=== PATIENT | male | born 1930 | race Caucasian/White ===

== ENCOUNTER 2016-07-27 12:48 | Inpatient (IN) | payer OTHER ==
[2016-07-27] VITALS (7 sets, daily range): BP systolic 140–176; BP diastolic 82–93; PULSE 68–94; TEMP 36.7–36.9; O2SAT 94–96; Ht 177.8 cm; Wt 111.2 kg
[~2016-07-27] VITALS: Ht 177.8 cm; Wt 111.2 kg
[~2016-07-27 12:48] MED LIST: ALBINS INH; ALBU1AER9 INH; ALL100 PO; ASPEC81 PO; CLX20 PO; CMD/25 PO; CYAN100T PO; DLCSR120 PO; FRS/40 PO; LEVO75TA PO; PRAM0.129 PO; PRED10TA PO; TIOTCAP INH; TRIA3AER NAE
[2016-07-27] MEDS ORDERED: ALBUTEROL 0.083% NEBU SOLN 3 ML VIAL INH STA (13:31)
[2016-07-27] MEDS ORDERED: METHYLPREDNISOLONE 125 MG VIAL IV STA (13:31)
[2016-07-27] MEDS ORDERED: MONT1TAB3 PO (13:32)
[2016-07-27] MEDS ORDERED: LEVAQUIN 750MG / 150ML D5W IV ONE (13:45)
[2016-07-27 13:58] LABS: BASO % 0.1 %; BASO ABS # 0.01 K/uL (0-0.2); COMPLETE YES; HEMATOCRIT 38.2 % (42-52); IG% 0.1 %; LYMPH % 10.1 %; LYMPH ABS # 0.82 K/uL (1.2-3.4); MEAN CELL VOLUME 93.6 fL (80-100); MEAN CORPUSCULAR HEMOGLOBIN 30.6 pg (25-34); MEAN CORPUSCULAR HGB CONC 32.7 g/dl (32-36); MEAN PLATELET VOLUME 9.9 fL (7.4-10.4); MONO % 15.7 %; PLATELET COUNT 168 K/uL (130-400); RED BLOOD COUNT 4.08 M/uL (4.7-6.1)
[2016-07-27 14:06] LABS: INR 1.9 (0.9-1.1); PARTIAL THROMBOPLASTIN RATIO 1.3; PROTHROMBIN TIME (PATIENT) 20.9 SECONDS (9.0-12.0)
[2016-07-27 14:14] LABS: BUN/CREATININE RATIO 16.1 (10-20); CALCIUM 8.8 mg/dl (8.5-10.1); POTASSIUM 3.9 mmol/L (3.5-5.1)
--- NOTE | 2016-07-27 14:26 | DIAGNOSTIC IMAGING REPORT ---
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 There is no focal pulmonary consolidation. Slightly prominent interstitial markings, likely reflects the AP technique and suboptimal inspiration. The heart is borderline enlarged. There is no overt failure.[ IMPRESSION: 1. 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 Suboptimal inspiration 3. No evidence of focal pulmonary consolidation Electronically signed by: Alfie Crabtree M.D. 07/27/2016 2:24 PM
[2016-07-27] MEDS ORDERED: ALLO100T PO (15:20)
[2016-07-27] MEDS ORDERED: [UNRECOGNIZED DRUG - CODE] NAE (15:20)
[2016-07-27] MEDS ORDERED: CITA40TA12 PO (15:20)
[2016-07-27] MEDS ORDERED: DILT120C67 PO (15:20)
[2016-07-27] MEDS ORDERED: CMD/25 PO (15:20)
[2016-07-27] MEDS ORDERED: PRED-301 PO (15:20)
[2016-07-27] MEDS ORDERED: SPIR25TA PO (15:20)
[2016-07-27] MEDS ORDERED: CYAN500T13 PO (15:33)
[2016-07-27] MEDS ORDERED: LATA0.009 OPB (15:38)
[2016-07-27] MEDS ORDERED: ONDANSETRON INJ 2 MG/ML 2 ML VIAL IV PRN (15:45)
[2016-07-27] MEDS ORDERED: NITROGLYCERIN 0.4 MG SL PER TAB CHARGE SL PRN (15:45)
[2016-07-27] MEDS ORDERED: ASPEC81 PO (16:04)
--- NOTE | 2016-07-27 18:19 | EMERGENCY ROOM VISIT NOTE ---
History Report prepared by Nery: Chanda Julian Under the Supervision of: Dr. Pedro Abbott D.O. First contact with patient: 13:15 Chief Complaint: REFERRED BY DOCTOR Stated Complaint: SENT BY LIZBET SMITH, COPD, HARD TIME BREATHING History of Present Illness The patient is an 86 year old male who presents to the Emergency Room with complaints of worsening shortness of breath for the past 3 days. He has a history of COPD, CHF and asthma. He reports his symptoms started with rhinorrhea , a productive cough and shortness of breath. He uses Symbicort, Spiriva and Albuterol, but states they only provide temporary relief for the shortness of breath. He experienced hemoptysis 3 days ago, but states it has resolved. He saw his primary care provider, Armando Smith PA-C, this morning and was referred here to the ED for evaluation. The patient denies any new swelling in his legs or any recent antibiotic use. He is on daily Warfarin but cannot remember what his last INR was. The patient also denies any headache, change in vision, fevers, nausea, vomiting, diarrhea, pain with urination, and melena. 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 A total of 10 systems reviewed and were otherwise negative. Past Medical & Surgical Medical Problems: (1) Anxiety (2) CKD (chronic kidney disease) stage 3, GFR 30-59 ml/min (3) Colon cancer (4) COPD (chronic obstructive pulmonary disease) (5) Depression (6) Diastolic congestive heart failure (7) Glaucoma (8) Gout (9) Hypothyroidism (10) YOCASTA (obstructive sleep apnea) (11) Paroxysmal atrial fibrillation (12) Restless leg syndrome Surgical Problems: (1) H/O hernia repair (2) History of cardiac cath (3) History of colon resection (4) S/P TKR (total knee replacement) Social History Smoking Status: Never Smoker Alcohol Use: none Drug Use: none Marital Status: Housing Status: lives with family Occupation Status: retired Current/Historical Medications Scheduled Allopurinol (Zyloprim), 100 MG PO DAILY Aspirin (Aspirin EC Low Dose), 81 MG PO DAILY Budesonide/Formoterol Fumarate (Symbicort 160/4.5 Inhaler ), 2 PUFFS INH BID Ciclesonide (Nasal) (Omnaris), 1 SPRAY SHAYAN DAILY Citalopram Hydrobromide (Celexa), 40 MG PO HS Cyanocobalamin (Vitamin B12 500MCG), 500 MCG PO DAILY Diltiazem Hcl Extended Release (Diltiazem Hcl Er), 120 MG PO DAILY Furosemide (Lasix), 40 MG PO DAILY Latanoprost 0.005% Oph (Xalatan 0.005% Oph), 1 DROP OPB HS Levothyroxine Sodium (Synthroid), 75 MCG PO DAILY Montelukast Sodium (Singulair), 10 MG PO DAILY Pramipexole (Mirapex), 0.25 MG PO HS Prednisone (Prednisone), 5 MG PO DAILY Spironolactone (Aldactone), 25 MG PO DAILY Tiotropium [place] (Spiriva Handihaler), 1 CAP INH DAILY Warfarin Sod (Coumadin), 2.5 MG PO DAILY Scheduled PRN Albuterol (Proair Hfa), 2 PUFFS INH QID PRN for SOB/WHEEZING Albuterol 0.083% Soln (Ventolin 0.083% Soln *), 1 AMP INH QID PRN for Shortness of Breath Allergies Coded Allergies: Erythromycin (Verified Allergy, Mild, RASH-Azithromycin & Biaxin OK, ) tolerates azithromycin and clarithromycin as outpatient Lisinopril (Verified Allergy, Mild, itching, 12/03/10) Physical Exam Vital Signs Date Time Temp Pulse Resp B/P Pulse Ox O2 Delivery O2 Flow Rate FiO2 07/27/16 18:12 78 18 146/84 95 07/27/16 17:27 81 07/27/16 16:56 83 18 151/86 95 Room Air 07/27/16 15:25 94 26 161/82 94 Nasal Cannula 3.0 07/27/16 15:20 93 28 161/82 95 3.0 07/27/16 14:15 80 151/81 100 Nebulizer 07/27/16 14:05 99 07/27/16 13:53 78 20 96 Nasal Cannula 2.0 07/27/16 13:20 81 07/27/16 13:05 38.6 80 20 138/83 94 Room Air Physical Exam GENERAL: Patient is alert, sitting up in bed, ill-appearing, well nourished, in mild distress, on nasal canula, dyspneic with conversation, non-toxic EYE EXAM: normal conjunctiva OROPHARYNX: no exudate, no erythema, lips, buccal mucosa, and tongue normal and mucous membranes are moist NECK: supple, no nuchal rigidity, no adenopathy, non-tender, no JVD LUNGS: Poor air movement bilaterally. Normal chest wall mechanics HEART: Tachycardic heart rate, no murmurs, S1 normal and S2 normal ABDOMEN: abdomen soft, non-tender, normo-active bowel sounds, no masses, no rebound or guarding. BACK: Back is symmetrical on inspection and there is no deformity, no midline tenderness, no CVA tenderness. SKIN: no rashes and no bruising UPPER EXTREMITIES: upper extremities are grossly normal. 4 stitches located in right shoulder. LOWER EXTREMITIES: No pitting edema bilaterally. NEURO EXAM: Normal sensorium, cranial nerves II-XII grossly intact, normal speech, no gross weakness of arms, no gross weakness of legs. Gross sensation intact. Medical Decision & Procedures ER Provider Diagnostic Interpretation: This X-Ray was reviewed and interpreted by myself and the radiologist. CHEST ONE VIEW PORTABLE IMPRESSION: 1. 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 Suboptimal inspiration 3. No evidence of focal pulmonary consolidation Electronically signed by: Alfie Crabtree M.D. 07/27/2016 2:24 PM Laboratory Results 07/27/16 13:44 Red Blood Count 4.08, Mean Corpuscular Volume 93.6, Mean Corpuscular Hemoglobin 30.6, Mean Corpuscular Hemoglobin Concent 32.7, Mean Platelet Volume 9.9, Neutrophils (%) (Auto) 74.0, Lymphocytes (%) (Auto) 10.1, Monocytes (%) (Auto) 15.7, Eosinophils (%) (Auto) 0.0, Basophils (%) (Auto) 0.1, Neutrophils # (Auto ) 5.99, Lymphocytes # (Auto) 0.82, Monocytes # (Auto) 1.27, Eosinophils # (Auto ) 0.00, Basophils # (Auto) 0.01 07/27/16 13:44 Test 07/27/16 13:44 White Blood Count 8.10 K/uL (4.8-10.8) Red Blood Count 4.08 M/uL (4.7-6.1) Hemoglobin 12.5 g/dL (14.0-18.0) Hematocrit 38.2 % (42-52) Mean Corpuscular Volume 93.6 fL (80-100) Mean Corpuscular Hemoglobin 30.6 pg (25-34) Mean Corpuscular Hemoglobin Concent 32.7 g/dl (32-36) Platelet Count 168 K/uL (130-400) Mean Platelet Volume 9.9 fL (7.4-10.4) Neutrophils (%) (Auto) 74.0 % Lymphocytes (%) (Auto) 10.1 % Monocytes (%) (Auto) 15.7 % Eosinophils (%) (Auto) 0.0 % Basophils (%) (Auto) 0.1 % Neutrophils # (Auto) 5.99 K/uL (1.4-6.5) Lymphocytes # (Auto) 0.82 K/uL (1.2-3.4) Monocytes # (Auto) 1.27 K/uL (0.11-0.59) Eosinophils # (Auto) 0.00 K/uL (0-0.5) Basophils # (Auto) 0.01 K/uL (0-0.2) RDW Standard Deviation 54.3 fL (36.4-46.3) RDW Coefficient of Variation 15.8 % (11.5-14.5) Immature Granulocyte % (Auto) 0.1 % Immature Granulocyte # (Auto) 0.01 K/uL (0.00-0.02) Prothrombin Time 20.9 SECONDS (9.0-12.0) Prothromb Time International Ratio 1.9 (0.9-1.1) Activated Partial Thromboplast Time 34.4 SECONDS (21.0-31.0) Partial Thromboplastin Ratio 1.3 Anion Gap 10.0 mmol/L (3-11) Est Creatinine Clear Calc Drug Dose 32.0 ml/min Estimated GFR () 33.5 Estimated GFR (Non- 28.9 BUN/Creatinine Ratio 16.1 (10-20) Calcium Level 8.8 mg/dl (8.5-10.1) Total Bilirubin 0.5 mg/dl (0.2-1) Aspartate Amino Transf (AST/SGOT) 28 U/L (15-37) Alanine Aminotransferase (ALT/SGPT) 21 U/L (12-78) Alkaline Phosphatase 63 U/L (45-117) Troponin I 0.108 ng/ml (0-0.045) Pro-B-Type Natriuretic Peptide 4094 pg/ml (0-1800) Total Protein 6.4 gm/dl (6.4-8.2) Albumin 3.2 gm/dl (3.4-5.0) Globulin 3.2 gm/dl (2.5-4.0) Albumin/Globulin Ratio 1.0 (0.9-2) Laboratory results per my review. Medications Administered Medications (Trade) Dose Ordered Sig/Gilma Route Start Time Stop Time Status Last Admin Dose Admin Albuterol Sulfate (Ventolin 0.083% 2.5MG/3ML Neb) 10 mg NOW STAT INH 07/27/16 13:31 07/27/16 13:34 DC 07/27/16 13:53 10 MG Methylprednisolone Sodium Succinate (Solu-Medrol IV) 125 mg NOW STAT IV 07/27/16 13:31 07/27/16 13:34 DC 07/27/16 13:45 125 MG Levofloxacin (Levaquin / D5w) 750 mg NOW ONCE IV 07/27/16 13:45 07/27/16 13:46 DC 07/27/16 13:45 750 MG ECG Indication: SOB/dyspnea Rate (beats per minute): 83 Rhythm: sinus rhythm Findings: nonspecific-ST abn (Lateral), other (normal axis) ED Course ED COURSE: Vital signs were reviewed and showed normal vital signs. The patients medical record was reviewed The above diagnostic studies were performed and reviewed. ED treatments and interventions as stated above. 1317: The patient was evaluated in room B5. A complete history and physical examination was performed. 1331: Solu-Medrol 125 mg IV, Albuterol Sulfate 10 mg INH. 1345: Levaquin 750 mg IV. 1457: I discussed the patient's case with Susanna Fernandes PA-C, [facility] Hospitalist. The patient will be further evaluated. 1500: Upon reevaluation, the patient is resting comfortably. I discussed my findings with the patient and he understands and agrees with the treatment plan. Based on the patients age, coexisting illnesses, exam and lab findings the decision to treat as an inpatient was made. The patient remained stable while under my care. The patient will be evaluated for further management. Medical Decision Differential diagnoses includes but is not limited to pneumonia, bronchitis, COPD/Asthma exacerbation, pneumothorax, pulmonary embolism, congestive heart failure, acute coronary syndrome. Patient is an 86-year-old male who presents the ER for shortness of breath referred in by pulmonology. Upon presentation he is slightly dyspneic with conversation. He denies any chest pain. Labs show no significant leukocytosis but a chronic elevation in his creatinine at 2. Troponin was elevated at 0.1. Patient had no chest pain and favor this is likely secondary to his creatinine and stress COPD exacerbation. Chest x-ray shows no focal infiltrate. Patient was given neb treatments along with steroids and antibiotics. He did have some improvement of symptoms. EKG was nondiagnostic. INR was therapeutic at 2. Patient family were updated at bedside and is admitted to internal medicine for COPD exacerbation. Consults Time Called: [phone] Consulting Physician: Susanna Fernandes PA-C, [facility] Returned Call: [phone] I discussed the patient's case with Susanna Fernandes PA-C, [facility] Hospitalist. The patient will be further evaluated. Impression Primary Impression: COPD exacerbation Additional Impressions: Elevated troponin, SOB (shortness of breath), Anemia Scribe Attestation The scribe's documentation has been prepared under my direction and personally reviewed by me in its entirety. I confirm that the note above accurately reflects all work, treatment, procedures, and medical decision making performed by me. Departure Information Dispostion Being Evaluated By Hospitalist Referrals Kuldeep Terrazas M.D. (PCP) Patient Instructions A Signature Page, My [facility]
[2016-07-27] MEDS ORDERED: SYMIN160 INH (18:34)
--- NOTE | 2016-07-27 18:40 | History and Physical ---
History & Physical Date & Time of Service: Jul 27, 2016 at 16:11 Chief Complaint: Sent By Edi Smith, Copd, Hard Time Breathing Primary Care Physician: Kuldeep Terrazas M.D. History of Present Illness Source: patient This is an 86 y/o male with PMHx of COPD on chronic Prednisone, CKD stage 3, PAF on Coumadin, Diastolic CHF on Lasix, Hypothyroidism and other problems as outlined below who presents to the ED c/o worsening SOB x 3 days. Pt reports that 3 days ago he developed worsening SOB that is aggravated with exertion. Sxs are assoc with subj fevers, congestion, sinus pressure, occasional productive cough, wheezing and slightly worsened lower extremity edema. He has been using his inhalers and nebulizer at home with only temporary relief. He was seen by pulmonary, Edi Smith PA-C, this morning who recommended he go to the ED for further evaluation. Pt currently lives at home with his . He uses a walker to assist with ambulation. Pt denies chest pain, palpitations, abd pain, N/V, bowel or bladder issues, calf pain, lightheadedness/dizziness. In the ED, pt is febrile on arrival. He has no leukocytosis. Creat 2.0. Trop 0.108. BNP>4k. INR 1.9. EKG NSR with no significant changes when compared to EKG from 05/06/16. CXR no consolidation. Pt is stable and will be admitted for further evaluation and treatment. Past Medical/Surgical History Medical Problems: (1) Anxiety Status: Chronic (2) CKD (chronic kidney disease) stage 3, GFR 30-59 ml/min Status: Chronic (3) Colon cancer Status: Resolved (4) COPD (chronic obstructive pulmonary disease) Status: Chronic (5) Depression Status: Chronic (6) Diastolic congestive heart failure Status: Chronic (7) Glaucoma Status: Chronic (8) Gout Status: Chronic (9) Hypothyroidism Status: Chronic (10) YOCASTA (obstructive sleep apnea) Status: Chronic (11) Paroxysmal atrial fibrillation Status: Chronic (12) Restless leg syndrome Status: Chronic Surgical Problems: (1) H/O hernia repair Status: Chronic (2) History of cardiac cath Status: Chronic (3) History of colon resection Status: Chronic (4) S/P TKR (total knee replacement) Status: Chronic Family History Father CAD Brother CAD Social History Smoking Status: Never Smoker Alcohol Use: none Drug Use: none Marital Status: Housing status: lives with significant other Occupational Status: retired Immunizations History of Influenza Vaccine: Yes Influenza Vaccine Date: Apr 04, 2013 History of Tetanus Vaccine?: utd History of Pneumococcal: Yes Pneumococcal Date: December 01, 2008 History of Hepatitis B Vaccine: No Multi-Drug Resistant Organisms History of MDRO: No Allergies Coded Allergies: Erythromycin (Verified Allergy, Mild, RASH-Azithromycin & Biaxin OK, ) tolerates azithromycin and clarithromycin as outpatient Lisinopril (Verified Allergy, Mild, itching, 12/03/10) Home Medications Scheduled Allopurinol (Zyloprim), 100 MG PO DAILY Aspirin (Aspirin EC Low Dose), 81 MG PO DAILY Budesonide/Formoterol Fumarate (Symbicort 160/4.5 Inhaler ), 2 PUFFS INH BID Ciclesonide (Nasal) (Omnaris), 1 SPRAY SHAYAN DAILY Citalopram Hydrobromide (Celexa), 40 MG PO HS Cyanocobalamin (Vitamin B12 500MCG), 500 MCG PO DAILY Diltiazem Hcl Extended Release (Diltiazem Hcl Er), 120 MG PO DAILY Furosemide (Lasix), 40 MG PO DAILY Latanoprost 0.005% Oph (Xalatan 0.005% Oph), 1 DROP OPB HS Levothyroxine Sodium (Synthroid), 75 MCG PO DAILY Montelukast Sodium (Singulair), 10 MG PO DAILY Pramipexole (Mirapex), 0.25 MG PO HS Prednisone (Prednisone), 5 MG PO DAILY Spironolactone (Aldactone), 25 MG PO DAILY Tiotropium [place] (Spiriva Handihaler), 1 CAP INH DAILY Warfarin Sod (Coumadin), 2.5 MG PO DAILY Scheduled PRN Albuterol (Proair Hfa), 2 PUFFS INH QID PRN for SOB/WHEEZING Albuterol 0.083% Soln (Ventolin 0.083% Soln *), 1 AMP INH QID PRN for Shortness of Breath Review of Systems Constitutional: + fatigue, + fever (subj), No chills, No sweats, No weakness Eyes: No worsening of vision ENT: + nasal symptoms Respiratory: + cough, + dyspnea on exertion, + hemoptysis (streaks: resolved), + problem reported (sinus pressure), + shortness of breath, + sputum, + wheezing Cardiovascular: + edema (chronic), No chest pain, No claudication, No palpitations Abdomen: No constipation, No diarrhea, No nausea, No pain, No vomiting Musculoskeletal: No calf pain Genitourinary - Male: No dysuria Neurologic: No weakness Psychiatric: No depression symptoms Endocrine: + fatigue Hematologic / Lymphatic: No abnormal bleeding/bruising Integumentary: No new/changing skin lesions Physical Exam Vital Signs Date Time Temp Pulse Resp B/P Pulse Ox O2 Delivery O2 Flow Rate FiO2 07/27/16 15:25 94 26 161/82 94 Nasal Cannula 3.0 07/27/16 15:20 93 28 161/82 95 3.0 07/27/16 14:15 80 151/81 100 Nebulizer 07/27/16 14:05 99 07/27/16 13:53 78 20 96 Nasal Cannula 2.0 07/27/16 13:20 81 07/27/16 13:05 38.6 80 20 138/83 94 Room Air General Appearance: WD/WN, no apparent distress, + obese, + pertinent finding ( Pt is laying in bed with at bedside ) Head: normocephalic, atraumatic Eyes: normal inspection ENT: hearing grossly normal, pharynx normal, + nasal drainage, + pertinent finding (R TM pearly fox; unable to visualize L TM; no tenderness to manipulation of pinna bilat ) Neck: supple Respiratory/Chest: chest non-tender, no accessory muscle use, + wheezing, + pertinent finding (no crackles noted ) Cardiovascular: regular rate, rhythm, no murmur Abdomen/GI: normal bowel sounds, non tender, soft Back: normal inspection Extremities/Musculoskelatal: normal inspection, no calf tenderness, + swelling (3+ pitting edema to bilat LE) Neurologic/Psych: alert, normal mood/affect, oriented x 3 Skin: normal color, warm/dry Diagnostics Laboratory Results Results Past 24 Hours Test 07/27/16 13:44 Range/Units White Blood Count 8.10 4.8-10.8 K/uL Red Blood Count 4.08 4.7-6.1 M/uL Hemoglobin 12.5 14.0-18.0 g/dL Hematocrit 38.2 42-52 % Mean Corpuscular Volume 93.6 80-100 fL Mean Corpuscular Hemoglobin 30.6 25-34 pg Mean Corpuscular Hemoglobin Concent 32.7 32-36 g/dl Platelet Count 168 130-400 K/uL Mean Platelet Volume 9.9 7.4-10.4 fL Neutrophils (%) (Auto) 74.0 % Lymphocytes (%) (Auto) 10.1 % Monocytes (%) (Auto) 15.7 % Eosinophils (%) (Auto) 0.0 % Basophils (%) (Auto) 0.1 % Neutrophils # (Auto) 5.99 1.4-6.5 K/uL Lymphocytes # (Auto) 0.82 1.2-3.4 K/uL Monocytes # (Auto) 1.27 0.11-0.59 K/uL Eosinophils # (Auto) 0.00 0-0.5 K/uL Basophils # (Auto) 0.01 0-0.2 K/uL RDW Standard Deviation 54.3 36.4-46.3 fL RDW Coefficient of Variation 15.8 11.5-14.5 % Immature Granulocyte % (Auto) 0.1 % Immature Granulocyte # (Auto) 0.01 0.00-0.02 K/uL Prothrombin Time 20.9 9.0-12.0 SECONDS Prothromb Time International Ratio 1.9 0.9-1.1 Activated Partial Thromboplast Time 34.4 21.0-31.0 SECONDS Partial Thromboplastin Ratio 1.3 Sodium Level 144 136-145 mmol/L Potassium Level 3.9 3.5-5.1 mmol/L Chloride Level 108 98-107 mmol/L Carbon Dioxide Level 26 21-32 mmol/L Anion Gap 10.0 3-11 mmol/L Blood Urea Nitrogen 32 7-18 mg/dl Creatinine 2.00 0.60-1.40 mg/dl Est Creatinine Clear Calc Drug Dose 32.0 ml/min Estimated GFR () 33.5 Estimated GFR (Non- 28.9 BUN/Creatinine Ratio 16.1 10-20 Random Glucose 115 70-99 mg/dl Calcium Level 8.8 8.5-10.1 mg/dl Total Bilirubin 0.5 0.2-1 mg/dl Aspartate Amino Transf (AST/SGOT) 28 15-37 U/L Alanine Aminotransferase (ALT/SGPT) 21 12-78 U/L Alkaline Phosphatase 63 45-117 U/L Troponin I 0.108 0-0.045 ng/ml Pro-B-Type Natriuretic Peptide 4094 0-1800 pg/ml Total Protein 6.4 6.4-8.2 gm/dl Albumin 3.2 3.4-5.0 gm/dl Globulin 3.2 2.5-4.0 gm/dl Albumin/Globulin Ratio 1.0 0.9-2 Diagnostic Radiology CXR IMPRESSION: 1. 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 Suboptimal inspiration 3. No evidence of focal pulmonary consolidation EKG EKG: NSR at 83 bpm with T wave depression in lateral leads; when compared to EKG from 05/06/15 NSR has replaced Afib Impression Assessment and Plan COPD EXACERBATION pt presents with worsening SOB assoc with subj fevers, congestion, sinus pressure and wheezing; h/o COPD on chronic prednisone -admit to telemetry -exacerbation triggered by possible viral infection vs. bronchitis -febrile on arrival with no leukocytosis -CXR no consolidation -check influenza PCR -hold PO steroids and start Solu-Medrol and duonebs -if flu is negative consider continuing abx -consult pulmonary, Edi Smith PA-C-pending input -monitor ELEVATED TROPONIN -low suspicion for cardiac etiology -troponin 0.108; continue to monitor with Vale q 6 hrs -EKG: NSR at [address] depression in lateral leads which was present on previous EKG; no evidence of acute ischemia; repeat in AM -pt currently denies acute cardiac sxs -monitor on telemetry DIASTOLIC CHF -bilat LE edema; BNP>4k; pt did not take Lasix this morning -echo 05/06/15: EF 55-60%; normal study -cont Lasix -monitor I&Os CKD STAGE 3 -creatinine is at baseline around 2 -cont to monitor with daily prp and avoid nephrotoxic agents when able PAROXYSMAL AFIB -EKG: NSR -cont Coumadin and Diltiazem -INR 2.2; cont to monitor daily -pt denies palpitations HYPOTHYROIDISM -cont levothyroxine GOUT -cont allopurinol ANXIETY/DEPRESSION -stable -cont Celexa DVT PROPHYLAXIS -cont Coumadin CODE STATUS -DNR per discussion with patient upon admission DISPO -Pt seen in collaboration with Dr. Sheriff. Please see his addendum for further details. Thanks! Advanced Directives Existing Advance Directive: No Existing Living Will: No Existing Power of Loader Technician: Yes VTE Prophylaxis VTE Risk Assessment Done? Y/N: Yes Risk Level: High Note ATTENDING ADDENDUM Record reviewed. Patient interviewed and examined. Care coordinated with Susanna Davies PA-C. Please refer to her documentation for patient's history. Briefly, 86 YO male with steroid-dependent COPD with cough, wheezing, increased dyspnea. EXAM: General- no acute distress VS- as noted Neck- + JVD Lungs- scattered rhonchi, diffuse wheezing Heart- distant heart sounds, RRR, no gallop appreciated Abdomen- obese, soft, nontender Extremities- 3+ pretibial edema with chronic venous stasis changes Neuro- alert DATA: Lab studies as noted. ASSESSMENT AND PLAN: Exacerbation of COPD secondary to influenza A with acute hypoxic respiratory failure. Rx with oseltamivir, steroids, nebs, supplemental O2. Please refer to TREVER Davies's documentation for discussion of other issues. Joel Sheriff MD .
[2016-07-27] MEDS: ACETAMINOPHEN 325 MG TAB PO PRN (19:54)
[2016-07-27 20:19] LABS: INFLUENZA B PCR Neg for Influ B (NEG)
[2016-07-27 20:24] LABS: INFLUENZA A PCR POS for Influ A (NEG)
[2016-07-27 21:08] LABS: MANUAL MICROSCOPIC REQUIRED? NO; REVIEW REQ? YES; URINE APPEARANCE CLOUDY (CLEAR); URINE BILIRUBIN NEG (NEG); URINE COLOR YELLOW; URINE EPITHELIAL CELL AUTO >30 /lpf (0-5); URINE NITRITE NEG (NEG); URINE SPECIFIC GRAVITY 1.019 (1.000-1.030); UROBILINOGEN NEG (NEG)
[2016-07-27] MEDS: OSELTAMIVIR PHOSPHATE SUSP 30 MG/5 ML UDP PO SCH (21:22)
[2016-07-27] MEDS: METHYLPREDNISOLONE IV 20 MG in SYRINGE 0 ML IV SCH (21:24)
[2016-07-27] MEDS: BUDESONIDE/FORMOTEROL FUMARATE 160/4.5 60 PUFFS/INHALER INH SCH (21:31)
[2016-07-27] MEDS: PRAMIPEXOLE DIHYDROCHLORIDE 0.25MG TAB PO SCH (21:32)
[2016-07-27] MEDS: LATANOPROST 0.005% OP SOLN 2.5 ML BTL OPB SCH (21:32)
[2016-07-27] MEDS: CITALOPRAM 40 MG TAB PO SCH (21:32)
[2016-07-27] MEDS: ALBUT/IPRATROP 3MG/0.5MG NEB 3 ML VIAL INH SCH (21:45)
[2016-07-27] MEDS ORDERED: METHYLPREDNISOLONE IV 40 MG in SYRINGE 0 ML IV SCH (22:00)
[2016-07-28] VITALS (16 sets, daily range): BP systolic 98–162; BP diastolic 63–80; PULSE 65–101; TEMP 36.5–36.8; O2SAT 93–97
[2016-07-28] MEDS: ALBUT/IPRATROP 3MG/0.5MG NEB 3 ML VIAL INH SCH ×5 (02:00→19:57)
[2016-07-28] MEDS: LEVOTHYROXINE 75 MCG TAB PO SCH (05:52)
[2016-07-28] MEDS: METHYLPREDNISOLONE IV 20 MG in SYRINGE 0 ML IV SCH ×3 (05:52→21:18)
[2016-07-28 07:00] LABS: HEMATOCRIT 36.5 % (42-52); MEAN CELL VOLUME 93.1 fL (80-100); MEAN CORPUSCULAR HEMOGLOBIN 30.6 pg (25-34); MEAN CORPUSCULAR HGB CONC 32.9 g/dl (32-36); MEAN PLATELET VOLUME 10.8 fL (7.4-10.4); PLATELET COUNT 171 K/uL (130-400); RED BLOOD COUNT 3.92 M/uL (4.7-6.1); WHITE BLOOD COUNT 6.24 K/uL (4.8-10.8)
[2016-07-28 07:08] LABS: INR 1.9 (0.9-1.1); PROTHROMBIN TIME (PATIENT) 20.4 SECONDS (9.0-12.0)
[2016-07-28] MEDS: SPIRONOLACTONE 25 MG TAB PO SCH (07:21)
[2016-07-28] MEDS: ASPIRIN 81 MG ECTAB PO SCH (07:21)
[2016-07-28] MEDS: BUDESONIDE/FORMOTEROL FUMARATE 160/4.5 60 PUFFS/INHALER INH SCH ×2 (07:21→20:24)
[2016-07-28] MEDS: FUROSEMIDE 40 MG TAB PO SCH (07:22)
[2016-07-28] MEDS: MONTELUKAST SOD 10 MG TAB PO SCH (07:22)
[2016-07-28] MEDS: CYANOCOBALAMIN 500 MCG TAB (VIT B-12) PO SCH (07:22)
[2016-07-28] MEDS: ALLOPURINOL 100 MG TAB PO SCH (07:22)
[2016-07-28] MEDS: DILTIAZEM HCL 120 MG EXT REL CAP PO SCH (07:23)
[2016-07-28] MEDS: ACETAMINOPHEN 325 MG TAB PO PRN ×2 (07:32→21:17)
[2016-07-28] MEDS: OSELTAMIVIR PHOSPHATE SUSP 30 MG/5 ML UDP PO SCH ×2 (07:32→20:27)
[2016-07-28 07:36] LABS: BUN/CREATININE RATIO 16.7 (10-20); CALCIUM 8.8 mg/dl (8.5-10.1); CREATININE 2.1 mg/dl (0.60-1.40)
[2016-07-28 07:44] LABS: CKMB/CK RATIO 2.6 (0-3.0)
--- NOTE | 2016-07-28 13:12 | CONSULTATION REPORT ---
DATE OF CONSULTATION: 07/28/2016 REASON FOR CONSULTATION: COPD exacerbation. 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 When I saw him in the office yesterday for an acute visit, the patient reports that he had 3- to 4-day history of increased cough. Cough was productive of a yellow mucus as well as having some streaking of blood in the mucus. He had increased wheezing. He was very short of breath. He stated that he was not able to walk across his living room without becoming significantly short of breath. He had some chest heaviness and tightness. He had some chest discomfort with coughing. He had no pleuritic chest pain. He did have fever with a maximum temp of 102 at home. He also had chills present. He did not have anything that sounds like rigors. He would get a little bit lightheaded when he first stood up. No headache, no dizziness, no muscle aches or body aches. He had no GI symptoms. No nausea or vomiting, no indigestion or heartburn. His appetite was diminished but otherwise, no changes. He had no abdominal pain. He did not have any difficulty with diarrhea. He reports that he did not really have any increased swelling in his extremities. He states that prior to this, he was doing well and in his normal state. His last hospitalization was May 2015 for COPD exacerbation. He was using his inhaler and nebulizer at home. He states that his nebulizer would provide him some brief relief but it was not lasting as long as it typically did. After seeing him in the office, I did contact Dr. Zelaya, hospitalist, for [facility] and Dr. Zelaya was concerned about sepsis due to fever, so he advised routing to the ER. The patient was routed to the ER and then subsequently admitted to [facility]. When I saw the patient today, he reports that his shortness of breath has improved since yesterday. He is not as short of breath as he was. He feels that he is able to continue to cough the mucus up. He is getting thick yellow mucus up. He did show a specimen to me. He has not noticed any blood in the mucus he has coughed up today. He denies any chest pain today. He denies any other difficulty or problem. In reviewing the chart when he arrived at the Emergency Room yesterday, a troponin was done and was found to be elevated at 0.108. Subsequent one was 0.115, today was 0.086. He was also found to be positive for influenza A, negative for influenza B. Chest x-ray was unremarkable. In reviewing the records, the patient did receive 750 mg of Levaquin and Solu-Medrol in the Emergency Room as well as a nebulizer treatment. Currently he is on Solu-Medrol 20 mg q. 8 hours, Symbicort 160/4.5, DuoNeb 4 times daily routinely and Tamiflu for influenza. When I saw the patient, he is sitting in chair at bedside. Denied any other concerns or problems at this time. In reviewing his note, the patient is someone who we did treat for Aspergillus with last bronchoscopy showing Aspergillus in 2014. He was treated with voriconazole at that time. 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 The patient has undergone multiple bronchoscopies as well. PAST MEDICAL HISTORY: Includes Aspergillus, COPD, questionable history of MAC, chronic kidney disease stage III, paroxysmal atrial fibrillation, diastolic CHF, hypothyroidism, anxiety, colon cancer, depression, glaucoma, gout, obstructive sleep apnea, restless legs syndrome. PAST SURGICAL HISTORY: Includes hernia, cardiac catheterization, colon resection, total knee replacement and recent lesion removal from the right shoulder. FAMILY HISTORY: Includes coronary artery disease. SOCIAL HISTORY: Negative for tobacco, negative for alcohol. The patient is retired and lives with his . HOME MEDICATIONS: Include allopurinol 100 mg daily, aspirin 81 mg daily, Symbicort 160/4.5 two puffs twice daily, Omnaris 1 spray nasally daily, Celexa 40 mg nightly, cyanocobalamin 500 mcg p.o. daily, diltiazem extended release 120 mg daily, furosemide 40 mg daily, Xalatan eye drops 1 drop at bedtime, Synthroid 75 mcg daily, Singulair 10 mg daily, Mirapex 0.25 mg daily, prednisone 5 mg daily, Aldactone 25 mg daily, Spiriva 1 cap via inhaler daily, Coumadin as directed, ProAir 2 puffs q. 4 hours as needed, albuterol via nebulizer q. 4-6 hours as needed. ALLERGIES: ERYTHROMYCIN but he does tolerate azithromycin and clarithromycin as an outpatient AND LISINOPRIL WHICH CAUSES MILD ITCHING. REVIEW OF SYSTEMS: As above, otherwise unremarkable. PHYSICAL EXAMINATION: GENERAL: The patient is an 86-year-old male in no acute distress, no apparent respiratory distress, sitting at bedside in his chair. He is alert and oriented x3. Mood is good. Affect is good. VITAL SIGNS: Temp 36.7, pulse 82, respirations 18, blood pressure is 162/72, pulse ox 96% on 2 liters. HEENT: Normocephalic, atraumatic. Pupils equal, round and reactive to light and accommodation. Extraocular movements are intact. [place] moist gingival and buccal mucosa. NECK: Thick, supple. No mass. No adenopathy. No bruit noted. No JVD noted. CHEST: The patient did have coarse wheezes in the right upper lobe which did clear with cough. He does have decreased breath sounds throughout bilaterally. No other significant wheezing appreciated. Of note, breath sounds today are improved compared to yesterday when I visited him in the office. CARDIOVASCULAR: Regular rate and rhythm. No appreciated murmurs, gallops or rubs. ABDOMEN: Bowel sounds are present. Abdomen is obese, soft, nontender. No guarding, rigidity or organomegaly. EXTREMITIES: There is no erythema. The patient does have +2 edema, which is pitting bilaterally. He does have some chronic stasis changes. There is no cyanosis or clubbing noted. NEUROLOGIC: Cranial nerves II-XII are intact. There is no focal deficit noted. LABORATORY DATA: On the day of consultation shows a white count of 6000, H\T\H 12.0 and 36.5, platelet count 171,000. INR 1.9, BUN 35, creatinine 2.1. CK-MB 7.7, troponin 0.086. Fluid cultures are positive for influenza A, negative for influenza B. Chest x-ray, no evidence of consolidation, mediastinum is widened. There is a little bit of blunting of the costovertebral angle. No appreciated consolidation. IMPRESSION: This is an 86-year-old male who presented to the office yesterday for exacerbation of chronic obstructive pulmonary disease. We sent him to [facility], admitted through the ER and was found to have influenza A. At this point, the patient is showing some slight improvement; however, I would like to do a sputum culture with patient's history of Aspergillus, just to make sure there is not a problem with opportunistic infection. Also would like patient to have a flutter valve and incentive spirometer. Right now he is expectorating the mucus without difficulty. However, if this changes, may want to consider a vibration vest. At this point, I would increase his nebulizer to q. 4 hours while awake and q. 2 hours p.r.n. Continue Solu-Medrol dose as it is. Continue with Tamiflu. We will continue to monitor patient through hospitalization. Thank you for consultation on this patient.
[2016-07-28] MEDS: WARFARIN SOD 2.5 MG TAB PO SCH (16:00)
[2016-07-28] MEDS: PRAMIPEXOLE DIHYDROCHLORIDE 0.25MG TAB PO SCH (20:25)
[2016-07-28] MEDS: LATANOPROST 0.005% OP SOLN 2.5 ML BTL OPB SCH (20:25)
[2016-07-28] MEDS: CITALOPRAM 40 MG TAB PO SCH (20:25)
--- NOTE | 2016-07-28 21:44 | Progress Note ---
Medicine Progress Note Date & Time of Visit: Jul 28, 2016 at 16:20 . Subjective Generalized weakness / malaise. No fever since admission. Persistent wheezing and congested cough. No chest pain. No nausea, vomiting, diarrhea. . Objective Last 8 Hrs Date Time Temp Pulse Resp B/P Pulse Ox O2 Delivery O2 Flow Rate FiO2 07/28/16 20:00 Nasal Cannula 2.0 07/28/16 19:55 68 18 96 Nasal Cannula 2.0 07/28/16 19:14 36.8 101 18 152/74 97 07/28/16 16:00 94 Nasal Cannula 2.0 07/28/16 15:32 36.8 66 18 152/74 97 07/28/16 15:31 67 14 95 Room Air Physical Exam: General- no acute distress Neck- + JVD Lungs- scattered rhonchi, diffuse wheezing Heart- RRR, no gallop appreciated Abdomen- obese, + BS, soft, nontender Extremities- 2-3+ pretibial edema with chronic venous stasis changes Neuro- alert . Laboratory Results: Last 24 Hours Test 07/28/16 06:39 White Blood Count 6.24 K/uL Red Blood Count 3.92 M/uL Hemoglobin 12.0 g/dL Hematocrit 36.5 % Mean Corpuscular Volume 93.1 fL Mean Corpuscular Hemoglobin 30.6 pg Mean Corpuscular Hemoglobin Concent 32.9 g/dl RDW Standard Deviation 52.9 fL RDW Coefficient of Variation 15.5 % Platelet Count 171 K/uL Mean Platelet Volume 10.8 fL Prothrombin Time 20.4 SECONDS Prothromb Time International Ratio 1.9 Sodium Level 138 mmol/L Potassium Level 4.0 mmol/L Chloride Level 106 mmol/L Carbon Dioxide Level 21 mmol/L Anion Gap 11.0 mmol/L Blood Urea Nitrogen 35 mg/dl Creatinine 2.10 mg/dl Est Creatinine Clear Calc Drug Dose 30.4 ml/min Estimated GFR () 31.6 Estimated GFR (Non- 27.3 BUN/Creatinine Ratio 16.7 Random Glucose 150 mg/dl Calcium Level 8.8 mg/dl Total Creatine Kinase 299 U/L Creatine Kinase MB 7.7 ng/ml Creatine Kinase MB Ratio 2.6 Troponin I 0.086 ng/ml Date/Time Source Procedure Growth Status 07/28/16 00:00 Sputum Expectorated Sputum Gram Stain Pending Received 07/28/16 00:00 Sputum Expectorated Sputum Sputum Culture Pending Received Assessment & Plan EXACERBATION OF COPD Secondary to influenza. Continue nebs. Continue steroids- taper as able to usual maintenance dose of prednisone. INFLUENZA A Rx with oseltamivir x 5 days. SLEEP APNEA HISTORY PAROXYSMAL ATRIAL FIBRILLATION Continue diltiazem and warfarin. CHRONIC LEFT VENTRICULAR DIASTOLIC HEART FAILURE Compensated. Continue furosemide and spironolactone. CKD III Baseline creatinine 2 - 2.2 (Apr 2016). Creatinine 2.0 day of admission. Creatinine today = 2.1 Follow. HYPOTHYROIDISM Continue levothyroxine. VTE PROPHYLAXIS Continue warfarin. DISPOSITION Expected discharge to home. Medical follow-up with Dr. Terrazas. Pulmonary follow-up with Edi Smith PA-C. . Current Inpatient Medications: Current Inpatient Medications Medications (Trade) Dose Ordered Sig/Gilma Route Start Time Stop Time Status Last Admin Dose Admin Acetaminophen (Tylenol Tab) 650 mg Q4H PRN PO 07/27/16 15:45 08/26/16 15:44 07/28/16 21:17 650 MG Ondansetron HCl (Zofran Inj) 4 mg Q6H PRN IV 07/27/16 15:45 08/26/16 15:44 Nitroglycerin (Nitrostat Tab) 0.4 mg UD PRN SL 07/27/16 15:45 08/26/16 15:44 Albuterol/ Ipratropium (Duoneb) 3 ml QIDR INH 07/27/16 16:00 08/26/16 15:59 07/28/16 19:57 3 ML Allopurinol (Zyloprim Tab) 100 mg DAILY PO 07/28/16 09:00 08/27/16 08:59 07/28/16 07:22 100 MG Aspirin (Ecotrin Tab) 81 mg DAILY PO 07/28/16 09:00 08/27/16 08:59 07/28/16 07:21 81 MG Budesonide/ Formoterol Fumarate (Symbicort 160/ 4.5 Inh) 2 puffs BID INH 07/27/16 21:00 08/26/16 20:59 07/28/16 20:24 2 PUFFS Citalopram Hydrobromide (celeXA TAB) 40 mg HS PO 07/27/16 21:00 08/26/16 20:59 07/28/16 20:25 40 MG Cyanocobalamin (Vitamin B-12 Tab) 500 mcg DAILY PO 07/28/16 09:00 08/27/16 08:59 07/28/16 07:22 500 MCG Diltiazem HCl (TIAzac CAP) 120 mg DAILY PO 07/28/16 09:00 08/27/16 08:59 07/28/16 07:23 120 MG Furosemide (Lasix tab) 40 mg DAILY PO 07/28/16 09:00 08/27/16 08:59 07/28/16 07:22 40 MG Latanoprost (Xalatan Oph Soln) 1 drops HS OPB 07/27/16 21:00 08/26/16 20:59 07/28/16 20:25 1 DROPS Levothyroxine Sodium (Synthroid Tab) 75 mcg DAILYBB PO 07/28/16 06:00 08/27/16 06:59 07/28/16 05:52 75 MCG Montelukast Sodium (Singulair Tab) 10 mg DAILY PO 07/28/16 09:00 08/27/16 08:59 07/28/16 07:22 10 MG Pramipexole Dihydrochloride (miraPEX TAB) 0.25 mg HS PO 07/27/16 21:00 08/26/16 20:59 07/28/16 20:25 0.25 MG Spironolactone (Aldactone Tab) 25 mg DAILY PO 07/28/16 09:00 08/27/16 08:59 07/28/16 07:21 25 MG Warfarin Sodium (Coumadin Tab) 2.5 mg DAILY@1600 PO 07/28/16 16:00 08/27/16 15:59 07/28/16 16:00 2.5 MG Miscellaneous Information (Order Awaiting Action) 1 ea QS N/A 07/28/16 00:00 08/27/16 00:00 Oseltamivir Phosphate 30 mg 30 mg BID PO 07/27/16 21:00 08/01/16 09:01 07/28/16 20:27 30 MG Methylprednisolone Sodium Succinate/ Syringe (Solu-Medrol IV/ Syringe) 0.32 ml @ 1.5 mls/min Q8 IV 07/27/16 22:00 08/26/16 21:59 07/28/16 21:18 1.5 MLS/MIN
[2016-07-28] MEDS ORDERED: COUGH DROP (SUGAR FREE) LOZ 24 LOZ/1 BOX ONE (22:27)
[2016-07-28] MEDS ORDERED: NURSING DECISION MEDICATION ORDER SCH (22:30)
[2016-07-28] MEDS ORDERED: COUGH DROP (SUGAR FREE) LOZ 24 LOZ/1 BOX PO PRN (22:45)
[2016-07-29] VITALS (12 sets, daily range): BP systolic 153–164; BP diastolic 71–90; PULSE 64–77; TEMP 36.4–36.8; O2SAT 93–98
[2016-07-29] MEDS ORDERED: ZOLPIDEM TARTRATE 5 MG TAB PO PRN
[2016-07-29] MEDS: ZOLPIDEM TARTRATE 5 MG TAB PO PRN (00:41)
[2016-07-29] MEDS: METHYLPREDNISOLONE IV 20 MG in SYRINGE 0 ML IV SCH ×3 (05:36→20:56)
[2016-07-29] MEDS: LEVOTHYROXINE 75 MCG TAB PO SCH (05:36)
[2016-07-29] MEDS: ALBUT/IPRATROP 3MG/0.5MG NEB 3 ML VIAL INH SCH ×5 (05:52→20:30)
[2016-07-29 07:16] LABS: HEMATOCRIT 35.6 % (42-52); MEAN CELL VOLUME 92.5 fL (80-100); MEAN CORPUSCULAR HEMOGLOBIN 30.4 pg (25-34); MEAN CORPUSCULAR HGB CONC 32.9 g/dl (32-36); MEAN PLATELET VOLUME 11.5 fL (7.4-10.4); PLATELET COUNT 181 K/uL (130-400); RED BLOOD COUNT 3.85 M/uL (4.7-6.1); WHITE BLOOD COUNT 10.81 K/uL (4.8-10.8)
[2016-07-29 07:24] LABS: PROTHROMBIN TIME (PATIENT) 56.7 SECONDS (9.0-12.0)
[2016-07-29] MEDS: ALLOPURINOL 100 MG TAB PO SCH (07:30)
[2016-07-29] MEDS: ASPIRIN 81 MG ECTAB PO SCH (07:30)
[2016-07-29] MEDS: MONTELUKAST SOD 10 MG TAB PO SCH (07:30)
[2016-07-29] MEDS: CYANOCOBALAMIN 500 MCG TAB (VIT B-12) PO SCH (07:31)
[2016-07-29] MEDS: DILTIAZEM HCL 120 MG EXT REL CAP PO SCH (07:31)
[2016-07-29] MEDS: FUROSEMIDE 40 MG TAB PO SCH (07:32)
[2016-07-29] MEDS: SPIRONOLACTONE 25 MG TAB PO SCH (07:32)
[2016-07-29] MEDS: BUDESONIDE/FORMOTEROL FUMARATE 160/4.5 60 PUFFS/INHALER INH SCH ×2 (07:33→20:54)
[2016-07-29] MEDS: OSELTAMIVIR PHOSPHATE SUSP 30 MG/5 ML UDP PO SCH ×2 (07:33→21:08)
[2016-07-29 07:39] LABS: CALCIUM 8.7 mg/dl (8.5-10.1); CREATININE 2.2 mg/dl (0.60-1.40); POTASSIUM 4.4 mmol/L (3.5-5.1)
[2016-07-29] MEDS ORDERED: VANCOMYCIN INJ 1,500 MG in SODIUM CHLORIDE 0.9% 250ML 250 ML IV SCH (09:00)
--- NOTE | 2016-07-29 12:23 | PULMONARY PROGRESS NOTE ---
DATE: 07/29/2016 DATE: 07/29/2016. TIME: 11:15 a.m. SUBJECTIVE: The patient states he is feeling somewhat better. He coughed up a large quantity of yellow sputum yesterday. He states he felt better after that. It was still on the dark side. He is not as short of breath as when he first came in. At rest he is fairly comfortable but with any exertion he is still short of breath. The patient commented that he usually wears CPAP at home. He has not been getting his CPAP here in the hospital. He is not complaining currently of chills, fevers or sweats. OBJECTIVE: GENERAL: The patient looked comfortable at rest. He is moderately obese with a BMI of 35.2. SKIN: Dry and scaly. NECK: Palpation of the neck reveals no lymph nodes. HEART: Heart rate was 74 per minute. Blood pressure 164/82. LUNGS: Black reveal severely diminished breath sounds bilaterally. Faint end expiratory wheezes are noted. Respiratory rate 18 breaths per minute. Oxygen saturation 95% on 2 liters. ABDOMEN: Markedly obese. Bowel sounds were present. He has a large scar from prior surgery. There was no tenderness to palpation or masses. EXTREMITIES: Showed no cyanosis or clubbing. There is mild nonpitting edema noted. LABORATORY DATA: CBC today shows a white count of 10.81. Hemoglobin 11.7. Platelets 181,000. INR today is elevated at 5. This was a dramatic increase from yesterday when it was 1.9. Electrolytes show sodium 138, potassium 4.4, chloride 105, bicarb 21. The BUN was 46 with a creatinine of 2.2. The prior BUN was 35 and prior creatinine was 2.1. His troponin levels were elevated on admission at 0.115 and yesterday 2.086. ASSESSMENTS: 1. Acute influenza A. 2. Chronic obstructive pulmonary disease exacerbation secondary to #1. 3. Obstructive sleep apnea. 4. Renal insufficiency. COMMENTS AND RECOMMENDATIONS: We will start the patient's CPAP. I reviewed the office records. I could not find a definitive note. He had a sleep study done at [facility] back in 2009 and it appears that the pressure at that time was 7. I will order a pressure of 8 cm for now. It would seem like he likely would need more than that based upon his body habitus. The patient's INR prolonged significantly today. This will need to be followed very closely.
--- NOTE | 2016-07-29 19:58 | Progress Note ---
Medicine Progress Note Date & Time of Visit: Jul 29, 2016 at 13:45 . Subjective No fever. Persistent congested cough and wheezing, but a little better. No chest pain. No nausea or vomiting. No diarrhea. . Objective Last 8 Hrs Date Time Temp Pulse Resp B/P Pulse Ox O2 Delivery O2 Flow Rate FiO2 07/29/16 16:28 75 18 95 Nasal Cannula 2.0 07/29/16 16:10 93 Room Air 07/29/16 15:08 36.4 69 16 153/71 93 Nasal Cannula 2.0 Physical Exam: General- no acute distress Neck- + JVD Lungs- scattered rhonchi, diffuse moderate wheezing Heart- RRR Abdomen- obese, + BS, soft, nontender Extremities- 2-3+ pretibial edema with chronic venous stasis changes Neuro- alert . Laboratory Results: Last 24 Hours Test 07/29/16 06:35 White Blood Count 10.81 K/uL Red Blood Count 3.85 M/uL Hemoglobin 11.7 g/dL Hematocrit 35.6 % Mean Corpuscular Volume 92.5 fL Mean Corpuscular Hemoglobin 30.4 pg Mean Corpuscular Hemoglobin Concent 32.9 g/dl RDW Standard Deviation 52.1 fL RDW Coefficient of Variation 15.4 % Platelet Count 181 K/uL Mean Platelet Volume 11.5 fL Nucleated RBC Absolute Count (auto) 0.04 K/uL Nucleated Red Blood Cells % 0.3 % Prothrombin Time 56.7 SECONDS Prothromb Time International Ratio 5.0 Sodium Level 138 mmol/L Potassium Level 4.4 mmol/L Chloride Level 105 mmol/L Carbon Dioxide Level 21 mmol/L Anion Gap 12.0 mmol/L Blood Urea Nitrogen 46 mg/dl Creatinine 2.20 mg/dl Est Creatinine Clear Calc Drug Dose 29.0 ml/min Estimated GFR () 29.9 Estimated GFR (Non- 25.8 BUN/Creatinine Ratio 21.0 Random Glucose 149 mg/dl Calcium Level 8.7 mg/dl Assessment & Plan EXACERBATION OF COPD Secondary to influenza. Continue nebs. Continue steroids- taper as able to usual maintenance dose of prednisone. INFLUENZA A Rx with oseltamivir x 5 days. SLEEP APNEA CPAP @ night. HISTORY PAROXYSMAL ATRIAL FIBRILLATION Continue diltiazem and warfarin. INR has risen to 5. Vitamin K 2.5 mg x 1. CHRONIC LEFT VENTRICULAR DIASTOLIC HEART FAILURE Compensated. Continue furosemide and spironolactone. CKD III Baseline creatinine 2 - 2.2 (Apr 2016). Creatinine 2.0 day of admission. Creatinine today = 2.2 Follow. HYPOTHYROIDISM Continue levothyroxine. VTE PROPHYLAXIS Continue warfarin. DISPOSITION Expected discharge to home. Medical follow-up with Dr. Terrazas. Pulmonary follow-up with Edi Smith PA-C. . Current Inpatient Medications: Current Inpatient Medications Medications (Trade) Dose Ordered Sig/Gilma Route Start Time Stop Time Status Last Admin Dose Admin Acetaminophen (Tylenol Tab) 650 mg Q4H PRN PO 07/27/16 15:45 08/26/16 15:44 07/28/16 21:17 650 MG Ondansetron HCl (Zofran Inj) 4 mg Q6H PRN IV 07/27/16 15:45 08/26/16 15:44 Nitroglycerin (Nitrostat Tab) 0.4 mg UD PRN SL 07/27/16 15:45 08/26/16 15:44 Albuterol/ Ipratropium (Duoneb) 3 ml QIDR INH 07/27/16 16:00 08/26/16 15:59 07/29/16 16:25 3 ML Allopurinol (Zyloprim Tab) 100 mg DAILY PO 07/28/16 09:00 08/27/16 08:59 07/29/16 07:30 100 MG Aspirin (Ecotrin Tab) 81 mg DAILY PO 07/28/16 09:00 08/27/16 08:59 07/29/16 07:30 81 MG Budesonide/ Formoterol Fumarate (Symbicort 160/ 4.5 Inh) 2 puffs BID INH 07/27/16 21:00 08/26/16 20:59 07/29/16 07:33 2 PUFFS Citalopram Hydrobromide (celeXA TAB) 40 mg HS PO 07/27/16 21:00 08/26/16 20:59 07/28/16 20:25 40 MG Cyanocobalamin (Vitamin B-12 Tab) 500 mcg DAILY PO 07/28/16 09:00 08/27/16 08:59 07/29/16 07:31 500 MCG Diltiazem HCl (TIAzac CAP) 120 mg DAILY PO 07/28/16 09:00 08/27/16 08:59 07/29/16 07:31 120 MG Furosemide (Lasix tab) 40 mg DAILY PO 07/28/16 09:00 08/27/16 08:59 07/29/16 07:32 40 MG Latanoprost (Xalatan Oph Soln) 1 drops HS OPB 07/27/16 21:00 08/26/16 20:59 07/28/16 20:25 1 DROPS Levothyroxine Sodium (Synthroid Tab) 75 mcg DAILYBB PO 07/28/16 06:00 08/27/16 06:59 07/29/16 05:36 75 MCG Montelukast Sodium (Singulair Tab) 10 mg DAILY PO 07/28/16 09:00 08/27/16 08:59 07/29/16 07:30 10 MG Pramipexole Dihydrochloride (miraPEX TAB) 0.25 mg HS PO 07/27/16 21:00 08/26/16 20:59 07/28/16 20:25 0.25 MG Spironolactone (Aldactone Tab) 25 mg DAILY PO 07/28/16 09:00 08/27/16 08:59 07/29/16 07:32 25 MG Warfarin Sodium (Coumadin Tab) 2.5 mg DAILY@1600 PO 07/28/16 16:00 08/27/16 15:59 Future Hold 07/28/16 16:00 2.5 MG Miscellaneous Information (Order Awaiting Action) 1 ea QS N/A 07/28/16 00:00 08/27/16 00:00 Oseltamivir Phosphate 30 mg 30 mg BID PO 07/27/16 21:00 08/01/16 09:01 07/29/16 07:33 30 MG Methylprednisolone Sodium Succinate/ Syringe (Solu-Medrol IV/ Syringe) 0.32 ml @ 1.5 mls/min Q8 IV 07/27/16 22:00 08/26/16 21:59 07/29/16 13:19 1.5 MLS/MIN Menthol (Nice Berna) 1 berna PRN PRN PO 07/28/16 22:45 08/27/16 22:44 Zolpidem Tartrate 5 mg 5 mg HS PRN PO 07/29/16 00:00 08/28/16 00:00 07/29/16 00:41 5 MG Pantoprazole Sodium/Syringe (Protonix Inj/ Syringe) 10 ml @ 5 mls/min NOW ONCE IV 07/29/16 20:00 07/29/16 20:01 UNV Pantoprazole Sodium (Protonix Tab) 40 mg QAM PO 07/30/16 08:00 08/29/16 07:59 UNV Al Hydrox/Mg Hydrox/Simethicone (Maalox Max Susp) 15 ml Q6H PRN PO 07/29/16 20:00 08/28/16 19:59 UNV
[2016-07-29] MEDS ORDERED: PHYTONADIONE 5 MG TAB PO ONE (20:00)
[2016-07-29] MEDS ORDERED: ALUMINUM/MAGNESIUM/SIMETH (MAALOX MAX) 30 ML UDC PO PRN (20:00)
[2016-07-29] MEDS ORDERED: PANTOprazole INJ 40 MG in SYRINGE 0 ML IV ONE (20:15)
[2016-07-29] MEDS: CITALOPRAM 40 MG TAB PO SCH (20:54)
[2016-07-29] MEDS: LATANOPROST 0.005% OP SOLN 2.5 ML BTL OPB SCH (20:55)
[2016-07-29] MEDS: PRAMIPEXOLE DIHYDROCHLORIDE 0.25MG TAB PO SCH (20:56)
[2016-07-30] VITALS (11 sets, daily range): BP systolic 156–191; BP diastolic 79–102; PULSE 60–77; TEMP 36.3–36.9; O2SAT 93–96
[2016-07-30] MEDS: METHYLPREDNISOLONE IV 20 MG in SYRINGE 0 ML IV SCH ×3 (06:23→20:47)
[2016-07-30] MEDS: LEVOTHYROXINE 75 MCG TAB PO SCH (06:24)
[2016-07-30 06:54] LABS: INR 2.5 (0.9-1.1); PROTHROMBIN TIME (PATIENT) 28.1 SECONDS (9.0-12.0)
[2016-07-30] MEDS: ALBUT/IPRATROP 3MG/0.5MG NEB 3 ML VIAL INH SCH ×4 (07:06→19:11)
[2016-07-30 07:07] LABS: BUN/CREATININE RATIO 24.4 (10-20); CALCIUM 8.6 mg/dl (8.5-10.1); CREATININE 2.3 mg/dl (0.60-1.40); POTASSIUM 4.2 mmol/L (3.5-5.1)
[2016-07-30] MEDS: SPIRONOLACTONE 25 MG TAB PO SCH (08:44)
[2016-07-30] MEDS: CYANOCOBALAMIN 500 MCG TAB (VIT B-12) PO SCH (08:44)
[2016-07-30] MEDS: ALLOPURINOL 100 MG TAB PO SCH (08:44)
[2016-07-30] MEDS: DILTIAZEM HCL 120 MG EXT REL CAP PO SCH (08:44)
[2016-07-30] MEDS: PANTOprazole SOD 40 MG TAB PO SCH (08:44)
[2016-07-30] MEDS: ASPIRIN 81 MG ECTAB PO SCH (08:44)
[2016-07-30] MEDS: MONTELUKAST SOD 10 MG TAB PO SCH (08:44)
[2016-07-30] MEDS: BUDESONIDE/FORMOTEROL FUMARATE 160/4.5 60 PUFFS/INHALER INH SCH ×2 (08:46→20:48)
[2016-07-30] MEDS: OSELTAMIVIR PHOSPHATE SUSP 30 MG/5 ML UDP PO SCH ×2 (08:50→20:47)
--- NOTE | 2016-07-30 09:05 | Progress Note ---
Medicine Progress Note Date & Time of Visit: Jul 30, 2016 at 08:20 . Subjective No fever. Cough somewhat better. Dyspneic on exertion- worse than baseline. No chest pain. No nausea, vomiting, diarrhea. . Objective Last 8 Hrs Date Time Temp Pulse Resp B/P Pulse Ox O2 Delivery O2 Flow Rate FiO2 07/30/16 08:17 36.3 62 20 191/102 96 Room Air 07/30/16 07:06 60 18 94 Room Air Physical Exam: General- no acute distress Neck- + JVD Lungs- scattered rhonchi, diffuse moderate wheezing Heart- RRR Abdomen- obese, + BS, soft, nontender Extremities- 2-3+ pretibial edema with chronic venous stasis changes Neuro- alert Skin- incision right shoulder from excision of skin Ca with running nylon sutures; incision well-healed without erythema or drainage . Laboratory Results: Last 24 Hours Test 07/30/16 05:58 Prothrombin Time 28.1 SECONDS Prothromb Time International Ratio 2.5 Sodium Level 136 mmol/L Potassium Level 4.2 mmol/L Chloride Level 104 mmol/L Carbon Dioxide Level 22 mmol/L Anion Gap 10.0 mmol/L Blood Urea Nitrogen 56 mg/dl Creatinine 2.30 mg/dl Est Creatinine Clear Calc Drug Dose 27.7 ml/min Estimated GFR () 28.3 Estimated GFR (Non- 24.4 BUN/Creatinine Ratio 24.4 Random Glucose 152 mg/dl Calcium Level 8.6 mg/dl Assessment & Plan EXACERBATION OF COPD Secondary to influenza. Continue nebs. Continue steroids- taper as able to usual maintenance dose of prednisone. INFLUENZA A Rx with oseltamivir x 5 days - today is day # 4 SLEEP APNEA CPAP @ night. HISTORY PAROXYSMAL ATRIAL FIBRILLATION Continue diltiazem and warfarin. INR sekou to 5. Vitamin K 2.5 mg x 1 07/29/16. INR today = 2.5. Warfarin 2.5 mg PO today. CHRONIC LEFT VENTRICULAR DIASTOLIC HEART FAILURE Appeared to be compensated at time of admission. Managed with furosemide and spironolactone. Creatinine elevated today- hold furosemide, check f/u chest x-ray. CKD III Baseline creatinine 2 - 2.2 (Apr 2016). Creatinine 2.0 day of admission. Creatinine today = 2.3 Follow. HYPOTHYROIDISM Continue levothyroxine. S/P EXCISION SKIN CA RIGHT SHOULDER Sutures removed. VTE PROPHYLAXIS Continue warfarin. DISPOSITION Expected discharge to home. Medical follow-up with Dr. Terrazas. Pulmonary follow-up with Edi Smith PA-C. Components of this document were electronically copied and updated from the last documentation created by the undersigned in order to maintain a complete, accurate, and current record. Any portion of this document created by another author, if any, will be attributed to them. I certify that the record accurately reflects the patient's current status and services provided on the date of service. . Current Inpatient Medications: Current Inpatient Medications Medications (Trade) Dose Ordered Sig/Gilma Route Start Time Stop Time Status Last Admin Dose Admin Acetaminophen (Tylenol Tab) 650 mg Q4H PRN PO 07/27/16 15:45 08/26/16 15:44 07/28/16 21:17 650 MG Ondansetron HCl (Zofran Inj) 4 mg Q6H PRN IV 07/27/16 15:45 08/26/16 15:44 Nitroglycerin (Nitrostat Tab) 0.4 mg UD PRN SL 07/27/16 15:45 08/26/16 15:44 Albuterol/ Ipratropium (Duoneb) 3 ml QIDR INH 07/27/16 16:00 08/26/16 15:59 07/30/16 07:06 3 ML Allopurinol (Zyloprim Tab) 100 mg DAILY PO 07/28/16 09:00 08/27/16 08:59 07/30/16 08:44 100 MG Aspirin (Ecotrin Tab) 81 mg DAILY PO 07/28/16 09:00 08/27/16 08:59 07/30/16 08:44 81 MG Budesonide/ Formoterol Fumarate (Symbicort 160/ 4.5 Inh) 2 puffs BID INH 07/27/16 21:00 08/26/16 20:59 07/30/16 08:46 2 PUFFS Citalopram Hydrobromide (celeXA TAB) 40 mg HS PO 07/27/16 21:00 08/26/16 20:59 07/29/16 20:54 40 MG Cyanocobalamin (Vitamin B-12 Tab) 500 mcg DAILY PO 07/28/16 09:00 08/27/16 08:59 07/30/16 08:44 500 MCG Diltiazem HCl (TIAzac CAP) 120 mg DAILY PO 07/28/16 09:00 08/27/16 08:59 07/30/16 08:44 120 MG Furosemide (Lasix tab) 40 mg DAILY PO 07/28/16 09:00 08/27/16 08:59 Future Hold 07/29/16 07:32 40 MG Latanoprost (Xalatan Oph Soln) 1 drops HS OPB 07/27/16 21:00 08/26/16 20:59 07/29/16 20:55 1 DROPS Levothyroxine Sodium (Synthroid Tab) 75 mcg DAILYBB PO 07/28/16 06:00 08/27/16 06:59 07/30/16 06:24 75 MCG Montelukast Sodium (Singulair Tab) 10 mg DAILY PO 07/28/16 09:00 08/27/16 08:59 07/30/16 08:44 10 MG Pramipexole Dihydrochloride (miraPEX TAB) 0.25 mg HS PO 07/27/16 21:00 08/26/16 20:59 07/29/16 20:56 0.25 MG Spironolactone (Aldactone Tab) 25 mg DAILY PO 07/28/16 09:00 08/27/16 08:59 07/30/16 08:44 25 MG Warfarin Sodium (Coumadin Tab) 2.5 mg DAILY@1600 PO 07/28/16 16:00 08/27/16 15:59 Future Hold 07/28/16 16:00 2.5 MG Miscellaneous Information (Order Awaiting Action) 1 ea QS N/A 07/28/16 00:00 08/27/16 00:00 07/30/16 08:00 1 EA Oseltamivir Phosphate 30 mg 30 mg BID PO 07/27/16 21:00 08/01/16 09:01 07/30/16 08:50 30 MG Methylprednisolone Sodium Succinate/ Syringe (Solu-Medrol IV/ Syringe) 0.32 ml @ 1.5 mls/min Q8 IV 07/27/16 22:00 08/26/16 21:59 07/30/16 06:23 1.5 MLS/MIN Menthol (Nice Berna) 1 berna PRN PRN PO 07/28/16 22:45 08/27/16 22:44 Zolpidem Tartrate (Ambien Tab) 5 mg HS PRN PO 07/29/16 00:00 08/28/16 00:00 07/29/16 00:41 5 MG Pantoprazole Sodium (Protonix Tab) 40 mg QAM PO 07/30/16 08:00 08/29/16 07:59 07/30/16 08:44 40 MG Al Hydrox/Mg Hydrox/Simethicone (Maalox Max Susp) 15 ml Q6H PRN PO 07/29/16 20:00 08/28/16 19:59
--- NOTE | 2016-07-30 10:12 | DIAGNOSTIC IMAGING REPORT ---
CHEST 2 VIEWS ROUTINE CLINICAL HISTORY: SOB, CHF, COPD, influenza dyspnea COMPARISON STUDY: 07/27/2016 FINDINGS: Right-sided aortic arch. This time at this time is unremarkable. Lungs are considered clear. Chronic pleural thickening right base laterally. Minimal chronic basilar atelectatic change. IMPRESSION: Improved exam with no acute process noted on the current study. Right-sided aortic arch. Electronically signed by: Ben Peguero M.D. 07/30/2016 10:10 AM
--- NOTE | 2016-07-30 15:54 | Pulmonology Progress Note ---
Pulmonary Progress Note Date of Service Jul 30, 2016. Attending Cable Subjective Continues to be dyspneic with activity such as ambulating to the restroom. Cough productive of "stringy" yellow sputum. No hemoptysis today. Using flutter and bedside spirometry. Appetite in-tact. Denies pain. Objective 86-yo male hospital day # 4 admitted with Influenza A / Exacerbation of COPD. 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 MAC on bronchoscopy 2008, respiratory aspergillus culture, colon cancer, YOCASTA/RLS, right aortic arch. History notable for 1-2x annual admission with COPD exacerbation last 04/2015. Patient admitted to [facility] 07/27/16 through the ED with 3-day h/o increased dyspnea , productive cough, fever, and blood tinged sputum. ON admission WBC: 8.10, Hgb/ Hct: 12.5/35.2, plts; 168, INR: 1.9, BNP: 4100, troponin elevated. PCR: + Influenza A. Sputum: Normal enrike. CXR 07/27/16: no infiltrate or acute process. He was treated with IV steroid, Tamiflu (day #4) and bronchodilators. 07/29/16 he reported he was able expectorate more sputum with relief. Today: - Afebrile, Hypertensive - O2: 94-96% RA - PAP overnight (CPAP 8cm H20) - Using flutter and i-Spirometer: [id number] Physical Exam: Constitutional: WDWN obese elderly male sitting in chair at bedside. No acute distress. Head: + facial symmetry. EOMi, PERRLA. NO injection Respiratory: non-labored respirations. Bilateral rale with shallow respirations. No wheeze. No cough on exam CV: RRR, no MRG appreciated. Warm peripherally with venous stasis changes lower extremities bilaterally GI: Protuberant soft abdomen. Non-tender with active bowel sounds. MSK/Extremities: ++ bilateral lower extremity edema. Integumentary: diffuse actinic skin changes Neurologic: A&O. Good data recall. Able to follow complex commands. Assessment & Plan 86-yo male with moderate/severe COPD presents with exacerbation + Influenza A: He is responding well to current regimen of bronchodilators, IV steroid and 4/ 10 oseltamivir. Start guaifenesin to aid mobilization of sticky sputum. Reassess tomorrow if continued improvement transition to PO steroid. Will continue to follow along. Data Medications: Current Inpatient Medications Medications (Trade) Dose Ordered Sig/Gilma Route Start Time Stop Time Status Last Admin Dose Admin Acetaminophen (Tylenol Tab) 650 mg Q4H PRN PO 07/27/16 15:45 08/26/16 15:44 07/28/16 21:17 650 MG Ondansetron HCl (Zofran Inj) 4 mg Q6H PRN IV 07/27/16 15:45 08/26/16 15:44 Nitroglycerin (Nitrostat Tab) 0.4 mg UD PRN SL 07/27/16 15:45 08/26/16 15:44 Albuterol/ Ipratropium (Duoneb) 3 ml QIDR INH 07/27/16 16:00 08/26/16 15:59 07/30/16 15:27 3 ML Allopurinol (Zyloprim Tab) 100 mg DAILY PO 07/28/16 09:00 08/27/16 08:59 07/30/16 08:44 100 MG Aspirin (Ecotrin Tab) 81 mg DAILY PO 07/28/16 09:00 08/27/16 08:59 07/30/16 08:44 81 MG Budesonide/ Formoterol Fumarate (Symbicort 160/ 4.5 Inh) 2 puffs BID INH 07/27/16 21:00 08/26/16 20:59 07/30/16 08:46 2 PUFFS Citalopram Hydrobromide (celeXA TAB) 40 mg HS PO 07/27/16 21:00 08/26/16 20:59 07/29/16 20:54 40 MG Cyanocobalamin (Vitamin B-12 Tab) 500 mcg DAILY PO 07/28/16 09:00 08/27/16 08:59 07/30/16 08:44 500 MCG Diltiazem HCl (TIAzac CAP) 120 mg DAILY PO 07/28/16 09:00 08/27/16 08:59 07/30/16 08:44 120 MG Furosemide (Lasix tab) 40 mg DAILY PO 07/28/16 09:00 08/27/16 08:59 Future Hold 07/29/16 07:32 40 MG Latanoprost (Xalatan Oph Soln) 1 drops HS OPB 07/27/16 21:00 08/26/16 20:59 07/29/16 20:55 1 DROPS Levothyroxine Sodium (Synthroid Tab) 75 mcg DAILYBB PO 07/28/16 06:00 08/27/16 06:59 07/30/16 06:24 75 MCG Montelukast Sodium (Singulair Tab) 10 mg DAILY PO 07/28/16 09:00 08/27/16 08:59 07/30/16 08:44 10 MG Pramipexole Dihydrochloride (miraPEX TAB) 0.25 mg HS PO 07/27/16 21:00 08/26/16 20:59 07/29/16 20:56 0.25 MG Spironolactone (Aldactone Tab) 25 mg DAILY PO 07/28/16 09:00 08/27/16 08:59 07/30/16 08:44 25 MG Warfarin Sodium (Coumadin Tab) 2.5 mg DAILY@1600 PO 07/28/16 16:00 08/27/16 15:59 Future hold 07/28/16 16:00 2.5 MG Miscellaneous Information (Order Awaiting Action) 1 ea QS N/A 07/28/16 00:00 08/27/16 00:00 07/30/16 13:30 1 EA Oseltamivir Phosphate 30 mg 30 mg BID PO 07/27/16 21:00 08/01/16 09:01 07/30/16 08:50 30 MG Methylprednisolone Sodium Succinate/ Syringe (Solu-Medrol IV/ Syringe) 0.32 ml @ 1.5 mls/min Q8 IV 07/27/16 22:00 08/26/16 21:59 07/30/16 13:30 1.5 MLS/MIN Menthol (Nice Berna) 1 berna PRN PRN PO 07/28/16 22:45 08/27/16 22:44 Zolpidem Tartrate (Ambien Tab) 5 mg HS PRN PO 07/29/16 00:00 08/28/16 00:00 07/29/16 00:41 5 MG Pantoprazole Sodium (Protonix Tab) 40 mg QAM PO 07/30/16 08:00 08/29/16 07:59 07/30/16 08:44 40 MG Al Hydrox/Mg Hydrox/Simethicone (Maalox Max Susp) 15 ml Q6H PRN PO 07/29/16 20:00 08/28/16 19:59 I & O: 24-Hour Column 07/30/16 08:00 Intake Total 300 ml Output Total 650 ml Balance -350 ml Vital Signs: Date Time Temp Pulse Resp B/P Pulse Ox O2 Delivery O2 Flow Rate FiO2 07/30/16 15:27 77 18 93 Room Air 07/30/16 11:16 62 18 94 Room Air 07/30/16 09:00 Room Air 07/30/16 08:17 36.3 62 20 191/102 96 Room Air 07/30/16 07:06 60 18 94 Room Air 07/30/16 00:39 96 Room Air 07/30/16 00:20 36.9 62 20 156/79 94 BiPAP 07/29/16 22:42 64 95 07/29/16 22:00 96 Room Air 07/29/16 20:33 74 18 96 Room Air 07/29/16 16:28 75 18 95 Nasal Cannula 2.0 07/29/16 16:10 93 Room Air Laboratory Results: Last 24 Hours Test 07/30/16 05:58 Prothrombin Time 28.1 SECONDS Prothromb Time International Ratio 2.5 Sodium Level 136 mmol/L Potassium Level 4.2 mmol/L Chloride Level 104 mmol/L Carbon Dioxide Level 22 mmol/L Anion Gap 10.0 mmol/L Blood Urea Nitrogen 56 mg/dl Creatinine 2.30 mg/dl Est Creatinine Clear Calc Drug Dose 27.7 ml/min Estimated GFR () 28.3 Estimated GFR (Non- 24.4 BUN/Creatinine Ratio 24.4 Random Glucose 152 mg/dl Calcium Level 8.6 mg/dl
[2016-07-30] MEDS: WARFARIN SOD 2.5 MG TAB PO SCH (16:05)
[2016-07-30] MEDS: HydrALAZINE 10 MG TAB PO PRN (18:21)
[2016-07-30] MEDS: CITALOPRAM 40 MG TAB PO SCH (20:47)
[2016-07-30] MEDS: PRAMIPEXOLE DIHYDROCHLORIDE 0.25MG TAB PO SCH (20:47)
[2016-07-30] MEDS: LATANOPROST 0.005% OP SOLN 2.5 ML BTL OPB SCH (20:48)
[2016-07-30] MEDS: ZOLPIDEM TARTRATE 5 MG TAB PO PRN (21:49)
[2016-07-30] MEDS: GUAIFENESIN 600 MG TABCR PO SCH (21:49)
[2016-07-31] VITALS (10 sets, daily range): BP systolic 139–180; BP diastolic 66–96; PULSE 56–82; TEMP 36.3–36.6; O2SAT 92–96
[2016-07-31 06:11] LABS: HEMATOCRIT 33.5 % (42-52); MEAN CORPUSCULAR HEMOGLOBIN 30.8 pg (25-34); MEAN CORPUSCULAR HGB CONC 33.4 g/dl (32-36); MEAN PLATELET VOLUME 10.6 fL (7.4-10.4); PLATELET COUNT 160 K/uL (130-400); RED BLOOD COUNT 3.64 M/uL (4.7-6.1); WHITE BLOOD COUNT 10.18 K/uL (4.8-10.8)
[2016-07-31] MEDS: ALBUT/IPRATROP 3MG/0.5MG NEB 3 ML VIAL INH SCH ×3 (06:14→19:41)
[2016-07-31 06:31] LABS: INR 1.4 (0.9-1.1); PROTHROMBIN TIME (PATIENT) 15.7 SECONDS (9.0-12.0)
[2016-07-31 06:44] LABS: BUN/CREATININE RATIO 25.6 (10-20); CALCIUM 8.9 mg/dl (8.5-10.1); CREATININE 2.2 mg/dl (0.60-1.40); POTASSIUM 4.8 mmol/L (3.5-5.1)
[2016-07-31] MEDS: METHYLPREDNISOLONE IV 20 MG in SYRINGE 0 ML IV SCH ×3 (07:03→21:44)
[2016-07-31] MEDS: LEVOTHYROXINE 75 MCG TAB PO SCH (07:03)
[2016-07-31] MEDS: CYANOCOBALAMIN 500 MCG TAB (VIT B-12) PO SCH (09:14)
[2016-07-31] MEDS: HydrALAZINE 10 MG TAB PO PRN ×2 (09:14→18:39)
[2016-07-31] MEDS: MONTELUKAST SOD 10 MG TAB PO SCH (09:14)
[2016-07-31] MEDS: ALLOPURINOL 100 MG TAB PO SCH (09:14)
[2016-07-31] MEDS: ASPIRIN 81 MG ECTAB PO SCH (09:14)
[2016-07-31] MEDS: GUAIFENESIN 600 MG TABCR PO SCH ×2 (09:14→20:40)
[2016-07-31] MEDS: PANTOprazole SOD 40 MG TAB PO SCH (09:15)
[2016-07-31] MEDS: SPIRONOLACTONE 25 MG TAB PO SCH (09:15)
[2016-07-31] MEDS: BUDESONIDE/FORMOTEROL FUMARATE 160/4.5 60 PUFFS/INHALER INH SCH ×2 (09:16→20:36)
[2016-07-31] MEDS: DILTIAZEM HCL 120 MG EXT REL CAP PO SCH (09:16)
[2016-07-31] MEDS: OSELTAMIVIR PHOSPHATE SUSP 30 MG/5 ML UDP PO SCH ×2 (09:20→20:39)
[2016-07-31] MEDS ORDERED: POLYETHYLENE (MIRALAX) 17 GM PACK PO ONE (12:49)
[2016-07-31] MEDS ORDERED: FUROSEMIDE 40 MG TAB PO ONE (12:50)
[2016-07-31] MEDS ORDERED: POLYETHYLENE (MIRALAX) 17 GM PACK PO PRN (13:00)
--- NOTE | 2016-07-31 13:31 | PULMONARY PROGRESS NOTE ---
DATE: 07/31/2016 DATE: 07/31/2016. TIME: 1:10 p.m. SUBJECTIVE: The patient states his breathing is a little better. His cough is still productive, but the mucus is getting nurse charge rn in color. He complains of being unsteady with his gait. He states that he needs help getting to and from the bathroom and he has almost fallen a couple of times. He states he did not have this problem at home. He lives in an apartment with his elderly . He also complains of constipation. He feels bloated. He has not had a bowel movement for about 3 days. OBJECTIVE: The patient was sitting in a chair. He appeared comfortable at rest. He had his lunch tray present. He states he could not really eat anything except the desert because he felt full. He is afebrile. HEAD, EYES, EARS, NOSE, AND THROAT: Mouth exam was unremarkable except for food particles. He has a large neck. No lymph nodes were palpable. HEART: Heart rate is 82 per minute. Blood pressure 165/89. Respiratory rate was 20 breaths per minute. Mild scattered rhonchi were heard bilaterally. In spite of this, he was having fairly good oxygen saturation 94% on room air. The abdomen is markedly obese. Bowel sounds were heard. There was no tenderness to palpation or definite mass. SKIN EXAMINATION: Shows diffuse skin scaling which is chronic. +2 edema was noted in both lower extremities. Chest x-ray done yesterday reports an improved x-ray with no acute findings seen. He does have a right-sided aortic arch. There was some chronic pleural thickening at the right. LABORATORY DATA: White count today is 10.18. Hemoglobin 11.2. Platelets 160,000. INR is 1.4. Sodium 137, potassium 4.8, chloride 104, bicarb 24. BUN is 56 with a creatinine of 2.2. It is notable that his BUN had been 35 on admission. IMPRESSIONS: 1. Influenza A. 2. Chronic obstructive pulmonary disease exacerbation. 3. Obstructive sleep apnea. 4. Obesity. 5. Renal insufficiency. COMMENTS AND RECOMMENDATIONS: The patient's respiratory status is improved. I do not believe he is ready for discharge as he states he cannot ambulate without nearly falling. I believe the methylprednisolone could be changed to prednisone. We get physical therapy involved to try and strengthen him up. I would order something for constipation. Case discussed with Dr. Sheriff. PAULINAD
[2016-07-31] MEDS ORDERED: WARFARIN SOD 5 MG TAB PO SCH (16:00)
--- NOTE | 2016-07-31 19:45 | Progress Note ---
Medicine Progress Note Date & Time of Visit: Jul 31, 2016 at 15:00 . Subjective No fever. Cough a little better. Dyspneic with minimal exertion. No chest pain. Constipated. Poor appetite. . Objective Last 8 Hrs Date Time Temp Pulse Resp B/P Pulse Ox O2 Delivery O2 Flow Rate FiO2 07/31/16 17:46 164/90 07/31/16 17:17 Room Air 07/31/16 15:32 36.3 78 20 180/93 92 Room Air 07/31/16 12:15 Room Air Physical Exam: General- chronically ill-appearing; no acute distress Neck- + JVD Lungs- scattered rhonchi, diffuse mild to moderate wheezing Heart- RRR Abdomen- obese, + BS, soft, nontender Extremities- 2-3+ pretibial edema with chronic venous stasis changes Neuro- alert . Laboratory Results: Last 24 Hours Test 07/31/16 05:48 White Blood Count 10.18 K/uL Red Blood Count 3.64 M/uL Hemoglobin 11.2 g/dL Hematocrit 33.5 % Mean Corpuscular Volume 92.0 fL Mean Corpuscular Hemoglobin 30.8 pg Mean Corpuscular Hemoglobin Concent 33.4 g/dl RDW Standard Deviation 51.1 fL RDW Coefficient of Variation 15.0 % Platelet Count 160 K/uL Mean Platelet Volume 10.6 fL Nucleated RBC Absolute Count (auto) 0.02 K/uL Nucleated Red Blood Cells % 0.2 % Prothrombin Time 15.7 SECONDS Prothromb Time International Ratio 1.4 Sodium Level 137 mmol/L Potassium Level 4.8 mmol/L Chloride Level 104 mmol/L Carbon Dioxide Level 24 mmol/L Anion Gap 9.0 mmol/L Blood Urea Nitrogen 56 mg/dl Creatinine 2.20 mg/dl Est Creatinine Clear Calc Drug Dose 29.0 ml/min Estimated GFR () 29.9 Estimated GFR (Non- 25.8 BUN/Creatinine Ratio 25.6 Random Glucose 130 mg/dl Calcium Level 8.9 mg/dl Assessment & Plan EXACERBATION OF COPD Secondary to influenza. Continue nebs. Received IV methylprednisolone which was tapered; transition to PO prednisone. INFLUENZA A Rx with oseltamivir x 5 days - today is day # 5 SLEEP APNEA CPAP @ night. HISTORY PAROXYSMAL ATRIAL FIBRILLATION Continue diltiazem and warfarin. CHRONIC LEFT VENTRICULAR DIASTOLIC HEART FAILURE Appeared to be compensated at time of admission. Managed with furosemide and spironolactone. Creatinine elevated 07/30/16- held furosemide. No pulmonary edema on f/u chest x-ray. Furosemide resumed. CKD III Baseline creatinine 2 - 2.2 (Apr 2016). Creatinine 2.0 day of admission. Creatinine 07/30/16 2.3. Furosemide held. Creatinine today = 2.2 Furosemide resumed. Follow. HYPOTHYROIDISM Continue levothyroxine. S/P EXCISION SKIN CA RIGHT SHOULDER Sutures removed 07/30/16. CONSTIPATION Bowel regimen as ordered. VTE PROPHYLAXIS Continue warfarin. DISPOSITION Expected discharge to home. Medical follow-up with Dr. Terrazas. Pulmonary follow-up with Edi Smith PA-C. Components of this document were electronically copied and updated from the last documentation created by the undersigned in order to maintain a complete, accurate, and current record. Any portion of this document created by another author, if any, will be attributed to them. I certify that the record accurately reflects the patient's current status and services provided on the date of service. Daughter called and given update by phone. . Current Inpatient Medications: Current Inpatient Medications Medications (Trade) Dose Ordered Sig/Gilma Route Start Time Stop Time Status Last Admin Dose Admin Acetaminophen (Tylenol Tab) 650 mg Q4H PRN PO 07/27/16 15:45 08/26/16 15:44 07/28/16 21:17 650 MG Ondansetron HCl (Zofran Inj) 4 mg Q6H PRN IV 07/27/16 15:45 08/26/16 15:44 Nitroglycerin (Nitrostat Tab) 0.4 mg UD PRN SL 07/27/16 15:45 08/26/16 15:44 Albuterol/ Ipratropium (Duoneb) 3 ml QIDR INH 07/27/16 16:00 08/26/16 15:59 07/31/16 11:21 3 ML Allopurinol (Zyloprim Tab) 100 mg DAILY PO 07/28/16 09:00 08/27/16 08:59 07/31/16 09:14 100 MG Aspirin (Ecotrin Tab) 81 mg DAILY PO 07/28/16 09:00 08/27/16 08:59 07/31/16 09:14 81 MG Budesonide/ Formoterol Fumarate (Symbicort 160/ 4.5 Inh) 2 puffs BID INH 07/27/16 21:00 08/26/16 20:59 07/31/16 09:16 2 PUFFS Citalopram Hydrobromide (celeXA TAB) 40 mg HS PO 07/27/16 21:00 08/26/16 20:59 07/30/16 20:47 40 MG Cyanocobalamin (Vitamin B-12 Tab) 500 mcg DAILY PO 07/28/16 09:00 08/27/16 08:59 07/31/16 09:14 500 MCG Diltiazem HCl (TIAzac CAP) 120 mg DAILY PO 07/28/16 09:00 08/27/16 08:59 07/31/16 09:16 120 MG Furosemide (Lasix tab) 40 mg DAILY PO 07/28/16 09:00 08/27/16 08:59 Future hold 07/29/16 07:32 40 MG Latanoprost (Xalatan Oph Soln) 1 drops HS OPB 07/27/16 21:00 08/26/16 20:59 07/30/16 20:48 1 DROPS Levothyroxine Sodium (Synthroid Tab) 75 mcg DAILYBB PO 07/28/16 06:00 08/27/16 06:59 07/31/16 07:03 75 MCG Montelukast Sodium (Singulair Tab) 10 mg DAILY PO 07/28/16 09:00 08/27/16 08:59 07/31/16 09:14 10 MG Pramipexole Dihydrochloride (miraPEX TAB) 0.25 mg HS PO 07/27/16 21:00 08/26/16 20:59 07/30/16 20:47 0.25 MG Spironolactone (Aldactone Tab) 25 mg DAILY PO 07/28/16 09:00 08/27/16 08:59 07/31/16 09:15 25 MG Warfarin Sodium (Coumadin Tab) 2.5 mg DAILY@1600 PO 07/28/16 16:00 08/27/16 15:59 Future Hold 07/30/16 16:05 2.5 MG Miscellaneous Information (Order Awaiting Action) 1 ea QS N/A 07/28/16 00:00 08/27/16 00:00 07/31/16 15:48 1 EA Oseltamivir Phosphate 30 mg 30 mg BID PO 07/27/16 21:00 08/01/16 09:01 07/31/16 09:20 30 MG Methylprednisolone Sodium Succinate/ Syringe (Solu-Medrol IV/ Syringe) 0.32 ml @ 1.5 mls/min Q8 IV 07/27/16 22:00 08/26/16 21:59 07/31/16 15:49 1.5 MLS/MIN Menthol (Nice Berna) 1 berna PRN PRN PO 07/28/16 22:45 08/27/16 22:44 Zolpidem Tartrate (Ambien Tab) 5 mg HS PRN PO 07/29/16 00:00 08/28/16 00:00 07/30/16 21:49 5 MG Pantoprazole Sodium (Protonix Tab) 40 mg QAM PO 07/30/16 08:00 08/29/16 07:59 07/31/16 09:15 40 MG Al Hydrox/Mg Hydrox/Simethicone (Maalox Max Susp) 15 ml Q6H PRN PO 07/29/16 20:00 08/28/16 19:59 Guaifenesin (Mucinex Contr Rel Tab) 600 mg Q12 PO 07/30/16 21:00 08/03/16 20:59 07/31/16 09:14 600 MG Hydralazine HCl (Apresoline Tab) 10 mg Q6H PRN PO 07/30/16 17:00 08/29/16 16:59 07/31/16 18:39 10 MG Polyethylene (Miralax Powder Packet) 17 gm BID PRN PO 07/31/16 13:00 08/30/16 12:59
[2016-07-31] MEDS: DOCUSATE SODIUM/SENNA 50/8.6MG TAB PO SCH (20:38)
[2016-07-31] MEDS: CITALOPRAM 40 MG TAB PO SCH (20:40)
[2016-07-31] MEDS: LATANOPROST 0.005% OP SOLN 2.5 ML BTL OPB SCH (20:40)
[2016-07-31] MEDS: PRAMIPEXOLE DIHYDROCHLORIDE 0.25MG TAB PO SCH (20:40)
[2016-07-31] MEDS: ZOLPIDEM TARTRATE 5 MG TAB PO PRN (23:29)
[2016-08-01] VITALS (10 sets, daily range): BP systolic 178–208; BP diastolic 90–106; PULSE 59–67; TEMP 34.7–36.4; O2SAT 90–99
[2016-08-01] MEDS: LEVOTHYROXINE 75 MCG TAB PO SCH (05:58)
[2016-08-01 06:04] LABS: HEMATOCRIT 33.5 % (42-52); MEAN CELL VOLUME 90.1 fL (80-100); MEAN CORPUSCULAR HEMOGLOBIN 30.4 pg (25-34); MEAN CORPUSCULAR HGB CONC 33.7 g/dl (32-36); MEAN PLATELET VOLUME 11.1 fL (7.4-10.4); PLATELET COUNT 182 K/uL (130-400); RED BLOOD COUNT 3.72 M/uL (4.7-6.1); WHITE BLOOD COUNT 11.74 K/uL (4.8-10.8)
[2016-08-01 06:11] LABS: INR 1.4 (0.9-1.1); PROTHROMBIN TIME (PATIENT) 15.6 SECONDS (9.0-12.0)
[2016-08-01 06:40] LABS: BUN/CREATININE RATIO 28.2 (10-20); CALCIUM 8.8 mg/dl (8.5-10.1); POTASSIUM 4.9 mmol/L (3.5-5.1)
[2016-08-01] MEDS: ALBUT/IPRATROP 3MG/0.5MG NEB 3 ML VIAL INH SCH ×4 (07:17→19:40)
[2016-08-01] MEDS: MONTELUKAST SOD 10 MG TAB PO SCH (08:26)
[2016-08-01] MEDS: ALLOPURINOL 100 MG TAB PO SCH (08:27)
[2016-08-01] MEDS: DILTIAZEM HCL 120 MG EXT REL CAP PO SCH (08:27)
[2016-08-01] MEDS: SPIRONOLACTONE 25 MG TAB PO SCH (08:27)
[2016-08-01] MEDS: ASPIRIN 81 MG ECTAB PO SCH (08:27)
[2016-08-01] MEDS: DOCUSATE SODIUM/SENNA 50/8.6MG TAB PO SCH ×2 (08:27→19:45)
[2016-08-01] MEDS: CYANOCOBALAMIN 500 MCG TAB (VIT B-12) PO SCH (08:27)
[2016-08-01] MEDS: GUAIFENESIN 600 MG TABCR PO SCH ×2 (08:27→21:19)
[2016-08-01] MEDS: PANTOprazole SOD 40 MG TAB PO SCH (08:27)
[2016-08-01] MEDS: FUROSEMIDE 40 MG TAB PO SCH (08:28)
[2016-08-01] MEDS: BUDESONIDE/FORMOTEROL FUMARATE 160/4.5 60 PUFFS/INHALER INH SCH ×2 (08:29→19:45)
[2016-08-01] MEDS: OSELTAMIVIR PHOSPHATE SUSP 30 MG/5 ML UDP PO SCH (08:30)
--- NOTE | 2016-08-01 11:02 | Progress Note ---
Medicine Progress Note Date & Time of Visit: Aug 01, 2016 at ~ 10:20 . Subjective No fever. Persistent chest congestion, coughing, wheezing, NAIDU. No chest pain. No nausea or vomiting. Appetite better. Bowel movement yesterday after MiraLax. . Objective Last 8 Hrs Date Time Temp Pulse Resp B/P Pulse Ox O2 Delivery O2 Flow Rate FiO2 08/01/16 08:00 Room Air 08/01/16 07:51 36.4 63 20 178/91 90 08/01/16 07:18 61 18 92 Room Air Physical Exam: General- lying in bed; chronically ill-appearing; no acute distress Neck- + JVD Lungs- scattered rhonchi, diffuse moderate wheezing Heart- RRR Abdomen- obese, + BS, soft, nontender Extremities- 2-3+ pretibial edema with chronic venous stasis changes Neuro- alert . Laboratory Results: Last 24 Hours Test 08/01/16 05:42 White Blood Count 11.74 K/uL Red Blood Count 3.72 M/uL Hemoglobin 11.3 g/dL Hematocrit 33.5 % Mean Corpuscular Volume 90.1 fL Mean Corpuscular Hemoglobin 30.4 pg Mean Corpuscular Hemoglobin Concent 33.7 g/dl RDW Standard Deviation 48.3 fL RDW Coefficient of Variation 14.8 % Platelet Count 182 K/uL Mean Platelet Volume 11.1 fL Prothrombin Time 15.6 SECONDS Prothromb Time International Ratio 1.4 Sodium Level 137 mmol/L Potassium Level 4.9 mmol/L Chloride Level 103 mmol/L Carbon Dioxide Level 25 mmol/L Anion Gap 9.0 mmol/L Blood Urea Nitrogen 56 mg/dl Creatinine 2.00 mg/dl Est Creatinine Clear Calc Drug Dose 31.9 ml/min Estimated GFR () 33.5 Estimated GFR (Non- 28.9 BUN/Creatinine Ratio 28.2 Random Glucose 160 mg/dl Calcium Level 8.8 mg/dl Assessment & Plan EXACERBATION OF COPD Secondary to influenza. Continue nebs. Received IV methylprednisolone which was tapered; transition to PO prednisone. Receiving prednisone 40 mg PO daily; taper as tolerated to chronic maintenance dose of 5 mg daily. INFLUENZA A Treated with oseltamivir x 5 days. SLEEP APNEA Continue CPAP @ night. HISTORY PAROXYSMAL ATRIAL FIBRILLATION Continue diltiazem and warfarin. CHRONIC LEFT VENTRICULAR DIASTOLIC HEART FAILURE Appeared to be compensated at time of admission. Managed with furosemide and spironolactone. Creatinine elevated 07/30/16- held furosemide. No pulmonary edema on f/u chest x-ray 07/31. Furosemide resumed. ELEVATED TROPONIN Troponin 0.108, 0.115, 0.086. Total CPK's normal. EKG showed NSR, LVH, NSSTTWA's. Elevated troponin most likely nonspecific elevation due to respiratory illness; doubt acute coronary syndrome. CKD III Baseline creatinine 2 - 2.2 (Apr 2016). Creatinine 2.0 day of admission. Creatinine 07/30/16 2.3. Furosemide held. Creatinine today = 2.0 Furosemide resumed. Follow. HYPOTHYROIDISM Check TSH. Continue levothyroxine. S/P EXCISION SKIN CA RIGHT SHOULDER Sutures removed 07/30/16. CONSTIPATION Resolved. Continue bowel regimen. VTE PROPHYLAXIS Continue warfarin. RESUSCITATION STATUS DNR per patient's wishes. DISPOSITION May need skilled care or rehab. Medical follow-up with Dr. Terrazas. Pulmonary follow-up with Edi Smith PA-C. Daughter given update by phone yesterday. Components of this document were electronically copied and updated from the last documentation created by the undersigned in order to maintain a complete, accurate, and current record. Any portion of this document created by another author, if any, will be attributed to them. I certify that the record accurately reflects the patient's current status and services provided on the date of service. . Current Inpatient Medications: Current Inpatient Medications Medications (Trade) Dose Ordered Sig/Gilma Route Start Time Stop Time Status Last Admin Dose Admin Acetaminophen (Tylenol Tab) 650 mg Q4H PRN PO 07/27/16 15:45 08/26/16 15:44 07/28/16 21:17 650 MG Ondansetron HCl (Zofran Inj) 4 mg Q6H PRN IV 07/27/16 15:45 08/26/16 15:44 Nitroglycerin (Nitrostat Tab) 0.4 mg UD PRN SL 07/27/16 15:45 08/26/16 15:44 Albuterol/ Ipratropium (Duoneb) 3 ml QIDR INH 07/27/16 16:00 08/26/16 15:59 08/01/16 07:17 3 ML Allopurinol (Zyloprim Tab) 100 mg DAILY PO 07/28/16 09:00 08/27/16 08:59 08/01/16 08:27 100 MG Aspirin (Ecotrin Tab) 81 mg DAILY PO 07/28/16 09:00 08/27/16 08:59 08/01/16 08:27 81 MG Budesonide/ Formoterol Fumarate (Symbicort 160/ 4.5 Inh) 2 puffs BID INH 07/27/16 21:00 08/26/16 20:59 08/01/16 08:29 2 PUFFS Citalopram Hydrobromide (celeXA TAB) 40 mg HS PO 07/27/16 21:00 08/26/16 20:59 07/31/16 20:40 40 MG Cyanocobalamin (Vitamin B-12 Tab) 500 mcg DAILY PO 07/28/16 09:00 08/27/16 08:59 08/01/16 08:27 500 MCG Diltiazem HCl (TIAzac CAP) 120 mg DAILY PO 07/28/16 09:00 08/27/16 08:59 08/01/16 08:27 120 MG Furosemide (Lasix tab) 40 mg DAILY PO 07/28/16 09:00 08/27/16 08:59 Future hold 08/01/16 08:28 40 MG Latanoprost (Xalatan Oph Soln) 1 drops HS OPB 07/27/16 21:00 08/26/16 20:59 07/31/16 20:40 1 DROPS Levothyroxine Sodium (Synthroid Tab) 75 mcg DAILYBB PO 07/28/16 06:00 08/27/16 06:59 08/01/16 05:58 75 MCG Montelukast Sodium (Singulair Tab) 10 mg DAILY PO 07/28/16 09:00 08/27/16 08:59 08/01/16 08:26 10 MG Pramipexole Dihydrochloride (miraPEX TAB) 0.25 mg HS PO 07/27/16 21:00 08/26/16 20:59 07/31/16 20:40 0.25 MG Spironolactone (Aldactone Tab) 25 mg DAILY PO 07/28/16 09:00 08/27/16 08:59 08/01/16 08:27 25 MG Warfarin Sodium (Coumadin Tab) 2.5 mg DAILY@1600 PO 07/28/16 16:00 08/27/16 15:59 Future Hold 07/30/16 16:05 2.5 MG Miscellaneous Information (Order Awaiting Action) 1 ea QS N/A 07/28/16 00:00 08/27/16 00:00 07/31/16 15:48 1 EA Menthol (Nice Berna) 1 berna PRN PRN PO 07/28/16 22:45 08/27/16 22:44 Zolpidem Tartrate (Ambien Tab) 5 mg HS PRN PO 07/29/16 00:00 08/28/16 00:00 07/31/16 23:29 5 MG Pantoprazole Sodium (Protonix Tab) 40 mg QAM PO 07/30/16 08:00 08/29/16 07:59 08/01/16 08:27 40 MG Al Hydrox/Mg Hydrox/Simethicone (Maalox Max Susp) 15 ml Q6H PRN PO 07/29/16 20:00 08/28/16 19:59 Guaifenesin (Mucinex Contr Rel Tab) 600 mg Q12 PO 07/30/16 21:00 08/03/16 20:59 08/01/16 08:27 600 MG Hydralazine HCl (Apresoline Tab) 10 mg Q6H PRN PO 07/30/16 17:00 08/29/16 16:59 07/31/16 18:39 10 MG Polyethylene (Miralax Powder Packet) 17 gm BID PRN PO 07/31/16 13:00 08/30/16 12:59 Senna/Docusate Sodium (Senokot S Tab) 2 tab BID PO 07/31/16 20:00 08/30/16 19:59 08/01/16 08:27 2 TAB Prednisone (PredniSONE TAB) 40 mg DAILY PO 08/01/16 08:00 08/31/16 07:59 08/01/16 08:27 40 MG
--- NOTE | 2016-08-01 13:06 | PULMONARY PROGRESS NOTE ---
DATE: 08/01/2016 DATE: 08/01/2016. TIME: 12:30 p.m. SUBJECTIVE: The patient states he feels tired today. He apparently took a sleeping pill last night and has had a hard time waking up. He thinks his breathing is a little better. He still feels wobbly on his feet. Physical therapy did work with him yesterday. His cough is about the same. The patient has not been wearing his CPAP. He states that he could not sleep much the last few nights. The mask did not feel like it fit him well. He thought it was too tight. OBJECTIVE: GENERAL: The patient was sleepy, but awakened fairly readily. He was in no distress. VITAL SIGNS: Temperature was 36.4. Mild wheezing could be heard without a stethoscope. With the stethoscope he had wheeze and rhonchi bilaterally. Respiratory rate was 18 breaths per minute. Heart rate 67 and regular. Blood pressure 178/91. Oxygen saturation 93% on room air. ABDOMEN: Obese and nontender. He states he had a good bowel movement yesterday. EXTREMITIES: Show +2 edema as had been seen previously. IMPRESSIONS: 1. Influenza A. 2. Chronic obstructive pulmonary disease with exacerbation secondary to #1. 3. Obstructive sleep apnea. 4. Obesity. 5. Renal insufficiency. COMMENTS AND RECOMMENDATIONS: I spoke with the patient about the need to wear his CPAP at night. He indicates he will try it again tonight. I told him that he should speak up and tell the technicians if he feels the mask is too tight or uncomfortable because there may be ways they can help him. I agree with his current therapy otherwise. From a pulmonary perspective, he is on prednisone 40 mg daily, guaifenesin, montelukast, Symbicort 160/4.5 two puffs b.i.d., and DuoNeb treatments q.i.d.
[2016-08-01] MEDS ORDERED: WARFARIN SOD 5 MG TAB PO ONE (16:00)
[2016-08-01] MEDS: PRAMIPEXOLE DIHYDROCHLORIDE 0.25MG TAB PO SCH (21:19)
[2016-08-01] MEDS: CITALOPRAM 40 MG TAB PO SCH (21:19)
[2016-08-01] MEDS: LATANOPROST 0.005% OP SOLN 2.5 ML BTL OPB SCH (21:20)
[2016-08-02] VITALS (11 sets, daily range): BP systolic 158–185; BP diastolic 72–92; PULSE 62–72; TEMP 36.4–36.7; O2SAT 91–95
[2016-08-02] MEDS: ALBUT/IPRATROP 3MG/0.5MG NEB 3 ML VIAL INH SCH ×5 (05:11→19:55)
[2016-08-02] MEDS: LEVOTHYROXINE 75 MCG TAB PO SCH (06:49)
[2016-08-02 07:07] LABS: INR 1.9 (0.9-1.1); PROTHROMBIN TIME (PATIENT) 20.5 SECONDS (9.0-12.0)
[2016-08-02 07:30] LABS: BUN/CREATININE RATIO 28.3 (10-20); CALCIUM 8.7 mg/dl (8.5-10.1); CREATININE 1.9 mg/dl (0.60-1.40); POTASSIUM 4.5 mmol/L (3.5-5.1)
[2016-08-02 07:41] LABS: THYROID STIMULATING HORMONE 0.133 uIu/ml (0.300-4.500)
[2016-08-02] MEDS: FUROSEMIDE 40 MG TAB PO SCH (07:50)
[2016-08-02] MEDS: BUDESONIDE/FORMOTEROL FUMARATE 160/4.5 60 PUFFS/INHALER INH SCH ×2 (07:50→20:44)
[2016-08-02] MEDS: PANTOprazole SOD 40 MG TAB PO SCH (07:50)
[2016-08-02] MEDS: DILTIAZEM HCL 120 MG EXT REL CAP PO SCH (07:50)
[2016-08-02] MEDS: SPIRONOLACTONE 25 MG TAB PO SCH (07:50)
[2016-08-02] MEDS: ALLOPURINOL 100 MG TAB PO SCH (07:51)
[2016-08-02] MEDS: ASPIRIN 81 MG ECTAB PO SCH (07:51)
[2016-08-02] MEDS: MONTELUKAST SOD 10 MG TAB PO SCH (07:51)
[2016-08-02] MEDS: GUAIFENESIN 600 MG TABCR PO SCH ×2 (07:51→20:46)
[2016-08-02] MEDS: DOCUSATE SODIUM/SENNA 50/8.6MG TAB PO SCH ×2 (07:51→20:47)
[2016-08-02] MEDS: CYANOCOBALAMIN 500 MCG TAB (VIT B-12) PO SCH (07:51)
--- NOTE | 2016-08-02 09:58 | Progress Note ---
Medicine Progress Note Date & Time of Visit: Aug 02, 2016 at 09:50 . Subjective No fever. Intermittent cough, persistent wheezing. Wearing CPAP at night. No chest pain. No nausea or vomiting. Last bowel movement yesterday morning. Still very weak- needs assistance with ambulation. . Objective Last 8 Hrs Date Time Temp Pulse Resp B/P Pulse Ox O2 Delivery O2 Flow Rate FiO2 08/02/16 09:27 160/89 08/02/16 08:02 Room Air 08/02/16 08:01 36.4 67 16 185/92 93 Room Air 08/02/16 07:32 67 18 95 Room Air 08/02/16 05:12 72 18 94 Room Air Physical Exam: General- lying in bed; chronically ill-appearing; no acute distress Neck- + JVD Lungs- scattered rhonchi, diffuse moderate wheezing Heart- RRR Abdomen- obese, + BS, soft, nontender Extremities- 2-3+ pretibial edema with chronic venous stasis changes Neuro- alert . Laboratory Results: Last 24 Hours Test 08/02/16 06:28 Prothrombin Time 20.5 SECONDS Prothromb Time International Ratio 1.9 Sodium Level 139 mmol/L Potassium Level 4.5 mmol/L Chloride Level 104 mmol/L Carbon Dioxide Level 26 mmol/L Anion Gap 9.0 mmol/L Blood Urea Nitrogen 54 mg/dl Creatinine 1.90 mg/dl Est Creatinine Clear Calc Drug Dose 33.6 ml/min Estimated GFR () 35.7 Estimated GFR (Non- 30.8 BUN/Creatinine Ratio 28.3 Random Glucose 132 mg/dl Calcium Level 8.7 mg/dl Thyroid Stimulating Hormone (TSH) 0.133 uIu/ml Assessment & Plan EXACERBATION OF COPD Secondary to influenza. Continue nebs. Received IV methylprednisolone which was tapered; transition to PO prednisone. Receiving prednisone 40 mg PO daily; taper as tolerated to chronic maintenance dose of 5 mg daily. INFLUENZA A Treated with oseltamivir x 5 days. SLEEP APNEA Continue CPAP @ night. HISTORY PAROXYSMAL ATRIAL FIBRILLATION Continue diltiazem and warfarin. CHRONIC LEFT VENTRICULAR DIASTOLIC HEART FAILURE Appeared to be compensated at time of admission. Managed with furosemide and spironolactone. Creatinine elevated 07/30/16- held furosemide. No pulmonary edema on f/u chest x-ray 07/31. Furosemide resumed. ELEVATED TROPONIN Troponin 0.108, 0.115, 0.086. Total CPK's normal. EKG showed NSR, LVH, NSSTTWA's. Elevated troponin most likely nonspecific elevation due to respiratory illness; doubt acute coronary syndrome. CKD III Baseline creatinine 2 - 2.2 (Apr 2016). Creatinine 2.0 day of admission. Creatinine 07/30/16 2.3. Furosemide held x 24 hrs, then resumed. Creatinine today = 1.9 Follow. HYPOTHYROIDISM TSH = 0.133. Continue levothyroxine at current dose. Recheck TSH after recovery from current illness. S/P EXCISION SKIN CA RIGHT SHOULDER Sutures removed 07/30/16. CONSTIPATION Resolved. Continue bowel regimen. VTE PROPHYLAXIS Continue warfarin. RESUSCITATION STATUS DNR per patient's wishes. DISPOSITION May need skilled care or rehab. Medical follow-up with Dr. Terrazas. Pulmonary follow-up with Edi Smith PA-C. Components of this document were electronically copied and updated from the last documentation created by the undersigned in order to maintain a complete, accurate, and current record. Any portion of this document created by another author, if any, will be attributed to them. I certify that the record accurately reflects the patient's current status and services provided on the date of service. . Current Inpatient Medications: Current Inpatient Medications Medications (Trade) Dose Ordered Sig/Gilma Route Start Time Stop Time Status Last Admin Dose Admin Acetaminophen (Tylenol Tab) 650 mg Q4H PRN PO 07/27/16 15:45 08/26/16 15:44 07/28/16 21:17 650 MG Ondansetron HCl (Zofran Inj) 4 mg Q6H PRN IV 07/27/16 15:45 08/26/16 15:44 Nitroglycerin (Nitrostat Tab) 0.4 mg UD PRN SL 07/27/16 15:45 08/26/16 15:44 Albuterol/ Ipratropium (Duoneb) 3 ml QIDR INH 07/27/16 16:00 08/26/16 15:59 08/02/16 07:30 3 ML Allopurinol (Zyloprim Tab) 100 mg DAILY PO 07/28/16 09:00 08/27/16 08:59 08/02/16 07:51 100 MG Aspirin (Ecotrin Tab) 81 mg DAILY PO 07/28/16 09:00 08/27/16 08:59 08/02/16 07:51 81 MG Budesonide/ Formoterol Fumarate (Symbicort 160/ 4.5 Inh) 2 puffs BID INH 07/27/16 21:00 08/26/16 20:59 08/02/16 07:50 2 PUFFS Citalopram Hydrobromide (celeXA TAB) 40 mg HS PO 07/27/16 21:00 08/26/16 20:59 08/01/16 21:19 40 MG Cyanocobalamin (Vitamin B-12 Tab) 500 mcg DAILY PO 07/28/16 09:00 08/27/16 08:59 08/02/16 07:51 500 MCG Diltiazem HCl (TIAzac CAP) 120 mg DAILY PO 07/28/16 09:00 08/27/16 08:59 08/02/16 07:50 120 MG Furosemide (Lasix tab) 40 mg DAILY PO 07/28/16 09:00 08/27/16 08:59 Future hold 08/02/16 07:50 40 MG Latanoprost (Xalatan Oph Soln) 1 drops HS OPB 07/27/16 21:00 08/26/16 20:59 08/01/16 21:20 1 DROPS Levothyroxine Sodium (Synthroid Tab) 75 mcg DAILYBB PO 07/28/16 06:00 08/27/16 06:59 08/02/16 06:49 75 MCG Montelukast Sodium (Singulair Tab) 10 mg DAILY PO 07/28/16 09:00 08/27/16 08:59 08/02/16 07:51 10 MG Pramipexole Dihydrochloride (miraPEX TAB) 0.25 mg HS PO 07/27/16 21:00 08/26/16 20:59 08/01/16 21:19 0.25 MG Spironolactone (Aldactone Tab) 25 mg DAILY PO 07/28/16 09:00 08/27/16 08:59 08/02/16 07:50 25 MG Warfarin Sodium (Coumadin Tab) 2.5 mg DAILY@1600 PO 07/28/16 16:00 08/27/16 15:59 Future Hold 07/30/16 16:05 2.5 MG Miscellaneous Information (Order Awaiting Action) 1 ea QS N/A 07/28/16 00:00 08/27/16 00:00 08/02/16 07:51 1 EA Menthol (Nice Berna) 1 berna PRN PRN PO 07/28/16 22:45 08/27/16 22:44 Zolpidem Tartrate (Ambien Tab) 5 mg HS PRN PO 07/29/16 00:00 08/28/16 00:00 07/31/16 23:29 5 MG Pantoprazole Sodium (Protonix Tab) 40 mg QAM PO 07/30/16 08:00 08/29/16 07:59 08/02/16 07:50 40 MG Al Hydrox/Mg Hydrox/Simethicone (Maalox Max Susp) 15 ml Q6H PRN PO 07/29/16 20:00 08/28/16 19:59 Guaifenesin (Mucinex Contr Rel Tab) 600 mg Q12 PO 07/30/16 21:00 08/03/16 20:59 08/02/16 07:51 600 MG Hydralazine HCl (Apresoline Tab) 10 mg Q6H PRN PO 07/30/16 17:00 08/29/16 16:59 07/31/16 18:39 10 MG Polyethylene (Miralax Powder Packet) 17 gm BID PRN PO 07/31/16 13:00 08/30/16 12:59 Senna/Docusate Sodium (Senokot S Tab) 2 tab BID PO 07/31/16 20:00 08/30/16 19:59 08/02/16 07:51 2 TAB Prednisone (PredniSONE TAB) 40 mg DAILY PO 08/01/16 08:00 08/31/16 07:59 08/02/16 07:51 40 MG
[2016-08-02] MEDS ORDERED: POLYETHYLENE (MIRALAX) 17 GM PACK PO ONE (10:06)
[2016-08-02] MEDS: HydrALAZINE 10 MG TAB PO PRN (19:23)
[2016-08-02] MEDS: PRAMIPEXOLE DIHYDROCHLORIDE 0.25MG TAB PO SCH (20:45)
[2016-08-02] MEDS: CITALOPRAM 40 MG TAB PO SCH (20:45)
[2016-08-02] MEDS: LATANOPROST 0.005% OP SOLN 2.5 ML BTL OPB SCH (20:45)
[2016-08-02] MEDS: ZOLPIDEM TARTRATE 5 MG TAB PO PRN (22:34)
[2016-08-03] VITALS (12 sets, daily range): BP systolic 168–178; BP diastolic 70–98; PULSE 66–76; TEMP 36.3–36.5; O2SAT 91–98
[2016-08-03] MEDS: ALBUT/IPRATROP 3MG/0.5MG NEB 3 ML VIAL INH SCH ×5 (03:39→18:51)
[2016-08-03] MEDS: LEVOTHYROXINE 75 MCG TAB PO SCH (06:17)
[2016-08-03 06:57] LABS: INR 2.6 (0.9-1.1); PROTHROMBIN TIME (PATIENT) 29.4 SECONDS (9.0-12.0)
[2016-08-03 07:19] LABS: BUN/CREATININE RATIO 23.9 (10-20); CALCIUM 8.6 mg/dl (8.5-10.1); CREATININE 2.1 mg/dl (0.60-1.40); POTASSIUM 4.3 mmol/L (3.5-5.1)
[2016-08-03] MEDS: DILTIAZEM HCL 120 MG EXT REL CAP PO SCH (07:49)
[2016-08-03] MEDS: CYANOCOBALAMIN 500 MCG TAB (VIT B-12) PO SCH (07:49)
[2016-08-03] MEDS: ALLOPURINOL 100 MG TAB PO SCH (07:49)
[2016-08-03] MEDS: ASPIRIN 81 MG ECTAB PO SCH (07:49)
[2016-08-03] MEDS: GUAIFENESIN 600 MG TABCR PO SCH (07:49)
[2016-08-03] MEDS: SPIRONOLACTONE 25 MG TAB PO SCH (07:50)
[2016-08-03] MEDS: FUROSEMIDE 40 MG TAB PO SCH (07:50)
[2016-08-03] MEDS: PANTOprazole SOD 40 MG TAB PO SCH (07:50)
[2016-08-03] MEDS: MONTELUKAST SOD 10 MG TAB PO SCH (07:50)
[2016-08-03] MEDS: DOCUSATE SODIUM/SENNA 50/8.6MG TAB PO SCH ×2 (07:51→19:56)
[2016-08-03] MEDS: BUDESONIDE/FORMOTEROL FUMARATE 160/4.5 60 PUFFS/INHALER INH SCH ×2 (07:52→19:55)
--- NOTE | 2016-08-03 11:53 | Pulmonology Progress Note ---
Pulmonary Progress Note Date of Service Aug 03, 2016. Attending Dr Darden Subjective Continues to steadily improve. Cough less frequent continued productive yellow- sputum. No further hemoptysis. Less dyspnea with exertion, feels he is returning to his baseline. Not sleeping well - frequent arousals with dyspnea off CPAP secondary to mask discomfort. Objective 86-yo male hospital day # 8 admitted with Influenza A / Exacerbation of COPD. PMHx includes: COPD [PFT 2009: FEV1: 51%] on [employer] Symbicort & Spiriva, CKD III, cardiac diastolic dysfunction, paroxysmal atrial fibrillation (on AC), ? MAC on bronchoscopy 2008, respiratory aspergillus culture, colon cancer, YOCASTA/RLS, right aortic arch. History notable for 1-2x annual admission with COPD exacerbation last 04/2015. Patient admitted to [facility] 07/27/16 through the ED with 3-day h/o increased dyspnea , productive cough, fever, and blood tinged sputum. ON admission WBC: 8.10, Hgb/ Hct: 12.5/35.2, plts; 168, INR: 1.9, BNP: 4100, troponin elevated. PCR: + Influenza A. Sputum: Normal enrike. CXR 07/27/16: no infiltrate or acute process. He was treated with IV steroid (transitioned to PO), Tamiflu (completed) and bronchodilators. 07/29/16 he reported he was able expectorate more sputum with relief. Today: - Afebrile, hypertensive - 91-98%: RA - WBC: increased to 11.74 - 40mg prednisone Physical Exam: Constitutional: WDWN obese elderly male sitting in chair at bedside. No acute distress. Head: + facial symmetry. EOMi, PERRLA. No injection Respiratory: non-labored respirations. Bilateral rales. Scant heeze most prominent on the right- anterior. No cough on exam CV: RRR, no MRG appreciated. Warm peripherally with venous stasis changes lower extremities bilaterally GI: Protuberant soft abdomen. Non-tender with active bowel sounds. MSK/Extremities: + bilateral lower extremity edema with venous stasis changes. Edema of right hand dependent of former IV site - no erythema. Integumentary: diffuse actinic skin changes Neurologic: A&O. Good data recall. Able to follow complex commands. Assessment & Plan 86-yo male with moderate/severe COPD presents with exacerbation + Influenza A slowly and steadily improving. Restart [employer] Spiriva. Continue bronchodilators, pulmonary toilet and PO steroid. Ambulatory O2 eval prior to discharge. Data Medications: Current Inpatient Medications Medications (Trade) Dose Ordered Sig/Gilma Route Start Time Stop Time Status Last Admin Dose Admin Acetaminophen (Tylenol Tab) 650 mg Q4H PRN PO 07/27/16 15:45 08/26/16 15:44 07/28/16 21:17 650 MG Ondansetron HCl (Zofran Inj) 4 mg Q6H PRN IV 07/27/16 15:45 08/26/16 15:44 Nitroglycerin (Nitrostat Tab) 0.4 mg UD PRN SL 07/27/16 15:45 08/26/16 15:44 Albuterol/ Ipratropium (Duoneb) 3 ml QIDR INH 07/27/16 16:00 08/26/16 15:59 08/03/16 11:25 3 ML Allopurinol (Zyloprim Tab) 100 mg DAILY PO 07/28/16 09:00 08/27/16 08:59 08/03/16 07:49 100 MG Aspirin (Ecotrin Tab) 81 mg DAILY PO 07/28/16 09:00 08/27/16 08:59 08/03/16 07:49 81 MG Budesonide/ Formoterol Fumarate (Symbicort 160/ 4.5 Inh) 2 puffs BID INH 07/27/16 21:00 08/26/16 20:59 08/03/16 07:52 2 PUFFS Citalopram Hydrobromide (celeXA TAB) 40 mg HS PO 07/27/16 21:00 08/26/16 20:59 08/02/16 20:45 40 MG Cyanocobalamin (Vitamin B-12 Tab) 500 mcg DAILY PO 07/28/16 09:00 08/27/16 08:59 08/03/16 07:49 500 MCG Diltiazem HCl (TIAzac CAP) 120 mg DAILY PO 07/28/16 09:00 08/27/16 08:59 08/03/16 07:49 120 MG Furosemide (Lasix tab) 40 mg DAILY PO 07/28/16 09:00 08/27/16 08:59 Future hold 08/03/16 07:50 40 MG Latanoprost (Xalatan Oph Soln) 1 drops HS OPB 07/27/16 21:00 08/26/16 20:59 08/02/16 20:45 1 DROPS Levothyroxine Sodium (Synthroid Tab) 75 mcg DAILYBB PO 07/28/16 06:00 08/27/16 06:59 08/03/16 06:17 75 MCG Montelukast Sodium (Singulair Tab) 10 mg DAILY PO 07/28/16 09:00 08/27/16 08:59 08/03/16 07:50 10 MG Pramipexole Dihydrochloride (miraPEX TAB) 0.25 mg HS PO 07/27/16 21:00 08/26/16 20:59 08/02/16 20:45 0.25 MG Spironolactone (Aldactone Tab) 25 mg DAILY PO 07/28/16 09:00 08/27/16 08:59 08/03/16 07:50 25 MG Warfarin Sodium (Coumadin Tab) 2.5 mg DAILY@1600 PO 07/28/16 16:00 08/27/16 15:59 Future Hold 07/30/16 16:05 2.5 MG Miscellaneous Information (Order Awaiting Action) 1 ea QS N/A 07/28/16 00:00 08/27/16 00:00 08/02/16 13:27 1 EA Menthol (Nice Berna) 1 berna PRN PRN PO 07/28/16 22:45 08/27/16 22:44 Zolpidem Tartrate (Ambien Tab) 5 mg HS PRN PO 07/29/16 00:00 08/28/16 00:00 08/02/16 22:34 5 MG Pantoprazole Sodium (Protonix Tab) 40 mg QAM PO 07/30/16 08:00 08/29/16 07:59 08/03/16 07:50 40 MG Al Hydrox/Mg Hydrox/Simethicone (Maalox Max Susp) 15 ml Q6H PRN PO 07/29/16 20:00 08/28/16 19:59 Guaifenesin (Mucinex Contr Rel Tab) 600 mg Q12 PO 07/30/16 21:00 08/03/16 20:59 08/03/16 07:49 600 MG Hydralazine HCl (Apresoline Tab) 10 mg Q6H PRN PO 07/30/16 17:00 08/29/16 16:59 08/02/16 19:23 10 MG Polyethylene (Miralax Powder Packet) 17 gm BID PRN PO 07/31/16 13:00 08/30/16 12:59 Senna/Docusate Sodium (Senokot S Tab) 2 tab BID PO 07/31/16 20:00 08/30/16 19:59 08/03/16 07:51 2 TAB Prednisone (PredniSONE TAB) 40 mg DAILY PO 08/01/16 08:00 08/31/16 07:59 08/03/16 07:51 40 MG Furosemide (Lasix tab) 40 mg TODAY@1600 ONCE PO 08/03/16 16:00 08/03/16 16:01 UNV Tiotropium [place] (Spiriva Handihaler Inhaler) 1 puff QAM INH 08/03/16 12:00 09/02/16 11:59 UNV I & O: 24-Hour Column 08/03/16 08:00 Intake Total 960 ml Output Total 1400 ml Balance -440 ml Vital Signs: Date Time Temp Pulse Resp B/P Pulse Ox O2 Delivery O2 Flow Rate FiO2 08/03/16 11:27 66 20 96 Room Air 08/03/16 08:30 91 Room Air 2.0 08/03/16 08:07 36.3 68 20 168/88 91 08/03/16 07:21 66 20 98 Room Air 08/03/16 03:20 76 22 94 Room Air 08/03/16 00:20 95 Room Air CPAP 08/02/16 23:09 36.7 69 20 161/88 91 08/02/16 20:45 95 Room Air CPAP 08/02/16 19:55 68 18 95 Room Air 08/02/16 18:55 36.4 65 17 170/72 92 Room Air 08/02/16 17:56 Room Air 08/02/16 15:12 63 18 95 Room Air Laboratory Results: Last 24 Hours Test 08/03/16 06:05 Prothrombin Time 29.4 SECONDS Prothromb Time International Ratio 2.6 Sodium Level 140 mmol/L Potassium Level 4.3 mmol/L Chloride Level 104 mmol/L Carbon Dioxide Level 28 mmol/L Anion Gap 8.0 mmol/L Blood Urea Nitrogen 50 mg/dl Creatinine 2.10 mg/dl Est Creatinine Clear Calc Drug Dose 30.4 ml/min Estimated GFR () 31.6 Estimated GFR (Non- 27.3 BUN/Creatinine Ratio 23.9 Random Glucose 112 mg/dl Calcium Level 8.6 mg/dl
[2016-08-03] MEDS: TIOTROPIUM BROMIDE 5 PUFF/90 MCG INH INH SCH (13:19)
[2016-08-03] MEDS ORDERED: FUROSEMIDE 40 MG TAB PO ONE (16:00)
[2016-08-03] MEDS: HydrALAZINE 10 MG TAB PO PRN ×2 (16:17→23:50)
[2016-08-03] MEDS: LATANOPROST 0.005% OP SOLN 2.5 ML BTL OPB SCH (19:56)
[2016-08-03] MEDS: PRAMIPEXOLE DIHYDROCHLORIDE 0.25MG TAB PO SCH (19:57)
[2016-08-03] MEDS: CITALOPRAM 40 MG TAB PO SCH (19:57)
--- NOTE | 2016-08-03 22:29 | Progress Note ---
Medicine Progress Note Date & Time of Visit: Aug 03, 2016 at ~ 11:00 . Subjective No fever. Cough improved; less SOB. No chest pain. Chronic edema, maybe worse. No nausea, vomiting, diarrhea. Still very weak; requires assistance. . Objective Last 8 Hrs Date Time Temp Pulse Resp B/P Pulse Ox O2 Delivery O2 Flow Rate FiO2 08/03/16 19:55 95 Room Air CPAP 08/03/16 18:52 71 18 96 Room Air 08/03/16 15:40 70 18 95 Room Air 08/03/16 14:44 36.4 69 20 178/70 93 08/03/16 14:41 Room Air 2.0 Physical Exam: General- no acute distress Neck- + JVD Lungs- diffuse mild wheezing Heart- RRR Abdomen- obese, + BS, soft, nontender Extremities- 3+ pretibial edema with chronic venous stasis changes Neuro- alert . Laboratory Results: Last 24 Hours Test 08/03/16 06:05 Prothrombin Time 29.4 SECONDS Prothromb Time International Ratio 2.6 Sodium Level 140 mmol/L Potassium Level 4.3 mmol/L Chloride Level 104 mmol/L Carbon Dioxide Level 28 mmol/L Anion Gap 8.0 mmol/L Blood Urea Nitrogen 50 mg/dl Creatinine 2.10 mg/dl Est Creatinine Clear Calc Drug Dose 30.4 ml/min Estimated GFR () 31.6 Estimated GFR (Non- 27.3 BUN/Creatinine Ratio 23.9 Random Glucose 112 mg/dl Calcium Level 8.6 mg/dl Assessment & Plan EXACERBATION OF COPD Secondary to influenza. Continue nebs. Received IV methylprednisolone which was tapered; transition to PO prednisone. Receiving prednisone 40 mg PO daily; taper to 30 mg tomorrow, then as tolerated to chronic maintenance dose of 5 mg daily. INFLUENZA A Treated with oseltamivir x 5 days. SLEEP APNEA Continue CPAP @ night. HISTORY PAROXYSMAL ATRIAL FIBRILLATION Continue diltiazem and warfarin. CHRONIC LEFT VENTRICULAR DIASTOLIC HEART FAILURE Appeared to be compensated at time of admission. Managed with furosemide and spironolactone. Creatinine elevated 07/30/16- held furosemide. No pulmonary edema on f/u chest x-ray 07/31. Furosemide resumed. ELEVATED TROPONIN Troponin 0.108, 0.115, 0.086. Total CPK's normal. EKG showed NSR, LVH, NSSTTWA's. Elevated troponin most likely nonspecific elevation due to respiratory illness; doubt acute coronary syndrome. CKD III Baseline creatinine 2 - 2.2 (Apr 2016). Creatinine 2.0 day of admission. Creatinine 07/30/16 2.3. Furosemide held x 24 hrs, then resumed. Creatinine today = 2.1 Follow. HYPOTHYROIDISM TSH = 0.133. Continue levothyroxine at current dose. Recheck TSH after recovery from current illness. S/P EXCISION SKIN CA RIGHT SHOULDER Sutures removed 07/30/16. CONSTIPATION Resolved. Continue bowel regimen. VTE PROPHYLAXIS Continue warfarin. RESUSCITATION STATUS DNR per patient's wishes. DISPOSITION May need skilled care or rehab. PT / OT evals obtained. Case Management consulted. Medical follow-up with Dr. Terrazas. Pulmonary follow-up with Edi Smith PA-C. Components of this document were electronically copied and updated from the last documentation created by the undersigned in order to maintain a complete, accurate, and current record. Any portion of this document created by another author, if any, will be attributed to them. I certify that the record accurately reflects the patient's current status and services provided on the date of service. ADDENDUM: and daughter visiting this afternoon and given update. . . Current Inpatient Medications: Current Inpatient Medications Medications (Trade) Dose Ordered Sig/Gilma Route Start Time Stop Time Status Last Admin Dose Admin Acetaminophen (Tylenol Tab) 650 mg Q4H PRN PO 07/27/16 15:45 08/26/16 15:44 07/28/16 21:17 650 MG Ondansetron HCl (Zofran Inj) 4 mg Q6H PRN IV 07/27/16 15:45 08/26/16 15:44 Nitroglycerin (Nitrostat Tab) 0.4 mg UD PRN SL 07/27/16 15:45 08/26/16 15:44 Albuterol/ Ipratropium (Duoneb) 3 ml QIDR INH 07/27/16 16:00 08/26/16 15:59 08/03/16 18:51 3 ML Allopurinol (Zyloprim Tab) 100 mg DAILY PO 07/28/16 09:00 08/27/16 08:59 08/03/16 07:49 100 MG Aspirin (Ecotrin Tab) 81 mg DAILY PO 07/28/16 09:00 08/27/16 08:59 08/03/16 07:49 81 MG Budesonide/ Formoterol Fumarate (Symbicort 160/ 4.5 Inh) 2 puffs BID INH 07/27/16 21:00 08/26/16 20:59 08/03/16 19:55 2 PUFFS Citalopram Hydrobromide (celeXA TAB) 40 mg HS PO 07/27/16 21:00 08/26/16 20:59 08/03/16 19:57 40 MG Cyanocobalamin (Vitamin B-12 Tab) 500 mcg DAILY PO 07/28/16 09:00 08/27/16 08:59 08/03/16 07:49 500 MCG Diltiazem HCl (TIAzac CAP) 120 mg DAILY PO 07/28/16 09:00 08/27/16 08:59 08/03/16 07:49 120 MG Furosemide (Lasix tab) 40 mg DAILY PO 07/28/16 09:00 08/27/16 08:59 Future hold 08/03/16 07:50 40 MG Latanoprost (Xalatan Oph Soln) 1 drops HS OPB 07/27/16 21:00 08/26/16 20:59 08/03/16 19:56 1 DROPS Levothyroxine Sodium (Synthroid Tab) 75 mcg DAILYBB PO 07/28/16 06:00 08/27/16 06:59 08/03/16 06:17 75 MCG Montelukast Sodium (Singulair Tab) 10 mg DAILY PO 07/28/16 09:00 08/27/16 08:59 08/03/16 07:50 10 MG Pramipexole Dihydrochloride (miraPEX TAB) 0.25 mg HS PO 07/27/16 21:00 08/26/16 20:59 08/03/16 19:57 0.25 MG Spironolactone (Aldactone Tab) 25 mg DAILY PO 07/28/16 09:00 08/27/16 08:59 08/03/16 07:50 25 MG Warfarin Sodium (Coumadin Tab) 2.5 mg DAILY@1600 PO 07/28/16 16:00 08/27/16 15:59 Future Hold 07/30/16 16:05 2.5 MG Miscellaneous Information (Order Awaiting Action) 1 ea QS N/A 07/28/16 00:00 08/27/16 00:00 08/02/16 13:27 1 EA Menthol (Nice Berna) 1 berna PRN PRN PO 07/28/16 22:45 08/27/16 22:44 Zolpidem Tartrate (Ambien Tab) 5 mg HS PRN PO 07/29/16 00:00 08/28/16 00:00 08/02/16 22:34 5 MG Pantoprazole Sodium (Protonix Tab) 40 mg QAM PO 07/30/16 08:00 08/29/16 07:59 08/03/16 07:50 40 MG Al Hydrox/Mg Hydrox/Simethicone (Maalox Max Susp) 15 ml Q6H PRN PO 07/29/16 20:00 08/28/16 19:59 Hydralazine HCl (Apresoline Tab) 10 mg Q6H PRN PO 07/30/16 17:00 08/29/16 16:59 08/03/16 16:17 10 MG Polyethylene (Miralax Powder Packet) 17 gm BID PRN PO 07/31/16 13:00 08/30/16 12:59 Senna/Docusate Sodium (Senokot S Tab) 2 tab BID PO 07/31/16 20:00 08/30/16 19:59 08/03/16 19:56 2 TAB Prednisone (PredniSONE TAB) 40 mg DAILY PO 08/01/16 08:00 08/31/16 07:59 08/03/16 07:51 40 MG Tiotropium [place] (Spiriva Handihaler Inhaler) 1 puff QAM INH 08/03/16 12:00 09/02/16 11:59 08/03/16 13:19 1 PUFF
[2016-08-04] VITALS (12 sets, daily range): BP systolic 162–212; BP diastolic 80–121; PULSE 51–93; TEMP 36.2–36.5; O2SAT 92–95
[2016-08-04] MEDS: ZOLPIDEM TARTRATE 5 MG TAB PO PRN ×2 (00:37→23:46)
[2016-08-04] MEDS: LEVOTHYROXINE 75 MCG TAB PO SCH (06:00)
[2016-08-04] MEDS: ALBUT/IPRATROP 3MG/0.5MG NEB 3 ML VIAL INH SCH ×4 (07:08→21:15)
[2016-08-04 07:43] LABS: INR 2.8 (0.9-1.1); PROTHROMBIN TIME (PATIENT) 30.9 SECONDS (9.0-12.0)
[2016-08-04 08:02] LABS: CREATININE 1.8 mg/dl (0.60-1.40)
[2016-08-04 08:03] LABS: BUN/CREATININE RATIO 26.6 (10-20); CALCIUM 8.7 mg/dl (8.5-10.1); POTASSIUM 4.1 mmol/L (3.5-5.1)
[2016-08-04] MEDS: TIOTROPIUM BROMIDE 5 PUFF/90 MCG INH INH SCH (08:07)
[2016-08-04] MEDS: DILTIAZEM HCL 120 MG EXT REL CAP PO SCH (08:08)
[2016-08-04] MEDS: ALLOPURINOL 100 MG TAB PO SCH (08:08)
[2016-08-04] MEDS: MONTELUKAST SOD 10 MG TAB PO SCH (08:08)
[2016-08-04] MEDS: ASPIRIN 81 MG ECTAB PO SCH (08:08)
[2016-08-04] MEDS: CYANOCOBALAMIN 500 MCG TAB (VIT B-12) PO SCH (08:08)
[2016-08-04] MEDS: FUROSEMIDE 40 MG TAB PO SCH (08:08)
[2016-08-04] MEDS: BUDESONIDE/FORMOTEROL FUMARATE 160/4.5 60 PUFFS/INHALER INH SCH ×2 (08:09→19:53)
[2016-08-04] MEDS: SPIRONOLACTONE 25 MG TAB PO SCH (08:09)
[2016-08-04] MEDS: DOCUSATE SODIUM/SENNA 50/8.6MG TAB PO SCH ×2 (08:09→19:52)
[2016-08-04] MEDS: PANTOprazole SOD 40 MG TAB PO SCH (08:09)
--- NOTE | 2016-08-04 15:44 | Pulmonology Progress Note ---
Pulmonary Progress Note Date of Service Aug 04, 2016. Attending Dr. Olman Darden Subjective Patient notes his strength is well below his normal and his breathing is not back to his baseline. He denies fever, chills or sputum production at this time. Objective 86-yo male hospital day # 9 admitted with Influenza A / Exacerbation of COPD( FEV1: 1.57/51%--11/12/2009) PMHx includes: moderate sever COPD, CKD III, cardiac diastolic dysfunction, paroxysmal atrial fibrillation (on AC), ? MAC on bronchoscopy 2008, respiratory aspergillus culture, colon cancer, YOCASTA/RLS, right aortic arch. History notable for 1-2x annual admission with COPD exacerbation last 04/2015. Today: - 92-98%: RA-2Lnc Pulmonary medications: 1) Spiriva 2) Prednisone 40 mg by mouth daily 3) Singulair one tab by mouth daily 4) Symbicort 160/4.52 puffs twice a day 5) DuoNebs Physical Exam: Constitutional: No acute distress Respiratory: Tachypnea, decreased breath sounds bilaterally greatest at the apices CV: GI: Protuberant soft abdomen. Non-tender with active bowel sounds. MSK/Extremities: + bilateral lower extremity edema with venous stasis changes. Edema of right hand dependent of former IV site Assessment & Plan 86-year-old with multiple medical problems here with COPD exacerbation/ respiratory insufficiency secondary to influenza infection: #1 Influenza: Patient was previously treated for a total of 5 days Oseltamivir #2 COPD: Patient's steroids have been moved to 40 mg by mouth daily. We'll continue other medical/COPD regimen at this time. Continue bronchodilators, pulmonary toilet and PO steroid. Ambulatory O2 eval prior to discharge. Peak Flow: BID Data Medications: Current Inpatient Medications Medications (Trade) Dose Ordered Sig/Gilma Route Start Time Stop Time Status Last Admin Dose Admin Acetaminophen (Tylenol Tab) 650 mg Q4H PRN PO 07/27/16 15:45 08/26/16 15:44 07/28/16 21:17 650 MG Ondansetron HCl (Zofran Inj) 4 mg Q6H PRN IV 07/27/16 15:45 08/26/16 15:44 Nitroglycerin (Nitrostat Tab) 0.4 mg UD PRN SL 07/27/16 15:45 08/26/16 15:44 Albuterol/ Ipratropium (Duoneb) 3 ml QIDR INH 07/27/16 16:00 08/26/16 15:59 08/04/16 14:10 3 ML Allopurinol (Zyloprim Tab) 100 mg DAILY PO 07/28/16 09:00 08/27/16 08:59 08/04/16 08:08 100 MG Aspirin (Ecotrin Tab) 81 mg DAILY PO 07/28/16 09:00 08/27/16 08:59 08/04/16 08:08 81 MG Budesonide/ Formoterol Fumarate (Symbicort 160/ 4.5 Inh) 2 puffs BID INH 07/27/16 21:00 08/26/16 20:59 08/04/16 08:09 2 PUFFS Citalopram Hydrobromide (celeXA TAB) 40 mg HS PO 07/27/16 21:00 08/26/16 20:59 08/03/16 19:57 40 MG Cyanocobalamin (Vitamin B-12 Tab) 500 mcg DAILY PO 07/28/16 09:00 08/27/16 08:59 08/04/16 08:08 500 MCG Diltiazem HCl (TIAzac CAP) 120 mg DAILY PO 07/28/16 09:00 08/27/16 08:59 08/04/16 08:08 120 MG Furosemide (Lasix tab) 40 mg DAILY PO 07/28/16 09:00 08/27/16 08:59 Future hold 08/04/16 08:08 40 MG Latanoprost (Xalatan Oph Soln) 1 drops HS OPB 07/27/16 21:00 08/26/16 20:59 08/03/16 19:56 1 DROPS Levothyroxine Sodium (Synthroid Tab) 75 mcg DAILYBB PO 07/28/16 06:00 08/27/16 06:59 08/04/16 06:00 75 MCG Montelukast Sodium (Singulair Tab) 10 mg DAILY PO 07/28/16 09:00 08/27/16 08:59 08/04/16 08:08 10 MG Pramipexole Dihydrochloride (miraPEX TAB) 0.25 mg HS PO 07/27/16 21:00 08/26/16 20:59 1/9/17 19:57 0.25 MG Spironolactone (Aldactone Tab) 25 mg DAILY PO 07/28/16 09:00 08/27/16 08:59 08/04/16 08:09 25 MG Warfarin Sodium (Coumadin Tab) 2.5 mg DAILY@1600 PO 07/28/16 16:00 08/27/16 15:59 Future Hold 07/30/16 16:05 2.5 MG Miscellaneous Information (Order Awaiting Action) 1 ea QS N/A 07/28/16 00:00 08/27/16 00:00 08/02/16 13:27 1 EA Menthol (Nice Berna) 1 berna PRN PRN PO 07/28/16 22:45 08/27/16 22:44 Zolpidem Tartrate (Ambien Tab) 5 mg HS PRN PO 07/29/16 00:00 08/28/16 00:00 08/04/16 00:37 5 MG Pantoprazole Sodium (Protonix Tab) 40 mg QAM PO 07/30/16 08:00 08/29/16 07:59 08/04/16 08:09 40 MG Al Hydrox/Mg Hydrox/Simethicone (Maalox Max Susp) 15 ml Q6H PRN PO 07/29/16 20:00 08/28/16 19:59 Hydralazine HCl (Apresoline Tab) 10 mg Q6H PRN PO 07/30/16 17:00 08/29/16 16:59 08/03/16 23:50 10 MG Polyethylene (Miralax Powder Packet) 17 gm BID PRN PO 07/31/16 13:00 08/30/16 12:59 Senna/Docusate Sodium (Senokot S Tab) 2 tab BID PO 07/31/16 20:00 08/30/16 19:59 08/04/16 08:09 2 TAB Prednisone (PredniSONE TAB) 40 mg DAILY PO 08/01/16 08:00 08/31/16 07:59 08/04/16 08:08 40 MG Tiotropium [place] (Spiriva Handihaler Inhaler) 1 puff QAM INH 08/03/16 12:00 09/02/16 11:59 08/04/16 08:07 1 PUFF I & O: 24-Hour Column 08/04/16 08:00 Intake Total 410 ml Output Total 2350 ml Balance -1940 ml Vital Signs: Date Time Temp Pulse Resp B/P Pulse Ox O2 Delivery O2 Flow Rate FiO2 08/04/16 14:10 68 20 94 Room Air 08/04/16 11:05 68 20 94 Room Air 08/04/16 08:56 165/90 08/04/16 08:20 Room Air 2.0 08/04/16 07:33 36.5 51 20 190/100 95 Room Air 08/04/16 07:08 80 20 95 Room Air 08/04/16 06:09 180/80 08/04/16 00:30 95 Room Air CPAP 08/03/16 23:42 36.5 73 18 178/98 93 Room Air 08/03/16 19:55 95 Room Air CPAP 08/03/16 18:52 71 18 96 Room Air 08/03/16 15:40 70 18 95 Room Air Laboratory Results: Last 24 Hours Test 08/04/16 07:00 Prothrombin Time 30.9 SECONDS Prothromb Time International Ratio 2.8 Sodium Level 140 mmol/L Potassium Level 4.1 mmol/L Chloride Level 104 mmol/L Carbon Dioxide Level 28 mmol/L Anion Gap 8.0 mmol/L Blood Urea Nitrogen 48 mg/dl Creatinine 1.80 mg/dl Est Creatinine Clear Calc Drug Dose 35.4 ml/min Estimated GFR () 38.1 Estimated GFR (Non- 32.9 BUN/Creatinine Ratio 26.6 Random Glucose 95 mg/dl Calcium Level 8.7 mg/dl
[2016-08-04] MEDS: PRAMIPEXOLE DIHYDROCHLORIDE 0.25MG TAB PO SCH (19:52)
[2016-08-04] MEDS: CITALOPRAM 40 MG TAB PO SCH (19:52)
[2016-08-04] MEDS: LATANOPROST 0.005% OP SOLN 2.5 ML BTL OPB SCH (19:54)
--- NOTE | 2016-08-04 20:56 | Progress Note ---
Medicine Progress Note Date & Time of Visit: Aug 04, 2016 at ~ 10:00 . Subjective Tired. No fever or chills. Occasional cough, but improved. Dyspnea on exertion better. No chest pain. No nausea, vomiting, diarrhea. . Objective Last 8 Hrs Date Time Temp Pulse Resp B/P Pulse Ox O2 Delivery O2 Flow Rate FiO2 08/04/16 16:00 Room Air 08/04/16 15:38 36.4 84 20 162/88 94 Room Air 08/04/16 14:10 68 20 94 Room Air Physical Exam: General- no distress Neck- + JVD Lungs- diffuse mild-moderate wheezing Heart- RRR Abdomen- obese, + BS, soft, nontender Extremities- 2-3+ pretibial edema with chronic venous stasis changes Neuro- alert . Laboratory Results: Last 24 Hours Test 08/04/16 07:00 Prothrombin Time 30.9 SECONDS Prothromb Time International Ratio 2.8 Sodium Level 140 mmol/L Potassium Level 4.1 mmol/L Chloride Level 104 mmol/L Carbon Dioxide Level 28 mmol/L Anion Gap 8.0 mmol/L Blood Urea Nitrogen 48 mg/dl Creatinine 1.80 mg/dl Est Creatinine Clear Calc Drug Dose 35.4 ml/min Estimated GFR () 38.1 Estimated GFR (Non- 32.9 BUN/Creatinine Ratio 26.6 Random Glucose 95 mg/dl Calcium Level 8.7 mg/dl Assessment & Plan EXACERBATION OF COPD Secondary to influenza. Continue nebs. Received IV methylprednisolone which was tapered; transition to PO prednisone. Receiving prednisone 40 mg PO daily; taper to 30 mg tomorrow, then as tolerated to chronic maintenance dose of 5 mg daily. Check 2-step pulse oximetry tomorrow. INFLUENZA A Treated with oseltamivir x 5 days. SLEEP APNEA Continue CPAP @ night. Check nocturnal pulse oximetry on CPAP. HISTORY PAROXYSMAL ATRIAL FIBRILLATION Continue diltiazem and warfarin. CHRONIC LEFT VENTRICULAR DIASTOLIC HEART FAILURE Appeared to be compensated at time of admission. Managed with furosemide and spironolactone. Creatinine elevated 07/30/16- held furosemide. No pulmonary edema on f/u chest x-ray 07/31. Furosemide resumed. ELEVATED TROPONIN Troponin 0.108, 0.115, 0.086. Total CPK's normal. EKG showed NSR, LVH, NSSTTWA's. Elevated troponin most likely nonspecific elevation due to respiratory illness; doubt acute coronary syndrome. CKD III Baseline creatinine 2 - 2.2 (Apr 2016). Creatinine 2.0 day of admission. Creatinine 07/30/16 2.3. Furosemide held x 24 hrs, then resumed. Creatinine today = 1.8 Follow. HYPOTHYROIDISM TSH = 0.133. Continue levothyroxine at current dose. Recheck TSH after recovery from current illness. S/P EXCISION SKIN CA RIGHT SHOULDER Sutures removed 07/30/16. CONSTIPATION Resolved. Continue bowel regimen. VTE PROPHYLAXIS Continue warfarin. RESUSCITATION STATUS DNR per patient's wishes. DISPOSITION May need skilled care or rehab. PT / OT evals obtained. Case Management consulted. Medical follow-up with Dr. Terrazas. Pulmonary follow-up with Edi Smith PA-C. Components of this document were electronically copied and updated from the last documentation created by the undersigned in order to maintain a complete, accurate, and current record. Any portion of this document created by another author, if any, will be attributed to them. I certify that the record accurately reflects the patient's current status and services provided on the date of service. ADDENDUM: and daughter visiting this afternoon and given update. . . Current Inpatient Medications: Current Inpatient Medications Medications (Trade) Dose Ordered Sig/Gilma Route Start Time Stop Time Status Last Admin Dose Admin Acetaminophen (Tylenol Tab) 650 mg Q4H PRN PO 07/27/16 15:45 08/26/16 15:44 07/28/16 21:17 650 MG Ondansetron HCl (Zofran Inj) 4 mg Q6H PRN IV 07/27/16 15:45 08/26/16 15:44 Nitroglycerin (Nitrostat Tab) 0.4 mg UD PRN SL 07/27/16 15:45 08/26/16 15:44 Albuterol/ Ipratropium (Duoneb) 3 ml QIDR INH 07/27/16 16:00 08/26/16 15:59 08/04/16 14:10 3 ML Allopurinol (Zyloprim Tab) 100 mg DAILY PO 07/28/16 09:00 08/27/16 08:59 08/04/16 08:08 100 MG Aspirin (Ecotrin Tab) 81 mg DAILY PO 07/28/16 09:00 08/27/16 08:59 08/04/16 08:08 81 MG Budesonide/ Formoterol Fumarate (Symbicort 160/ 4.5 Inh) 2 puffs BID INH 07/27/16 21:00 08/26/16 20:59 08/04/16 19:53 2 PUFFS Citalopram Hydrobromide (celeXA TAB) 40 mg HS PO 07/27/16 21:00 08/26/16 20:59 08/04/16 19:52 40 MG Cyanocobalamin (Vitamin B-12 Tab) 500 mcg DAILY PO 07/28/16 09:00 08/27/16 08:59 08/04/16 08:08 500 MCG Diltiazem HCl (TIAzac CAP) 120 mg DAILY PO 07/28/16 09:00 08/27/16 08:59 08/04/16 08:08 120 MG Furosemide (Lasix tab) 40 mg DAILY PO 07/28/16 09:00 08/27/16 08:59 Future hold 08/04/16 08:08 40 MG Latanoprost (Xalatan Oph Soln) 1 drops HS OPB 07/27/16 21:00 08/26/16 20:59 08/04/16 19:54 1 DROPS Levothyroxine Sodium (Synthroid Tab) 75 mcg DAILYBB PO 07/28/16 06:00 08/27/16 06:59 08/04/16 06:00 75 MCG Montelukast Sodium (Singulair Tab) 10 mg DAILY PO 07/28/16 09:00 08/27/16 08:59 08/04/16 08:08 10 MG Pramipexole Dihydrochloride (miraPEX TAB) 0.25 mg HS PO 07/27/16 21:00 08/26/16 20:59 08/04/16 19:52 0.25 MG Spironolactone (Aldactone Tab) 25 mg DAILY PO 07/28/16 09:00 08/27/16 08:59 08/04/16 08:09 25 MG Warfarin Sodium (Coumadin Tab) 2.5 mg DAILY@1600 PO 07/28/16 16:00 08/27/16 15:59 Future Hold 07/30/16 16:05 2.5 MG Miscellaneous Information (Order Awaiting Action) 1 ea QS N/A 07/28/16 00:00 2/2/17 00:00 08/02/16 13:27 1 EA Menthol (Nice Berna) 1 berna PRN PRN PO 07/28/16 22:45 08/27/16 22:44 Zolpidem Tartrate (Ambien Tab) 5 mg HS PRN PO 07/29/16 00:00 08/28/16 00:00 08/04/16 00:37 5 MG Pantoprazole Sodium (Protonix Tab) 40 mg QAM PO 07/30/16 08:00 08/29/16 07:59 08/04/16 08:09 40 MG Al Hydrox/Mg Hydrox/Simethicone (Maalox Max Susp) 15 ml Q6H PRN PO 07/29/16 20:00 08/28/16 19:59 Hydralazine HCl (Apresoline Tab) 10 mg Q6H PRN PO 07/30/16 17:00 08/29/16 16:59 08/03/16 23:50 10 MG Polyethylene (Miralax Powder Packet) 17 gm BID PRN PO 07/31/16 13:00 08/30/16 12:59 Senna/Docusate Sodium (Senokot S Tab) 2 tab BID PO 07/31/16 20:00 08/30/16 19:59 08/04/16 19:52 2 TAB Prednisone (PredniSONE TAB) 40 mg DAILY PO 08/01/16 08:00 08/31/16 07:59 08/04/16 08:08 40 MG Tiotropium [place] (Spiriva Handihaler Inhaler) 1 puff QAM INH 08/03/16 12:00 09/02/16 11:59 08/04/16 08:07 1 PUFF
[2016-08-04] MEDS: HydrALAZINE 10 MG TAB PO PRN (23:46)
[2016-08-05] VITALS (9 sets, daily range): BP systolic 136–150; BP diastolic 82–90; PULSE 60–78; TEMP 36.6–37; O2SAT 91–96
[2016-08-05] MEDS: LEVOTHYROXINE 75 MCG TAB PO SCH (06:25)
[2016-08-05] MEDS: PANTOprazole SOD 40 MG TAB PO SCH (07:44)
[2016-08-05] MEDS: TIOTROPIUM BROMIDE 5 PUFF/90 MCG INH INH SCH (07:45)
[2016-08-05] MEDS: SPIRONOLACTONE 25 MG TAB PO SCH (07:45)
[2016-08-05] MEDS: ASPIRIN 81 MG ECTAB PO SCH (07:45)
[2016-08-05] MEDS: ALLOPURINOL 100 MG TAB PO SCH (07:45)
[2016-08-05] MEDS: DILTIAZEM HCL 120 MG EXT REL CAP PO SCH (07:45)
[2016-08-05] MEDS: CYANOCOBALAMIN 500 MCG TAB (VIT B-12) PO SCH (07:46)
[2016-08-05] MEDS: MONTELUKAST SOD 10 MG TAB PO SCH (07:46)
[2016-08-05] MEDS: FUROSEMIDE 40 MG TAB PO SCH (07:46)
[2016-08-05] MEDS: DOCUSATE SODIUM/SENNA 50/8.6MG TAB PO SCH ×2 (07:46→19:36)
[2016-08-05] MEDS: BUDESONIDE/FORMOTEROL FUMARATE 160/4.5 60 PUFFS/INHALER INH SCH ×2 (07:47→19:37)
[2016-08-05] MEDS: ALBUT/IPRATROP 3MG/0.5MG NEB 3 ML VIAL INH SCH ×4 (07:56→20:14)
[2016-08-05 08:23] LABS: INR 2.4 (0.9-1.1); PROTHROMBIN TIME (PATIENT) 26.2 SECONDS (9.0-12.0)
[2016-08-05 08:46] LABS: BUN/CREATININE RATIO 25.3 (10-20); CALCIUM 9.1 mg/dl (8.5-10.1); POTASSIUM 4.3 mmol/L (3.5-5.1)
[2016-08-05] MEDS ORDERED: POLYETHYLENE (MIRALAX) 17 GM PACK PO ONE (13:30)
--- NOTE | 2016-08-05 13:53 | Progress Note ---
Medicine Progress Note Date & Time of Visit: Aug 05, 2016 at 13:30 . Subjective Still weak, having difficulty with transfers and ambulation. No fever. Persistent cough and wheezing, but improved. No chest pain. No N/V. Constipated- last BM 3 days ago. . Objective Last 8 Hrs Date Time Temp Pulse Resp B/P Pulse Ox O2 Delivery O2 Flow Rate FiO2 08/05/16 11:05 68 20 96 Room Air 08/05/16 07:56 67 20 96 Room Air 08/05/16 07:45 91 Room Air 08/05/16 07:34 37.0 65 20 150/90 92 Room Air Physical Exam: General- sitting in chair, no acute distress Neck- + JVD Lungs- diffuse mild-moderate wheezing Heart- RRR Abdomen- obese, + BS, soft, nontender Extremities- 2+ pretibial edema with chronic venous stasis changes Neuro- alert . Laboratory Results: Last 24 Hours Test 08/05/16 07:53 Prothrombin Time 26.2 SECONDS Prothromb Time International Ratio 2.4 Sodium Level 139 mmol/L Potassium Level 4.3 mmol/L Chloride Level 101 mmol/L Carbon Dioxide Level 27 mmol/L Anion Gap 11.0 mmol/L Blood Urea Nitrogen 51 mg/dl Creatinine 2.00 mg/dl Est Creatinine Clear Calc Drug Dose 31.9 ml/min Estimated GFR () 33.5 Estimated GFR (Non- 28.9 BUN/Creatinine Ratio 25.3 Random Glucose 104 mg/dl Calcium Level 9.1 mg/dl Chemistry Specimen Hemolysis Assessment & Plan EXACERBATION OF COPD Secondary to influenza. Continue nebs. Received IV methylprednisolone which was tapered; transition to PO prednisone. Receiving prednisone 40 mg PO daily; taper to 30 mg tomorrow, then as tolerated to chronic maintenance dose of 5 mg daily. Check 2-step pulse oximetry. INFLUENZA A Treated with oseltamivir x 5 days. SLEEP APNEA Continue CPAP @ night. Check nocturnal pulse oximetry on CPAP. HISTORY PAROXYSMAL ATRIAL FIBRILLATION Continue diltiazem and warfarin. CHRONIC LEFT VENTRICULAR DIASTOLIC HEART FAILURE Appeared to be compensated at time of admission. Managed with furosemide and spironolactone. Creatinine elevated 07/30/16- held furosemide. No pulmonary edema on f/u chest x-ray 07/31. Furosemide resumed. ELEVATED TROPONIN Troponin 0.108, 0.115, 0.086. Total CPK's normal. EKG showed NSR, LVH, NSSTTWA's. Elevated troponin most likely nonspecific elevation due to respiratory illness; doubt acute coronary syndrome. CKD III Baseline creatinine 2 - 2.2 (Apr 2016). Creatinine 2.0 day of admission. Creatinine 07/30/16 2.3. Furosemide held x 24 hrs, then resumed. Creatinine today = 2.0 Follow. HYPOTHYROIDISM TSH = 0.133. Continue levothyroxine at current dose. Recheck TSH after recovery from current illness. S/P EXCISION SKIN CA RIGHT SHOULDER Sutures removed 07/30/16. CONSTIPATION Resolved. Continue bowel regimen. VTE PROPHYLAXIS Continue warfarin. RESUSCITATION STATUS DNR per patient's wishes. DISPOSITION Functional status decline due to acute illness. Having ongoing problems with ambulation and transfers. PT / OT evals obtained. OT recommends rehab. PT recommends supervision with ambulation. Case Management consulted. Referral made to [facility]- patient accepted, but skilled care denied by pt's insurance. Peer-peer discussion done- still denied. Discharge disposition pending- patient cannot be discharged to home at this time. Medical follow-up with Dr. Terrazas. Pulmonary follow-up with Edi Smith PA-C. Components of this document were electronically copied and updated from the last documentation created by the undersigned in order to maintain a complete, accurate, and current record. Any portion of this document created by another author, if any, will be attributed to them. I certify that the record accurately reflects the patient's current status and services provided on the date of service. . Current Inpatient Medications: Current Inpatient Medications Medications (Trade) Dose Ordered Sig/Gilma Route Start Time Stop Time Status Last Admin Dose Admin Acetaminophen (Tylenol Tab) 650 mg Q4H PRN PO 07/27/16 15:45 08/26/16 15:44 07/28/16 21:17 650 MG Ondansetron HCl (Zofran Inj) 4 mg Q6H PRN IV 07/27/16 15:45 08/26/16 15:44 Nitroglycerin (Nitrostat Tab) 0.4 mg UD PRN SL 07/27/16 15:45 08/26/16 15:44 Albuterol/ Ipratropium (Duoneb) 3 ml QIDR INH 07/27/16 16:00 08/26/16 15:59 08/05/16 11:06 3 ML Allopurinol (Zyloprim Tab) 100 mg DAILY PO 07/28/16 09:00 08/27/16 08:59 08/05/16 07:45 100 MG Aspirin (Ecotrin Tab) 81 mg DAILY PO 07/28/16 09:00 08/27/16 08:59 08/05/16 07:45 81 MG Budesonide/ Formoterol Fumarate (Symbicort 160/ 4.5 Inh) 2 puffs BID INH 07/27/16 21:00 08/26/16 20:59 08/05/16 07:47 2 PUFFS Citalopram Hydrobromide (celeXA TAB) 40 mg HS PO 07/27/16 21:00 08/26/16 20:59 08/04/16 19:52 40 MG Cyanocobalamin (Vitamin B-12 Tab) 500 mcg DAILY PO 07/28/16 09:00 08/27/16 08:59 08/05/16 07:46 500 MCG Diltiazem HCl (TIAzac CAP) 120 mg DAILY PO 07/28/16 09:00 08/27/16 08:59 08/05/16 07:45 120 MG Furosemide (Lasix tab) 40 mg DAILY PO 07/28/16 09:00 08/27/16 08:59 Future hold 08/05/16 07:46 40 MG Latanoprost (Xalatan Oph Soln) 1 drops HS OPB 07/27/16 21:00 08/26/16 20:59 08/04/16 19:54 1 DROPS Levothyroxine Sodium (Synthroid Tab) 75 mcg DAILYBB PO 07/28/16 06:00 08/27/16 06:59 08/05/16 06:25 75 MCG Montelukast Sodium (Singulair Tab) 10 mg DAILY PO 07/28/16 09:00 08/27/16 08:59 08/05/16 07:46 10 MG Pramipexole Dihydrochloride (miraPEX TAB) 0.25 mg HS PO 07/27/16 21:00 08/26/16 20:59 08/04/16 19:52 0.25 MG Spironolactone (Aldactone Tab) 25 mg DAILY PO 07/28/16 09:00 08/27/16 08:59 08/05/16 07:45 25 MG Warfarin Sodium (Coumadin Tab) 2.5 mg DAILY@1600 PO 07/28/16 16:00 08/27/16 15:59 Future Hold 07/30/16 16:05 2.5 MG Miscellaneous Information (Order Awaiting Action) 1 ea QS N/A 07/28/16 00:00 08/27/16 00:00 08/02/16 13:27 1 EA Menthol (Nice Berna) 1 berna PRN PRN PO 07/28/16 22:45 08/27/16 22:44 Zolpidem Tartrate (Ambien Tab) 5 mg HS PRN PO 07/29/16 00:00 08/28/16 00:00 08/04/16 23:46 5 MG Pantoprazole Sodium (Protonix Tab) 40 mg QAM PO 07/30/16 08:00 08/29/16 07:59 08/05/16 07:44 40 MG Al Hydrox/Mg Hydrox/Simethicone (Maalox Max Susp) 15 ml Q6H PRN PO 07/29/16 20:00 08/28/16 19:59 Hydralazine HCl (Apresoline Tab) 10 mg Q6H PRN PO 07/30/16 17:00 08/29/16 16:59 08/04/16 23:46 10 MG Polyethylene (Miralax Powder Packet) 17 gm BID PRN PO 07/31/16 13:00 08/30/16 12:59 08/05/16 11:49 17 GM Senna/Docusate Sodium (Senokot S Tab) 2 tab BID PO 07/31/16 20:00 08/30/16 19:59 08/05/16 07:46 2 TAB Tiotropium [place] (Spiriva Handihaler Inhaler) 1 puff QAM INH 08/03/16 12:00 09/02/16 11:59 08/05/16 07:45 1 PUFF Prednisone (PredniSONE TAB) 30 mg DAILY PO 08/06/16 08:00 09/05/16 07:59
--- NOTE | 2016-08-05 13:58 | Pulmonology Progress Note ---
Pulmonary Progress Note Date of Service Aug 05, 2016. Attending Dr. Olman Darden Subjective Patient not using accessory muscles unable to complete full sentences today and has no acute respiratory complaints/issues Objective 86 y/o male hospital day # 10 admitted with Influenza A / Exacerbation of COPD( FEV1: 1.57/51%--11/12/2009) PMHx includes: moderate sever COPD, CKD III, cardiac diastolic dysfunction, paroxysmal atrial fibrillation (on AC), ? MAC on bronchoscopy 2008, respiratory aspergillus culture, colon cancer, YOCASTA/RLS, right aortic arch. History notable for 1-2x annual admission with COPD exacerbation last 04/2015. Today: - 91-96%: RA Pulmonary medications: 1) Spiriva 2) Prednisone 40 mg by mouth daily 3) Singulair one tab by mouth daily 4) Symbicort 160/4.52 puffs twice a day 5) DuoNebs Physical Exam: Gen.: Alert no acute distress Respiratory: Increased breath sounds bilaterally minimal expiratory wheezing CV: S1-S2 regular rate and rhythm distant heart sounds GI: Extended abdomen no tenderness to deep palpation and/or rebound and positive bowel sounds MSK/Extremities: + bilateral lower extremity edema with venous stasis changes. Edema of right hand dependent of former IV site Assessment & Plan 86-year-old with multiple medical problems here with COPD exacerbation/ respiratory insufficiency secondary to influenza infection: #1 Influenza: Patient was previously treated for a total of 5 days Oseltamivir #2 COPD: Patient's steroids have been moved to 40 mg by mouth daily. We'll continue other medical/COPD regimen at this time. Continue bronchodilators, pulmonary toilet and PO steroid. Ambulatory O2 eval prior to discharge. Peak Flow: BID (we have not initiated peak flow at this time we'll start over the next 24 hours) We'll perform nocturnal desaturation study for evaluation of possible BiPAP as this has shown decrease readmissions for COPD Data Medications: Current Inpatient Medications Medications (Trade) Dose Ordered Sig/Gilma Route Start Time Stop Time Status Last Admin Dose Admin Acetaminophen (Tylenol Tab) 650 mg Q4H PRN PO 07/27/16 15:45 08/26/16 15:44 07/28/16 21:17 650 MG Ondansetron HCl (Zofran Inj) 4 mg Q6H PRN IV 07/27/16 15:45 08/26/16 15:44 Nitroglycerin (Nitrostat Tab) 0.4 mg UD PRN SL 07/27/16 15:45 08/26/16 15:44 Albuterol/ Ipratropium (Duoneb) 3 ml QIDR INH 07/27/16 16:00 08/26/16 15:59 08/05/16 11:06 3 ML Allopurinol (Zyloprim Tab) 100 mg DAILY PO 07/28/16 09:00 08/27/16 08:59 08/05/16 07:45 100 MG Aspirin (Ecotrin Tab) 81 mg DAILY PO 07/28/16 09:00 08/27/16 08:59 08/05/16 07:45 81 MG Budesonide/ Formoterol Fumarate (Symbicort 160/ 4.5 Inh) 2 puffs BID INH 07/27/16 21:00 08/26/16 20:59 08/05/16 07:47 2 PUFFS Citalopram Hydrobromide (celeXA TAB) 40 mg HS PO 07/27/16 21:00 08/26/16 20:59 08/04/16 19:52 40 MG Cyanocobalamin (Vitamin B-12 Tab) 500 mcg DAILY PO 07/28/16 09:00 08/27/16 08:59 08/05/16 07:46 500 MCG Diltiazem HCl (TIAzac CAP) 120 mg DAILY PO 07/28/16 09:00 08/27/16 08:59 08/05/16 07:45 120 MG Furosemide (Lasix tab) 40 mg DAILY PO 07/28/16 09:00 08/27/16 08:59 Future hold 08/05/16 07:46 40 MG Latanoprost (Xalatan Oph Soln) 1 drops HS OPB 07/27/16 21:00 08/26/16 20:59 08/04/16 19:54 1 DROPS Levothyroxine Sodium (Synthroid Tab) 75 mcg DAILYBB PO 07/28/16 06:00 08/27/16 06:59 08/05/16 06:25 75 MCG Montelukast Sodium (Singulair Tab) 10 mg DAILY PO 07/28/16 09:00 08/27/16 08:59 08/05/16 07:46 10 MG Pramipexole Dihydrochloride (miraPEX TAB) 0.25 mg HS PO 07/27/16 21:00 08/26/16 20:59 08/04/16 19:52 0.25 MG Spironolactone (Aldactone Tab) 25 mg DAILY PO 07/28/16 09:00 08/27/16 08:59 08/05/16 07:45 25 MG Warfarin Sodium (Coumadin Tab) 2.5 mg DAILY@1600 PO 07/28/16 16:00 08/27/16 15:59 Future Hold 07/30/16 16:05 2.5 MG Miscellaneous Information (Order Awaiting Action) 1 ea QS N/A 07/28/16 00:00 08/27/16 00:00 08/02/16 13:27 1 EA Menthol (Nice Berna) 1 berna PRN PRN PO 07/28/16 22:45 08/27/16 22:44 Zolpidem Tartrate (Ambien Tab) 5 mg HS PRN PO 07/29/16 00:00 08/28/16 00:00 08/04/16 23:46 5 MG Pantoprazole Sodium (Protonix Tab) 40 mg QAM PO 07/30/16 08:00 08/29/16 07:59 08/05/16 07:44 40 MG Al Hydrox/Mg Hydrox/Simethicone (Maalox Max Susp) 15 ml Q6H PRN PO 07/29/16 20:00 08/28/16 19:59 Hydralazine HCl (Apresoline Tab) 10 mg Q6H PRN PO 07/30/16 17:00 08/29/16 16:59 08/04/16 23:46 10 MG Polyethylene (Miralax Powder Packet) 17 gm BID PRN PO 07/31/16 13:00 08/30/16 12:59 08/05/16 11:49 17 GM Senna/Docusate Sodium (Senokot S Tab) 2 tab BID PO 07/31/16 20:00 08/30/16 19:59 08/05/16 07:46 2 TAB Tiotropium [place] (Spiriva Handihaler Inhaler) 1 puff QAM INH 08/03/16 12:00 09/02/16 11:59 08/05/16 07:45 1 PUFF Prednisone (PredniSONE TAB) 30 mg DAILY PO 08/06/16 08:00 09/05/16 07:59 I & O: 24-Hour Column 08/05/16 08:00 Intake Total 510 ml Output Total 1750 ml Balance -1240 ml Vital Signs: Date Time Temp Pulse Resp B/P Pulse Ox O2 Delivery O2 Flow Rate FiO2 08/05/16 11:05 68 20 96 Room Air 08/05/16 07:56 67 20 96 Room Air 08/05/16 07:45 91 Room Air 08/05/16 07:34 37.0 65 20 150/90 92 Room Air 08/05/16 01:47 94 Room Air 08/04/16 23:47 165/86 08/04/16 23:24 36.2 93 22 212/121 92 Room Air 173/100 08/04/16 21:15 76 20 94 Room Air 08/04/16 20:00 94 Room Air 08/04/16 16:00 Room Air 08/04/16 15:38 36.4 84 20 162/88 94 Room Air 08/04/16 14:10 68 20 94 Room Air Laboratory Results: Last 24 Hours Test 08/05/16 07:53 Prothrombin Time 26.2 SECONDS Prothromb Time International Ratio 2.4 Sodium Level 139 mmol/L Potassium Level 4.3 mmol/L Chloride Level 101 mmol/L Carbon Dioxide Level 27 mmol/L Anion Gap 11.0 mmol/L Blood Urea Nitrogen 51 mg/dl Creatinine 2.00 mg/dl Est Creatinine Clear Calc Drug Dose 31.9 ml/min Estimated GFR () 33.5 Estimated GFR (Non- 28.9 BUN/Creatinine Ratio 25.3 Random Glucose 104 mg/dl Calcium Level 9.1 mg/dl Chemistry Specimen Hemolysis
[2016-08-05] MEDS: PRAMIPEXOLE DIHYDROCHLORIDE 0.25MG TAB PO SCH (19:35)
[2016-08-05] MEDS: CITALOPRAM 40 MG TAB PO SCH (19:36)
[2016-08-05] MEDS: LATANOPROST 0.005% OP SOLN 2.5 ML BTL OPB SCH (19:37)
[2016-08-06] VITALS (8 sets, daily range): BP systolic 144–201; BP diastolic 63–102; PULSE 58–80; TEMP 36.3–36.6; O2SAT 93–97
[2016-08-06] MEDS: LEVOTHYROXINE 75 MCG TAB PO SCH (05:47)
[2016-08-06 07:28] LABS: INR 2.2 (0.9-1.1); PROTHROMBIN TIME (PATIENT) 24.8 SECONDS (9.0-12.0)
[2016-08-06 07:41] LABS: CALCIUM 8.8 mg/dl (8.5-10.1); POTASSIUM 4.3 mmol/L (3.5-5.1)
[2016-08-06] MEDS: ALBUT/IPRATROP 3MG/0.5MG NEB 3 ML VIAL INH SCH ×4 (07:43→19:36)
[2016-08-06] MEDS: TIOTROPIUM BROMIDE 5 PUFF/90 MCG INH INH SCH (08:00)
[2016-08-06] MEDS: BUDESONIDE/FORMOTEROL FUMARATE 160/4.5 60 PUFFS/INHALER INH SCH ×2 (08:57→19:25)
[2016-08-06] MEDS: ASPIRIN 81 MG ECTAB PO SCH (08:58)
[2016-08-06] MEDS: SPIRONOLACTONE 25 MG TAB PO SCH (08:58)
[2016-08-06] MEDS: FUROSEMIDE 40 MG TAB PO SCH (08:59)
[2016-08-06] MEDS: PANTOprazole SOD 40 MG TAB PO SCH (09:00)
[2016-08-06] MEDS: MONTELUKAST SOD 10 MG TAB PO SCH (09:00)
[2016-08-06] MEDS: DOCUSATE SODIUM/SENNA 50/8.6MG TAB PO SCH ×2 (09:00→21:21)
[2016-08-06] MEDS: CYANOCOBALAMIN 500 MCG TAB (VIT B-12) PO SCH (09:01)
[2016-08-06] MEDS: ALLOPURINOL 100 MG TAB PO SCH (09:01)
[2016-08-06] MEDS: DILTIAZEM HCL 120 MG EXT REL CAP PO SCH (09:01)
--- NOTE | 2016-08-06 11:38 | Pulmonology Progress Note ---
Pulmonary Progress Note Date of Service Aug 06, 2016. Attending Dr. Olman Darden Subjective Patient feels better today he has had a more productive cough over the last 24 hours but still notes severe dyspnea on exertion Objective 86 y/o male hospital day # 10 admitted with Influenza A / Exacerbation of COPD( FEV1: 1.57/51%--11/12/2009) Today: - 93-96%: RA Peak Flow 150 Pulmonary medications: 1) Spiriva 2) Prednisone 30 mg by mouth daily 3) Singulair one tab by mouth daily 4) Symbicort 160/4.52 puffs twice a day 5) DuoNebs Physical Exam: Gen.: Alert no acute distress Respiratory: Patient now having rhonchi bilaterally mildly increased breath sounds CV: S1-S2 regular rate and rhythm distant heart sounds GI: Extended abdomen no tenderness to deep palpation and/or rebound and positive bowel sounds MSK/Extremities: Bilateral lower extremity with 2+ pitting edema Assessment & Plan 86-year-old with multiple medical problems here with COPD exacerbation/ respiratory insufficiency secondary to influenza infection: #1 Influenza: Patient was previously treated for a total of 5 days Oseltamivir #2 COPD: Patient nocturnal desaturation study did not show significant desaturations (<88% for >5mins). At this time does not qualify for BiPAP Current medical regimen: Prednisone 30 mg/daily, Spiriva, Montelukast, Symbicort, DuoNebs Would continue this medical regimen at this time. Data Medications: Current Inpatient Medications Medications (Trade) Dose Ordered Sig/Gilma Route Start Time Stop Time Status Last Admin Dose Admin Acetaminophen (Tylenol Tab) 650 mg Q4H PRN PO 07/27/16 15:45 08/26/16 15:44 07/28/16 21:17 650 MG Ondansetron HCl (Zofran Inj) 4 mg Q6H PRN IV 07/27/16 15:45 08/26/16 15:44 Nitroglycerin (Nitrostat Tab) 0.4 mg UD PRN SL 07/27/16 15:45 08/26/16 15:44 Albuterol/ Ipratropium (Duoneb) 3 ml QIDR INH 07/27/16 16:00 08/26/16 15:59 08/06/16 07:43 3 ML Allopurinol (Zyloprim Tab) 100 mg DAILY PO 07/28/16 09:00 08/27/16 08:59 08/06/16 09:01 100 MG Aspirin (Ecotrin Tab) 81 mg DAILY PO 07/28/16 09:00 08/27/16 08:59 08/06/16 08:58 81 MG Budesonide/ Formoterol Fumarate (Symbicort 160/ 4.5 Inh) 2 puffs BID INH 07/27/16 21:00 08/26/16 20:59 08/06/16 08:57 2 PUFFS Citalopram Hydrobromide (celeXA TAB) 40 mg HS PO 07/27/16 21:00 08/26/16 20:59 08/05/16 19:36 40 MG Cyanocobalamin (Vitamin B-12 Tab) 500 mcg DAILY PO 07/28/16 09:00 08/27/16 08:59 08/06/16 09:01 500 MCG Diltiazem HCl (TIAzac CAP) 120 mg DAILY PO 07/28/16 09:00 08/27/16 08:59 08/06/16 09:01 120 MG Furosemide (Lasix tab) 40 mg DAILY PO 07/28/16 09:00 08/27/16 08:59 Future hold 08/06/16 08:59 40 MG Latanoprost (Xalatan Oph Soln) 1 drops HS OPB 07/27/16 21:00 08/26/16 20:59 08/05/16 19:37 1 DROPS Levothyroxine Sodium (Synthroid Tab) 75 mcg DAILYBB PO 07/28/16 06:00 08/27/16 06:59 08/06/16 05:47 75 MCG Montelukast Sodium (Singulair Tab) 10 mg DAILY PO 07/28/16 09:00 08/27/16 08:59 08/06/16 09:00 10 MG Pramipexole Dihydrochloride (miraPEX TAB) 0.25 mg HS PO 07/27/16 21:00 08/26/16 20:59 08/05/16 19:35 0.25 MG Spironolactone (Aldactone Tab) 25 mg DAILY PO 07/28/16 09:00 08/27/16 08:59 08/06/16 08:58 25 MG Warfarin Sodium (Coumadin Tab) 2.5 mg DAILY@1600 PO 07/28/16 16:00 08/27/16 15:59 Future Hold 07/30/16 16:05 2.5 MG Miscellaneous Information (Order Awaiting Action) 1 ea QS N/A 07/28/16 00:00 08/27/16 00:00 08/06/16 08:00 1 EA Menthol (Nice Berna) 1 berna PRN PRN PO 07/28/16 22:45 08/27/16 22:44 Zolpidem Tartrate (Ambien Tab) 5 mg HS PRN PO 07/29/16 00:00 08/28/16 00:00 08/04/16 23:46 5 MG Pantoprazole Sodium (Protonix Tab) 40 mg QAM PO 07/30/16 08:00 08/29/16 07:59 08/06/16 09:00 40 MG Al Hydrox/Mg Hydrox/Simethicone (Maalox Max Susp) 15 ml Q6H PRN PO 07/29/16 20:00 08/28/16 19:59 Hydralazine HCl (Apresoline Tab) 10 mg Q6H PRN PO 07/30/16 17:00 08/29/16 16:59 08/04/16 23:46 10 MG Polyethylene (Miralax Powder Packet) 17 gm BID PRN PO 07/31/16 13:00 08/30/16 12:59 08/05/16 11:49 17 GM Senna/Docusate Sodium (Senokot S Tab) 2 tab BID PO 07/31/16 20:00 08/30/16 19:59 08/06/16 09:00 2 TAB Tiotropium [place] (Spiriva Handihaler Inhaler) 1 puff QAM INH 08/03/16 12:00 09/02/16 11:59 08/06/16 08:00 1 PUFF Prednisone (PredniSONE TAB) 30 mg DAILY PO 08/06/16 08:00 09/05/16 07:59 08/06/16 08:59 30 MG I & O: 24-Hour Column 08/06/16 08:00 Intake Total 720 ml Output Total 1450 ml Balance -730 ml Vital Signs: Date Time Temp Pulse Resp B/P Pulse Ox O2 Delivery O2 Flow Rate FiO2 08/06/16 08:30 Room Air 08/06/16 07:43 72 12 96 Room Air 08/06/16 00:09 36.3 67 20 144/73 93 Room Air 08/06/16 00:00 Room Air 08/05/16 20:15 60 18 94 Room Air 08/05/16 20:00 Room Air 08/05/16 15:53 78 18 94 Room Air 08/05/16 15:47 92 Room Air 08/05/16 14:39 36.6 71 18 136/82 94 Room Air Laboratory Results: Last 24 Hours Test 08/06/16 06:35 Prothrombin Time 24.8 SECONDS Prothromb Time International Ratio 2.2 Sodium Level 138 mmol/L Potassium Level 4.3 mmol/L Chloride Level 101 mmol/L Carbon Dioxide Level 27 mmol/L Anion Gap 10.0 mmol/L Blood Urea Nitrogen 54 mg/dl Creatinine 2.00 mg/dl Est Creatinine Clear Calc Drug Dose 31.9 ml/min Estimated GFR () 33.5 Estimated GFR (Non- 28.9 BUN/Creatinine Ratio 27.0 Random Glucose 115 mg/dl Calcium Level 8.8 mg/dl
--- NOTE | 2016-08-06 14:04 | Progress Note ---
Medicine Progress Note Date & Time of Visit: Aug 06, 2016 at ~ 09:30 . Subjective Still very weak. Needs assistance and supervision with ambulation and ADL's. Unable to stand at sink to shave himself. No fever. Cough improved, nonproductive. Less wheezing / SOB. No chest pain. No nausea or vomiting. Moved bowels last evening after prunes + MiraLax. . Objective Last 8 Hrs Date Time Temp Pulse Resp B/P Pulse Ox O2 Delivery O2 Flow Rate FiO2 08/06/16 11:33 80 12 97 Room Air 08/06/16 08:30 Room Air 08/06/16 07:43 72 12 96 Room Air Physical Exam: General- sitting in chair, no acute distress ENT- herpes labialis upper lip Neck- + JVD Lungs- diffuse mild-moderate wheezing Heart- RRR Abdomen- obese, + BS, soft, nontender Extremities- 2+ pretibial edema with chronic venous stasis changes Neuro- alert . Laboratory Results: Last 24 Hours Test 08/06/16 06:35 Prothrombin Time 24.8 SECONDS Prothromb Time International Ratio 2.2 Sodium Level 138 mmol/L Potassium Level 4.3 mmol/L Chloride Level 101 mmol/L Carbon Dioxide Level 27 mmol/L Anion Gap 10.0 mmol/L Blood Urea Nitrogen 54 mg/dl Creatinine 2.00 mg/dl Est Creatinine Clear Calc Drug Dose 31.9 ml/min Estimated GFR () 33.5 Estimated GFR (Non- 28.9 BUN/Creatinine Ratio 27.0 Random Glucose 115 mg/dl Calcium Level 8.8 mg/dl Assessment & Plan EXACERBATION OF COPD Secondary to influenza. Continue nebs. Received IV methylprednisolone which was tapered; transition to PO prednisone. Receiving prednisone 40 mg PO daily; taper to 30 mg tomorrow, then as tolerated to chronic maintenance dose of 5 mg daily. Check 2-step pulse oximetry- no significant desaturations. INFLUENZA A Treated with oseltamivir x 5 days. SLEEP APNEA Continue CPAP @ night. Checked nocturnal pulse oximetry on CPAP- no significant desaturations. HISTORY PAROXYSMAL ATRIAL FIBRILLATION Continue diltiazem and warfarin. CHRONIC LEFT VENTRICULAR DIASTOLIC HEART FAILURE Compensated. Continue furosemide and spironolactone. ELEVATED TROPONIN Troponin 0.108, 0.115, 0.086. Total CPK's normal. EKG showed NSR, LVH, NSSTTWA's. Elevated troponin most likely nonspecific elevation due to respiratory illness; doubt acute coronary syndrome. CKD III Baseline creatinine 2 - 2.2 (Apr 2016). Creatinine 2.0 day of admission. Creatinine today = 2.0 Follow. HYPOTHYROIDISM TSH = 0.133. Continue levothyroxine at current dose. Recheck TSH after recovery from current illness. S/P EXCISION SKIN CA RIGHT SHOULDER Sutures removed 07/30/16. CONSTIPATION Resolved. Continue bowel regimen. HERPES LABIALIS Rx with acyclovir x 5 days. VTE PROPHYLAXIS Continue warfarin. RESUSCITATION STATUS DNR per patient's wishes. DISPOSITION Functional status decline due to acute illness. Having ongoing problems with ambulation, transfers, ADL's. PT / OT evals obtained. Case Management consulted. Referral made to [facility]- patient accepted, but skilled care denied by pt's insurance. Peer-peer discussion done- still denied. Discharge disposition pending- patient cannot be discharged to home at this time. Medical follow-up with Dr. Terrazas. Pulmonary follow-up with Edi Smith PA-C. Components of this document were electronically copied and updated from the last documentation created by the undersigned in order to maintain a complete, accurate, and current record. Any portion of this document created by another author, if any, will be attributed to them. I certify that the record accurately reflects the patient's current status and services provided on the date of service. . Current Inpatient Medications: Current Inpatient Medications Medications (Trade) Dose Ordered Sig/Gilma Route Start Time Stop Time Status Last Admin Dose Admin Acetaminophen (Tylenol Tab) 650 mg Q4H PRN PO 07/27/16 15:45 08/26/16 15:44 07/28/16 21:17 650 MG Ondansetron HCl (Zofran Inj) 4 mg Q6H PRN IV 07/27/16 15:45 08/26/16 15:44 Nitroglycerin (Nitrostat Tab) 0.4 mg UD PRN SL 07/27/16 15:45 08/26/16 15:44 Albuterol/ Ipratropium (Duoneb) 3 ml QIDR INH 07/27/16 16:00 08/26/16 15:59 08/06/16 11:33 3 ML Allopurinol (Zyloprim Tab) 100 mg DAILY PO 07/28/16 09:00 08/27/16 08:59 08/06/16 09:01 100 MG Aspirin (Ecotrin Tab) 81 mg DAILY PO 07/28/16 09:00 08/27/16 08:59 08/06/16 08:58 81 MG Budesonide/ Formoterol Fumarate (Symbicort 160/ 4.5 Inh) 2 puffs BID INH 07/27/16 21:00 08/26/16 20:59 08/06/16 08:57 2 PUFFS Citalopram Hydrobromide (celeXA TAB) 40 mg HS PO 07/27/16 21:00 08/26/16 20:59 08/05/16 19:36 40 MG Cyanocobalamin (Vitamin B-12 Tab) 500 mcg DAILY PO 07/28/16 09:00 08/27/16 08:59 08/06/16 09:01 500 MCG Diltiazem HCl (TIAzac CAP) 120 mg DAILY PO 07/28/16 09:00 08/27/16 08:59 08/06/16 09:01 120 MG Furosemide (Lasix tab) 40 mg DAILY PO 07/28/16 09:00 08/27/16 08:59 Future hold 08/06/16 08:59 40 MG Latanoprost (Xalatan Oph Soln) 1 drops HS OPB 07/27/16 21:00 08/26/16 20:59 08/05/16 19:37 1 DROPS Levothyroxine Sodium (Synthroid Tab) 75 mcg DAILYBB PO 07/28/16 06:00 08/27/16 06:59 08/06/16 05:47 75 MCG Montelukast Sodium (Singulair Tab) 10 mg DAILY PO 07/28/16 09:00 08/27/16 08:59 08/06/16 09:00 10 MG Pramipexole Dihydrochloride (miraPEX TAB) 0.25 mg HS PO 07/27/16 21:00 08/26/16 20:59 08/05/16 19:35 0.25 MG Spironolactone (Aldactone Tab) 25 mg DAILY PO 07/28/16 09:00 08/27/16 08:59 08/06/16 08:58 25 MG Warfarin Sodium (Coumadin Tab) 2.5 mg DAILY@1600 PO 07/28/16 16:00 2/2/17 15:59 Future Hold 07/30/16 16:05 2.5 MG Miscellaneous Information (Order Awaiting Action) 1 ea QS N/A 07/28/16 00:00 08/27/16 00:00 08/06/16 08:00 1 EA Menthol (Nice Berna) 1 berna PRN PRN PO 07/28/16 22:45 08/27/16 22:44 Zolpidem Tartrate (Ambien Tab) 5 mg HS PRN PO 07/29/16 00:00 08/28/16 00:00 08/04/16 23:46 5 MG Pantoprazole Sodium (Protonix Tab) 40 mg QAM PO 07/30/16 08:00 08/29/16 07:59 08/06/16 09:00 40 MG Al Hydrox/Mg Hydrox/Simethicone (Maalox Max Susp) 15 ml Q6H PRN PO 07/29/16 20:00 08/28/16 19:59 Hydralazine HCl (Apresoline Tab) 10 mg Q6H PRN PO 07/30/16 17:00 08/29/16 16:59 08/04/16 23:46 10 MG Polyethylene (Miralax Powder Packet) 17 gm BID PRN PO 07/31/16 13:00 08/30/16 12:59 08/05/16 11:49 17 GM Senna/Docusate Sodium (Senokot S Tab) 2 tab BID PO 07/31/16 20:00 08/30/16 19:59 08/06/16 09:00 2 TAB Tiotropium Napoleon (Spiriva Handihaler Inhaler) 1 puff QAM INH 08/03/16 12:00 09/02/16 11:59 08/06/16 08:00 1 PUFF Prednisone (PredniSONE TAB) 30 mg DAILY PO 08/06/16 08:00 09/05/16 07:59 08/06/16 08:59 30 MG
[2016-08-06] MEDS: ACYCLOVIR 200 MG CAP PO SCH ×3 (15:56→23:07)
[2016-08-06] MEDS: PRAMIPEXOLE DIHYDROCHLORIDE 0.25MG TAB PO SCH (21:21)
[2016-08-06] MEDS: CITALOPRAM 40 MG TAB PO SCH (21:21)
[2016-08-06] MEDS: LATANOPROST 0.005% OP SOLN 2.5 ML BTL OPB SCH (21:21)
[2016-08-07] VITALS (9 sets, daily range): BP systolic 140–166; BP diastolic 82–89; PULSE 57–84; TEMP 36.2–36.5; O2SAT 93–98
[2016-08-07] MEDS: LEVOTHYROXINE 75 MCG TAB PO SCH (06:23)
[2016-08-07] MEDS: ACYCLOVIR 200 MG CAP PO SCH ×5 (06:24→22:46)
[2016-08-07] MEDS: ALBUT/IPRATROP 3MG/0.5MG NEB 3 ML VIAL INH SCH ×4 (07:32→19:53)
[2016-08-07] MEDS: MONTELUKAST SOD 10 MG TAB PO SCH (08:14)
[2016-08-07] MEDS: DOCUSATE SODIUM/SENNA 50/8.6MG TAB PO SCH ×3 (08:14→20:45)
[2016-08-07] MEDS: CYANOCOBALAMIN 500 MCG TAB (VIT B-12) PO SCH (08:14)
[2016-08-07] MEDS: SPIRONOLACTONE 25 MG TAB PO SCH (08:15)
[2016-08-07] MEDS: PANTOprazole SOD 40 MG TAB PO SCH (08:15)
[2016-08-07] MEDS: BUDESONIDE/FORMOTEROL FUMARATE 160/4.5 60 PUFFS/INHALER INH SCH ×2 (08:16→20:41)
[2016-08-07] MEDS: DILTIAZEM HCL 120 MG EXT REL CAP PO SCH (08:16)
[2016-08-07] MEDS: ASPIRIN 81 MG ECTAB PO SCH (08:16)
[2016-08-07] MEDS: ALLOPURINOL 100 MG TAB PO SCH (08:16)
[2016-08-07] MEDS: TIOTROPIUM BROMIDE 5 PUFF/90 MCG INH INH SCH (08:17)
[2016-08-07] MEDS: FUROSEMIDE 40 MG TAB PO SCH (08:17)
--- NOTE | 2016-08-07 10:08 | Progress Note ---
Medicine Progress Note Date & Time of Visit: Aug 07, 2016 at 10:00 . Subjective No fever. Cough and dyspnea improved. No chest pain. No nausea, vomiting, diarrhea. Still very weak; requires assistance. . Objective Last 8 Hrs Date Time Temp Pulse Resp B/P Pulse Ox O2 Delivery O2 Flow Rate FiO2 08/07/16 08:15 Room Air 08/07/16 08:07 36.2 57 16 140/84 98 7.0 08/07/16 07:56 72 12 96 Room Air Physical Exam: General- sitting in chair, no distress ENT- herpes labialis upper lip Neck- + JVD Lungs- diffuse moderate wheezing Heart- RRR; no gallop appreciated Abdomen- obese, + BS, soft, nontender Extremities- 2+ pretibial edema with chronic venous stasis changes Neuro- alert, oriented . Assessment & Plan EXACERBATION OF COPD Secondary to influenza. Continue nebs. Received IV methylprednisolone which was tapered; transitioned to PO prednisone. Continue prednisone 30 mg daily, tapering as tolerated to chronic maintenance dose of 5 mg daily. Check 2-step pulse oximetry- no significant desaturations. INFLUENZA A Treated with oseltamivir x 5 days. SLEEP APNEA Continue CPAP @ night. Checked nocturnal pulse oximetry on CPAP- no significant desaturations. HISTORY PAROXYSMAL ATRIAL FIBRILLATION Continue diltiazem and warfarin. CHRONIC LEFT VENTRICULAR DIASTOLIC HEART FAILURE Compensated. Continue furosemide and spironolactone. ELEVATED TROPONIN Troponin 0.108, 0.115, 0.086. Total CPK's normal. EKG showed NSR, LVH, NSSTTWA's. Elevated troponin most likely nonspecific elevation due to respiratory illness; doubt acute coronary syndrome. CKD III Baseline creatinine 2 - 2.2 (Apr 2016). Creatinine 2.0 day of admission. Creatinine yesterday = 2.0 Follow. HYPOTHYROIDISM TSH = 0.133. Continue levothyroxine at current dose. Recheck TSH after recovery from current illness. S/P EXCISION SKIN CA RIGHT SHOULDER Sutures removed 07/30/16. CONSTIPATION Resolved. Continue bowel regimen. HERPES LABIALIS Rx with acyclovir x 5 days (today is day #2 of therapy). VTE PROPHYLAXIS Continue warfarin. INR yesterday was 2.2; recheck 08/08. RESUSCITATION STATUS DNR per patient's wishes. DISPOSITION Functional status decline due to acute illness. Having ongoing problems with ambulation, transfers, ADL's. PT / OT evals obtained. Case Management consulted. Referral made [facility]- patient accepted, but skilled care denied by pt's insurance. Peer-peer discussion done- still denied. Discharge disposition pending- patient cannot be discharged to home at this time. Medical follow-up with Dr. Terrazas. Pulmonary follow-up with Edi Smith PA-C. Components of this document were electronically copied and updated from the last documentation created by the undersigned in order to maintain a complete, accurate, and current record. Any portion of this document created by another author, if any, will be attributed to them. I certify that the record accurately reflects the patient's current status and services provided on the date of service. . Current Inpatient Medications: Current Inpatient Medications Medications (Trade) Dose Ordered Sig/Gilma Route Start Time Stop Time Status Last Admin Dose Admin Acetaminophen (Tylenol Tab) 650 mg Q4H PRN PO 07/27/16 15:45 08/26/16 15:44 07/28/16 21:17 650 MG Ondansetron HCl (Zofran Inj) 4 mg Q6H PRN IV 07/27/16 15:45 08/26/16 15:44 Nitroglycerin (Nitrostat Tab) 0.4 mg UD PRN SL 07/27/16 15:45 08/26/16 15:44 Albuterol/ Ipratropium (Duoneb) 3 ml QIDR INH 07/27/16 16:00 08/26/16 15:59 08/07/16 07:32 3 ML Allopurinol (Zyloprim Tab) 100 mg DAILY PO 07/28/16 09:00 08/27/16 08:59 08/07/16 08:16 100 MG Aspirin (Ecotrin Tab) 81 mg DAILY PO 07/28/16 09:00 08/27/16 08:59 08/07/16 08:16 81 MG Budesonide/ Formoterol Fumarate (Symbicort 160/ 4.5 Inh) 2 puffs BID INH 07/27/16 21:00 08/26/16 20:59 08/07/16 08:16 2 PUFFS Citalopram Hydrobromide (celeXA TAB) 40 mg HS PO 07/27/16 21:00 08/26/16 20:59 08/06/16 21:21 40 MG Cyanocobalamin (Vitamin B-12 Tab) 500 mcg DAILY PO 07/28/16 09:00 08/27/16 08:59 08/07/16 08:14 500 MCG Diltiazem HCl (TIAzac CAP) 120 mg DAILY PO 07/28/16 09:00 08/27/16 08:59 08/07/16 08:16 120 MG Furosemide (Lasix tab) 40 mg DAILY PO 07/28/16 09:00 08/27/16 08:59 Future hold 08/07/16 08:17 40 MG Latanoprost (Xalatan Oph Soln) 1 drops HS OPB 07/27/16 21:00 08/26/16 20:59 08/06/16 21:21 1 DROPS Levothyroxine Sodium (Synthroid Tab) 75 mcg DAILYBB PO 07/28/16 06:00 08/27/16 06:59 08/07/16 06:23 75 MCG Montelukast Sodium (Singulair Tab) 10 mg DAILY PO 07/28/16 09:00 08/27/16 08:59 08/07/16 08:14 10 MG Pramipexole Dihydrochloride (miraPEX TAB) 0.25 mg HS PO 07/27/16 21:00 08/26/16 20:59 08/06/16 21:21 0.25 MG Spironolactone (Aldactone Tab) 25 mg DAILY PO 07/28/16 09:00 08/27/16 08:59 08/07/16 08:15 25 MG Warfarin Sodium (Coumadin Tab) 2.5 mg DAILY@1600 PO 07/28/16 16:00 08/27/16 15:59 Future Hold 07/30/16 16:05 2.5 MG Miscellaneous Information (Order Awaiting Action) 1 ea QS N/A 07/28/16 00:00 08/27/16 00:00 08/06/16 15:56 1 EA Menthol (Nice Berna) 1 berna PRN PRN PO 07/28/16 22:45 08/27/16 22:44 Zolpidem Tartrate (Ambien Tab) 5 mg HS PRN PO 07/29/16 00:00 08/28/16 00:00 08/04/16 23:46 5 MG Pantoprazole Sodium (Protonix Tab) 40 mg QAM PO 07/30/16 08:00 08/29/16 07:59 08/07/16 08:15 40 MG Al Hydrox/Mg Hydrox/Simethicone (Maalox Max Susp) 15 ml Q6H PRN PO 07/29/16 20:00 08/28/16 19:59 Hydralazine HCl (Apresoline Tab) 10 mg Q6H PRN PO 07/30/16 17:00 08/29/16 16:59 08/04/16 23:46 10 MG Polyethylene (Miralax Powder Packet) 17 gm BID PRN PO 07/31/16 13:00 08/30/16 12:59 08/05/16 11:49 17 GM Senna/Docusate Sodium (Senokot S Tab) 2 tab BID PO 07/31/16 20:00 08/30/16 19:59 08/07/16 08:14 2 TAB Tiotropium [place] (Spiriva Handihaler Inhaler) 1 puff QAM INH 08/03/16 12:00 09/02/16 11:59 08/07/16 08:17 1 PUFF Prednisone (PredniSONE TAB) 30 mg DAILY PO 08/06/16 08:00 09/05/16 07:59 08/07/16 08:14 30 MG Acyclovir (Zovirax Cap) 200 mg 5XDQ4H PO 08/06/16 15:00 08/16/16 14:59 08/07/16 06:24 200 MG
[2016-08-07] MEDS: CITALOPRAM 40 MG TAB PO SCH (20:41)
[2016-08-07] MEDS: PRAMIPEXOLE DIHYDROCHLORIDE 0.25MG TAB PO SCH (20:42)
[2016-08-07] MEDS: LATANOPROST 0.005% OP SOLN 2.5 ML BTL OPB SCH (20:44)
[2016-08-08] VITALS (9 sets, daily range): BP systolic 161–183; BP diastolic 74–101; PULSE 59–76; TEMP 36.3–36.4; O2SAT 93–95
[2016-08-08] MEDS: LEVOTHYROXINE 75 MCG TAB PO SCH (06:27)
[2016-08-08] MEDS: ACYCLOVIR 200 MG CAP PO SCH ×5 (06:27→23:25)
[2016-08-08] MEDS: ALLOPURINOL 100 MG TAB PO SCH (07:42)
[2016-08-08] MEDS: ASPIRIN 81 MG ECTAB PO SCH (07:42)
[2016-08-08] MEDS: CYANOCOBALAMIN 500 MCG TAB (VIT B-12) PO SCH (07:42)
[2016-08-08] MEDS: PANTOprazole SOD 40 MG TAB PO SCH (07:43)
[2016-08-08] MEDS: SPIRONOLACTONE 25 MG TAB PO SCH (07:43)
[2016-08-08] MEDS: MONTELUKAST SOD 10 MG TAB PO SCH (07:43)
[2016-08-08] MEDS: FUROSEMIDE 40 MG TAB PO SCH (07:44)
[2016-08-08] MEDS: BUDESONIDE/FORMOTEROL FUMARATE 160/4.5 60 PUFFS/INHALER INH SCH ×2 (07:44→20:30)
[2016-08-08] MEDS: DILTIAZEM HCL 120 MG EXT REL CAP PO SCH (07:44)
[2016-08-08] MEDS: DOCUSATE SODIUM/SENNA 50/8.6MG TAB PO SCH ×2 (07:45→20:31)
[2016-08-08] MEDS: TIOTROPIUM BROMIDE 5 PUFF/90 MCG INH INH SCH (07:45)
[2016-08-08] MEDS: ALBUT/IPRATROP 3MG/0.5MG NEB 3 ML VIAL INH SCH ×4 (07:53→19:47)
[2016-08-08 07:58] LABS: INR 1.5 (0.9-1.1); PROTHROMBIN TIME (PATIENT) 16.1 SECONDS (9.0-12.0)
[2016-08-08 08:15] LABS: CALCIUM 8.5 mg/dl (8.5-10.1); CREATININE 2.1 mg/dl (0.60-1.40); POTASSIUM 4.4 mmol/L (3.5-5.1)
[2016-08-08] MEDS: HydrALAZINE 10 MG TAB PO PRN ×2 (11:39→23:25)
--- NOTE | 2016-08-08 17:51 | Progress Note ---
Medicine Progress Note Date & Time of Visit: Aug 08, 2016 at 17:42. Subjective Patient seen and examined. Is without complaints. Notes that elevating his legs help improve his LE edema. Breathing stable. Objective Last 8 Hrs Date Time Temp Pulse Resp B/P Pulse Ox O2 Delivery O2 Flow Rate FiO2 08/08/16 15:43 36.3 59 17 163/90 95 Room Air 08/08/16 15:33 62 18 95 Room Air 08/08/16 15:16 Room Air 08/08/16 11:37 74 18 95 Room Air 08/08/16 11:00 174/82 Physical Exam: General-awake; alert; NAD Eyes-EOMI; no scleral icterus ENT-scabbed cold sore above upper lip Neck-no stridor; trachea midline Lungs-coarse breath sounds throughout Heart-RRR; no m/r/g Abdomen-obese; NT; nBS; soft Extremities-2+ edema; no deformity Neuro-no gross focal deficits Laboratory Results: Last 24 Hours Test 08/08/16 07:16 Prothrombin Time 16.1 SECONDS Prothromb Time International Ratio 1.5 Sodium Level 139 mmol/L Potassium Level 4.4 mmol/L Chloride Level 104 mmol/L Carbon Dioxide Level 28 mmol/L Anion Gap 7.0 mmol/L Blood Urea Nitrogen 65 mg/dl Creatinine 2.10 mg/dl Est Creatinine Clear Calc Drug Dose 30.4 ml/min Estimated GFR () 31.6 Estimated GFR (Non- 27.3 BUN/Creatinine Ratio 31.0 Random Glucose 98 mg/dl Calcium Level 8.5 mg/dl Assessment & Plan EXACERBATION OF COPD Secondary to influenza. Continue nebs. Received IV methylprednisolone which was tapered; transitioned to PO prednisone. Taper prednisone to chronic maintenance dose of 5 mg daily. Checked 2-step pulse oximetry- no significant desaturations. INFLUENZA A Treated with oseltamivir x 5 days. SLEEP APNEA Continue CPAP @ night. Checked nocturnal pulse oximetry on CPAP- no significant desaturations. HISTORY PAROXYSMAL ATRIAL FIBRILLATION Continue diltiazem and warfarin. CHRONIC LEFT VENTRICULAR DIASTOLIC HEART FAILURE Compensated. Continue furosemide and spironolactone. ELEVATED TROPONIN Troponin 0.108, 0.115, 0.086. Total CPK's normal. EKG showed NSR, LVH, NSSTTWA's. Elevated troponin most likely nonspecific elevation due to respiratory illness; doubt acute coronary syndrome. CKD III Baseline creatinine 2 - 2.2 (Apr 2016). Follow. HYPOTHYROIDISM TSH = 0.133. Continue levothyroxine at current dose. Recheck TSH after recovery from current illness. S/P EXCISION SKIN CA RIGHT SHOULDER Sutures removed 07/30/16. CONSTIPATION Resolved. Continue bowel regimen. HERPES LABIALIS Rx with acyclovir x 5 days VTE PROPHYLAXIS Continue warfarin. RESUSCITATION STATUS DNR per patient's wishes. DISPOSITION Functional status declined due to acute illness. Having ongoing problems with ambulation, transfers, ADL's. PT / OT evals obtained. Case Management consulted. Referral made to [facility]- patient accepted, but skilled care denied by pt's insurance. Peer-peer discussion done- still denied. Discharge disposition pending- patient cannot be discharged to home at this time. Medical follow-up with Dr. Terrazas. Pulmonary follow-up with Edi Smith PA-C. Consultants: Pulmonary Current Inpatient Medications: Current Inpatient Medications Medications (Trade) Dose Ordered Sig/Gilma Route Start Time Stop Time Status Last Admin Dose Admin Acetaminophen (Tylenol Tab) 650 mg Q4H PRN PO 07/27/16 15:45 08/26/16 15:44 07/28/16 21:17 650 MG Ondansetron HCl (Zofran Inj) 4 mg Q6H PRN IV 07/27/16 15:45 08/26/16 15:44 Nitroglycerin (Nitrostat Tab) 0.4 mg UD PRN SL 07/27/16 15:45 08/26/16 15:44 Albuterol/ Ipratropium (Duoneb) 3 ml QIDR INH 07/27/16 16:00 08/26/16 15:59 08/08/16 15:33 3 ML Allopurinol (Zyloprim Tab) 100 mg DAILY PO 07/28/16 09:00 08/27/16 08:59 08/08/16 07:42 100 MG Aspirin (Ecotrin Tab) 81 mg DAILY PO 07/28/16 09:00 08/27/16 08:59 08/08/16 07:42 81 MG Budesonide/ Formoterol Fumarate (Symbicort 160/ 4.5 Inh) 2 puffs BID INH 07/27/16 21:00 08/26/16 20:59 08/08/16 07:44 2 PUFFS Citalopram Hydrobromide (celeXA TAB) 40 mg HS PO 07/27/16 21:00 08/26/16 20:59 08/07/16 20:41 40 MG Cyanocobalamin (Vitamin B-12 Tab) 500 mcg DAILY PO 07/28/16 09:00 08/27/16 08:59 08/08/16 07:42 500 MCG Diltiazem HCl (TIAzac CAP) 120 mg DAILY PO 07/28/16 09:00 08/27/16 08:59 08/08/16 07:44 120 MG Furosemide (Lasix tab) 40 mg DAILY PO 07/28/16 09:00 08/27/16 08:59 Future hold 08/08/16 07:44 40 MG Latanoprost (Xalatan Oph Soln) 1 drops HS OPB 07/27/16 21:00 08/26/16 20:59 08/07/16 20:44 1 DROPS Levothyroxine Sodium (Synthroid Tab) 75 mcg DAILYBB PO 07/28/16 06:00 08/27/16 06:59 08/08/16 06:27 75 MCG Montelukast Sodium (Singulair Tab) 10 mg DAILY PO 07/28/16 09:00 08/27/16 08:59 08/08/16 07:43 10 MG Pramipexole Dihydrochloride (miraPEX TAB) 0.25 mg HS PO 07/27/16 21:00 08/26/16 20:59 08/07/16 20:42 0.25 MG Spironolactone (Aldactone Tab) 25 mg DAILY PO 07/28/16 09:00 08/27/16 08:59 08/08/16 07:43 25 MG Warfarin Sodium (Coumadin Tab) 2.5 mg DAILY@1600 PO 07/28/16 16:00 08/27/16 15:59 Future Hold 07/30/16 16:05 2.5 MG Miscellaneous Information (Order Awaiting Action) 1 ea QS N/A 07/28/16 00:00 08/27/16 00:00 08/08/16 14:36 1 EA Menthol (Nice Berna) 1 berna PRN PRN PO 07/28/16 22:45 08/27/16 22:44 Zolpidem Tartrate (Ambien Tab) 5 mg HS PRN PO 07/29/16 00:00 08/28/16 00:00 08/04/16 23:46 5 MG Pantoprazole Sodium (Protonix Tab) 40 mg QAM PO 07/30/16 08:00 08/29/16 07:59 08/08/16 07:43 40 MG Al Hydrox/Mg Hydrox/Simethicone (Maalox Max Susp) 15 ml Q6H PRN PO 07/29/16 20:00 08/28/16 19:59 Hydralazine HCl (Apresoline Tab) 10 mg Q6H PRN PO 07/30/16 17:00 08/29/16 16:59 08/08/16 11:39 10 MG Polyethylene (Miralax Powder Packet) 17 gm BID PRN PO 07/31/16 13:00 08/30/16 12:59 08/05/16 11:49 17 GM Senna/Docusate Sodium (Senokot S Tab) 2 tab BID PO 07/31/16 20:00 08/30/16 19:59 08/07/16 08:14 2 TAB Tiotropium [place] (Spiriva Handihaler Inhaler) 1 puff QAM INH 08/03/16 12:00 09/02/16 11:59 08/08/16 07:45 1 PUFF Prednisone (PredniSONE TAB) 30 mg DAILY PO 08/06/16 08:00 09/05/16 07:59 08/08/16 07:43 30 MG Acyclovir (Zovirax Cap) 200 mg 5XDQ4H PO 08/06/16 15:00 08/16/16 14:59 08/08/16 15:28 200 MG
[2016-08-08] MEDS: PRAMIPEXOLE DIHYDROCHLORIDE 0.25MG TAB PO SCH (20:32)
[2016-08-08] MEDS: LATANOPROST 0.005% OP SOLN 2.5 ML BTL OPB SCH (20:32)
[2016-08-08] MEDS: CITALOPRAM 40 MG TAB PO SCH (20:32)
[2016-08-09] VITALS (10 sets, daily range): BP systolic 160–168; BP diastolic 76–90; PULSE 57–71; TEMP 36.2–36.5; O2SAT 92–96
[2016-08-09] MEDS: LEVOTHYROXINE 75 MCG TAB PO SCH (06:46)
[2016-08-09] MEDS: ACYCLOVIR 200 MG CAP PO SCH ×5 (06:47→23:42)
[2016-08-09] MEDS: ACETAMINOPHEN 325 MG TAB PO PRN (06:49)
[2016-08-09] MEDS: MONTELUKAST SOD 10 MG TAB PO SCH (07:51)
[2016-08-09] MEDS: DOCUSATE SODIUM/SENNA 50/8.6MG TAB PO SCH ×2 (07:51→19:39)
[2016-08-09] MEDS: PANTOprazole SOD 40 MG TAB PO SCH (07:52)
[2016-08-09] MEDS: DILTIAZEM HCL 120 MG EXT REL CAP PO SCH (07:52)
[2016-08-09] MEDS: ALLOPURINOL 100 MG TAB PO SCH (07:52)
[2016-08-09] MEDS: FUROSEMIDE 40 MG TAB PO SCH (07:52)
[2016-08-09] MEDS: SPIRONOLACTONE 25 MG TAB PO SCH (07:53)
[2016-08-09] MEDS: ASPIRIN 81 MG ECTAB PO SCH (07:55)
[2016-08-09] MEDS: TIOTROPIUM BROMIDE 5 PUFF/90 MCG INH INH SCH (07:56)
[2016-08-09] MEDS: BUDESONIDE/FORMOTEROL FUMARATE 160/4.5 60 PUFFS/INHALER INH SCH ×3 (07:57→19:59)
[2016-08-09] MEDS: CICLESONIDE SCH (08:00)
[2016-08-09] MEDS: ALBUT/IPRATROP 3MG/0.5MG NEB 3 ML VIAL INH SCH ×4 (08:01→19:35)
[2016-08-09] MEDS: CYANOCOBALAMIN 500 MCG TAB (VIT B-12) PO SCH (08:03)
--- NOTE | 2016-08-09 17:09 | Progress Note ---
Medicine Progress Note Date & Time of Visit: Aug 09, 2016 at 17:05. Subjective Patient seen and examined. Is without complaints today. Objective Last 8 Hrs Date Time Temp Pulse Resp B/P Pulse Ox O2 Delivery O2 Flow Rate FiO2 08/09/16 15:45 Room Air 08/09/16 15:39 68 18 96 Room Air 08/09/16 15:22 36.4 57 18 160/76 93 Room Air 08/09/16 11:20 67 18 92 Room Air Physical Exam: General-awake; alert; NAD Eyes-EOMI; no scleral icterus ENT-scabbed cold sore above upper lip Neck-no stridor; trachea midline Lungs-coarse breath sounds throughout Heart-RRR; no m/r/g Abdomen-obese; NT; nBS; soft Extremities-2+ edema; no deformity Neuro-no gross focal deficits Assessment & Plan EXACERBATION OF COPD Secondary to influenza. Continue nebs. Received IV methylprednisolone which was tapered; transitioned to PO prednisone. Taper prednisone to chronic maintenance dose of 5 mg daily. Checked 2-step pulse oximetry- no significant desaturations. HTN Continue diltiazem, furosemide, spironolactone. Started hydralazine. INFLUENZA A Treated with oseltamivir x 5 days. SLEEP APNEA Continue CPAP @ night. Checked nocturnal pulse oximetry on CPAP- no significant desaturations. HISTORY PAROXYSMAL ATRIAL FIBRILLATION Continue diltiazem and warfarin. CHRONIC LEFT VENTRICULAR DIASTOLIC HEART FAILURE Compensated. Continue furosemide and spironolactone. ELEVATED TROPONIN Troponin 0.108, 0.115, 0.086. Total CPK's normal. EKG showed NSR, LVH, NSSTTWA's. Elevated troponin most likely nonspecific elevation due to respiratory illness; doubt acute coronary syndrome. CKD III Baseline creatinine 2 - 2.2 (Apr 2016). Follow. HYPOTHYROIDISM TSH = 0.133. Continue levothyroxine at current dose. Recheck TSH after recovery from current illness. S/P EXCISION SKIN CA RIGHT SHOULDER Sutures removed 07/30/16. CONSTIPATION Resolved. Continue bowel regimen. HERPES LABIALIS Rx with acyclovir x 5 days VTE PROPHYLAXIS Continue warfarin. RESUSCITATION STATUS DNR per patient's wishes. DISPOSITION Functional status declined due to acute illness. Having ongoing problems with ambulation, transfers, ADL's. PT / OT evals obtained. Case Management consulted. Referral made to [facility]- patient accepted, but skilled care denied by pt's insurance. Peer-peer discussion done- still denied. Discharge disposition pending- patient cannot be discharged to home at this time. Medical follow-up with Dr. Terrazas. Pulmonary follow-up with Edi Smith PA-C. Consultants: Pulmonary Current Inpatient Medications: Current Inpatient Medications Medications (Trade) Dose Ordered Sig/Gilma Route Start Time Stop Time Status Last Admin Dose Admin Acetaminophen (Tylenol Tab) 650 mg Q4H PRN PO 07/27/16 15:45 08/26/16 15:44 08/09/16 06:49 650 MG Ondansetron HCl (Zofran Inj) 4 mg Q6H PRN IV 07/27/16 15:45 08/26/16 15:44 Nitroglycerin (Nitrostat Tab) 0.4 mg UD PRN SL 07/27/16 15:45 08/26/16 15:44 Albuterol/ Ipratropium (Duoneb) 3 ml QIDR INH 07/27/16 16:00 08/26/16 15:59 08/09/16 15:39 3 ML Allopurinol (Zyloprim Tab) 100 mg DAILY PO 07/28/16 09:00 08/27/16 08:59 08/09/16 07:52 100 MG Aspirin (Ecotrin Tab) 81 mg DAILY PO 07/28/16 09:00 08/27/16 08:59 08/09/16 07:55 81 MG Budesonide/ Formoterol Fumarate (Symbicort 160/ 4.5 Inh) 2 puffs BID INH 07/27/16 21:00 08/26/16 20:59 08/09/16 07:57 2 PUFFS Citalopram Hydrobromide (celeXA TAB) 40 mg HS PO 07/27/16 21:00 08/26/16 20:59 08/08/16 20:32 40 MG Cyanocobalamin (Vitamin B-12 Tab) 500 mcg DAILY PO 07/28/16 09:00 08/27/16 08:59 08/09/16 08:03 500 MCG Diltiazem HCl (TIAzac CAP) 120 mg DAILY PO 07/28/16 09:00 08/27/16 08:59 08/09/16 07:52 120 MG Furosemide (Lasix tab) 40 mg DAILY PO 07/28/16 09:00 08/27/16 08:59 Future hold 08/09/16 07:52 40 MG Latanoprost (Xalatan Oph Soln) 1 drops HS OPB 07/27/16 21:00 08/26/16 20:59 08/08/16 20:32 1 DROPS Levothyroxine Sodium (Synthroid Tab) 75 mcg DAILYBB PO 07/28/16 06:00 08/27/16 06:59 08/09/16 06:46 75 MCG Montelukast Sodium (Singulair Tab) 10 mg DAILY PO 07/28/16 09:00 08/27/16 08:59 08/09/16 07:51 10 MG Pramipexole Dihydrochloride (miraPEX TAB) 0.25 mg HS PO 07/27/16 21:00 08/26/16 20:59 08/08/16 20:32 0.25 MG Spironolactone (Aldactone Tab) 25 mg DAILY PO 07/28/16 09:00 08/27/16 08:59 08/09/16 07:53 25 MG Warfarin Sodium (Coumadin Tab) 2.5 mg DAILY@1600 PO 07/28/16 16:00 08/27/16 15:59 Future Hold 07/30/16 16:05 2.5 MG Miscellaneous Information (Order Awaiting Action) 1 ea QS N/A 07/28/16 00:00 08/27/16 00:00 08/08/16 14:36 1 EA Menthol (Nice Berna) 1 berna PRN PRN PO 07/28/16 22:45 08/27/16 22:44 Zolpidem Tartrate (Ambien Tab) 5 mg HS PRN PO 07/29/16 00:00 08/28/16 00:00 08/04/16 23:46 5 MG Pantoprazole Sodium (Protonix Tab) 40 mg QAM PO 07/30/16 08:00 08/29/16 07:59 08/09/16 07:52 40 MG Al Hydrox/Mg Hydrox/Simethicone (Maalox Max Susp) 15 ml Q6H PRN PO 07/29/16 20:00 08/28/16 19:59 Hydralazine HCl (Apresoline Tab) 10 mg Q6H PRN PO 07/30/16 17:00 08/29/16 16:59 08/08/16 23:25 10 MG Polyethylene (Miralax Powder Packet) 17 gm BID PRN PO 07/31/16 13:00 08/30/16 12:59 08/05/16 11:49 17 GM Senna/Docusate Sodium (Senokot S Tab) 2 tab BID PO 07/31/16 20:00 08/30/16 19:59 08/09/16 07:51 2 TAB Tiotropium [place] (Spiriva Handihaler Inhaler) 1 puff QAM INH 08/03/16 12:00 09/02/16 11:59 08/09/16 07:56 1 PUFF Acyclovir (Zovirax Cap) 200 mg 5XDQ4H PO 08/06/16 15:00 08/11/16 14:59 08/09/16 15:35 200 MG Prednisone (PredniSONE TAB) 20 mg DAILY PO 08/09/16 08:00 09/08/16 07:59 08/09/16 07:51 20 MG Hydralazine HCl (Apresoline Tab) 25 mg BID PO 08/08/16 20:00 09/07/16 19:59 08/09/16 07:53 25 MG
[2016-08-09] MEDS: LATANOPROST 0.005% OP SOLN 2.5 ML BTL OPB SCH ×2 (19:40→20:00)
[2016-08-09] MEDS: PRAMIPEXOLE DIHYDROCHLORIDE 0.25MG TAB PO SCH ×2 (19:40→20:00)
[2016-08-09] MEDS: CITALOPRAM 40 MG TAB PO SCH ×2 (19:41→20:00)
[2016-08-10] VITALS (9 sets, daily range): BP systolic 155–164; BP diastolic 79–92; PULSE 67–95; TEMP 36.3–36.5; O2SAT 91–96
[2016-08-10] MEDS: LEVOTHYROXINE 75 MCG TAB PO SCH (06:36)
[2016-08-10] MEDS: ACYCLOVIR 200 MG CAP PO SCH ×5 (06:37→22:54)
[2016-08-10] MEDS: ALBUT/IPRATROP 3MG/0.5MG NEB 3 ML VIAL INH SCH ×4 (07:25→19:35)
[2016-08-10] MEDS: MONTELUKAST SOD 10 MG TAB PO SCH (07:41)
[2016-08-10] MEDS: DOCUSATE SODIUM/SENNA 50/8.6MG TAB PO SCH ×2 (07:41→20:12)
[2016-08-10] MEDS: FUROSEMIDE 40 MG TAB PO SCH (07:42)
[2016-08-10] MEDS: DILTIAZEM HCL 120 MG EXT REL CAP PO SCH (07:43)
[2016-08-10] MEDS: PANTOprazole SOD 40 MG TAB PO SCH (07:43)
[2016-08-10] MEDS: SPIRONOLACTONE 25 MG TAB PO SCH (07:43)
[2016-08-10] MEDS: ASPIRIN 81 MG ECTAB PO SCH (07:44)
[2016-08-10] MEDS: CYANOCOBALAMIN 500 MCG TAB (VIT B-12) PO SCH (07:44)
[2016-08-10] MEDS: ALLOPURINOL 100 MG TAB PO SCH (07:44)
[2016-08-10] MEDS: CICLESONIDE SCH (07:45)
[2016-08-10] MEDS: BUDESONIDE/FORMOTEROL FUMARATE 160/4.5 60 PUFFS/INHALER INH SCH ×2 (07:45→20:11)
[2016-08-10] MEDS: TIOTROPIUM BROMIDE 5 PUFF/90 MCG INH INH SCH (07:45)
--- NOTE | 2016-08-10 14:23 | Progress Note ---
Medicine Progress Note Date & Time of Visit: Aug 10, 2016 at 14:07. Subjective Patient seen and examined. Feeling well today, but notes that he is still quite weak and requires assistance. Objective Last 8 Hrs Date Time Temp Pulse Resp B/P Pulse Ox O2 Delivery O2 Flow Rate FiO2 08/10/16 11:26 72 12 96 Room Air 08/10/16 08:00 91 Room Air 08/10/16 07:42 36.4 73 16 157/80 91 Room Air 0.0 08/10/16 07:27 67 12 91 Room Air Physical Exam: General-awake; alert; NAD Eyes-EOMI; no scleral icterus ENT-scabbed cold sore above upper lip Neck-no stridor; trachea midline Lungs-coarse breath sounds throughout Heart-RRR; no m/r/g Abdomen-obese; NT; nBS; soft Extremities-1+ edema; no deformity Neuro-no gross focal deficits Assessment & Plan EXACERBATION OF COPD Secondary to influenza. Continue nebs. Received IV methylprednisolone which was transitioned to prednisone (20mg dose started on 08/09/16). Taper prednisone to chronic maintenance dose of 5 mg daily. Checked 2-step pulse oximetry- no significant desaturations. HTN Continue diltiazem, furosemide, spironolactone. Started hydralazine. INFLUENZA A Treated with oseltamivir x 5 days. SLEEP APNEA Continue CPAP @ night. Checked nocturnal pulse oximetry on CPAP- no significant desaturations. HISTORY PAROXYSMAL ATRIAL FIBRILLATION Continue diltiazem and warfarin (warfarin had been held earlier during hospitalization for elevated INR). CHRONIC LEFT VENTRICULAR DIASTOLIC HEART FAILURE Compensated. Continue furosemide and spironolactone. ELEVATED TROPONIN Troponin 0.108, 0.115, 0.086. Total CPK's normal. EKG showed NSR, LVH, NSSTTWA's. Elevated troponin most likely nonspecific elevation due to respiratory illness; doubt acute coronary syndrome. CKD III Baseline creatinine 2 - 2.2 (Apr 2016). Follow. HYPOTHYROIDISM TSH = 0.133. Continue levothyroxine at current dose. Recheck TSH after recovery from current illness. S/P EXCISION SKIN CA RIGHT SHOULDER Sutures removed 07/30/16. CONSTIPATION Resolved. Continue bowel regimen. HERPES LABIALIS Rx with acyclovir x 5 days VTE PROPHYLAXIS Continue warfarin. RESUSCITATION STATUS DNR per patient's wishes. DISPOSITION Functional status declined due to acute illness. Having ongoing problems with ambulation, transfers, ADL's. PT / OT evals obtained. Case Management consulted. [facility]erral made [facility]- patient accepted, but skilled care denied by pt's insurance. Peer-peer discussion done- still denied. Discharge disposition pending- patient cannot be discharged to home at this time. Medical follow-up with Dr. Terrazas. Pulmonary follow-up with Edi Smith PA-C. Consultants: Pulmonary Current Inpatient Medications: Current Inpatient Medications Medications (Trade) Dose Ordered Sig/Gilma Route Start Time Stop Time Status Last Admin Dose Admin Acetaminophen (Tylenol Tab) 650 mg Q4H PRN PO 07/27/16 15:45 08/26/16 15:44 08/09/16 06:49 650 MG Ondansetron HCl (Zofran Inj) 4 mg Q6H PRN IV 07/27/16 15:45 08/26/16 15:44 Nitroglycerin (Nitrostat Tab) 0.4 mg UD PRN SL 07/27/16 15:45 08/26/16 15:44 Albuterol/ Ipratropium (Duoneb) 3 ml QIDR INH 07/27/16 16:00 08/26/16 15:59 08/10/16 11:26 3 ML Allopurinol (Zyloprim Tab) 100 mg DAILY PO 07/28/16 09:00 08/27/16 08:59 08/10/16 07:44 100 MG Aspirin (Ecotrin Tab) 81 mg DAILY PO 07/28/16 09:00 08/27/16 08:59 08/10/16 07:44 81 MG Budesonide/ Formoterol Fumarate (Symbicort 160/ 4.5 Inh) 2 puffs BID INH 07/27/16 21:00 08/26/16 20:59 08/10/16 07:45 2 PUFFS Citalopram Hydrobromide (celeXA TAB) 40 mg HS PO 07/27/16 21:00 08/26/16 20:59 08/09/16 20:00 40 MG Cyanocobalamin (Vitamin B-12 Tab) 500 mcg DAILY PO 07/28/16 09:00 08/27/16 08:59 08/10/16 07:44 500 MCG Diltiazem HCl (TIAzac CAP) 120 mg DAILY PO 07/28/16 09:00 08/27/16 08:59 08/10/16 07:43 120 MG Furosemide (Lasix tab) 40 mg DAILY PO 07/28/16 09:00 08/27/16 08:59 Future hold 08/10/16 07:42 40 MG Latanoprost (Xalatan Oph Soln) 1 drops HS OPB 07/27/16 21:00 08/26/16 20:59 08/09/16 20:00 1 DROPS Levothyroxine Sodium (Synthroid Tab) 75 mcg DAILYBB PO 07/28/16 06:00 08/27/16 06:59 08/10/16 06:36 75 MCG Montelukast Sodium (Singulair Tab) 10 mg DAILY PO 07/28/16 09:00 08/27/16 08:59 08/10/16 07:41 10 MG Pramipexole Dihydrochloride (miraPEX TAB) 0.25 mg HS PO 07/27/16 21:00 08/26/16 20:59 08/09/16 20:00 0.25 MG Spironolactone (Aldactone Tab) 25 mg DAILY PO 07/28/16 09:00 08/27/16 08:59 08/10/16 07:43 25 MG Warfarin Sodium (Coumadin Tab) 2.5 mg DAILY@1600 PO 07/28/16 16:00 08/27/16 15:59 Future hold 07/30/16 16:05 2.5 MG Miscellaneous Information (Order Awaiting Action) 1 ea QS N/A 07/28/16 00:00 08/27/16 00:00 08/08/16 14:36 1 EA Menthol (Nice Berna) 1 berna PRN PRN PO 07/28/16 22:45 08/27/16 22:44 Zolpidem Tartrate (Ambien Tab) 5 mg HS PRN PO 07/29/16 00:00 08/28/16 00:00 08/04/16 23:46 5 MG Pantoprazole Sodium (Protonix Tab) 40 mg QAM PO 07/30/16 08:00 08/29/16 07:59 08/10/16 07:43 40 MG Al Hydrox/Mg Hydrox/Simethicone (Maalox Max Susp) 15 ml Q6H PRN PO 07/29/16 20:00 08/28/16 19:59 Hydralazine HCl (Apresoline Tab) 10 mg Q6H PRN PO 07/30/16 17:00 08/29/16 16:59 08/08/16 23:25 10 MG Polyethylene (Miralax Powder Packet) 17 gm BID PRN PO 07/31/16 13:00 08/30/16 12:59 08/05/16 11:49 17 GM Senna/Docusate Sodium (Senokot S Tab) 2 tab BID PO 07/31/16 20:00 08/30/16 19:59 08/10/16 07:41 2 TAB Tiotropium [place] (Spiriva Handihaler Inhaler) 1 puff QAM INH 08/03/16 12:00 09/02/16 11:59 08/10/16 07:45 1 PUFF Acyclovir (Zovirax Cap) 200 mg 5XDQ4H PO 08/06/16 15:00 08/11/16 14:59 08/10/16 12:11 200 MG Prednisone (PredniSONE TAB) 20 mg DAILY PO 08/09/16 08:00 09/08/16 07:59 08/10/16 07:43 20 MG Hydralazine HCl (Apresoline Tab) 25 mg BID PO 08/08/16 20:00 09/07/16 19:59 08/10/16 07:42 25 MG
[2016-08-10] MEDS: WARFARIN SOD 2.5 MG TAB PO SCH (16:15)
[2016-08-10] MEDS: LATANOPROST 0.005% OP SOLN 2.5 ML BTL OPB SCH (20:10)
[2016-08-10] MEDS: PRAMIPEXOLE DIHYDROCHLORIDE 0.25MG TAB PO SCH (20:12)
[2016-08-10] MEDS: CITALOPRAM 40 MG TAB PO SCH (20:12)
[2016-08-11] VITALS (10 sets, daily range): BP systolic 158–175; BP diastolic 85–92; PULSE 65–88; TEMP 36.4–36.6; O2SAT 84–96
[2016-08-11] MEDS: ACYCLOVIR 200 MG CAP PO SCH ×2 (05:57→15:12)
[2016-08-11] MEDS: LEVOTHYROXINE 75 MCG TAB PO SCH (05:57)
[2016-08-11 06:23] LABS: MEAN CELL VOLUME 90.2 fL (80-100); MEAN CORPUSCULAR HEMOGLOBIN 30.5 pg (25-34); MEAN CORPUSCULAR HGB CONC 33.8 g/dl (32-36); MEAN PLATELET VOLUME 11.2 fL (7.4-10.4); PLATELET COUNT 175 K/uL (130-400); WHITE BLOOD COUNT 16.66 K/uL (4.8-10.8)
[2016-08-11 06:30] LABS: INR 1.1 (0.9-1.1); PROTHROMBIN TIME (PATIENT) 11.5 SECONDS (9.0-12.0)
[2016-08-11 06:55] LABS: BUN/CREATININE RATIO 26.9 (10-20); CALCIUM 8.9 mg/dl (8.5-10.1); CREATININE 2.1 mg/dl (0.60-1.40); POTASSIUM 4.9 mmol/L (3.5-5.1)
[2016-08-11] MEDS: ALBUT/IPRATROP 3MG/0.5MG NEB 3 ML VIAL INH SCH ×4 (07:14→20:30)
[2016-08-11] MEDS: BUDESONIDE/FORMOTEROL FUMARATE 160/4.5 60 PUFFS/INHALER INH SCH ×2 (07:50→20:55)
[2016-08-11] MEDS: TIOTROPIUM BROMIDE 5 PUFF/90 MCG INH INH SCH (07:51)
[2016-08-11] MEDS: CICLESONIDE SCH (07:52)
[2016-08-11] MEDS: MONTELUKAST SOD 10 MG TAB PO SCH (07:53)
[2016-08-11] MEDS: ASPIRIN 81 MG ECTAB PO SCH (07:54)
[2016-08-11] MEDS: FUROSEMIDE 40 MG TAB PO SCH (07:54)
[2016-08-11] MEDS: SPIRONOLACTONE 25 MG TAB PO SCH (07:56)
[2016-08-11] MEDS: DOCUSATE SODIUM/SENNA 50/8.6MG TAB PO SCH ×2 (07:58→20:56)
[2016-08-11] MEDS: PANTOprazole SOD 40 MG TAB PO SCH (07:58)
[2016-08-11] MEDS: DILTIAZEM HCL 120 MG EXT REL CAP PO SCH (07:59)
[2016-08-11] MEDS: CYANOCOBALAMIN 500 MCG TAB (VIT B-12) PO SCH (08:00)
[2016-08-11] MEDS: ALLOPURINOL 100 MG TAB PO SCH (08:00)
--- NOTE | 2016-08-11 14:02 | Progress Note ---
Medicine Progress Note Date & Time of Visit: Aug 11, 2016 at 13:45. Subjective Pt was seen and examined Sitting in chair comfortable reading his newspaper Pt said that he feels fine he denies any chest pain, palpitation, dizziness and SOB Pt said that he feels his legs are weak Objective Last 8 Hrs Date Time Temp Pulse Resp B/P Pulse Ox O2 Delivery O2 Flow Rate FiO2 08/11/16 11:23 68 16 96 Room Air 08/11/16 10:10 95 Room Air 08/11/16 08:24 36.6 65 16 158/90 95 Room Air 08/11/16 08:00 96 Room Air 0.0 08/11/16 07:16 88 16 96 Room Air Physical Exam: General- No acute distress Head- atraumatic Eyes- PERRL, EOMI ENT- oropharynx clear Neck- supple, no JVD Lungs- clear to auscultation and percussion Heart- regular rhythm; no murmur Abdomen- normal bowel sounds, soft Extremities-no calf tenderness, +edema Neuro- alert, oriented, PERRL, EOMI Skin- warm & dry Laboratory Results: Last 24 Hours Test 08/11/16 05:47 White Blood Count 16.66 K/uL Red Blood Count 4.10 M/uL Hemoglobin 12.5 g/dL Hematocrit 37.0 % Mean Corpuscular Volume 90.2 fL Mean Corpuscular Hemoglobin 30.5 pg Mean Corpuscular Hemoglobin Concent 33.8 g/dl RDW Standard Deviation 50.7 fL RDW Coefficient of Variation 15.6 % Platelet Count 175 K/uL Mean Platelet Volume 11.2 fL Prothrombin Time 11.5 SECONDS Prothromb Time International Ratio 1.1 Sodium Level 139 mmol/L Potassium Level 4.9 mmol/L Chloride Level 103 mmol/L Carbon Dioxide Level 28 mmol/L Anion Gap 8.0 mmol/L Blood Urea Nitrogen 57 mg/dl Creatinine 2.10 mg/dl Est Creatinine Clear Calc Drug Dose 30.4 ml/min Estimated GFR () 31.6 Estimated GFR (Non- 27.3 BUN/Creatinine Ratio 26.9 Random Glucose 92 mg/dl Calcium Level 8.9 mg/dl Assessment & Plan EXACERBATION OF COPD Mostly due to influenza. Continue nebs. IV methylprednisolone was changed to prednisone (20mg dose started on 08/09/16). will continue Taper prednisone 10mg, starting tomorrow to chronic maintenance dose of 5 mg daily. 2-step pulse oximetry done did show any significant desaturations. HTN Continue diltiazem, furosemide, spironolactone, hydralazine 25 mg TID Stable INFLUENZA A Completed oseltamivir course SLEEP APNEA Continue CPAP @ night. Stable HISTORY PAROXYSMAL ATRIAL FIBRILLATION Rate is controlled Continue diltiazem and coumadin INR 1.1 Check INR in am CHRONIC LEFT VENTRICULAR DIASTOLIC HEART FAILURE Continue furosemide and spironolactone. Stable ELEVATED TROPONIN Troponin 0.108, 0.115, 0.086. EKG showed NSR, LVH, NSSTTWA's. Elevated troponin most likely nonspecific elevation due to respiratory illness; doubt acute coronary syndrome. Asymptomatic CKD III Baseline creatinine 2 - 2.2 (Apr 2016). Creatine 2.1 today Continue monitor BMP HYPOTHYROIDISM TSH = 0.133. Continue levothyroxine at current dose. AMBULATORY DYSFUNCTION Continue PT/OT Fall precaution S/P EXCISION SKIN CA RIGHT SHOULDER Sutures removed 07/30/16. CONSTIPATION Resolved. HERPES LABIALIS Rx with acyclovir x 5 days VTE PROPHYLAXIS Continue warfarin. RESUSCITATION STATUS DNR per patient's wishes. DISPOSITION Functional status declined due to acute illness. Ambulatory dysfunction Continue PT / OT eval Case Management consulted. Referral made to [facility]- patient accepted, but skilled care denied by pt's insurance. Peer-peer discussion done- still denied. Discharge disposition pending- patient cannot be discharged to home at this time. Medical follow-up with Dr. Terrazas. Pulmonary follow-up with Edi Smith PA-C. Consultants: Pulmonary Current Inpatient Medications: Current Inpatient Medications Medications (Trade) Dose Ordered Sig/Gilma Route Start Time Stop Time Status Last Admin Dose Admin Acetaminophen (Tylenol Tab) 650 mg Q4H PRN PO 07/27/16 15:45 08/26/16 15:44 08/09/16 06:49 650 MG Ondansetron HCl (Zofran Inj) 4 mg Q6H PRN IV 07/27/16 15:45 08/26/16 15:44 Nitroglycerin (Nitrostat Tab) 0.4 mg UD PRN SL 07/27/16 15:45 08/26/16 15:44 Albuterol/ Ipratropium (Duoneb) 3 ml QIDR INH 07/27/16 16:00 08/26/16 15:59 08/11/16 11:07 3 ML Allopurinol (Zyloprim Tab) 100 mg DAILY PO 07/28/16 09:00 08/27/16 08:59 08/11/16 08:00 100 MG Aspirin (Ecotrin Tab) 81 mg DAILY PO 07/28/16 09:00 08/27/16 08:59 08/11/16 07:54 81 MG Budesonide/ Formoterol Fumarate (Symbicort 160/ 4.5 Inh) 2 puffs BID INH 07/27/16 21:00 08/26/16 20:59 08/11/16 07:50 2 PUFFS Citalopram Hydrobromide (celeXA TAB) 40 mg HS PO 07/27/16 21:00 08/26/16 20:59 08/10/16 20:12 40 MG Cyanocobalamin (Vitamin B-12 Tab) 500 mcg DAILY PO 07/28/16 09:00 08/27/16 08:59 08/11/16 08:00 500 MCG Diltiazem HCl (TIAzac CAP) 120 mg DAILY PO 07/28/16 09:00 08/27/16 08:59 08/11/16 07:59 120 MG Furosemide (Lasix tab) 40 mg DAILY PO 07/28/16 09:00 08/27/16 08:59 Future hold 08/11/16 07:54 40 MG Latanoprost (Xalatan Oph Soln) 1 drops HS OPB 07/27/16 21:00 08/26/16 20:59 08/10/16 20:10 1 DROPS Levothyroxine Sodium (Synthroid Tab) 75 mcg DAILYBB PO 07/28/16 06:00 08/27/16 06:59 08/11/16 05:57 75 MCG Montelukast Sodium (Singulair Tab) 10 mg DAILY PO 07/28/16 09:00 08/27/16 08:59 08/11/16 07:53 10 MG Pramipexole Dihydrochloride (miraPEX TAB) 0.25 mg HS PO 07/27/16 21:00 08/26/16 20:59 08/10/16 20:12 0.25 MG Spironolactone (Aldactone Tab) 25 mg DAILY PO 07/28/16 09:00 08/27/16 08:59 08/11/16 07:56 25 MG Warfarin Sodium (Coumadin Tab) 2.5 mg DAILY@1600 PO 07/28/16 16:00 08/27/16 15:59 Future hold 08/10/16 16:15 2.5 MG Miscellaneous Information (Order Awaiting Action) 1 ea QS N/A 07/28/16 00:00 08/27/16 00:00 08/08/16 14:36 1 EA Menthol (Nice Berna) 1 berna PRN PRN PO 07/28/16 22:45 08/27/16 22:44 Zolpidem Tartrate (Ambien Tab) 5 mg HS PRN PO 07/29/16 00:00 08/28/16 00:00 08/04/16 23:46 5 MG Pantoprazole Sodium (Protonix Tab) 40 mg QAM PO 07/30/16 08:00 08/29/16 07:59 08/11/16 07:58 40 MG Al Hydrox/Mg Hydrox/Simethicone (Maalox Max Susp) 15 ml Q6H PRN PO 07/29/16 20:00 08/28/16 19:59 Hydralazine HCl (Apresoline Tab) 10 mg Q6H PRN PO 07/30/16 17:00 08/29/16 16:59 08/08/16 23:25 10 MG Polyethylene (Miralax Powder Packet) 17 gm BID PRN PO 07/31/16 13:00 08/30/16 12:59 08/05/16 11:49 17 GM Senna/Docusate Sodium (Senokot S Tab) 2 tab BID PO 07/31/16 20:00 08/30/16 19:59 08/10/16 20:12 2 TAB Tiotropium [place] (Spiriva Handihaler Inhaler) 1 puff QAM INH 08/03/16 12:00 09/02/16 11:59 08/11/16 07:51 1 PUFF Acyclovir (Zovirax Cap) 200 mg 5XDQ4H PO 08/06/16 15:00 08/11/16 14:59 08/11/16 05:57 200 MG Prednisone (PredniSONE TAB) 20 mg DAILY PO 1/15/17 08:00 09/08/16 07:59 08/11/16 07:53 20 MG Hydralazine HCl (Apresoline Tab) 25 mg BID PO 08/08/16 20:00 09/07/16 19:59 08/11/16 07:56 25 MG
[2016-08-11] MEDS: WARFARIN SOD 2.5 MG TAB PO SCH (16:56)
[2016-08-11] MEDS: LATANOPROST 0.005% OP SOLN 2.5 ML BTL OPB SCH (20:55)
[2016-08-11] MEDS: PRAMIPEXOLE DIHYDROCHLORIDE 0.25MG TAB PO SCH (20:56)
[2016-08-11] MEDS: CITALOPRAM 40 MG TAB PO SCH (20:56)
[2016-08-12] VITALS (8 sets, daily range): BP systolic 136–176; BP diastolic 82–93; PULSE 60–97; TEMP 36.4–37; O2SAT 91–97
[2016-08-12 06:13] LABS: HEMATOCRIT 34.9 % (42-52); MEAN CELL VOLUME 90.2 fL (80-100); MEAN CORPUSCULAR HEMOGLOBIN 30.5 pg (25-34); MEAN CORPUSCULAR HGB CONC 33.8 g/dl (32-36); MEAN PLATELET VOLUME 10.5 fL (7.4-10.4); PLATELET COUNT 151 K/uL (130-400); RED BLOOD COUNT 3.87 M/uL (4.7-6.1); WHITE BLOOD COUNT 14.62 K/uL (4.8-10.8)
[2016-08-12 06:19] LABS: INR 1.1 (0.9-1.1); PROTHROMBIN TIME (PATIENT) 11.8 SECONDS (9.0-12.0)
[2016-08-12] MEDS: LEVOTHYROXINE 75 MCG TAB PO SCH (06:45)
[2016-08-12 06:48] LABS: BUN/CREATININE RATIO 28.7 (10-20); CALCIUM 8.6 mg/dl (8.5-10.1); POTASSIUM 4.5 mmol/L (3.5-5.1)
[2016-08-12] MEDS: ALBUT/IPRATROP 3MG/0.5MG NEB 3 ML VIAL INH SCH ×4 (07:13→19:50)
[2016-08-12] MEDS: BUDESONIDE/FORMOTEROL FUMARATE 160/4.5 60 PUFFS/INHALER INH SCH ×2 (07:36→20:42)
[2016-08-12] MEDS: ASPIRIN 81 MG ECTAB PO SCH (07:37)
[2016-08-12] MEDS: SPIRONOLACTONE 25 MG TAB PO SCH (07:37)
[2016-08-12] MEDS: ALLOPURINOL 100 MG TAB PO SCH (07:37)
[2016-08-12] MEDS: PANTOprazole SOD 40 MG TAB PO SCH (07:37)
[2016-08-12] MEDS: DILTIAZEM HCL 120 MG EXT REL CAP PO SCH (07:37)
[2016-08-12] MEDS: CYANOCOBALAMIN 500 MCG TAB (VIT B-12) PO SCH (07:37)
[2016-08-12] MEDS: CICLESONIDE SCH (07:38)
[2016-08-12] MEDS: DOCUSATE SODIUM/SENNA 50/8.6MG TAB PO SCH ×2 (07:38→19:54)
[2016-08-12] MEDS: FUROSEMIDE 40 MG TAB PO SCH (07:38)
[2016-08-12] MEDS: MONTELUKAST SOD 10 MG TAB PO SCH (07:38)
[2016-08-12] MEDS: TIOTROPIUM BROMIDE 5 PUFF/90 MCG INH INH SCH (07:38)
[2016-08-12] MEDS: WARFARIN SOD 2.5 MG TAB PO SCH (16:23)
[2016-08-12] MEDS ORDERED: NURSING VERBAL MED ORDER ONE (16:30)
--- NOTE | 2016-08-12 16:40 | Progress Note ---
Medicine Progress Note Date & Time of Visit: Aug 12, 2016 at 16:32. Subjective Pt was seen and examined Sitting in chair comfortable with no distress Pt said that he feels fine he denies any chest pain, palpitation, dizziness and sob He said that he has been doing better every day during PT Pt said that he is not too sure why his insurance does not want to approve him for rehab. Objective Last 8 Hrs Date Time Temp Pulse Resp B/P Pulse Ox O2 Delivery O2 Flow Rate FiO2 08/12/16 16:03 Room Air 08/12/16 15:44 60 16 97 Room Air 08/12/16 15:16 36.4 65 16 136/83 93 Room Air 08/12/16 11:10 64 16 95 Room Air 08/12/16 08:35 Room Air Physical Exam: General- No acute distress Head- atraumatic Eyes- PERRL, EOMI ENT- oropharynx clear Neck- supple, no JVD Lungs- clear to auscultation and percussion Heart- regular rhythm; no murmur Abdomen- normal bowel sounds, soft Extremities-no calf tenderness, +edema Neuro- alert, oriented, PERRL, EOMI Skin- warm & dry Laboratory Results: Last 24 Hours Test 08/12/16 05:37 08/12/16 05:51 White Blood Count 14.62 K/uL Red Blood Count 3.87 M/uL Hemoglobin 11.8 g/dL Hematocrit 34.9 % Mean Corpuscular Volume 90.2 fL Mean Corpuscular Hemoglobin 30.5 pg Mean Corpuscular Hemoglobin Concent 33.8 g/dl RDW Standard Deviation 51.0 fL RDW Coefficient of Variation 15.7 % Platelet Count 151 K/uL Mean Platelet Volume 10.5 fL Prothrombin Time 11.8 SECONDS Prothromb Time International Ratio 1.1 Sodium Level 140 mmol/L Potassium Level 4.5 mmol/L Chloride Level 104 mmol/L Carbon Dioxide Level 27 mmol/L Anion Gap 9.0 mmol/L Blood Urea Nitrogen 57 mg/dl Creatinine 2.00 mg/dl Est Creatinine Clear Calc Drug Dose 31.9 ml/min Estimated GFR () 33.5 Estimated GFR (Non- 28.9 BUN/Creatinine Ratio 28.7 Random Glucose 98 mg/dl Calcium Level 8.6 mg/dl Assessment & Plan EXACERBATION OF COPD Mostly due to influenza. Continue nebs. IV methylprednisolone was changed to prednisone (20mg dose started on 08/09/16). will continue Taper prednisone 10mg, starting tomorrow to chronic maintenance dose of 5 mg daily. 2-step pulse oximetry done did not show any significant desaturations. stable HTN Continue diltiazem, furosemide, spironolactone, hydralazine 25 mg TID Stable INFLUENZA A Completed oseltamivir course SLEEP APNEA Continue CPAP @ night. Stable HISTORY PAROXYSMAL ATRIAL FIBRILLATION Rate is controlled Continue diltiazem and coumadin will give coumadin 5mg today INR 1.1 Check INR in am CHRONIC LEFT VENTRICULAR DIASTOLIC HEART FAILURE Continue furosemide and spironolactone. Stable ELEVATED TROPONIN Troponin 0.108, 0.115, 0.086. EKG showed NSR, LVH, NSSTTWA's. Elevated troponin most likely nonspecific elevation due to respiratory illness; doubt acute coronary syndrome. Asymptomatic CKD III Baseline creatinine 2 - 2.2 (Apr 2016). Creatine 2 today Continue monitor BMP Stable HYPOTHYROIDISM TSH = 0.133. Continue levothyroxine at current dose. AMBULATORY DYSFUNCTION Continue PT/OT Fall precaution As per embedded case manager note, pt will be discharged home tomorrow since his insurance denied him rehab S/P EXCISION SKIN CA RIGHT SHOULDER Sutures removed 07/30/16. CONSTIPATION Resolved. HERPES LABIALIS Rx with acyclovir x 5 days VTE PROPHYLAXIS Continue warfarin. RESUSCITATION STATUS DNR per patient's wishes. DISPOSITION Functional status declined due to acute illness. Ambulatory dysfunction Continue PT / OT eval Case Management consulted. Referral made to [facility]- patient accepted, but skilled care denied by pt's insurance. Peer-peer discussion done- still denied. Discharge disposition pending- patient cannot be discharged to home at this time. Medical follow-up with Dr. Terrazas. Pulmonary follow-up with Edi Smith PA-C. Consultants: Pulmonary Current Inpatient Medications: Current Inpatient Medications Medications (Trade) Dose Ordered Sig/Gilma Route Start Time Stop Time Status Last Admin Dose Admin Acetaminophen (Tylenol Tab) 650 mg Q4H PRN PO 07/27/16 15:45 08/26/16 15:44 08/09/16 06:49 650 MG Ondansetron HCl (Zofran Inj) 4 mg Q6H PRN IV 07/27/16 15:45 08/26/16 15:44 Nitroglycerin (Nitrostat Tab) 0.4 mg UD PRN SL 07/27/16 15:45 08/26/16 15:44 Albuterol/ Ipratropium (Duoneb) 3 ml QIDR INH 07/27/16 16:00 08/26/16 15:59 08/12/16 15:43 3 ML Allopurinol (Zyloprim Tab) 100 mg DAILY PO 07/28/16 09:00 08/27/16 08:59 08/12/16 07:37 100 MG Aspirin (Ecotrin Tab) 81 mg DAILY PO 07/28/16 09:00 08/27/16 08:59 08/12/16 07:37 81 MG Budesonide/ Formoterol Fumarate (Symbicort 160/ 4.5 Inh) 2 puffs BID INH 07/27/16 21:00 08/26/16 20:59 08/12/16 07:36 2 PUFFS Citalopram Hydrobromide (celeXA TAB) 40 mg HS PO 07/27/16 21:00 08/26/16 20:59 08/11/16 20:56 40 MG Cyanocobalamin (Vitamin B-12 Tab) 500 mcg DAILY PO 07/28/16 09:00 08/27/16 08:59 08/12/16 07:37 500 MCG Diltiazem HCl (TIAzac CAP) 120 mg DAILY PO 07/28/16 09:00 08/27/16 08:59 08/12/16 07:37 120 MG Furosemide (Lasix tab) 40 mg DAILY PO 07/28/16 09:00 08/27/16 08:59 Future hold 08/12/16 07:38 40 MG Latanoprost (Xalatan Oph Soln) 1 drops HS OPB 07/27/16 21:00 08/26/16 20:59 08/11/16 20:55 1 DROPS Levothyroxine Sodium (Synthroid Tab) 75 mcg DAILYBB PO 07/28/16 06:00 08/27/16 06:59 08/12/16 06:45 75 MCG Montelukast Sodium (Singulair Tab) 10 mg DAILY PO 07/28/16 09:00 08/27/16 08:59 08/12/16 07:38 10 MG Pramipexole Dihydrochloride (miraPEX TAB) 0.25 mg HS PO 07/27/16 21:00 08/26/16 20:59 08/11/16 20:56 0.25 MG Spironolactone (Aldactone Tab) 25 mg DAILY PO 07/28/16 09:00 08/27/16 08:59 08/12/16 07:37 25 MG Warfarin Sodium (Coumadin Tab) 2.5 mg DAILY@1600 PO 07/28/16 16:00 08/27/16 15:59 Future hold 08/12/16 16:23 2.5 MG Miscellaneous Information (Order Awaiting Action) 1 ea QS N/A 07/28/16 00:00 08/27/16 00:00 08/08/16 14:36 1 EA Menthol (Nice Berna) 1 berna PRN PRN PO 07/28/16 22:45 08/27/16 22:44 Zolpidem Tartrate (Ambien Tab) 5 mg HS PRN PO 07/29/16 00:00 08/28/16 00:00 08/04/16 23:46 5 MG Pantoprazole Sodium (Protonix Tab) 40 mg QAM PO 07/30/16 08:00 08/29/16 07:59 08/12/16 07:37 40 MG Al Hydrox/Mg Hydrox/Simethicone (Maalox Max Susp) 15 ml Q6H PRN PO 07/29/16 20:00 08/28/16 19:59 Hydralazine HCl (Apresoline Tab) 10 mg Q6H PRN PO 07/30/16 17:00 08/29/16 16:59 08/08/16 23:25 10 MG Polyethylene (Miralax Powder Packet) 17 gm BID PRN PO 07/31/16 13:00 08/30/16 12:59 08/05/16 11:49 17 GM Senna/Docusate Sodium (Senokot S Tab) 2 tab BID PO 07/31/16 20:00 08/30/16 19:59 08/12/16 07:38 2 TAB Tiotropium [place] (Spiriva Handihaler Inhaler) 1 puff QAM INH 08/03/16 12:00 09/02/16 11:59 08/12/16 07:38 1 PUFF Hydralazine HCl (Apresoline Tab) 25 mg BID PO 08/08/16 20:00 09/07/16 19:59 08/12/16 07:37 25 MG Prednisone (PredniSONE TAB) 10 mg DAILY PO 08/12/16 08:00 09/11/16 07:59 08/12/16 07:37 10 MG
[2016-08-12] MEDS ORDERED: WARFARIN SOD 2.5 MG TAB PO ONE (17:00)
[2016-08-12] MEDS: HydrALAZINE 10 MG TAB PO PRN (19:53)
[2016-08-12] MEDS: PRAMIPEXOLE DIHYDROCHLORIDE 0.25MG TAB PO SCH (19:55)
[2016-08-12] MEDS: CITALOPRAM 40 MG TAB PO SCH (19:55)
[2016-08-12] MEDS: LATANOPROST 0.005% OP SOLN 2.5 ML BTL OPB SCH (19:56)
[2016-08-12] MEDS: ACETAMINOPHEN 325 MG TAB PO PRN (20:41)
[2016-08-13] MEDS: LEVOTHYROXINE 75 MCG TAB PO SCH (05:54)
[2016-08-13 05:56] LABS: HEMATOCRIT 36.1 % (42-52); MEAN CELL VOLUME 90.5 fL (80-100); MEAN CORPUSCULAR HEMOGLOBIN 31.1 pg (25-34); MEAN CORPUSCULAR HGB CONC 34.3 g/dl (32-36); PLATELET COUNT 163 K/uL (130-400); RED BLOOD COUNT 3.99 M/uL (4.7-6.1); WHITE BLOOD COUNT 20.71 K/uL (4.8-10.8)
[2016-08-13 06:10] LABS: INR 1.2 (0.9-1.1); PROTHROMBIN TIME (PATIENT) 12.7 SECONDS (9.0-12.0)
[2016-08-13 07:12] VITALS: PULSE 77; O2SAT 93
[2016-08-13] MEDS: ALBUT/IPRATROP 3MG/0.5MG NEB 3 ML VIAL INH SCH ×2 (07:12→10:48)
[2016-08-13] MEDS: TIOTROPIUM BROMIDE 5 PUFF/90 MCG INH INH SCH (07:27)
[2016-08-13] MEDS: ALLOPURINOL 100 MG TAB PO SCH (07:28)
[2016-08-13] MEDS: ASPIRIN 81 MG ECTAB PO SCH (07:28)
[2016-08-13] MEDS: DOCUSATE SODIUM/SENNA 50/8.6MG TAB PO SCH (07:28)
[2016-08-13] MEDS: CYANOCOBALAMIN 500 MCG TAB (VIT B-12) PO SCH (07:29)
[2016-08-13] MEDS: FUROSEMIDE 40 MG TAB PO SCH (07:29)
[2016-08-13] MEDS: PANTOprazole SOD 40 MG TAB PO SCH (07:29)
[2016-08-13] MEDS: DILTIAZEM HCL 120 MG EXT REL CAP PO SCH (07:29)
[2016-08-13] MEDS: MONTELUKAST SOD 10 MG TAB PO SCH (07:30)
[2016-08-13] MEDS: BUDESONIDE/FORMOTEROL FUMARATE 160/4.5 60 PUFFS/INHALER INH SCH (07:30)
[2016-08-13] MEDS: SPIRONOLACTONE 25 MG TAB PO SCH (07:30)
[2016-08-13] MEDS: CICLESONIDE SCH (07:31)
[2016-08-13 07:41] VITALS: BP 141/77; PULSE 73; TEMP 37; O2SAT 93
[2016-08-13 10:48] VITALS: PULSE 65; O2SAT 94
[2016-08-13 11:01] VITALS: BP 151/80; PULSE 65; TEMP 36.4; O2SAT 94
--- NOTE | 2016-08-13 13:34 | Progress Note ---
Medicine Progress Note Date & Time of Visit: Aug 13, 2016 at 13:00. Subjective Pt was seen and examined Pt sitting in chair comfortable with no distress Daughter and are present in the exam room pt said that he feels fine he denies any chest pain, palpitation, diarrhea, dizziness, fever and sob Objective Last 8 Hrs Date Time Temp Pulse Resp B/P Pulse Ox O2 Delivery O2 Flow Rate FiO2 08/13/16 11:01 36.4 65 16 151/80 94 Room Air 08/13/16 10:48 65 16 94 Room Air 08/13/16 09:41 Room Air 08/13/16 08:00 Room Air 08/13/16 07:41 37.0 73 16 141/77 93 Room Air 08/13/16 07:12 77 16 93 Room Air Physical Exam: General- No acute distress Head- atraumatic Eyes- PERRL, EOMI ENT- oropharynx clear Neck- supple, no JVD Lungs- clear to auscultation and percussion Heart- regular rhythm; no murmur Abdomen- normal bowel sounds, soft Extremities-no calf tenderness, +edema Neuro- alert, oriented, PERRL, EOMI Skin- warm & dry Laboratory Results: Last 24 Hours Test 08/13/16 05:30 White Blood Count 20.71 K/uL Red Blood Count 3.99 M/uL Hemoglobin 12.4 g/dL Hematocrit 36.1 % Mean Corpuscular Volume 90.5 fL Mean Corpuscular Hemoglobin 31.1 pg Mean Corpuscular Hemoglobin Concent 34.3 g/dl RDW Standard Deviation 51.0 fL RDW Coefficient of Variation 15.9 % Platelet Count 163 K/uL Mean Platelet Volume 11.0 fL Prothrombin Time 12.7 SECONDS Prothromb Time International Ratio 1.2 Assessment & Plan EXACERBATION OF COPD Mostly due to influenza. Continue nebs. IV methylprednisolone was changed to prednisone (20mg dose started on 08/09/16). Received taper prednisone and will continue maintenance dose of 5 mg daily. 2-step pulse oximetry done did not show any significant desaturations. stable ELEVATED WBC Possible related to steroid pt is afebrile, no diarrhea continue monitor HTN Continue diltiazem, furosemide, spironolactone, hydralazine 25 mg TID Stable INFLUENZA A Completed oseltamivir course SLEEP APNEA Continue CPAP @ night. Stable HISTORY PAROXYSMAL ATRIAL FIBRILLATION Rate is controlled Continue diltiazem and coumadin Received coumadin 5mg yesterday will give coumadin 5mg today before discharge INR 1.2 today he was on coumadin 2.5 mg outpatient, will discharge on coumadin 3 mg daily. Check INR on Wednesday CHRONIC LEFT VENTRICULAR DIASTOLIC HEART FAILURE Continue furosemide and spironolactone. Stable ELEVATED TROPONIN Troponin 0.108, 0.115, 0.086. EKG showed NSR, LVH, NSSTTWA's. Elevated troponin most likely nonspecific elevation due to respiratory illness; doubt acute coronary syndrome. Asymptomatic CKD III Baseline creatinine 2 - 2.2 (Apr 2016). Creatine 2 today Continue monitor BMP Stable HYPOTHYROIDISM TSH = 0.133. Continue levothyroxine at current dose. AMBULATORY DYSFUNCTION Continue PT/OT Fall precaution As per physical therapy Gait improved and no loss of balance As per residential case manager note, pt will be discharged home tomorrow since his insurance denied him rehab design engineering manager will arrange for home PT and home health S/P EXCISION SKIN CA RIGHT SHOULDER Sutures removed 07/30/16. CONSTIPATION Resolved. HERPES LABIALIS Rx with acyclovir x 5 days VTE PROPHYLAXIS Continue warfarin. RESUSCITATION STATUS DNR per patient's wishes. DISPOSITION Ambulatory dysfunction Continue PT / OT eval Case Management consulted. [facility]erral made [facility]- patient accepted, but skilled care denied by pt's insurance. Peer-peer discussion done- still denied. Medical follow-up with Dr. Terrazas. Pulmonary follow-up with Edi Smith PA-C . Consultants: Pulmonary Current Inpatient Medications: Current Inpatient Medications Medications (Trade) Dose Ordered Sig/Gilma Route Start Time Stop Time Status Last Admin Dose Admin Acetaminophen (Tylenol Tab) 650 mg Q4H PRN PO 07/27/16 15:45 08/26/16 15:44 08/12/16 20:41 650 MG Ondansetron HCl (Zofran Inj) 4 mg Q6H PRN IV 07/27/16 15:45 08/26/16 15:44 Nitroglycerin (Nitrostat Tab) 0.4 mg UD PRN SL 07/27/16 15:45 08/26/16 15:44 Albuterol/ Ipratropium (Duoneb) 3 ml QIDR INH 07/27/16 16:00 08/26/16 15:59 08/13/16 10:48 3 ML Allopurinol (Zyloprim Tab) 100 mg DAILY PO 07/28/16 09:00 08/27/16 08:59 08/13/16 07:28 100 MG Aspirin (Ecotrin Tab) 81 mg DAILY PO 07/28/16 09:00 08/27/16 08:59 08/13/16 07:28 81 MG Budesonide/ Formoterol Fumarate (Symbicort 160/ 4.5 Inh) 2 puffs BID INH 07/27/16 21:00 08/26/16 20:59 08/13/16 07:30 2 PUFFS Citalopram Hydrobromide (celeXA TAB) 40 mg HS PO 07/27/16 21:00 08/26/16 20:59 08/12/16 19:55 40 MG Cyanocobalamin (Vitamin B-12 Tab) 500 mcg DAILY PO 07/28/16 09:00 08/27/16 08:59 08/13/16 07:29 500 MCG Diltiazem HCl (TIAzac CAP) 120 mg DAILY PO 07/28/16 09:00 08/27/16 08:59 08/13/16 07:29 120 MG Furosemide (Lasix tab) 40 mg DAILY PO 07/28/16 09:00 08/27/16 08:59 Future hold 08/13/16 07:29 40 MG Latanoprost (Xalatan Oph Soln) 1 drops HS OPB 07/27/16 21:00 08/26/16 20:59 08/12/16 19:56 1 DROPS Levothyroxine Sodium (Synthroid Tab) 75 mcg DAILYBB PO 07/28/16 06:00 08/27/16 06:59 08/13/16 05:54 75 MCG Montelukast Sodium (Singulair Tab) 10 mg DAILY PO 07/28/16 09:00 08/27/16 08:59 08/13/16 07:30 10 MG Pramipexole Dihydrochloride (miraPEX TAB) 0.25 mg HS PO 07/27/16 21:00 08/26/16 20:59 08/12/16 19:55 0.25 MG Spironolactone (Aldactone Tab) 25 mg DAILY PO 07/28/16 09:00 08/27/16 08:59 08/13/16 07:30 25 MG Warfarin Sodium (Coumadin Tab) 2.5 mg DAILY@1600 PO 07/28/16 16:00 08/27/16 15:59 Future hold 08/12/16 16:23 2.5 MG Miscellaneous Information (Order Awaiting Action) 1 ea QS N/A 07/28/16 00:00 08/27/16 00:00 08/08/16 14:36 1 EA Menthol (Nice Berna) 1 berna PRN PRN PO 07/28/16 22:45 08/27/16 22:44 Zolpidem Tartrate (Ambien Tab) 5 mg HS PRN PO 07/29/16 00:00 08/28/16 00:00 08/04/16 23:46 5 MG Pantoprazole Sodium (Protonix Tab) 40 mg QAM PO 07/30/16 08:00 08/29/16 07:59 08/13/16 07:29 40 MG Al Hydrox/Mg Hydrox/Simethicone (Maalox Max Susp) 15 ml Q6H PRN PO 07/29/16 20:00 08/28/16 19:59 Hydralazine HCl (Apresoline Tab) 10 mg Q6H PRN PO 07/30/16 17:00 08/29/16 16:59 08/12/16 19:53 10 MG Polyethylene (Miralax Powder Packet) 17 gm BID PRN PO 07/31/16 13:00 08/30/16 12:59 08/05/16 11:49 17 GM Senna/Docusate Sodium (Senokot S Tab) 2 tab BID PO 07/31/16 20:00 08/30/16 19:59 08/13/16 07:28 2 TAB Tiotropium [place] (Spiriva Handihaler Inhaler) 1 puff QAM INH 08/03/16 12:00 09/02/16 11:59 08/13/16 07:27 1 PUFF Hydralazine HCl (Apresoline Tab) 25 mg BID PO 08/08/16 20:00 09/07/16 19:59 08/13/16 07:29 25 MG Prednisone (PredniSONE TAB) 5 mg DAILY PO 08/14/16 08:00 09/13/16 07:59
[2016-08-13] MEDS ORDERED: IPRASOL4 INH (13:43)
[2016-08-13] MEDS ORDERED: CMD3 PO (13:43)
[2016-08-13] MEDS ORDERED: APR25 PO (13:43)
--- NOTE | 2016-08-13 13:55 | Discharge Instructions ---
Discharge Instructions Admission Reason for Admission: Copd Exacerbation Discharge Discharge Diagnosis / Problem: Influenza A, Hypertension, Paroxysmal A Fib, high troponin, Ambulatory dysf Discharge Goals Goal(s): Decrease discomfort, Improve function, Improve disease control Activity Recommendations Activity Limitations: resume your previous activity (as tolerated) . Instructions / Follow-Up Instructions / Follow-Up Ambulatory dysfunction Continue PT / OT eval Fall precaution use a walker to ambulate purchasing manager/sales will arrange for home Physical Therapy and home health Please schedule follow-up appointment with Dr. Terrazas within 1 week. Please schedule follow up appointment with Pulmonary, Edi Smith PA-C INR 1.2 today Check INR on Wednesday Take Coumadin 3 mg ( starting tomorrow) Check CBC I called Dr. Terrazas office at [phone], the breast worker said he is out of the office until Wednesday and no provider was available to get a sign out. Current Hospital Diet Patient's current hospital diet: Low Sodium Diet (2gm Na) Discharge Diet Recommended Diet: AHA Diet (Heart Healthy), Low Sodium Diet (2gm Na) Pending Studies Studies pending at discharge: no Medical Emergencies . Who to Call and When: Medical Emergencies: If at any time you feel your situation is an emergency, please call 911 immediately. . Non-Emergent Contact Non-Emergency issues call your: Primary Care Provider Call Non-Emergent contact if: you have a fever, you have any medication questions . . "Provider Documentation" section prepared by Mauri You. VTE Core Measure Inpt VTE Proph given/why not?: Warfarin (Coumadin)
[2016-08-13 14:44] VITALS: BP 151/80; PULSE 65; TEMP 36.4; O2SAT 94
[2016-08-13] MEDS ORDERED: WARFARIN SOD 5 MG TAB PO ONE (16:00)
--- NOTE | 2016-08-14 00:36 | Discharge Summary ---
Discharge Summary Admission Date: Jul 27, 2016 at 16:00 Discharge Date: Aug 13, 2016 Discharge Disposition: Home Principal Diagnosis: COPD exacerbation Secondary Diagnoses/Problems: Influenza A, Hypertension, Paroxysmal A Fib, Elevated troponin, Ambulatory dysfunction Procedures: CHEST 2 VIEWS ROUTINE CLINICAL HISTORY: SOB, CHF, COPD, influenza dyspnea COMPARISON STUDY: 07/27/2016 FINDINGS: Right-sided aortic arch. This time at this time is unremarkable. Lungs are considered clear. Chronic pleural thickening right base laterally. Minimal chronic basilar atelectatic change. IMPRESSION: Improved exam with no acute process noted on the current study. Right-sided aortic arch. Electronically signed by: Ben Peguero M.D. Consultations: Pulmonary PT/OT Medication Reconciliation New Medications: Hydralazine Hcl (Apresoline) 25 Mg Tab 25 MG PO BID for 30 Days, TAB Ipratropium-Albuterol (Duoneb) 3 Ml Nebu 3 ML INH QIDR PRN for SOB/Wheezing for 30 Days Changed Medications: Warfarin Sod (Coumadin) 3 Mg Tab 3 MG PO DAILY for 30 Days (Changed from: Warfarin Sod (Coumadin) 2.5 Mg Tab 2.5 Mg PO DAILY) Continued Medications: Albuterol (Proair Hfa) Aers 2 PUFFS INH QID PRN for SOB/WHEEZING for 30 Days Allopurinol (Zyloprim) 100 Mg Tab 100 MG PO DAILY, TAB Aspirin (Aspirin EC Low Dose) 81 Mg Ectab 81 MG PO DAILY Budesonide/Formoterol Fumarate (Symbicort 160/4.5 Inhaler ) Aero 2 PUFFS INH BID, 0 Refills Ciclesonide (Nasal) (Omnaris) 50 Mcg/Act Spr 1 SPRAY SHAYAN DAILY Citalopram Hydrobromide (Celexa) 40 Mg Tab 40 MG PO HS, TAB Cyanocobalamin (Vitamin B12 500MCG) 500 Mcg Tab 500 MCG PO DAILY, TAB Diltiazem Hcl Extended Release (Diltiazem Hcl Er) 120 Mg Cap 120 MG PO DAILY Furosemide (Lasix) 40 Mg Tab 40 MG PO DAILY, TAB Latanoprost 0.005% Oph (Xalatan 0.005% Oph) Soln 1 DROP OPB HS Levothyroxine Sodium (Synthroid) 75 Mcg Tab 75 MCG PO DAILY, TAB Montelukast Sodium (Singulair) 10 Mg Tab 10 MG PO DAILY Pramipexole (Mirapex) 0.125 Mg Tab 0.25 MG PO HS, 0 Refills Prednisone (Prednisone) 5 Mg Tab 5 MG PO DAILY, TAB Spironolactone (Aldactone) 25 Mg Tab 25 MG PO DAILY, TAB Tiotropium [place] (Spiriva Handihaler) 18 Mcg/ Aerp 1 CAP INH DAILY, 0 Refills Discontinued Medications: Albuterol 0.083% Soln (Ventolin 0.083% Soln *) Nebu 1 AMP INH QID PRN for Shortness of Breath, #1 BOX 0 Refills Admission Information HPI (per Admitting provider): This is an 86 y/o male with PMHx of COPD on chronic Prednisone, CKD stage 3, PAF on Coumadin, Diastolic CHF on Lasix, Hypothyroidism and other problems as outlined below who presents to the ED c/o worsening SOB x 3 days. Pt reports that 3 days ago he developed worsening SOB that is aggravated with exertion. Sxs are assoc with subj fevers, congestion, sinus pressure, occasional productive cough, wheezing and slightly worsened lower extremity edema. He has been using his inhalers and nebulizer at home with only temporary relief. He was seen by pulmonary, Edi Smith PA-C, this morning who recommended he go to the ED for further evaluation. Pt currently lives at home with his . He uses a walker to assist with ambulation. Pt denies chest pain, palpitations, abd pain, N/V, bowel or bladder issues, calf pain, lightheadedness/dizziness. In the ED, pt is febrile on arrival. He has no leukocytosis. Creat 2.0. Trop 0.108. BNP>4k. INR 1.9. EKG NSR with no significant changes when compared to EKG from 05/06/16. CXR no consolidation. Pt is stable and will be admitted for further evaluation and treatment. Physical Exam (per Admitting): General Appearance: WD/WN, no apparent distress, + obese, + pertinent finding (Pt is laying in bed with at bedside ) Head: normocephalic, atraumatic Eyes: normal inspection ENT: hearing grossly normal, pharynx normal, + nasal drainage, + pertinent finding (R TM pearly fox; unable to visualize L TM; no tenderness to manipulation of pinna bilat ) Neck: supple Respiratory/Chest: chest non-tender, no accessory muscle use, + wheezing, + pertinent finding (no crackles noted ) Cardiovascular: regular rate, rhythm, no murmur Abdomen/GI: normal bowel sounds, non tender, soft Back: normal inspection Extremities/Musculoskelatal: normal inspection, no calf tenderness, + swelling (3+ pitting edema to bilat LE) Neurologic/Psych: alert, normal mood/affect, oriented x 3 Skin: normal color, warm/dry Hospital Course EXACERBATION OF COPD Mostly due to influenza. Continue nebs. IV methylprednisolone was changed to prednisone (20mg dose started on 08/09/16). Received taper prednisone and will continue maintenance dose of 5 mg daily. 2-step pulse oximetry done did not show any significant desaturations. stable ELEVATED WBC Possible related to steroid pt is afebrile, no diarrhea continue monitor HTN Continue diltiazem, furosemide, spironolactone, hydralazine 25 mg TID Stable INFLUENZA A Completed oseltamivir course SLEEP APNEA Continue CPAP @ night. Stable HISTORY PAROXYSMAL ATRIAL FIBRILLATION Rate is controlled Continue diltiazem and coumadin Received coumadin 5mg yesterday will give coumadin 5mg today before discharge INR 1.2 today he was on coumadin 2.5 mg outpatient, will discharge on coumadin 3 mg daily. Check INR on Wednesday CHRONIC LEFT VENTRICULAR DIASTOLIC HEART FAILURE Continue furosemide and spironolactone. Stable ELEVATED TROPONIN Troponin 0.108, 0.115, 0.086. EKG showed NSR, LVH, NSSTTWA's. Elevated troponin most likely nonspecific elevation due to respiratory illness; doubt acute coronary syndrome. Asymptomatic CKD III Baseline creatinine 2 - 2.2 (Apr 2016). Creatine 2 today Continue monitor BMP Stable HYPOTHYROIDISM TSH = 0.133. Continue levothyroxine at current dose. AMBULATORY DYSFUNCTION Continue PT/OT Fall precaution As per physical therapy Gait improved and no loss of balance As per case preparer and liner note, pt will be discharged home tomorrow since his insurance denied him rehab integrated logistics support manager will arrange for home PT and home health S/P EXCISION SKIN CA RIGHT SHOULDER Sutures removed 07/30/16. CONSTIPATION Resolved. HERPES LABIALIS Rx with acyclovir x 5 days VTE PROPHYLAXIS Continue warfarin. RESUSCITATION STATUS DNR per patient's wishes. DISPOSITION Ambulatory dysfunction Continue PT / OT eval Case Management consulted. Referral made to [facility]- patient accepted, but skilled care denied by pt's insurance. Peer-peer discussion done- still denied. Medical follow-up with Dr. eTrrazas. Pulmonary follow-up with Edi Smith PA-C . Total time spent on discharge = 35 minutes This includes examination of the patient, discharge planning, medication reconciliation, and communication with other providers. Discharge Instructions Discharge Instructions Admission Reason for Admission: Copd Exacerbation Discharge Discharge Diagnosis / Problem: Influenza A, Hypertension, Paroxysmal A Fib, high troponin, Ambulatory dysf Discharge Goals Goal(s): Decrease discomfort, Improve function, Improve disease control Activity Recommendations Activity Limitations: resume your previous activity (as tolerated) . Instructions / Follow-Up Instructions / Follow-Up Ambulatory dysfunction Continue PT / OT eval Fall precaution use a walker to ambulate integrated logistics support manager will arrange for home Physical Therapy and home health Please schedule follow-up appointment with Dr. Terrazas within 1 week. Please schedule follow up appointment with Pulmonary, Edi Smith PA-C INR 1.2 today Check INR on Wednesday Take Coumadin 3 mg ( starting tomorrow) Check CBC I called Dr. Terrazas office at [phone], the ham trimmer said he is out of the office until Wednesday and no provider was available to get a sign out. Current Hospital Diet Patient's current hospital diet: Low Sodium Diet (2gm Na) Discharge Diet Recommended Diet: AHA Diet (Heart Healthy), Low Sodium Diet (2gm Na) Pending Studies Studies pending at discharge: no Medical Emergencies . Who to Call and When: Medical Emergencies: If at any time you feel your situation is an emergency, please call 911 immediately. . Non-Emergent Contact Non-Emergency issues call your: Primary Care Provider Call Non-Emergent contact if: you have a fever, you have any medication questions . . "Provider Documentation" section prepared by Mauri You. VTE Core Measure Inpt VTE Proph given/why not?: Warfarin (Coumadin) Additional Copies To Kuldeep Terrazas M.D.
== END 2016-08-13 15:15 | disposition home health service (06) | DRG 190 ==
LOC: CANRESERV → ENRESERVDT → ENRESERVTM → C.EDB 12:50 → C.2E 16:00 → UNDOADMIN 16:00 → C.4E 07-28 22:20
PROVIDERS: ADMIT Hospitalist; ATTEND Internal Medicine
DX: J44.1 Chronic obstructive pulmonary disease with (acute) exacerbation (principal); J96.01 Acute respiratory failure with hypoxia; I13.0 Hypertensive heart and chronic kidney disease with heart failure and stage 1 through stage 4 chronic kidney disease, or unspecified chronic kidney disease; I50.32 Chronic diastolic (congestive) heart failure; N18.3 Chronic kidney disease, stage 3 (moderate); Z79.52 Long term (current) use of systemic steroids; E03.9 Hypothyroidism, unspecified; Z79.01 Long term (current) use of anticoagulants; I48.0 Paroxysmal atrial fibrillation; F41.9 Anxiety disorder, unspecified; F32.9 Major depressive disorder, single episode, unspecified; Z85.038 Personal history of other malignant neoplasm of large intestine; M10.9 Gout, unspecified; G47.33 Obstructive sleep apnea (adult) (pediatric); H40.9 Unspecified glaucoma; G25.81 Restless legs syndrome; Z90.49 Acquired absence of other specified parts of digestive tract; Z96.651 Presence of right artificial knee joint; Z82.49 Family history of ischemic heart disease and other diseases of the circulatory system; Z79.82 Long term (current) use of aspirin; Z79.899 Other long term (current) drug therapy; Z68.35 Body mass index [BMI] 35.0-35.9, adult; E66.9 Obesity, unspecified; Z66 Do not resuscitate; J11.1 Influenza due to unidentified influenza virus with other respiratory manifestations; K59.00 Constipation, unspecified; Z85.828 Personal history of other malignant neoplasm of skin; R26.9 Unspecified abnormalities of gait and mobility; I73.9 Peripheral vascular disease, unspecified; Z88.3 Allergy status to other anti-infective agents; Z88.8 Allergy status to other drugs, medicaments and biological substances

== ENCOUNTER 2017-07-07 15:23 | Inpatient (IN) | payer OTHER ==
[~2017-07-07] VITALS: Ht 172.7 cm; Wt 107.5 kg
[~2017-07-07 15:23] MED LIST changes: -ALBINS INH; -ALL100 PO; +ALLO100T PO; +APR25 PO; +CITA40TA12 PO; -CLX20 PO; -CMD/25 PO; +CMD3 PO; -CYAN100T PO; +CYAN500T13 PO; +DILT120C67 PO; -DLCSR120 PO; +IPRASOL4 INH; +LATA0.009 OPB; +MONT1TAB3 PO; +PRED-301 PO; -PRED10TA PO; +SPIR25TA PO; +SYMIN160 INH; -TRIA3AER NAE; +[UNRECOGNIZED DRUG - CODE] NAE
[2017-07-07 16:00] VITALS: BP 150/84; PULSE 65; TEMP 36.9; O2SAT 94
[2017-07-07] MEDS ORDERED: CMD/25 PO (16:51)
[2017-07-07] MEDS ORDERED: CLX20 PO (16:51)
[2017-07-07] MEDS ORDERED: PRAM1TAB52 PO (16:51)
[2017-07-07] MEDS ORDERED: ALLO300T2 PO (16:51)
[2017-07-07] MEDS ORDERED: ALBUTEROL HFA 8 GM INHALER INH PRN (17:00)
--- NOTE | 2017-07-07 17:01 | History and Physical ---
History & Physical Date & Time of Service: Jul 07, 2017 at 16:57 Chief Complaint: Copd Exacerbation Primary Care Physician: Kuldeep Terrazas M.D. History of Present Illness Source: patient, spouse ( at bedside), clinic records, hospital records This is an 87yo M with a PMH of COPD (on chronic prednisone, no O2), diastolic CHF, paroxysmal A Fib (on coumadin), CKD III, hypothyroidism and other problems listed below who was sent directly from pulm clinic for worsening SOB x 3 days. Patient was seen in pulm clinic a few weeks ago and was treated for a COPD exacerbation with PO Levaquin and a steroid taper. He completed the course over the weekend and felt somewhat better. On Wednesday, started to have a more frequent cough with yellow sputum production. Also states that he was wheezing more and was SOB when walking 15 feet to the bathroom (can walk ~40ft without becoming SOB at baseline, per patient). Saw Edi Luis NICOLE in clinic today and received a neb treatment but symptoms did not improve. Was directly admitted for treatment with IV steroids, antibiotics and scheduled nebs. 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 Patient denies fever, chills, URI symptoms, CP, palpitations, abd pain, nausea, vomiting, dysuria. Has noticed lower extremity swelling but states that it is chronic. Has not been taking his lasix but does not recall why he stopped. Currently lives at home with his . Ambulates with walker. Past Medical/Surgical History Medical Problems: (1) Anxiety Status: Chronic (2) CKD (chronic kidney disease) stage 3, GFR 30-59 ml/min Status: Chronic (3) Colon cancer Status: Resolved (4) COPD (chronic obstructive pulmonary disease) Status: Chronic (5) Depression Status: Chronic (6) Diastolic congestive heart failure Status: Chronic (7) Glaucoma Status: Chronic (8) Gout Status: Chronic (9) Hypothyroidism Status: Chronic (10) YOCASTA (obstructive sleep apnea) Status: Chronic (11) Paroxysmal atrial fibrillation Status: Chronic (12) Restless leg syndrome Status: Chronic Surgical Problems: (1) H/O hernia repair Status: Chronic (2) History of cardiac cath Status: Chronic (3) History of colon resection Status: Chronic (4) S/P TKR (total knee replacement) Status: Chronic Social History Smoking Status: Never Smoker Drug Use: none Marital Status: Housing status: lives with significant other Occupational Status: retired Immunizations History of Influenza Vaccine: Yes Influenza Vaccine Date: Apr 04, 2013 History of Tetanus Vaccine?: utd History of Pneumococcal: Yes Pneumococcal Date: December 01, 2008 History of Hepatitis B Vaccine: No Multi-Drug Resistant Organisms History of MDRO: No Allergies Coded Allergies: Erythromycin (Verified Allergy, Mild, RASH-Azithromycin & Biaxin OK, ) tolerates azithromycin and clarithromycin as outpatient Lisinopril (Verified Allergy, Mild, itching, 12/03/10) Home Medications Scheduled Allopurinol (Zyloprim), 1 TAB PO DAILY Aspirin (Aspirin EC Low Dose), 81 MG PO DAILY Budesonide/Formoterol Fumarate (Symbicort 160/4.5 Inhaler ), 2 PUFFS INH BID Citalopram (Citalopram Hydrobromide), 1 TAB PO DAILY Cyanocobalamin (Vitamin B12 500MCG), 500 MCG PO DAILY Latanoprost 0.005% Oph (Xalatan 0.005% Oph), 1 DROP OPB HS Levothyroxine Sodium (Synthroid), 75 MCG PO DAILY Montelukast Sodium (Singulair), 10 MG PO DAILY Pramipexole Dihydrochloride (Mirapex), 1 TAB PO HS Prednisone (Prednisone), 5 MG PO DAILY Tiotropium [place] (Spiriva Handihaler), 1 CAP INH DAILY Warfarin Sod (Coumadin), 2.5 MG PO DAILY Scheduled PRN Albuterol (Proair Hfa), 2 PUFFS INH QID PRN for SOB/WHEEZING Ipratropium-Albuterol (Duoneb), 3 ML INH QIDR PRN for SOB/Wheezing Review of Systems Ten systems reviewed and negative except as noted in the HPI. Physical Exam General Appearance: WD/WN, no apparent distress (sitting on the side of his bed , breathing comfortably), + obese Head: normocephalic, atraumatic Eyes: normal inspection, PERRL, sclerae normal ENT: normal ENT inspection, hearing grossly normal, pharynx normal (moist mucous membranes ) Neck: supple, thyroid normal, trachea midline Respiratory/Chest: chest non-tender, no respiratory distress, no accessory muscle use, + wheezing (diffuse wheezing in bilateral lung hdez ) Cardiovascular: regular rate, rhythm, no murmur, normal peripheral pulses, + pertinent finding (3+ pitting edema to knees bilaterally) Abdomen/GI: non tender, soft, no organomegaly Extremities/Musculoskelatal: normal inspection, no calf tenderness, + pertinent finding (Chronic skin changes 2/2 venous stasis) Neurologic/Psych: no motor/sensory deficits, alert, normal mood/affect, oriented x 3 Skin: normal color, warm/dry Diagnostics Laboratory Results Results Past 24 Hours Test 07/07/17 16:38 07/07/17 16:45 Range/Units Microbiology Results 07/07/17 Gram Stain, Ordered Pending 07/07/17 Sputum Culture, Ordered Pending CXR normal Normal EKG Impression Assessment and Plan This is an 87yo M with a PMH of COPD (on chronic prednisone, no O2), diastolic CHF, paroxysmal A Fib (on coumadin), CKD III, hypothyroidism and other problems listed below who was sent directly from pulm clinic for worsening SOB x 3 days. COPD exacerbation: -Worsening SOB, productive cough -Possible triggered by viral infection vs bronchitis -Failed recent out-pt tx of Levaquin & steroid taper -Afebrile, oxygen saturation in high 90s on room air -Leukocytosis of 12.98 -Sputum culture pending, flu pcr pending -Discussed treatment plan with Edi Smith PA-C -Solu-medrol 40mg Q8, cefepime, scheduled duonebs -Pulm following Diastolic CHF: -Bilateral LE edema -Patent no longer taking lasix; unclear why he stopped -Echo in Apr 2015 with EF of 55-60% -Monitor Is&Os, daily weights -Na restricted diet -Resume home dose Lasix Paroxysmal A Fib: -NSR on EKG -Does not take diltiazem anymore. Unclear why he stopped -Continue home dose warfarin -INR pending Hypothyroidism: -Cont home dose levothyroxine CKD III: -Cr is at or slightly above baseline at 1.57 -Avoid nephrotoxic agents when possible Gout: -Cont allopurinol Depression/anxiety: -Stable -Cont Celexa DVT Ppx: On warfarin Code status: DNR, per my discussion with patient PCP: Mk Dispo: Plan to return home once medically stable Patient seen in collaboration with Dr. Moulton. Please see addendum. ADDENDUM: This is an 87 year old male with a PMH of COPD on chronic prednisone, diastolic CHF, paroxysmal A. Fib, hypothyroidism, CKD stage 3-4, Gout - presents to the hospital after being sent by pulmonology. He was seen by them due to three weeks of shortness of breath, congestion, cough. He has a history of COPD and takes 5mg of prednisone chronically. States he has been compliant with this medication. Tells me that he stopped taking his Lasix due to increased urinary frequency around 3 weeks ago. Denies chest pain/palpitations/fevers/chills. No nausea/vomiting/diarrhea. VITALS: Last Vital Signs Documentation Date Time Temp Pulse Resp B/P (MAP) Pulse Ox O2 Delivery O2 Flow Rate FiO2 07/07/17 19:03 74 18 94 Room Air 07/07/17 17:21 36.9 150/84 GEN: no acute distress HEENT: NC/AT CVS: +S1, S2, RRR LUNGS: mild end expiratory wheezing diffusely EXT: +1-2 pitting edema b/l LE ABD: soft, NT/ND NEURO: no focal deficits Plan: Acute COPD Exacerbation will start IV solu-medrol, nebulizers pulmonology recommended Cefepime due to previous infections CXR - no acute process cont. Symbicort and Singulair O2 as needed and wean as tolerated check a rapid flu Diastolic CHF will restart home dose of Lasix which was stopped three weeks prior by patient check an updated echocardiogram monitor for fluid overload (BNP not elevated) Paroxysmal A. Fib EKG - NSR currently in normal sinus rhythm continue Coumadin with goal INR of 2-3 CKD stage 3-4 creatinine baseline is around 2.0 creat today is around 1.5, possibly suggesting fluid overload will restart Lasix and monitor electrolytes and kidney function closely DVT ppx Coumadin FULL CODE Level of Care Med/Surg Resuscitation Status DO NOT RESUSCITATE VTE Prophylaxis VTE Risk Assessment Done? Y/N: Yes Risk Level: Moderate Given or contraindicated: Warfarin (Coumadin)
[2017-07-07 17:21] VITALS: BP 150/84; PULSE 65; TEMP 36.9; O2SAT 94; Ht 172.7 cm; Wt 107.5 kg
[2017-07-07] MEDS ORDERED: CEFEPIME CONSULT ACTIVE PRN ×2 (17:30)
[2017-07-07] MEDS ORDERED: CEFEPIME IV 2,000 MG in SYRINGE 7.5 ML IV ONE (17:45)
[2017-07-07] MEDS ORDERED: CEFEPIME IV 2,000 MG in SYRINGE 7.5 ML IV SCH (18:00)
[2017-07-07 18:04] LABS: INR 1.4 (0.9-1.1); PROTHROMBIN TIME (PATIENT) 14.8 SECONDS (9.0-12.0)
[2017-07-07 18:11] LABS: COMPLETE YES; HEMATOCRIT 40.6 % (42-52); IG% 0.4 %; LYMPH % 4.6 %; MEAN CELL VOLUME 93.8 fL (80-100); MEAN CORPUSCULAR HEMOGLOBIN 30.7 pg (25-34); MEAN CORPUSCULAR HGB CONC 32.8 g/dl (32-36); MEAN PLATELET VOLUME 10.9 fL (7.4-10.4); MONO % 2.2 %; NEUT % 92.8 %; PLATELET COUNT 183 K/uL (130-400); RED BLOOD COUNT 4.33 M/uL (4.7-6.1); WHITE BLOOD COUNT 12.98 K/uL (4.8-10.8)
[2017-07-07 18:26] LABS: BUN/CREATININE RATIO 22.1 (10-20); CALCIUM 9.1 mg/dl (8.5-10.1); CREATININE 1.57 mg/dl (0.60-1.40); POTASSIUM 4.1 mmol/L (3.5-5.1)
--- NOTE | 2017-07-07 18:29 | DIAGNOSTIC IMAGING REPORT ---
CHEST ONE VIEW PORTABLE HISTORY: 87 years-old Male copd exacerbation COMPARISON: Chest radiograph 07/30/2016 TECHNIQUE: Portable upright AP view of the chest FINDINGS: Cardiac silhouette is upper limits of normal, unchanged. Right-sided aortic arch. No pneumothorax, pleural effusion or focal airspace consolidation. There is mild blunting of the costophrenic angles suggesting scarring/atelectasis. Mild left hemidiaphragmatic elevation. Bones of the chest appear grossly intact. Degenerative changes are seen within the shoulders and spine. IMPRESSION: No acute process. The above report was generated using voice recognition software. It may contain grammatical, syntax or spelling errors. Electronically signed by: Alhaji Corona M.D. 07/07/2017 6:27 PM Dictated Date/Time: 07/07/2017 6:26 PM
[2017-07-07] MEDS: METHYLPREDNISOLONE IV 40 MG in SYRINGE 0 ML IV SCH (18:34)
[2017-07-07 19:03] VITALS: PULSE 74; O2SAT 94
[2017-07-07] MEDS: ALBUT/IPRATROP 3MG/0.5MG NEB 3 ML VIAL INH SCH (19:03)
[2017-07-07] MEDS: BUDESONIDE/FORMOTEROL FUMARATE 160/4.5 60 PUFFS/INHALER INH SCH (21:10)
[2017-07-07] MEDS: LATANOPROST 0.005% OP SOLN 2.5 ML BTL OPB SCH (21:10)
[2017-07-07] MEDS: WARFARIN SOD 2.5 MG TAB PO SCH (21:12)
[2017-07-07] MEDS: PRAMIPEXOLE DIHYDROCHLORIDE 0.25MG TAB PO SCH (21:12)
[2017-07-08] VITALS (8 sets, daily range): BP systolic 146–167; BP diastolic 78–91; PULSE 57–77; TEMP 36.3–36.7; O2SAT 91–96
[2017-07-08 00:17] LABS: URINE APPEARANCE CLEAR (CLEAR); URINE BILIRUBIN NEG (NEG); URINE COLOR YELLOW; URINE EPITHELIAL CELL AUTO 0-5 /lpf (0-5); URINE NITRITE NEG (NEG); URINE SPECIFIC GRAVITY 1.018 (1.000-1.030); UROBILINOGEN NEG (NEG)
[2017-07-08 00:38] LABS: MANUAL MICROSCOPIC REQUIRED? NO; REVIEW REQ? NO
[2017-07-08] MEDS: METHYLPREDNISOLONE IV 40 MG in SYRINGE 0 ML IV SCH ×3 (02:15→17:55)
[2017-07-08] MEDS ORDERED: COUGH DROP (SUGAR FREE) LOZ 24 LOZ/1 BOX ONE (02:21)
[2017-07-08] MEDS ORDERED: COUGH DROP (SUGAR FREE) LOZ 24 LOZ/1 BOX PO PRN (02:30)
[2017-07-08] MEDS: LEVOTHYROXINE 75 MCG TAB PO SCH (05:15)
[2017-07-08 06:34] LABS: HEMATOCRIT 38.2 % (42-52); MEAN CELL VOLUME 94.3 fL (80-100); MEAN CORPUSCULAR HEMOGLOBIN 31.1 pg (25-34); MEAN PLATELET VOLUME 11.4 fL (7.4-10.4); PLATELET COUNT 175 K/uL (130-400); RED BLOOD COUNT 4.05 M/uL (4.7-6.1)
[2017-07-08 06:46] LABS: INFLUENZA A PCR Neg for Influ A (NEG); INFLUENZA B PCR Neg for Influ B (NEG)
[2017-07-08 06:54] LABS: INR 1.4 (0.9-1.1); PROTHROMBIN TIME (PATIENT) 14.8 SECONDS (9.0-12.0)
[2017-07-08] MEDS: ALBUT/IPRATROP 3MG/0.5MG NEB 3 ML VIAL INH SCH ×4 (07:05→19:45)
[2017-07-08 07:10] LABS: BUN/CREATININE RATIO 27.2 (10-20); CREATININE 1.59 mg/dl (0.60-1.40); POTASSIUM 4.4 mmol/L (3.5-5.1)
[2017-07-08] MEDS: BUDESONIDE/FORMOTEROL FUMARATE 160/4.5 60 PUFFS/INHALER INH SCH ×2 (07:36→21:09)
[2017-07-08] MEDS: ASPIRIN 81 MG ECTAB PO SCH (07:37)
[2017-07-08] MEDS: CYANOCOBALAMIN 500 MCG TAB (VIT B-12) PO SCH (07:37)
[2017-07-08] MEDS: MONTELUKAST SOD 10 MG TAB PO SCH (07:37)
[2017-07-08] MEDS: ALLOPURINOL 300 MG TAB PO SCH (07:37)
[2017-07-08] MEDS: CITALOPRAM 20 MG TAB PO SCH (07:37)
[2017-07-08] MEDS: FUROSEMIDE 40 MG TAB PO SCH (08:21)
--- NOTE | 2017-07-08 08:24 | Clinical Documentation Query ---
CLINICAL DOCUMENTATION QUERY An 87yo M with a PMH of COPD (on chronic prednisone, no O2), diastolic CHF, paroxysmal A Fib (on coumadin), CKD III, and hypothyroidism who was sent directly from pulm clinic for worsening SOB x 3 days. In your clinical opinion is this patient being managed for: ( ) Acute on chronic diastolic CHF ( + ) Not Agree ( ) Other explanation of clinical findings (Please Explain) ( ) Unable to determine (Please Define) ( ) Need to Discuss Has Chronic CHF but no Acute exacerbation The medical record reflects the following clinical findings, treatment, and risk factors. Clinical Indicators: SOB, lower extremity edema, resuming Lasix Treatment: Lasix PO, I&O Risk Factors: Chronic diastolic CHF, Afib, CKD, HTN Please clarify and document your clinical opinion in the progress notes and discharge summary. Terms such as "probable", "suspected", "likely", "questionable", "possible", or "still to be ruled out" are acceptable. IF IN AGREEMENT, YOU MUST DOCUMENT ABOVE DIAGNOSTIC STATEMENT IN DAILY PROGRESS NOTES AND DISCHARGE SUMMARY. This document is not part of the patient's record. Thank You, Lorelei Chambers RN [phone]
--- NOTE | 2017-07-08 14:45 | Progress Note ---
Internal Med Progress Note Date of Service: Jul 08, 2017. Provider Documentation: SUBJECTIVE: The patient was seen and examined Admitted with increase SOB-Failed OP Levaquin and Breathing treatment Better this morning OBJECTIVE: Vital Signs-as noted below Exam: General-Minimal distress at rest Eyes-normal ENT-normal Neck-supple Lungs-Decreased breath sound bilaterally Occasional wheezing bilaterally Heart-Regular Abdomen-Benign,no masses,bowel sound present Extremities-1+ edema bilaterally Chronic Skin changes Neuro-AAOx3 Lab data as noted below. ASSESSMENT & PLAN: This is an 87yo M with a PMH of COPD (on chronic prednisone, no O2), diastolic CHF, paroxysmal A Fib (on coumadin), CKD III, hypothyroidism and other problems listed below who was sent directly from pulm clinic for worsening SOB x 3 days. COPD exacerbation: -Worsening SOB, productive cough -Possible triggered by viral infection vs bronchitis -Failed recent out-pt tx of Levaquin & steroid taper -Afebrile, oxygen saturation in high 90s on room air -Sputum culture pending, flu pcr pending -Discussed treatment plan with Edi Smith PA-C -Solu-medrol 40mg Q8, cefepime, scheduled duonebs -Appreciate Pulmonary input -clinically a little better today Chronic Diastolic CHF: NO acute exacerbation -Bilateral LE edema -Patent no longer taking lasix; unclear why he stopped -Echo in Apr 2015 with EF of 55-60% -Monitor Is&Os, daily weights -Na restricted diet -Resume home dose Lasix Paroxysmal A Fib: -NSR on EKG -Does not take diltiazem anymore. Unclear why he stopped -Continue home dose warfarin -INR pending-1.4 on and 1213 Hypothyroidism: -Cont home dose levothyroxine CKD III: -Cr is at or slightly above baseline at 1.57 -Avoid nephrotoxic agents when possible -remains stable Gout: -Cont allopurinol Depression/anxiety: -Stable -Cont Celexa DVT Ppx: On warfarin Increase dose today Code status: DNR, per my discussion with patient PCP: Mk Dispo: Plan to return home once medically stable Vital Signs: Date Time Temp Pulse Resp B/P (MAP) Pulse Ox O2 Delivery O2 Flow Rate FiO2 07/08/17 11:31 73 18 96 Room Air 07/08/17 08:05 36.3 63 20 167/91 (116) 94 Room Air 07/08/17 08:00 Room Air 07/08/17 07:05 66 18 92 Room Air 07/08/17 00:33 36.7 72 20 151/91 (111) 91 Room Air 07/08/17 00:30 Room Air 07/07/17 19:03 74 18 94 Room Air 07/07/17 17:21 36.9 65 18 150/84 94 Room Air 07/07/17 16:00 Room Air 07/07/17 16:00 36.9 65 18 150/84 (106) 94 Room Air Lab Results: Results Past 24 Hours Test 07/07/17 17:32 07/07/17 23:30 07/08/17 05:15 07/08/17 06:15 Range/Units White Blood Count 12.98 7.20 4.8-10.8 K/uL Red Blood Count 4.33 4.05 4.7-6.1 M/uL Hemoglobin 13.3 12.6 14.0-18.0 g/dL Hematocrit 40.6 38.2 42-52 % Mean Corpuscular Volume 93.8 94.3 80-100 fL Mean Corpuscular Hemoglobin 30.7 31.1 25-34 pg Mean Corpuscular Hemoglobin Concent 32.8 33.0 32-36 g/dl Platelet Count 183 175 130-400 K/uL Mean Platelet Volume 10.9 11.4 7.4-10.4 fL Neutrophils (%) (Auto) 92.8 % Lymphocytes (%) (Auto) 4.6 % Monocytes (%) (Auto) 2.2 % Eosinophils (%) (Auto) 0.0 % Basophils (%) (Auto) 0.0 % Neutrophils # (Auto) 12.05 1.4-6.5 K/uL Lymphocytes # (Auto) 0.60 1.2-3.4 K/uL Monocytes # (Auto) 0.28 0.11-0.59 K/uL Eosinophils # (Auto) 0.00 0-0.5 K/uL Basophils # (Auto) 0.00 0-0.2 K/uL RDW Standard Deviation 54.5 54.9 36.4-46.3 fL RDW Coefficient of Variation 16.0 15.9 11.5-14.5 % Immature Granulocyte % (Auto) 0.4 % Immature Granulocyte # (Auto) 0.05 0.00-0.02 K/uL Prothrombin Time 14.8 14.8 9.0-12.0 SECONDS Prothromb Time International Ratio 1.4 1.4 0.9-1.1 Activated Partial Thromboplast Time 27.0 21.0-31.0 SECONDS Partial Thromboplastin Ratio 1.0 Sodium Level 137 136 136-145 mmol/L Potassium Level 4.1 4.4 3.5-5.1 mmol/L Chloride Level 104 104 98-107 mmol/L Carbon Dioxide Level 26 26 21-32 mmol/L Anion Gap 7.0 6.0 3-11 mmol/L Blood Urea Nitrogen 35 43 7-18 mg/dl Creatinine 1.57 1.59 0.60-1.40 mg/dl Est Creatinine Clear Calc Drug Dose 37.9 37.4 ml/min Estimated GFR () 44.6 44.0 Estimated GFR (Non- 38.5 37.9 BUN/Creatinine Ratio 22.1 27.2 10-20 Random Glucose 125 158 70-99 mg/dl Calcium Level 9.1 9.0 8.5-10.1 mg/dl Total Bilirubin 0.6 0.2-1 mg/dl Aspartate Amino Transf (AST/SGOT) 21 15-37 U/L Alanine Aminotransferase (ALT/SGPT) 22 12-78 U/L Alkaline Phosphatase 74 45-117 U/L Pro-B-Type Natriuretic Peptide 845 0-1800 pg/ml Total Protein 6.8 6.4-8.2 gm/dl Albumin 3.4 3.4-5.0 gm/dl Globulin 3.4 2.5-4.0 gm/dl Albumin/Globulin Ratio 1.0 0.9-2 Urine Color YELLOW Urine Appearance CLEAR CLEAR Urine pH 5.0 4.5-7.5 Urine Specific [place] 1.018 1.000-1.030 Urine Protein 1+ NEG Urine Glucose (UA) NEG NEG Urine Ketones NEG NEG Urine Occult Blood NEG NEG Urine Nitrite NEG NEG Urine Bilirubin NEG NEG Urine Urobilinogen NEG NEG Urine Leukocyte Esterase NEG NEG Urine WBC (Auto) 0 0-5 /hpf Urine RBC (Auto) 0-4 0-4 /hpf Urine Hyaline Casts (Auto) 0 0-5 /lpf Urine Epithelial Cells (Auto) 0-5 0-5 /lpf Urine Bacteria (Auto) NEG NEG Influenza Type A (RT-PCR) Neg for Influ A NEG Influenza Type A Antigen Neg for Influ A NEG Influenza Type B Antigen Neg for Influ B NEG Influenza Type B (RT-PCR) Neg for Influ B NEG Microbiology Results 07/07/17 Gram Stain - Final, Resulted 07/07/17 Sputum Culture, Resulted Pending
[2017-07-08] MEDS: WARFARIN SOD 2.5 MG TAB PO SCH (15:47)
--- NOTE | 2017-07-08 16:05 | ECHOCARDIOGRAM REPORT ---
*NOTICE TO RECEIVING REPUBLICAN AGENCY This information is strictly Confidential and protected under [place] law. [place] law prohibits you from making any further disclosure of this information unless further disclosure is expressly permitted by the written consent of the person to whom it pertains or is authorized by law. A general authorization for the release of medical or other information is not sufficient for this purpose. Hospital accepts no responsibility if the information is made available to any other person, INCLUDING THE PATIENT. Interpretation Summary * Name: KARIS MAHMOOD Study Date: 07/08/2017 01:22 PM BP: 151/91 mmHg * Patient Location: .MS2W\S\W256\S\2 HR: 72 * : 1930 (M/d/yyyy) Gender: Male Height: 68 in * Age: 87 yrs Ethnicity: CA Weight: 237 lb * Ordering Physician: Leslie Moulton * Referring Physician: Edi Smith PA-C * Performed By: Ellie Murrieta RDCS * * Reason For Study: CHF * BSA: 2.2 m2 * -- Conclusions -- * The left ventricle is normal in size. * There is moderate concentric left ventricular hypertrophy. * The basal septum is thickened and angulated consistent with sigmoid septum. * Left ventricular systolic function is normal. * No regional wall motion abnormalities noted. * Ejection Fraction = 65-70%. * Aortic valve sclerosis mild, without significant aortic valvular stenosis. * There is mild to moderate mitral regurgitation. * Grade I diastolic dysfunction, (abnormal relaxation pattern). Procedure Details * A complete two-dimensional transthoracic echocardiogram was performed (2D, M-mode, Doppler and color flow Doppler). * The study was technically difficult. * A contrast injection of Definity was performed to improve assessment of LV function. * Contrast was injected into an intravenous site in the left arm. * One vial of Definity ultrasound contrast was diluted in normal saline to a total volume of 10 ml. A total of '3' ml of solution was administered during imaging. * Lot # [id number] of Definity utilized for procedure. * Expiration date 09/13. * The attending nurse who injected the contrast agent was DARIN SKAGGS RN. Left Ventricle * The left ventricle is normal in size. * There is moderate concentric left ventricular hypertrophy. * The basal septum is thickened and angulated consistent with sigmoid septum. * Ejection Fraction = 65-70%. * Left ventricular systolic function is normal. * No regional wall motion abnormalities noted. Right Ventricle * The right ventricle is normal size. * The right ventricular systolic function is normal as assessed by tricuspid annular plane systolic excursion (TAPSE) (normal >1.5 cm). Atria * The left atrial size is normal. * Right atrial size is normal. * There is no evidence of atrial septal defect, but resolution does not allow assessment for a patent foramen ovale. Mitral Valve * The mitral valve is grossly normal. * There is no mitral valve stenosis. * There is mild to moderate mitral regurgitation. Tricuspid Valve * The tricuspid valve is not well visualized, but is grossly normal. * There is no tricuspid stenosis. * Significant tricuspid regurgitation is absent. * Doppler findings do not suggest pulmonary hypertension. Aortic Valve * The aortic valve is trileaflet. * Aortic valve sclerosis mild, without significant aortic valvular stenosis. * Aortic stenosis is absent. * There is no significant aortic regurgitation. Pulmonic Valve * The pulmonary valve is not well seen, but the Doppler examination is normal without significant regurgitation or stenosis. Great Vessels * The aortic root and proximal ascending aorta are normal sized. Pericardium/Pleural * There is no pericardial effusion. Great Vessels * Normal inferior vena cava diameter and respiratory variation suggests normal central venous pressure. * There is no evidence of pulmonary hypertension. The PA systolic pressure is less than 36 mmHg. Left Ventricular Diastolic Function * Grade I diastolic dysfunction, (abnormal relaxation pattern). MMode 2D Measurements and Calculations IVSd 1.4 cm IVSs 1.7 cm LVIDd 4.9 cm LVIDs 3.2 cm LVPWd 0.88 cm LVPWs 1.9 cm IVS/LVPW 1.6 FS 35.4 % EDV(Teich) 114.6 ml ESV(Teich) 40.5 ml EF(Teich) 64.7 % EDV(cubed) 120.1 ml ESV(cubed) 32.3 ml EF(cubed) 73.1 % % IVS thick 16.6 % % LVPW thick 112.6 % LV mass(C)d 214.7 grams LV mass(C)dI 97.7 grams/m\S\2 LV mass(C)s 224.0 grams LV mass(C)sI 102.0 grams/m\S\2 SV(Teich) 74.1 ml SI(Teich) 33.8 ml/m\S\2 SV(cubed) 87.8 ml SI(cubed) 40.0 ml/m\S\2 asc Aorta Diam 3.9 cm LVOT diam 2.3 cm LVOT area 4.1 cm\S\2 LVAd ap4 37.4 cm\S\2 LVLd ap4 9.0 cm EDV(MOD-sp4) 125.4 ml EDV(sp4-el) 131.4 ml LVAs ap4 19.5 cm\S\2 LVLs ap4 7.4 cm ESV(MOD-sp4) 41.7 ml ESV(sp4-el) 43.8 ml EF(MOD-sp4) 66.8 % EF(sp4-el) 66.7 % LVAd ap2 34.6 cm\S\2 LVLd ap2 9.0 cm EDV(MOD-sp2) 108.8 ml EDV(sp2-el) 113.6 ml LVAs ap2 17.8 cm\S\2 LVLs ap2 7.4 cm ESV(MOD-sp2) 35.5 ml ESV(sp2-el) 36.4 ml EF(MOD-sp2) 67.4 % EF(sp2-el) 68.0 % LVLd %diff -0.72 % EDV(MOD-bp) 117.2 ml LVLs %diff -0.22 % ESV(MOD-bp) 38.3 ml EF(MOD-bp) 67.3 % SV(MOD-sp4) 83.8 ml SI(MOD-sp4) 38.1 ml/m\S\2 SV(MOD-sp2) 73.3 ml SI(MOD-sp2) 33.4 ml/m\S\2 SV(MOD-bp) 78.9 ml SI(MOD-bp) 35.9 ml/m\S\2 SV(sp4-el) 87.6 ml SI(sp4-el) 39.9 ml/m\S\2 SV(sp2-el) 77.2 ml SI(sp2-el) 35.2 ml/m\S\2 Doppler Measurements and Calculations MV E max greg 69.7 cm/sec MV A max greg 104.1 cm/sec MV E/A 0.67 MV dec time 0.31 sec Ao V2 max 134.6 cm/sec Ao max PG 7.2 mmHg Ao max PG (full) 3.5 mmHg EBONIE(V,A) 2.9 cm\S\2 EBONIE(V,D) 2.9 cm\S\2 LV V1 max PG 3.8 mmHg LV V1 max 97.0 cm/sec MR max greg 626.4 cm/sec MR max PG 156.9 mmHg PA V2 max 117.6 cm/sec PA max PG 5.5 mmHg
--- NOTE | 2017-07-08 16:42 | Pulmonary Consultation ---
History General Date of Service: Jul 08, 2017. Stated Complaint: Shortness of breath HPI The patient is a 87 year old male who presents to [facility] with complaints of Copd Exacerbation. The patient's primary care provider is Kuldeep Terrazas M.D.. 87-year-old male admitted for progressive shortness of breath. He has a past medical history significant for poorly controlled COPD, diastolic CHF, paroxysmal atrial fibrillation/Coumadin, chronic kidney disease and hypothyroidism. Patient has also been noted to grow out Aspergillus and GENESIS and previous bronchoscopies. This time the patient has noted increasing dyspnea on exertion over the last 2-3 weeks associated with his chronic lower extremity edema and chronic stasis dermatitis. He was treated as an outpatient by provider Armando Smith with steroids and antibiotics/Levaquin with a notable response but quickly relapsed with shortness of breath starting on Wednesday. Attempt was made once again for steroids and duo nebs in the home office per patient was nonresponsive and asked to present to the emergency room. He noted increasing dyspnea on exertion from his baseline only able to walk 15 feet before becoming notably short of breath. He did have some yellowish productive sputum 7-10 days prior but currently only complains of a dry nonproductive cough and chronic rhinitis. He also complains of some substernal gas but no signs of classic cardiac chest pain. Current in-hospital workup EKG: Normal sinus rhythm, rate 60, no signs of acute ischemia WBC: 13K7K (Neutro#: >>12.05) INR: 1.4 BUN: 43 Cr: 1.59 BNP: =845 Influenza A and B (Ag & PCR) negative Radiology: CXR: No acute intrapulmonary process noted Right-sided aortic arch, mild costophrenic blunting My read: Possible acute infiltrate in the right lower lobe Patient shifted to the right Outside workup Pulmonary function study 11/12/2009 FEV1/FVC 70 FEV1 1.57/51% FVC 2.24/56% Bronchodilator no significant response TLC 86% VC 64% RV 111% RV/TLC > 58 DLCO 74% DLCO/VA 126% Overnight pulse oximetry 06/14/2015 (Home) Time <=88% 2.3 minutes Total desaturation events 142 Average events per hours 14 Overnight pulse oximetry study 12/07/2010 (Hospital) Time <=88% 2min Overnight pulse oximetry study 08/04/2016 (Hospital) Time <=88% 2min, 19sec Pulmonary Microbiology Expectorated sputum 07/09/2009: Aspergillus species Bronchial washing 07/11/2009: Aspergillus species Bronchial washing 08/25/2010: Aspergillus species Bronchial washing 08/25/2010: Mycobacterium avium complex Bronchial washing 12/04/2010: Penicillin species Expectorated sputum 05/09/2015: Aspergillus species Serum studies IgE(12/04/2010) 250 Aspergillus thrombus antibody: Negative Aspergillus fumigatus antibodies: Negative Aspergillus Niger antibody: Negative Echocardiogram 05/07/2015 Left ventricle: EF equals 50-60% Right ventricle: Within normal limits Trachea: Within normal limits Valces: Within normal limits Barium swallow 07/20/2013 Penetration with thin barium but no mansi aspiration noted Noncontrast CT thorax 06/10/2013 Bilateral pleural thickening, left & right pericardial fat pads, right-sided aortic arch Current inpatient medications #1 cefepime 2 g every 24 #2 montelukast 10 mg daily #3 Symbicort 160/4.52 puffs twice a day #4 Coumadin #5 DuoNeb 4 times a day #6 methylprednisolone 40 mg IV every 8 hours Active Problems 1. Glaucoma 2. Acute dyspnea 3. Aspergillus & GENESIS growth via bronchoscopy 4. Aspiration into airway 5. Chronic obstructive pulmonary disease (moderately severe) 6. Chronic renal insufficiency 7. Chronic sinusitis 8. Coronary arteriosclerosis 9. Diastolic congestive heart failure 10. Gout 11. Hemoptysis 12. Hypersomnia 13. Hypertension 14. Hypoxia 15. Leg weakness 16. Obesity 17. YOCASTA on CPAP 18. Paroxysmal atrial fibrillation 19. History of colon cancer 20. Restless legs syndrome Surgical History 1. History of Cataract Surgery 2. History of Colon Surgery 3. History of Eye Surgery 4. History of Hernia Repair 5. History of Knee Replacement Family History 1. Family history of Prostate Cancer 2. Family history of Colon Cancer 3. Family history of Prostate Cancer 4. Family history of Colon Cancer 5. Family history of Prostate Cancer Social History Denied: History of Drug Use Denied: History of Home Environment Domestic Violence Denied: History of Housing Without Smoke Detectors Marital History - Currently Never smoker Retired From Work Current Meds 1. Albuterol Sulfate (2.5 MG/3ML) 0.083% Inhalation Nebulization Solution; USE 1 UNIT 2. Spiriva HandiHaler 18 MCG Inhalation Capsule; INHALE THE CONTENTS OF 1 3. Symbicort 160-4.5 MCG/ACT Inhalation Aerosol; INHALE 2 PUFFS TWICE DAILY. RINSE 4. Ventolin HFA 108 (90 Base) MCG/ACT Inhalation Aerosol Solution; INHALE 2 PUFFS 5. Montelukast Sodium 10 MG Oral Tablet; TAKE 1 TABLET AT BEDTIME 6. Omnaris 50 MCG/ACT Nasal Suspension; 1 squirts each nostril daily; 7. PredniSONE 5 MG Oral Tablet; TAKE 1/2 TABLET DAILY DIRECTED 8. Allopurinol 100 MG Oral Tablet; TAKE 1 TABLET DAILY 9. CeleXA 40 MG Oral Tablet; TAKE 1 TABLET Bedtime 10. Coumadin TABS; TAKE DIRECTED 11. Lasix 40 MG Oral Tablet; Take 1 tablet daily; 12. Mirapex 0.25 MG Oral Tablet; TAKE 1 TABLET Bedtime; 13. Synthroid 75 MCG Oral Tablet; TAKE 1 TABLET DAILY 14. Vitamin B-12 500 MCG Sublingual Tablet Sublingual; DISSOLVE 1 TABLET Daily 15. Xalatan 0.005 % Ophthalmic Solution; Instill 1 drop both eyes at bedtime Allergies 1. Tramadol 2. Mucinex TBCR 3. Erythromycin Derivatives Historian: patient, EMS Review of Systems Constitutional: reports: malaise, weakness Eyes: reports: no symptoms ENT: reports: rhinorrhea Cardiovascular: reports: no symptoms Respiratory: reports: as stated in HPI Gastrointestinal: reports: as stated in HPI Genitourinary - Male: reports: no symptoms Musculoskeletal: reports: no symptoms Integumentary: reports: no symptoms Neurologic: reports: no symptoms Psychiatric: reports: no symptoms Endocrine: no symptoms Hematologic / Lymphatic: no symptoms Allergic / Immunologic: no symptoms Past Medical History Past Medical History: Please refer to history of present illness Past Surgical History: Please refer to history of present illness Family History Please refer to history of present illness Social History Please refer to history of present illness Hx Tobacco Use In Past Year?: No Smoking Status: Never Smoker Drug Use: none Marital status: Housing status: lives with significant other Occupational Status: retired Immunizations History of Influenza Vaccine: Yes Influenza Vaccine Date: Apr 04, 2013 History of Tetanus Vaccine?: utd History of Pneumococcal: Yes Pneumococcal Date: December 01, 2008 History of Hepatitis B Vaccine: No History of MDRO History of MDRO: No Allergies Coded Allergies: Erythromycin (Verified Allergy, Mild, RASH-Azithromycin & Biaxin OK, ) tolerates azithromycin and clarithromycin as outpatient Lisinopril (Verified Allergy, Mild, itching, 12/03/10) Current Medications Reported Home Medications Medications Dose Route/Sig Max Daily Dose Days Date Category Coumadin (Warfarin Sod) 2.5 Mg Tab 2.5 Mg PO DAILY 07/07/17 Reported Mirapex (Pramipexole Dihydrochloride) 0.25 Mg Tab 1 Tab PO HS 90 07/07/17 Reported Citalopram Hydrobromide (Citalopram) 20 Mg Tab 1 Tab PO DAILY 07/07/17 Reported Zyloprim (Allopurinol) 300 Mg Tab 1 Tab PO DAILY 30 07/07/17 Reported Duoneb (Ipratropium-Albuterol) 3 Ml Nebu 3 Ml INH QIDR PRN 30 08/13/16 Rx Aspirin EC Low Dose (Aspirin) 81 Mg Ectab 81 Mg PO DAILY 07/27/16 Reported Vitamin B12 500MCG (Cyanocobalamin) 500 Mcg Tab 500 Mcg PO DAILY 07/27/16 Reported Prednisone 5 Mg Tab 5 Mg PO DAILY 07/27/16 Reported Proair Hfa (Albuterol) Aers 2 Puffs INH QID PRN 30 11/28/14 Rx Synthroid (Levothyroxine Sodium) 75 Mcg Tab 75 Mcg PO DAILY 11/25/14 Reported Xalatan 0.005% Oph (Latanoprost) Soln 1 Drop OPB HS 07/17/13 Reported Singulair (Montelukast Sodium) 10 Mg Tab 10 Mg PO DAILY 10/19/11 Reported Symbicort 160/4.5 Inhaler (Budesonide/Formoterol Fumarate) Aero 2 Puffs INH BID 08/18/10 Reported Spiriva Handihaler (Tiotropium Moffit) 18 Mcg/ Aerp 1 Cap INH DAILY 12/14/08 Reported Physical Physical Exam Vital Signs: Date Time Temp Pulse Resp B/P (MAP) Pulse Ox O2 Delivery O2 Flow Rate FiO2 07/08/17 16:01 77 18 94 Room Air 07/08/17 15:29 36.3 66 20 160/78 (105) 95 Room Air 07/08/17 11:31 73 18 96 Room Air 07/08/17 08:05 36.3 63 20 167/91 (116) 94 Room Air 07/08/17 08:00 Room Air 07/08/17 07:05 66 18 92 Room Air 07/08/17 00:33 36.7 72 20 151/91 (111) 91 Room Air 07/08/17 00:30 Room Air 07/07/17 19:03 74 18 94 Room Air 07/07/17 17:21 36.9 65 18 150/84 94 Room Air General Appearance: moderate distress Head: NORMOCEPHALIC, ATRAUMATIC Eyes: PERRLA, NO DISCHARGE, EOMI, SCLERAE NORMAL ENT: NORMAL EAR EXAM, NORMAL NASAL EXAM, NORMAL MOUTH EXAM, NORMAL THROAT EXAM Neck: NORMAL RANGE OF MOTION, NO TENDERNESS, TRACHEA MIDLINE Respiratory: other (decreased breath sounds bilaterally) Cardiovasular: REGULAR RATE/RHYTHM, NORMAL S1S2, NO M/G/R Abdomen: NON TENDER, NORMAL BOWEL SOUNDS, NO REBOUND, NO MASSES, NO GUARDING Genitourinary - Male: EXTERNAL GENITALIA NORMAL Back: NORMAL INSPECTION, NO MIDLINE TENDERNESS, NO CVA TENDERNESS Upper Extremities: NO EDEMA, NO DEFORMITY, NORMAL ROM Lower Extremities: other (bilateral lower extremity 2+ pitting edema, chronic stasis dermatitis) Pulses: carotid (R) (1+), carotid (L) (1+), posterior tibial (R) (2+), posterior tibial (L) (2+) Reflexes: biceps (R) (2+), bicpes (L) (2+), patellar (R) (2+), patellar (L) (2+ ) Babinski Testing: right (downgoing), left (downgoing) Psychiatric: NORMAL AFFECT, NO SUICIDAL IDEATION Diagnostics Labs Results Past 24 Hours Test 07/07/17 17:32 07/07/17 23:30 07/08/17 05:15 07/08/17 06:15 Range/Units White Blood Count 12.98 7.20 4.8-10.8 K/uL Red Blood Count 4.33 4.05 4.7-6.1 M/uL Hemoglobin 13.3 12.6 14.0-18.0 g/dL Hematocrit 40.6 38.2 42-52 % Mean Corpuscular Volume 93.8 94.3 80-100 fL Mean Corpuscular Hemoglobin 30.7 31.1 25-34 pg Mean Corpuscular Hemoglobin Concent 32.8 33.0 32-36 g/dl Platelet Count 183 175 130-400 K/uL Mean Platelet Volume 10.9 11.4 7.4-10.4 fL Neutrophils (%) (Auto) 92.8 % Lymphocytes (%) (Auto) 4.6 % Monocytes (%) (Auto) 2.2 % Eosinophils (%) (Auto) 0.0 % Basophils (%) (Auto) 0.0 % Neutrophils # (Auto) 12.05 1.4-6.5 K/uL Lymphocytes # (Auto) 0.60 1.2-3.4 K/uL Monocytes # (Auto) 0.28 0.11-0.59 K/uL Eosinophils # (Auto) 0.00 0-0.5 K/uL Basophils # (Auto) 0.00 0-0.2 K/uL RDW Standard Deviation 54.5 54.9 36.4-46.3 fL RDW Coefficient of Variation 16.0 15.9 11.5-14.5 % Immature Granulocyte % (Auto) 0.4 % Immature Granulocyte # (Auto) 0.05 0.00-0.02 K/uL Prothrombin Time 14.8 14.8 9.0-12.0 SECONDS Prothromb Time International Ratio 1.4 1.4 0.9-1.1 Activated Partial Thromboplast Time 27.0 21.0-31.0 SECONDS Partial Thromboplastin Ratio 1.0 Sodium Level 137 136 136-145 mmol/L Potassium Level 4.1 4.4 3.5-5.1 mmol/L Chloride Level 104 104 98-107 mmol/L Carbon Dioxide Level 26 26 21-32 mmol/L Anion Gap 7.0 6.0 3-11 mmol/L Blood Urea Nitrogen 35 43 7-18 mg/dl Creatinine 1.57 1.59 0.60-1.40 mg/dl Est Creatinine Clear Calc Drug Dose 37.9 37.4 ml/min Estimated GFR () 44.6 44.0 Estimated GFR (Non- 38.5 37.9 BUN/Creatinine Ratio 22.1 27.2 10-20 Random Glucose 125 158 70-99 mg/dl Calcium Level 9.1 9.0 8.5-10.1 mg/dl Total Bilirubin 0.6 0.2-1 mg/dl Aspartate Amino Transf (AST/SGOT) 21 15-37 U/L Alanine Aminotransferase (ALT/SGPT) 22 12-78 U/L Alkaline Phosphatase 74 45-117 U/L Pro-B-Type Natriuretic Peptide 845 0-1800 pg/ml Total Protein 6.8 6.4-8.2 gm/dl Albumin 3.4 3.4-5.0 gm/dl Globulin 3.4 2.5-4.0 gm/dl Albumin/Globulin Ratio 1.0 0.9-2 Urine Color YELLOW Urine Appearance CLEAR CLEAR Urine pH 5.0 4.5-7.5 Urine Specific Hurley 1.018 1.000-1.030 Urine Protein 1+ NEG Urine Glucose (UA) NEG NEG Urine Ketones NEG NEG Urine Occult Blood NEG NEG Urine Nitrite NEG NEG Urine Bilirubin NEG NEG Urine Urobilinogen NEG NEG Urine Leukocyte Esterase NEG NEG Urine WBC (Auto) 0 0-5 /hpf Urine RBC (Auto) 0-4 0-4 /hpf Urine Hyaline Casts (Auto) 0 0-5 /lpf Urine Epithelial Cells (Auto) 0-5 0-5 /lpf Urine Bacteria (Auto) NEG NEG Influenza Type A (RT-PCR) Neg for Influ A NEG Influenza Type A Antigen Neg for Influ A NEG Influenza Type B Antigen Neg for Influ B NEG Influenza Type B (RT-PCR) Neg for Influ B NEG Microbiology Results 07/07/17 Gram Stain - Final, Resulted 07/07/17 Sputum Culture, Resulted Pending Diagnostic Radiology Please refer to history of present illness EKG Please refer to history of present illness Impression Assessment and Plan 87-year-old gentleman admitted with acute on chronic respiratory insufficiency: #1 COPD: Patient's poorly function studies on 11/12/2009 shows an FEV1 of 51% and RV/TLC of 58. This is suggestive of hyper inflation. This time I do agree with current medical treatment with IV steroids will try to taper down oral steroids tomorrow, continue montelukast asked, Symbicort 160/4.5 and duo nebs as scheduled. #2 Anticoagulation: Patient is chronically on Coumadin but is notably subtherapeutic on most days tested. At this time I'll send off for bilateral lower ultrasound examination as well as echocardiogram to evaluate for possible signs CTEPH or even diastolic dysfunction. We will initiate the patient on Lovenox until his INR is therapeutic. #3 Aspergillus: The patient has grown out Aspergillus both by bronchoscopy and previous expectorated sputum's. At this time previous serum studies show no signs of ABPA and the patient's clinical history as well as radiographs also showed no signs of invasive aspergillosis. No further workup necessary. #4 GENESIS: Patient did grow out GENESIS via bronchoscopy on 08/25/2010. 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 Also anybody greater than 65 has a much higher risk of hepatitis as her benefit on a yearly basis so introducing GENESIS treatment at this time is not warranted.
--- NOTE | 2017-07-08 17:26 | DIAGNOSTIC IMAGING REPORT ---
BILATERAL LOWER EXTREMITY VENOUS DOPPLER HISTORY: Short of breath. Leg swelling. COMPARISON STUDY: None. FINDINGS: There is normal compressibility, flow, and augmentation within the bilateral lower extremity deep venous systems. IMPRESSION: No DVT within the right or left lower extremity. Electronically signed by: Chace Naranjo M.D. 07/08/2017 5:25 PM Dictated Date/Time: 07/08/2017 5:25 PM
[2017-07-08] MEDS: CEFEPIME IV 2,000 MG in SYRINGE 7.5 ML IV SCH (17:56)
[2017-07-08] MEDS: ENOXAPARIN 120 MG/0.8 ML SYR SQ SCH (17:57)
[2017-07-08] MEDS: LATANOPROST 0.005% OP SOLN 2.5 ML BTL OPB SCH (21:10)
[2017-07-08] MEDS: PRAMIPEXOLE DIHYDROCHLORIDE 0.25MG TAB PO SCH (21:10)
[2017-07-08] MEDS: ZOLPIDEM TARTRATE 5 MG TAB PO PRN (22:39)
[2017-07-09] VITALS (8 sets, daily range): BP systolic 146–178; BP diastolic 79–85; PULSE 63–72; TEMP 36.3–36.5; O2SAT 93–98
[2017-07-09] MEDS: METHYLPREDNISOLONE IV 40 MG in SYRINGE 0 ML IV SCH ×3 (01:50→20:16)
[2017-07-09] MEDS: ENOXAPARIN 120 MG/0.8 ML SYR SQ SCH (05:57)
[2017-07-09] MEDS: LEVOTHYROXINE 75 MCG TAB PO SCH (05:57)
[2017-07-09 06:52] LABS: INR 1.9 (0.9-1.1)
[2017-07-09] MEDS: ALBUT/IPRATROP 3MG/0.5MG NEB 3 ML VIAL INH SCH ×4 (06:58→19:46)
[2017-07-09 07:18] LABS: CREATININE 1.96 mg/dl (0.60-1.40)
[2017-07-09] MEDS: ASPIRIN 81 MG ECTAB PO SCH (08:23)
[2017-07-09] MEDS: CITALOPRAM 20 MG TAB PO SCH (08:23)
[2017-07-09] MEDS: ALLOPURINOL 300 MG TAB PO SCH (08:23)
[2017-07-09] MEDS: MONTELUKAST SOD 10 MG TAB PO SCH (08:23)
[2017-07-09] MEDS: CYANOCOBALAMIN 500 MCG TAB (VIT B-12) PO SCH (08:23)
[2017-07-09] MEDS: FUROSEMIDE 40 MG TAB PO SCH (08:25)
[2017-07-09] MEDS: BUDESONIDE/FORMOTEROL FUMARATE 160/4.5 60 PUFFS/INHALER INH SCH ×2 (08:25→20:18)
--- NOTE | 2017-07-09 11:18 | Progress Note ---
Internal Med Progress Note Date of Service: Jul 09, 2017. Provider Documentation: SUBJECTIVE: The patient was seen and examined Admitted with increase SOB-Failed OP Levaquin and Breathing treatment Much Better this morning SOB on minimal exertion OBJECTIVE: Vital Signs-as noted below Exam: General-Lying flat in bed without any SOB Eyes-normal ENT-normal Neck-supple Lungs-Decreased breath sound bilaterally Occasional wheezing bilaterally -diminished today Heart-Regular Abdomen-Benign,no masses,bowel sound present Extremities-1+ edema bilaterally Chronic Skin changes Neuro-AAOx3 Lab data as noted below. ASSESSMENT & PLAN: This is an 87yo M with a PMH of COPD (on chronic prednisone, no O2), diastolic CHF, paroxysmal A Fib (on coumadin), CKD III, hypothyroidism and other problems listed below who was sent directly from pulm clinic for worsening SOB x 3 days. COPD exacerbation: H/O Aspergillus & GENESIS growth via bronchoscopy in past (does not need any treatment now) -Worsening SOB, productive cough -Possible triggered by viral infection vs bronchitis -Failed recent out-pt tx of Levaquin & steroid taper -Afebrile, oxygen saturation in high 90s on room air -Sputum culture pending, flu pcr pending -Discussed treatment plan with Edi Smith PA-C -Solu-medrol 40mg Q8, cefepime, scheduled duonebs -Appreciate Pulmonary input and recommendation -clinically much better today -Discussed with the Pulmonary -Likely to be discharged in a day or two Chronic Diastolic CHF: NO acute exacerbation -Bilateral LE edema -Patent no longer taking lasix; unclear why he stopped -Echo in Apr 2015 with EF of 55-60% -Monitor Is&Os, daily weights -Na restricted diet -Resume home dose Lasix Paroxysmal A Fib: -NSR on EKG -Does not take diltiazem anymore. Unclear why he stopped -Continue home dose warfarin -INR pending-1.4 on and 1213 -Started on Lovenox yesterday 07/08/17 -INR 1.9 today -will stop Lovenox when INR>2.0 Hypothyroidism: -Cont home dose levothyroxine CKD III: -Cr is at or slightly above baseline at 1.57 -Avoid nephrotoxic agents when possible -remains stable -Creatinine 1.96 07/09 Gout: -Cont allopurinol Depression/anxiety: -Stable -Cont Celexa DVT Ppx: On warfarin Increase dose today Code status: DNR, per my discussion with patient PCP: Mk Dispo: Plan to return home once medically stable Vital Signs: Date Time Temp Pulse Resp B/P (MAP) Pulse Ox O2 Delivery O2 Flow Rate FiO2 07/09/17 08:00 Room Air 07/09/17 07:49 36.3 71 20 147/79 (101) 94 Room Air 07/09/17 07:00 66 19 96 Room Air 07/09/17 00:00 Room Air 07/08/17 23:05 36.3 57 18 146/83 (104) 91 Room Air 07/08/17 19:47 60 18 95 Room Air 07/08/17 17:06 Room Air 07/08/17 16:01 77 18 94 Room Air 07/08/17 15:29 36.3 66 20 160/78 (105) 95 Room Air 07/08/17 11:31 73 18 96 Room Air Lab Results: Results Past 24 Hours Test 07/09/17 06:08 Range/Units Prothrombin Time 20.0 9.0-12.0 SECONDS Prothromb Time International Ratio 1.9 0.9-1.1 Creatinine 1.96 0.60-1.40 mg/dl Est Creatinine Clear Calc Drug Dose 30.4 ml/min Estimated GFR () 34.1 Estimated GFR (Non- 29.4
--- NOTE | 2017-07-09 12:18 | PROGRESS NOTE ---
DATE: 07/09/2017 DATE: 07/09/2017 The patient was seen in room 256 bed 2. PROBLEM LIST: Includes: 1. Acute on chronic respiratory insufficiency. 2. Chronic obstructive pulmonary disease. 3. Chronic anticoagulation due to Afib and history of Aspergillus. SUBJECTIVE: The patient reports that he is feeling better. The patient was admitted directly from the office 2 days ago with exacerbation of his breathing. He has been started on IV antibiotics, IV Solu-Medrol as well as aggressive pulmonary toilet and patient reports that he does feel better. He states that his cough is less. He was able to expectorate a large amount of dark green-brown mucus last evening. He states that did help him to feel somewhat better. He states that he still is feeling a little bit run down and tired. He states that when he walked to the bathroom his legs felt very shaky and unsteady, but it is better than he was yesterday. He has not had any fever or chills that he is aware of. No pleuritic chest pain. No chest pain in general. He does have some wheezing but this is chronic in nature. He has not had any other difficulties. Appetite is normal, moving his bowels well. He is voiding well. He has not had any increased swelling in his extremities. He does have some baseline swelling. No numbness, tingling or weakness. The patient did undergo an echocardiogram yesterday. In discussing further with the patient, the patient does report that he does occasionally have difficulty swallowing. He states that when he eats something dry like chicken it will frequently get stuck and will have to consume large amount of liquid to get the food to move down. He has never had any regurgitation of the food. He states that occasionally he does cough and choke when this happened. He states that he did have a video swallow done which has been a couple years ago. In reviewing the chart, it was done in 2012. Also, the patient does have a CPAP at home for his obstructive sleep apnea and in reviewing the records he is to be on CPAP on a setting of 7. The patient does not have CPAP in the hospital. We will put that through as well. OBJECTIVE: GENERAL: The patient is an 87-year-old male sitting on the edge of his bed in no acute distress. He is alert and oriented x3. Mood is good. Affect is good. He is not exhibiting any respiratory distress. He is able to complete sentences without difficulty. There is no visualized accessory muscle use or retraction. He is interactive and cooperative. VITAL SIGNS: Temp 36.3, pulse 71, respirations 20, blood pressure is 137/79, pulse ox is 94-96% on room air. HEAD, EYES, EARS, NOSE, AND THROAT: Normocephalic, atraumatic. Pupils are equal, round and reactive to light and accommodation. Extraocular movements are intact. [place] moist gingival and buccal mucosa. NECK: Supple. No mass, no adenopathy, no bruit noted. No tenderness to palpation. He has full range of motion. CHEST: The patient does have some coarse wheezing diffusely throughout on exhalation. Otherwise no adventitious breath sounds. CARDIOVASCULAR: Regular rate and rhythm. No murmurs, gallops or rubs appreciated. ABDOMEN: Bowel sounds present. Abdomen soft. no guarding, rigidity or organomegaly. EXTREMITIES: No erythema, 1+ pitting edema bilaterally. The patient also has some chronic venous stasis changes. NEUROLOGIC: Cranial nerves II through XII are intact. No focal deficits. LABORATORY DATA: Shows an INR of 1.9, creatinine 1.96. The patient had been approximately 1.57 earlier. . IMPRESSION: 1. The patient is an 87-year-old male who presented with acute on chronic respiratory insufficiency with exacerbation. The patient does have known COPD. At this point, does not appear to be having an exacerbation. He is on appropriate antibiotic and appropriate steroid. We will try to taper steroids as patient can tolerate. Currently he is getting 40 mg q. 8. Will change that over to 40 mg q. 12 and if he does well over the next 24 hours can transition to prednisone 40 mg daily and continue to taper. 2. Sleep apnea. The patient has a CPAP with setting of 7 at home, does not have that here. Will go ahead and order that for use while he is hospitalized. 3. Some dysphagia. The patient is having trouble with food sticking. At this point I would like to get a repeat video swallow. The patient did have one in 2012 but nothing since then. He does have increased complaint of difficulty with his swallowing. Question if there may be aspiration versus even a stricture versus esophageal dysmotility. Will place order for that. The patient did ask that I contact his daughter and gave me the phone number. I did attempt to contact the daughter but no one answered and the voice mail message did not identify specifically who the number belonged to so no message was left. Patient was seen reviewed and plan agreed upon MTDD
--- NOTE | 2017-07-09 14:23 | DIAGNOSTIC IMAGING REPORT ---
(BARIUM SWALLOW) ESOPHAGUS CLINICAL HISTORY: dysphagia COMPARISON STUDY: Video swallow 07/17/2013. FLUOROSCOPY TIME: 0.5 minutes. 8 fluoroscopic images. FINDINGS: The patient swallowed barium and immediately aspirated. Therefore, the examination was terminated early. IMPRESSION: The patient aspirated on the initial swallow of barium. Therefore, the examination was discontinued. Follow-up video swallow is recommended for further evaluation. Electronically signed by: Chace Naranjo M.D. 07/09/2017 2:21 PM Dictated Date/Time: 07/09/2017 2:20 PM
[2017-07-09] MEDS: WARFARIN SOD 2.5 MG TAB PO SCH (15:54)
[2017-07-09] MEDS: CEFEPIME IV 2,000 MG in SYRINGE 7.5 ML IV SCH (17:36)
[2017-07-09] MEDS: LATANOPROST 0.005% OP SOLN 2.5 ML BTL OPB SCH (20:18)
[2017-07-09] MEDS: PRAMIPEXOLE DIHYDROCHLORIDE 0.25MG TAB PO SCH ×2 (20:19→20:44)
[2017-07-09] MEDS: ZOLPIDEM TARTRATE 5 MG TAB PO PRN (22:30)
[2017-07-10] VITALS (7 sets, daily range): BP systolic 145–171; BP diastolic 82–90; PULSE 57–74; TEMP 36.4–36.6; O2SAT 92–95
[2017-07-10] MEDS: LEVOTHYROXINE 75 MCG TAB PO SCH (05:31)
[2017-07-10] MEDS ORDERED: ENOXAPARIN 120 MG/0.8 ML SYR SQ SCH (06:00)
[2017-07-10 07:08] LABS: INR 2.4 (0.9-1.1); PROTHROMBIN TIME (PATIENT) 24.9 SECONDS (9.0-12.0)
[2017-07-10] MEDS: ALBUT/IPRATROP 3MG/0.5MG NEB 3 ML VIAL INH SCH ×4 (07:14→19:30)
[2017-07-10 07:31] LABS: CREATININE 1.79 mg/dl (0.60-1.40)
[2017-07-10] MEDS: BUDESONIDE/FORMOTEROL FUMARATE 160/4.5 60 PUFFS/INHALER INH SCH ×2 (07:49→20:41)
[2017-07-10] MEDS: FUROSEMIDE 40 MG TAB PO SCH (07:49)
[2017-07-10] MEDS: MONTELUKAST SOD 10 MG TAB PO SCH (07:49)
[2017-07-10] MEDS: METHYLPREDNISOLONE IV 40 MG in SYRINGE 0 ML IV SCH ×2 (07:49→20:41)
[2017-07-10] MEDS: CITALOPRAM 20 MG TAB PO SCH (07:49)
[2017-07-10] MEDS: CYANOCOBALAMIN 500 MCG TAB (VIT B-12) PO SCH (07:49)
[2017-07-10] MEDS: ALLOPURINOL 300 MG TAB PO SCH (07:50)
[2017-07-10] MEDS: ASPIRIN 81 MG ECTAB PO SCH (07:50)
--- NOTE | 2017-07-10 14:33 | Progress Note ---
Internal Med Progress Note Date of Service: Jul 10, 2017. Provider Documentation: SUBJECTIVE: The patient was seen and examined Admitted with increase SOB-Failed OP Levaquin and Breathing treatment Much Better this morning Has had swallowing evaluation-may have aspiration Will get Barium swallow on Wednesday OBJECTIVE: Vital Signs-as noted below Exam: General-Sittine by the side of the bed Eyes-normal ENT-normal Neck-supple Lungs-Decreased breath sound bilaterally Occasional wheezing bilaterally -diminished today Heart-Regular Abdomen-Benign,no masses,bowel sound present Extremities-1+ edema bilaterally Chronic Skin changes Neuro-AAOx3 Lab data as noted below. ASSESSMENT & PLAN: This is an 87yo M with a PMH of COPD (on chronic prednisone, no O2), diastolic CHF, paroxysmal A Fib (on coumadin), CKD III, hypothyroidism and other problems listed below who was sent directly from pulm clinic for worsening SOB x 3 days. COPD exacerbation: H/O Aspergillus & GENESIS growth via bronchoscopy in past (does not need any treatment now) -Worsening SOB, productive cough -Possible triggered by viral infection vs bronchitis -Failed recent out-pt tx of Levaquin & steroid taper -Afebrile, oxygen saturation in high 90s on room air -Sputum culture pending, flu pcr pending -Discussed treatment plan with Edi Smith PA-C -Solu-medrol 40mg Q8, cefepime, scheduled duonebs -Appreciate Pulmonary input and recommendation -clinically much better today -Discussed with the Pulmonary -Likely to be discharged in a day or two -Will need barium swallow on Wednesday Chronic Diastolic CHF: NO acute exacerbation -Bilateral LE edema -Patent no longer taking lasix; unclear why he stopped -Echo in Apr 2015 with EF of 55-60% -Monitor Is&Os, daily weights -Na restricted diet -Resume home dose Lasix -no acute symptoms Paroxysmal A Fib: -NSR on EKG -Does not take diltiazem anymore. Unclear why he stopped -Continue home dose warfarin -INR pending-1.4 on and 1213 -Started on Lovenox yesterday 07/08/17 -INR 1.9 today -will stop Lovenox when INR>2.0 -stop Lovenox Hypothyroidism: -Cont home dose levothyroxine CKD III: -Cr is at or slightly above baseline at 1.57 -Avoid nephrotoxic agents when possible -remains stable -Creatinine 1.96 07/09-1.79 on 07/10 Gout: -Cont allopurinol Depression/anxiety: -Stable -Cont Celexa DVT Ppx: On warfarin Increase dose today Code status: DNR, per my discussion with patient PCP: Mk Dispo: Plan to return home once medically stable Discussed with the Daughter Vital Signs: Date Time Temp Pulse Resp B/P (MAP) Pulse Ox O2 Delivery O2 Flow Rate FiO2 07/10/17 11:29 64 18 95 Room Air 07/10/17 08:00 Room Air 07/10/17 07:18 36.5 64 22 171/90 (117) 93 07/10/17 07:14 57 18 93 Room Air 07/10/17 00:00 Room Air CPAP 07/09/17 23:03 72 93 07/09/17 22:44 36.3 64 20 146/81 (102) 94 Room Air 07/09/17 19:46 68 17 96 Room Air 07/09/17 16:18 Room Air 07/09/17 15:23 66 17 98 Room Air 07/09/17 14:58 36.5 63 20 178/85 (116) 94 Lab Results: Results Past 24 Hours Test 07/10/17 06:33 Range/Units Prothrombin Time 24.9 9.0-12.0 SECONDS Prothromb Time International Ratio 2.4 0.9-1.1 Creatinine 1.79 0.60-1.40 mg/dl Est Creatinine Clear Calc Drug Dose 33.3 ml/min Estimated GFR () 38.1 Estimated GFR (Non- 32.9
[2017-07-10] MEDS: WARFARIN SOD 2.5 MG TAB PO SCH (15:51)
[2017-07-10] MEDS: CEFEPIME IV 2,000 MG in SYRINGE 7.5 ML IV SCH (17:54)
[2017-07-10] MEDS: LATANOPROST 0.005% OP SOLN 2.5 ML BTL OPB SCH (20:41)
[2017-07-10] MEDS: PRAMIPEXOLE DIHYDROCHLORIDE 0.25MG TAB PO SCH (20:42)
[2017-07-10] MEDS: ZOLPIDEM TARTRATE 5 MG TAB PO PRN (22:56)
[2017-07-11] VITALS (7 sets, daily range): BP systolic 126–173; BP diastolic 72–88; PULSE 50–71; TEMP 36.3–36.4; O2SAT 93–97
[2017-07-11] MEDS: LEVOTHYROXINE 75 MCG TAB PO SCH (06:05)
[2017-07-11 07:10] LABS: INR 2.7 (0.9-1.1); PROTHROMBIN TIME (PATIENT) 28.3 SECONDS (9.0-12.0)
[2017-07-11] MEDS: ALBUT/IPRATROP 3MG/0.5MG NEB 3 ML VIAL INH SCH ×4 (07:16→19:17)
[2017-07-11 07:24] LABS: CREATININE 1.97 mg/dl (0.60-1.40)
[2017-07-11] MEDS: ALLOPURINOL 300 MG TAB PO SCH (07:26)
[2017-07-11] MEDS: ASPIRIN 81 MG ECTAB PO SCH (07:26)
[2017-07-11] MEDS: CYANOCOBALAMIN 500 MCG TAB (VIT B-12) PO SCH (07:26)
[2017-07-11] MEDS: MONTELUKAST SOD 10 MG TAB PO SCH (07:26)
[2017-07-11] MEDS: FUROSEMIDE 40 MG TAB PO SCH (07:26)
[2017-07-11] MEDS: CITALOPRAM 20 MG TAB PO SCH (07:26)
[2017-07-11] MEDS: BUDESONIDE/FORMOTEROL FUMARATE 160/4.5 60 PUFFS/INHALER INH SCH ×2 (07:26→20:46)
[2017-07-11] MEDS: METHYLPREDNISOLONE IV 40 MG in SYRINGE 0 ML IV SCH ×2 (07:26→20:45)
--- NOTE | 2017-07-11 12:24 | Progress Note ---
Internal Med Progress Note Date of Service: Jul 11, 2017. Provider Documentation: SUBJECTIVE: The patient was seen and examined Admitted with increase SOB-Failed OP Levaquin and Breathing treatment Much Better this morning -07/11/17 Has had swallowing evaluation-may have aspiration Will get Barium swallow on Wednesday Clinically a LOT BETTER TODAY OBJECTIVE: Vital Signs-as noted below Exam: General-Sitting by the side of the bed Eyes-normal ENT-normal Neck-supple Lungs-Decreased breath sound bilaterally Occasional wheezing bilaterally Heart-Regular Abdomen-Benign,no masses,bowel sound present Extremities-1+ edema bilaterally Chronic Skin changes and Generalized bruising -chronic in nature Neuro-AAOx3 Lab data as noted below. ASSESSMENT & PLAN: This is an 87yo M with a PMH of COPD (on chronic prednisone, no O2), diastolic CHF, paroxysmal A Fib (on coumadin), CKD III, hypothyroidism and other problems listed below who was sent directly from pulm clinic for worsening SOB x 3 days. COPD exacerbation: H/O Aspergillus & GENESIS growth via bronchoscopy in past (does not need any treatment now) -Worsening SOB, productive cough -Possible triggered by viral infection vs bronchitis -Failed recent out-pt tx of Levaquin & steroid taper -Afebrile, oxygen saturation in high 90s on room air -Sputum culture pending, flu pcr pending -Discussed treatment plan with Edi Smith PA-C -Solu-medrol 40mg Q8, cefepime, scheduled duonebs -Appreciate Pulmonary input and recommendation -clinically much better today 07/11/17 -Discussed with the Pulmonary -Likely to be discharged in a day or two -Will need barium swallow on Wednesday -denies any complaints -Discussed with the Daughter 07/10/17 Chronic Diastolic CHF: NO acute exacerbation -Bilateral LE edema -Patent no longer taking lasix; unclear why he stopped -Echo in Apr 2015 with EF of 55-60% -Monitor Is&Os, daily weights -Na restricted diet -Resume home dose Lasix -no acute symptoms Paroxysmal A Fib: -NSR on EKG -Does not take diltiazem anymore. Unclear why he stopped -Continue home dose warfarin -INR pending-1.4 on and 1214 -Started on Lovenox yesterday 07/08/17 -INR 1.9 today -will stop Lovenox when INR>2.0 -stop Lovenox Hypothyroidism: -Cont home dose levothyroxine CKD III: -Cr is at or slightly above baseline at 1.57 -Avoid nephrotoxic agents when possible -remains stable -Creatinine 1.96 07/09-1.79 on 07/10 Gout: -Cont allopurinol Depression/anxiety: -Stable -Cont Celexa DVT Ppx: On warfarin Increase dose today Code status: DNR, per my discussion with patient PCP: Mk Dispo: Plan to return home once medically stable Discussed with the Daughter Barium swallow tomorrow and likely discharge on Wednesday Vital Signs: Date Time Temp Pulse Resp B/P (MAP) Pulse Ox O2 Delivery O2 Flow Rate FiO2 07/11/17 11:27 64 18 96 Room Air 07/11/17 08:00 Room Air 07/11/17 07:18 71 18 97 Room Air 07/11/17 06:48 36.4 50 18 173/87 (115) 93 Room Air 07/11/17 00:00 Room Air CPAP 07/10/17 23:13 36.4 62 20 145/82 (103) 94 Room Air 07/10/17 19:32 64 18 92 Room Air 07/10/17 16:00 Room Air 07/10/17 15:31 74 18 94 Room Air 07/10/17 14:46 36.6 64 22 166/85 (112) 92 Room Air Lab Results: Results Past 24 Hours Test 07/11/17 06:37 Range/Units Prothrombin Time 28.3 9.0-12.0 SECONDS Prothromb Time International Ratio 2.7 0.9-1.1 Creatinine 1.97 0.60-1.40 mg/dl Est Creatinine Clear Calc Drug Dose 30.2 ml/min Estimated GFR () 33.9 Estimated GFR (Non- 29.3
--- NOTE | 2017-07-11 15:16 | Pulmonology Progress Note ---
Pulmonary Progress Note Date of Service Jul 11, 2017. Attending Dr. Darden Subjective Patient still notes shortness of breath but denies: Fever, chills, of pleurisy or classic cardiac chest pain Objective Patient is sitting up in a chair not using accessory muscles no signs of tachypnea respiratory insufficiency able to complete full sentences VS: I/Os: -1.8L SaO2%: 93-97 % FiO2: Room air RR: 18 HR: 50-71 Resp: Mildly diminished otherwise clear to auscultation Card: S1-S2 regular rate rhythm Abd: Positive bowel sounds soft nontender Ext: 2+ pitting edema Studies WBC: 7K INR: 2.7 Echocardiogram 07/08/2017 o Left ventricle: EF= 65-70 %, left ventricular hypertrophy o Right ventricle: TAPSE > 1.7cm o Atria: Within normal limits o Mitral valve: Mild to moderate regurgitation o IVC: Estimated to be within normal limits o PA systolic pressure estimated to be less than 36 mmHg DVT study 07/07/2017: No signs of lower extremity DVTs Active pulmonary Medications: 1. Methylprednisolone 40 mg IV q.12 2. Cefepime 2 grams Q 24 hours 3. Singular 10 mg daily 4. Symbicort 160/4.52 puffs b.i.d. 5. Warfarin 6. Duo nebs 7. Ventolin HFA 2 puffs q.i.d. p.r.n. Assessment & Plan 87-year-old gentleman admitted with acute on chronic respiratory insufficiency: #1 COPD: Pulmonary function study 11/12/2009 had an FEV1 of 51% and RV/TLC of 58. Patient does have repeat exacerbations from unknown etiology but most likely combination because of his lower extremity edema of COPD and diastolic dysfunctioning. At this time I will titrate down on the steroids to start 40 mg daily on 07/12/2017. At this time there is no signs of acute infection based off radiographs, clinical correlation are serum studies. With this in mind I will discontinue the patient's current antibiotics. 2. Anticoagulation: Patient's Coumadin levels are now therapeutic and based off DVT studies and echocardiogram there is no signs of CTEPH. 3. Aspergillus: The patient has grown out Aspergillus both by bronchoscopy and previous expectorated sputum's. At this time previous serum studies show no signs of ABPA and the patient's clinical history as well as radiographs also showed no signs of invasive aspergillosis. No further workup necessary. 4. GENESIS: Patient did grow out GENESIS via bronchoscopy on 08/25/2010. 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 Also anybody greater than 65 has a much higher risk of hepatitis as her benefit on a yearly basis so introducing GENESIS treatment at this time is not warranted. Data Medications: Current Inpatient Medications Medications (Trade) Dose Ordered Sig/Gilma Route Start Time Stop Time Status Last Admin Dose Admin Albuterol/ Ipratropium (Duoneb) 3 ml QIDR INH 07/07/17 20:00 08/06/17 19:59 07/11/17 14:44 3 ML Albuterol (Ventolin Hfa Inhaler) 2 puffs QID PRN INH 07/07/17 17:00 08/06/17 16:59 Allopurinol (Zyloprim Tab) 300 mg DAILY PO 07/08/17 09:00 08/07/17 08:59 07/11/17 07:26 300 MG Aspirin (Ecotrin Tab) 81 mg DAILY PO 07/08/17 09:00 08/07/17 08:59 07/11/17 07:26 81 MG Budesonide/ Formoterol Fumarate (Symbicort 160/ 4.5 Inh) 2 puffs BID INH 07/07/17 21:00 08/06/17 20:59 07/11/17 07:26 2 PUFFS Citalopram Hydrobromide (celeXA TAB) 20 mg DAILY PO 07/08/17 09:00 08/07/17 08:59 07/11/17 07:26 20 MG Cyanocobalamin (Vitamin B-12 Tab) 500 mcg DAILY PO 07/08/17 09:00 08/07/17 08:59 07/11/17 07:26 500 MCG Latanoprost (Xalatan Oph Soln) 1 drops HS OPB 07/07/17 21:00 08/06/17 20:59 07/10/17 20:41 1 DROPS Levothyroxine Sodium (Synthroid Tab) 75 mcg DAILYBB PO 07/08/17 06:30 08/07/17 06:29 07/11/17 06:05 75 MCG Montelukast Sodium (Singulair Tab) 10 mg DAILY PO 07/08/17 09:00 08/07/17 08:59 07/11/17 07:26 10 MG Pramipexole Dihydrochloride (miraPEX TAB) 0.25 mg HS PO 07/07/17 21:00 08/06/17 20:59 07/10/17 20:42 0.25 MG Warfarin Sodium (Coumadin Tab) 2.5 mg DAILY@1600 PO 07/07/17 20:30 08/06/17 20:29 07/10/17 15:51 2.5 MG Cefepime HCl (Consult) 1 ea UD PRN N/A 07/07/17 17:30 08/06/17 17:29 Cefepime HCl 2000 mg/Syringe 20 ml @ 5 mls/min Q24H IV 07/08/17 18:00 07/13/17 18:03 07/10/17 17:54 5 MLS/MIN Furosemide (Lasix Tab) 40 mg DAILY PO 07/08/17 09:00 08/07/17 08:59 07/11/17 07:26 40 MG Menthol (Nice Berna) 1 berna PRN PRN PO 07/08/17 02:30 08/07/17 02:29 Zolpidem Tartrate (Ambien Tab) 5 mg HS PRN PO 07/08/17 15:00 08/07/17 14:59 07/10/17 22:56 5 MG Methylprednisolone Sodium Succinate 40 mg/Syringe 0.64 ml @ 1.5 mls/min Q12R IV 07/09/17 20:00 08/06/17 17:59 07/11/17 07:26 1.5 MLS/MIN I & O: 24-Hour Column 07/12/17 08:00 Intake Total 550 ml Output Total 400 ml Balance 150 ml Vital Signs: Date Time Temp Pulse Resp B/P (MAP) Pulse Ox O2 Delivery O2 Flow Rate FiO2 07/11/17 14:44 65 18 94 Room Air 07/11/17 11:27 64 18 96 Room Air 07/11/17 08:00 Room Air 07/11/17 07:18 71 18 97 Room Air 07/11/17 06:48 36.4 50 18 173/87 (115) 93 Room Air 07/11/17 00:00 Room Air CPAP 07/10/17 23:13 36.4 62 20 145/82 (103) 94 Room Air 07/10/17 19:32 64 18 92 Room Air 07/10/17 16:00 Room Air 07/10/17 15:31 74 18 94 Room Air Laboratory Results: Last 24 Hours Test 07/11/17 06:37 Prothrombin Time 28.3 SECONDS Prothromb Time International Ratio 2.7 Creatinine 1.97 mg/dl Est Creatinine Clear Calc Drug Dose 30.2 ml/min Estimated GFR () 33.9 Estimated GFR (Non- 29.3
[2017-07-11] MEDS: WARFARIN SOD 2.5 MG TAB PO SCH (15:32)
[2017-07-11] MEDS: CEFEPIME IV 2,000 MG in SYRINGE 7.5 ML IV SCH (17:54)
[2017-07-11] MEDS: PRAMIPEXOLE DIHYDROCHLORIDE 0.25MG TAB PO SCH (20:46)
[2017-07-11] MEDS: LATANOPROST 0.005% OP SOLN 2.5 ML BTL OPB SCH (20:46)
[2017-07-11] MEDS: ZOLPIDEM TARTRATE 5 MG TAB PO PRN (22:26)
[2017-07-12] VITALS (9 sets, daily range): BP systolic 166–199; BP diastolic 67–97; PULSE 56–90; TEMP 36.3–36.7; O2SAT 92–98
[2017-07-12] MEDS: LEVOTHYROXINE 75 MCG TAB PO SCH (06:20)
[2017-07-12] MEDS: ALBUT/IPRATROP 3MG/0.5MG NEB 3 ML VIAL INH SCH ×4 (06:57→19:55)
[2017-07-12] MEDS: ASPIRIN 81 MG ECTAB PO SCH (08:05)
[2017-07-12] MEDS: BUDESONIDE/FORMOTEROL FUMARATE 160/4.5 60 PUFFS/INHALER INH SCH ×2 (08:05→20:09)
[2017-07-12] MEDS: METHYLPREDNISOLONE IV 40 MG in SYRINGE 0 ML IV SCH (08:05)
[2017-07-12] MEDS: CITALOPRAM 20 MG TAB PO SCH (08:05)
[2017-07-12] MEDS: FUROSEMIDE 40 MG TAB PO SCH (08:05)
[2017-07-12] MEDS: CYANOCOBALAMIN 500 MCG TAB (VIT B-12) PO SCH (08:06)
[2017-07-12] MEDS: ALLOPURINOL 300 MG TAB PO SCH (08:06)
[2017-07-12] MEDS: MONTELUKAST SOD 10 MG TAB PO SCH (11:00)
--- NOTE | 2017-07-12 12:11 | Pulmonology Progress Note ---
Pulmonary Progress Note Date of Service Jul 12, 2017. Attending Dr. Estrella Subjective Mr. Durand was seen and examined at bedside. He is currently out of bed to chair. He denies any chest pain, shortness of breath or coughing. visiting with him this morning. Objective Vital signs reviewed. MAXIMUM TEMPERATURE 36.3, blood pressure 182/86, pulse 56-67, respiratory rate 18-20 saturating between 93-95% on room air. Total cummulative output:2750 ml negative. Gen:AAOx3, NAD, speaking in full sentences with out use of accessory muscles of respiration. CVS: S1, S2, RRR Lungs: Minimally decreased, otherwise good air entry bilaterally Abdomen: Obese, nontender, nondistended bowel sounds positive Extremities: Bilateral lower extremities chronic venous changes with +2 pitting edema, no cyanosis, no clubbing Laboratory data reviewed. Creatinine 1.97 yesterday. INR 2.7 yesterday. Sputum 07/07/2017-moderate normal enrike Other Studies Echocardiogram 07/08/2017 o Left ventricle: EF= 65-70 %, left ventricular hypertrophy o Right ventricle: TAPSE > 1.7cm o Atria: Within normal limits o Mitral valve: Mild to moderate regurgitation o IVC: Estimated to be within normal limits o PA systolic pressure estimated to be less than 36 mmHg DVT study 07/07/2017: No signs of lower extremity DVTs Active pulmonary Medications: 1. Methylprednisolone 40 mg IV q.12 2. Cefepime 2 grams Q 24 hours 3. Singular 10 mg daily 4. Symbicort 160/4.52 puffs b.i.d. 5. Warfarin 6. Duo nebs 7. Ventolin HFA 2 puffs q.i.d. p.r.n. Assessment & Plan Severe COPD (FEV1 51%), with exacerbation YOCASTA on CPAP Diastolic dysfunction History of Aspergillus History of GENESIS Mr. Durand was admitted for acute on chronic respiratory failure secondary to COPD exacerbation. He is doing well from a respiratory standpoint. Recommend discontinuing patient's antibiotics as he is receiving for total of about 5 days which should be sufficient. Continue with Singulair 10 mg, Symbicort 160/4.52 puffs twice a day, albuterol 2 puffs 4 times a day when necessary and Lasix 40 mg daily. At the current time I would continue, I would switch him over to prednisone 40 mg daily and taper over the next 10 days. Continue with CPAP at night for YOCASTA as tolerated. Continue with anticoagulation per management of primary team. Patient is no signs of ABPA or invasive Aspergillus on review of CT imaging or clinically. No further workup is indicated. He also has history of GENESIS fungal bronchoscopy however shows no signs of acute/ chronic GENESIS infection. Due to his age and side effects of therapy, I do not recommend any treatment at this time. He should follow up with Dr. Prieto/Edi PERERA, 1-2 weeks posthospital discharge. I will sign off case at this time. Data Medications: Current Inpatient Medications Medications (Trade) Dose Ordered Sig/Gilma Route Start Time Stop Time Status Last Admin Dose Admin Albuterol/ Ipratropium (Duoneb) 3 ml QIDR INH 07/07/17 20:00 08/06/17 19:59 07/12/17 11:17 3 ML Albuterol (Ventolin Hfa Inhaler) 2 puffs QID PRN INH 07/07/17 17:00 08/06/17 16:59 Allopurinol (Zyloprim Tab) 300 mg DAILY PO 07/08/17 09:00 08/07/17 08:59 07/12/17 08:06 300 MG Aspirin (Ecotrin Tab) 81 mg DAILY PO 07/08/17 09:00 08/07/17 08:59 07/12/17 08:05 81 MG Budesonide/ Formoterol Fumarate (Symbicort 160/ 4.5 Inh) 2 puffs BID INH 07/07/17 21:00 08/06/17 20:59 07/12/17 08:05 2 PUFFS Citalopram Hydrobromide (celeXA TAB) 20 mg DAILY PO 07/08/17 09:00 08/07/17 08:59 07/12/17 08:05 20 MG Cyanocobalamin (Vitamin B-12 Tab) 500 mcg DAILY PO 07/08/17 09:00 08/07/17 08:59 07/12/17 08:06 500 MCG Latanoprost (Xalatan Oph Soln) 1 drops HS OPB 07/07/17 21:00 08/06/17 20:59 07/11/17 20:46 1 DROPS Levothyroxine Sodium (Synthroid Tab) 75 mcg DAILYBB PO 07/08/17 06:30 08/07/17 06:29 07/12/17 06:20 75 MCG Montelukast Sodium (Singulair Tab) 10 mg DAILY PO 07/08/17 09:00 08/07/17 08:59 07/12/17 11:00 10 MG Pramipexole Dihydrochloride (miraPEX TAB) 0.25 mg HS PO 07/07/17 21:00 08/06/17 20:59 07/11/17 20:46 0.25 MG Warfarin Sodium (Coumadin Tab) 2.5 mg DAILY@1600 PO 07/07/17 20:30 08/06/17 20:29 07/11/17 15:32 2.5 MG Cefepime HCl (Consult) 1 ea UD PRN N/A 07/07/17 17:30 08/06/17 17:29 Cefepime HCl 2000 mg/Syringe 20 ml @ 5 mls/min Q24H IV 07/08/17 18:00 07/13/17 18:03 07/11/17 17:54 5 MLS/MIN Furosemide (Lasix Tab) 40 mg DAILY PO 07/08/17 09:00 08/07/17 08:59 07/12/17 08:05 40 MG Menthol (Nice Berna) 1 berna PRN PRN PO 07/08/17 02:30 08/07/17 02:29 Zolpidem Tartrate (Ambien Tab) 5 mg HS PRN PO 07/08/17 15:00 08/07/17 14:59 07/11/17 22:26 5 MG Methylprednisolone Sodium Succinate 40 mg/Syringe 0.64 ml @ 1.5 mls/min Q12R IV 07/09/17 20:00 08/06/17 17:59 07/12/17 08:05 1.5 MLS/MIN Vital Signs: Date Time Temp Pulse Resp B/P (MAP) Pulse Ox O2 Delivery O2 Flow Rate FiO2 07/12/17 11:17 56 18 95 Room Air 07/12/17 08:49 Room Air 07/12/17 06:58 67 18 93 Room Air 07/12/17 06:53 36.3 64 20 182/86 (118) 94 Nasal Cannula 07/12/17 00:00 Room Air CPAP 07/11/17 23:30 59 93 2.0 07/11/17 23:30 36.3 64 18 155/88 (110) 94 Room Air 07/11/17 19:18 56 18 95 Room Air 07/11/17 16:00 Room Air 07/11/17 15:49 36.4 67 20 126/72 (90) 93 Room Air 07/11/17 14:44 65 18 94 Room Air
--- NOTE | 2017-07-12 15:28 | Progress Note ---
Internal Med Progress Note Date of Service: Jul 12, 2017. Provider Documentation: SUBJECTIVE: The patient was seen and examined Admitted with increase SOB-Failed OP Levaquin and Breathing treatment Much Better this morning -07/11/17 Has had swallowing evaluation-may have aspiration Will get Barium swallow on Wednesday Much better today Likely to go home following Video swallow OBJECTIVE: Vital Signs-as noted below Exam: General-Sitting by the side of the bed Eyes-normal ENT-normal Neck-supple Lungs-Decreased breath sound bilaterally-much improved Occasional wheezing bilaterally-much improved Heart-Regular Abdomen-Benign,no masses,bowel sound present Extremities-1+ edema bilaterally Chronic Skin changes and Generalized bruising -chronic in nature Neuro-AAOx3 Lab data as noted below. ASSESSMENT & PLAN: This is an 87yo M with a PMH of COPD (on chronic prednisone, no O2), diastolic CHF, paroxysmal A Fib (on coumadin), CKD III, hypothyroidism and other problems listed below who was sent directly from pulm clinic for worsening SOB x 3 days. COPD exacerbation: H/O Aspergillus & GENESIS growth via bronchoscopy in past (does not need any treatment now) -Worsening SOB, productive cough -Possible triggered by viral infection vs bronchitis -Failed recent out-pt tx of Levaquin & steroid taper -Afebrile, oxygen saturation in high 90s on room air -Sputum culture pending, flu pcr pending -Discussed treatment plan with Edi Smith PA-C -Solu-medrol 40mg Q8, cefepime, scheduled duonebs -Appreciate Pulmonary input and recommendation -clinically much better today 07/11/17 -Discussed with the Pulmonary -Discussed with the Daughter 07/10/17 -Video Swallow today -in unremarkable will discharge home -clinically a lot better today -Taper Steroid and Antibiotic discontinued Chronic Diastolic CHF: NO acute exacerbation -Bilateral LE edema -Patent no longer taking lasix; unclear why he stopped -Echo in Apr 2015 with EF of 55-60% -Monitor Is&Os, daily weights -Na restricted diet -Resume home dose Lasix -no acute symptoms Paroxysmal A Fib: -NSR on EKG -Does not take diltiazem anymore. Unclear why he stopped -Continue home dose warfarin -INR pending-1.4 on and 1213 -Started on Lovenox yesterday 07/08/17 -INR 1.9 today -will stop Lovenox when INR>2.0 -stop Lovenox -rate remains controlled Hypothyroidism: -Cont home dose levothyroxine CKD III: -Cr is at or slightly above baseline at 1.57 -Avoid nephrotoxic agents when possible -remains stable -Creatinine 1.96 07/09-1.79 on 07/10 Gout: -Cont allopurinol Depression/anxiety: -Stable -Cont Celexa DVT Ppx: On warfarin Increase dose today Code status: DNR, per my discussion with patient PCP: Mk Dispo: Plan to return home once medically stable Discussed with the Daughter Barium swallow tomorrow and likely discharge on Wednesday Vital Signs: Date Time Temp Pulse Resp B/P (MAP) Pulse Ox O2 Delivery O2 Flow Rate FiO2 07/12/17 13:53 60 173/90 (117) 07/12/17 11:17 56 18 95 Room Air 07/12/17 08:49 Room Air 07/12/17 06:58 67 18 93 Room Air 07/12/17 06:53 36.3 64 20 182/86 (118) 94 Nasal Cannula 07/12/17 00:00 Room Air CPAP 07/11/17 23:30 59 93 2.0 07/11/17 23:30 36.3 64 18 155/88 (110) 94 Room Air 07/11/17 19:18 56 18 95 Room Air 07/11/17 16:00 Room Air 07/11/17 15:49 36.4 67 20 126/72 (90) 93 Room Air
[2017-07-12] MEDS ORDERED: CLONIDINE HCL 0.1 MG TAB PO ONE (15:45)
[2017-07-12] MEDS ORDERED: AMLODIPINE BESYLATE 5 MG TAB PO ONE (15:45)
--- NOTE | 2017-07-12 15:49 | DIAGNOSTIC IMAGING REPORT ---
VIDEO SWALLOW CLINICAL HISTORY: 87 years-old Male presenting with aspiration, COPD exacerbation. TECHNIQUE: Video fluoroscopic evaluation of swallowing was performed in the AP and lateral projections in conjunction with speech pathology. The patient was administered various textures, including nectar-thick and thin liquid barium, a barium coated wafer, and barium pudding. COMPARISON: 07/09/2017. FINDINGS: There is normal hyoid excursion and epiglottic deflection. Trace aspiration with spontaneous cough with thin liquids. No aspiration of nectar thick liquids, pudding, or solids. Esophageal dysmotility with intraesophageal reflux. Fluoroscopy dosage (mGy): Not available. Fluoroscopy time: 2.6 minutes. Number of fluoroscopic spot images: 0. IMPRESSION: 1. Aspiration of thin liquids. Remainder of administered textures well tolerated. 2. Esophageal dysmotility. 3. Please see the speech pathologist report for detailed findings and recommendations. Electronically signed by: Jomar Holly M.D. 07/12/2017 3:48 PM Dictated Date/Time: 07/12/2017 3:45 PM
[2017-07-12] MEDS: WARFARIN SOD 2.5 MG TAB PO SCH (16:06)
[2017-07-12] MEDS: PRAMIPEXOLE DIHYDROCHLORIDE 0.25MG TAB PO SCH (20:08)
[2017-07-12] MEDS: LATANOPROST 0.005% OP SOLN 2.5 ML BTL OPB SCH (20:09)
[2017-07-12] MEDS: ZOLPIDEM TARTRATE 5 MG TAB PO PRN (22:32)
[2017-07-13 00:05] VITALS: BP 149/82; PULSE 66; TEMP 36.4; O2SAT 92
[2017-07-13] MEDS: LEVOTHYROXINE 75 MCG TAB PO SCH (05:24)
[2017-07-13 07:24] VITALS: BP_SYST 168; BP_SYST 181; BP_DIAS 70; BP_DIAS 88; PULSE 81; TEMP 36.3; O2SAT 95
[2017-07-13] MEDS: ALLOPURINOL 300 MG TAB PO SCH (07:27)
[2017-07-13] MEDS: FUROSEMIDE 40 MG TAB PO SCH (07:27)
[2017-07-13] MEDS: ASPIRIN 81 MG ECTAB PO SCH (07:27)
[2017-07-13] MEDS: CYANOCOBALAMIN 500 MCG TAB (VIT B-12) PO SCH (07:27)
[2017-07-13] MEDS: BUDESONIDE/FORMOTEROL FUMARATE 160/4.5 60 PUFFS/INHALER INH SCH (07:27)
[2017-07-13] MEDS: CITALOPRAM 20 MG TAB PO SCH (07:27)
[2017-07-13] MEDS: MONTELUKAST SOD 10 MG TAB PO SCH (07:27)
[2017-07-13 07:41] VITALS: PULSE 72; O2SAT 94
[2017-07-13] MEDS: ALBUT/IPRATROP 3MG/0.5MG NEB 3 ML VIAL INH SCH ×2 (07:41→11:37)
[2017-07-13] MEDS ORDERED: AMLODIPINE BESYLATE 5 MG TAB PO SCH (09:00)
[2017-07-13 11:37] VITALS: PULSE 72; O2SAT 98
--- NOTE | 2017-07-13 12:29 | Progress Note ---
Internal Med Progress Note Date of Service: Jul 13, 2017. Provider Documentation: SUBJECTIVE: Seen and examined at bedside States feeling well today Denies chest pain, SOB, dizziness, headache Minimal cough No other complaints States his BP is usually labile while in hospital OBJECTIVE: Vital Signs-as noted below Physical Exam: General Appearance:Moderately built and nourished, no apparent distress Head: normocephalic, Atraumatic Eyes: normal inspection, EOMI, PERRL Neck: supple, Trachea midline Respiratory/Chest: Decreased breath sounds, CTA Cardiovascular: S1, S2, No murmur Abdomen/GI:Soft, Non tender, Bowel sounds present Extremities/Musculoskelatal:normal inspection, 1+ b/l edema Neurologic/Psych:AAOX3, grossly no focal neurological deficits Skin: normal color, warm Lab data as noted below. ASSESSMENT & PLAN: Patient is an 87yr male with PMH of COPD (on chronic prednisone, no O2), diastolic CHF, paroxysmal A Fib (on coumadin), CKD III, hypothyroidism and other problems listed below who was sent directly from pulm clinic for worsening SOB x 3 days. COPD Exacerbation: H/O Aspergillus & GENESIS growth via bronchoscopy in past (does not need any treatment now) Possible triggered by viral infection vs bronchitis Failed recent out-pt tx of Levaquin & steroid taper Afebrile, oxygen saturation in high 90s on room air Sputum culture: normal enrike Influenza: negative Solu-medrol 40mg Q8, cefepime, scheduled duonebs>> PO prednisone taper Completed antibiotic therapy Appreciate Pulmonary input and recommendation Aspiration precautions as per speech: 1. SLIPPERY regular: choose foods that are moist, loose, slippery; avoid foods that are doughy, dry, pasty, thick; use condiments liberally to make foods slippery 2. Aspiration precautions: FULLY UPRIGHT for all meals and remain upright 20-30 minutes after eating a meal; take SMALL sips of liquids and use an effortful swallow with each swallow of liquids; swallow twice with each bite/sip 3. Oral hygiene to minimize oral bacteria being aspirated in saliva/secretions/thin liquids: Clean ALL surfaces of mouth with toothbrush and toothpaste PRIOR TO oral intake in the morning, after meals, and before bed at night 4. Consideration of f/u with RECREATION ENGINEER services via Home Health to work on utilizing all strategies in home setting and to do education with pt and . Chronic Diastolic CHF: NO acute exacerbation Bilateral chronic LE edema Patent no longer taking lasix as having nocturnal micturition Echo in Apr 2015 with EF of 55-60% Monitor Is&Os, daily weights Na restricted diet Continue PO Lasix Paroxysmal A Fib: NSR on EKG Does not take diltiazem anymore. Unclear why he stopped Continue home dose warfarin INR: 2.7 today Hypothyroidism: Continue levothyroxine CKD III: Cr usually around 2.0 Avoid nephrotoxic agents when possible stable Gout: Continue allopurinol Depression/anxiety: Stable Continue Celexa DVT Px: On warfarin Code status: DNR Disposition: Plan to discharge home today Follow up with in 1 week as advised Follow up with your Middle School Technology Teacher Edi Chavez Complete the prednisone course as prescribed Seek immediate medical attention if your symptoms reoccur or worsen Speech Therapy Recommendations: 1. SLIPPERY regular: choose foods that are moist, loose, slippery; avoid foods that are doughy, dry, pasty, thick; use condiments liberally to make foods slippery 2. Aspiration precautions: FULLY UPRIGHT for all meals and remain upright 20-30 minutes after eating a meal; take SMALL sips of liquids and use an effortful swallow with each swallow of liquids; swallow twice with each bite/sip 3. Oral hygiene to minimize oral bacteria being aspirated in saliva/secretions/thin liquids: Clean ALL surfaces of mouth with toothbrush and toothpaste PRIOR TO oral intake in the morning, after meals, and before bed at night 4. Consideration of f/u with RECREATION ENGINEER services via Home Health to work on utilizing all strategies in home setting and to do education with pt and . Vital Signs: Date Time Temp Pulse Resp B/P (MAP) Pulse Ox O2 Delivery O2 Flow Rate FiO2 07/13/17 11:37 72 18 98 Room Air 07/13/17 08:00 Room Air 07/13/17 07:41 72 18 94 Room Air 07/13/17 07:24 36.3 81 20 181/70 (107) 95 Room Air 168/88 (114) 07/13/17 00:05 36.4 66 18 149/82 (104) 92 Room Air 07/13/17 00:05 Room Air 07/12/17 19:55 72 18 92 Room Air 07/12/17 17:37 90 20 166/67 (100) 94 Room Air 07/12/17 16:00 98 Room Air 07/12/17 15:47 72 18 98 Room Air 07/12/17 15:37 36.7 71 20 93 Room Air 07/12/17 15:37 71 184/96 (125) 94 Room Air 199/97 (131) 07/12/17 13:53 60 173/90 (117)
[2017-07-13] MEDS ORDERED: LSX40 PO (12:34)
[2017-07-13] MEDS ORDERED: NRV5 PO (12:34)
[2017-07-13] MEDS ORDERED: PRD10 PO (12:34)
--- NOTE | 2017-07-13 12:38 | Discharge Summary ---
Discharge Summary Date of Service Jul 13, 2017. Discharge Summary Admission Date: Jul 07, 2017 at 15:28 Discharge Date: Jul 13, 2017 Discharge Disposition: Home Principal Diagnosis: COPD Exacerbation Procedures: CXR: No acute process. Video Swallow: 1. Aspiration of thin liquids. Remainder of administered textures well tolerated. 2. Esophageal dysmotility. 3. Please see the speech pathologist report for detailed findings and recommendations. Venous Doppler: No DVT within the right or left lower extremity ECHO: * The left ventricle is normal in size. * There is moderate concentric left ventricular hypertrophy. * The basal septum is thickened and angulated consistent with sigmoid septum. * Left ventricular systolic function is normal. * No regional wall motion abnormalities noted. * Ejection Fraction = 65-70%. * Aortic valve sclerosis mild, without significant aortic valvular stenosis. * There is mild to moderate mitral regurgitation. * Grade I diastolic dysfunction, (abnormal relaxation pattern). Consultations: Pulmonology Pending Studies/Follow-Up: Follow up with in 1 week as advised Follow up with your Poultry Sexer Edi Chavez Complete the prednisone course as prescribed Seek immediate medical attention if your symptoms reoccur or worsen Prednisone Course: start taking 40mg daily for 2 days, then 30mg for 3 days, then 20mg for 3 days, then 10mg for 3 days and then 5mg daily Speech Therapy Recommendations: 1. SLIPPERY regular: choose foods that are moist, loose, slippery; avoid foods that are doughy, dry, pasty, thick; use condiments liberally to make foods slippery 2. Aspiration precautions: FULLY UPRIGHT for all meals and remain upright 20-30 minutes after eating a meal; take SMALL sips of liquids and use an effortful swallow with each swallow of liquids; swallow twice with each bite/sip 3. Oral hygiene to minimize oral bacteria being aspirated in saliva/secretions/thin liquids: Clean ALL surfaces of mouth with toothbrush and toothpaste PRIOR TO oral intake in the morning, after meals, and before bed at night 4. Consideration of f/u with SUBSTATION OPERATOR CHIEF services via Home Health to work on utilizing all strategies in home setting and to do education with pt and . Medication Reconciliation New Medications: Amlodipine Besylate (Amlodipine Besylate) 5 Mg Tab 5 MG PO QAM for 30 Days, #30 TAB 1 Refill Furosemide (Furosemide) 40 Mg Tab 40 MG PO DAILY for 30 Days, #30 TAB 1 Refill Prednisone (Prednisone) 10 Mg Tab 40 MG PO DAILY for 10 Days, #26 TAB Start taking 40mg for 2 days, then 30mg for 3 days, then 20mg for 3 days, then 10mg for 3 days Continued Medications: Albuterol (Proair Hfa) Aers 2 PUFFS INH QID PRN for SOB/WHEEZING for 30 Days Allopurinol (Zyloprim) 300 Mg Tab 1 TAB PO DAILY for 30 Days, #30 TAB 5 Refills Aspirin (Aspirin EC Low Dose) 81 Mg Ectab 81 MG PO DAILY Budesonide/Formoterol Fumarate (Symbicort 160/4.5 Inhaler ) Aero 2 PUFFS INH BID, 0 Refills Citalopram (Citalopram Hydrobromide) 20 Mg Tab 1 TAB PO DAILY Cyanocobalamin (Vitamin B12 500MCG) 500 Mcg Tab 500 MCG PO DAILY, TAB Ipratropium-Albuterol (Duoneb) 3 Ml Nebu 3 ML INH QIDR PRN for SOB/Wheezing for 30 Days Latanoprost 0.005% Oph (Xalatan 0.005% Oph) Soln 1 DROP OPB HS Levothyroxine Sodium (Synthroid) 75 Mcg Tab 75 MCG PO DAILY, TAB Montelukast Sodium (Singulair) 10 Mg Tab 10 MG PO DAILY Pramipexole Dihydrochloride (Mirapex) 0.25 Mg Tab 1 TAB PO HS for 90 Days, #90 TAB 1 Refill Prednisone (Prednisone) 5 Mg Tab 5 MG PO DAILY, TAB Tiotropium [place] (Spiriva Handihaler) 18 Mcg/ Aerp 1 CAP INH DAILY, 0 Refills Warfarin Sod (Coumadin) 2.5 Mg Tab 2.5 MG PO DAILY, TAB Admission Information HPI (per Admitting provider): This is an 87yo M with a PMH of COPD (on chronic prednisone, no O2), diastolic CHF, paroxysmal A Fib (on coumadin), CKD III, hypothyroidism and other problems listed below who was sent directly from pulm clinic for worsening SOB x 3 days. Patient was seen in pulm clinic a few weeks ago and was treated for a COPD exacerbation with PO Levaquin and a steroid taper. He completed the course over the weekend and felt somewhat better. On Wednesday, started to have a more frequent cough with yellow sputum production. Also states that he was wheezing more and was SOB when walking 15 feet to the bathroom (can walk ~40ft without becoming SOB at baseline, per patient). Saw Edi Smith PA-C in clinic today and received a neb treatment but symptoms did not improve. Was directly admitted for treatment with IV steroids, antibiotics and scheduled nebs. 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 Patient denies fever, chills, URI symptoms, CP, palpitations, abd pain, nausea, vomiting, dysuria. Has noticed lower extremity swelling but states that it is chronic. Has not been taking his lasix but does not recall why he stopped. Currently lives at home with his . Ambulates with walker. Physical Exam (per Admitting): General Appearance: WD/WN, no apparent distress (sitting on the side of his bed, breathing comfortably), + obese Head: normocephalic, atraumatic Eyes: normal inspection, PERRL, sclerae normal ENT: normal ENT inspection, hearing grossly normal, pharynx normal (moist mucous membranes ) Neck: supple, thyroid normal, trachea midline Respiratory/Chest: chest non-tender, no respiratory distress, no accessory muscle use, + wheezing (diffuse wheezing in bilateral lung hdez ) Cardiovascular: regular rate, rhythm, no murmur, normal peripheral pulses, + pertinent finding (3+ pitting edema to knees bilaterally) Abdomen/GI: non tender, soft, no organomegaly Extremities/Musculoskelatal: normal inspection, no calf tenderness, + pertinent finding (Chronic skin changes 2/2 venous stasis) Neurologic/Psych: no motor/sensory deficits, alert, normal mood/affect, oriented x 3 Skin: normal color, warm/dry Hospital Course Patient is an 87yr male with PMH of COPD (on chronic prednisone, no O2), diastolic CHF, paroxysmal A Fib (on coumadin), CKD III, hypothyroidism and other problems listed below who was sent directly from pulm clinic for worsening SOB x 3 days. COPD Exacerbation: H/O Aspergillus & GENESIS growth via bronchoscopy in past (does not need any treatment now) Possible triggered by viral infection vs bronchitis Failed recent out-pt tx of Levaquin & steroid taper Afebrile, oxygen saturation in high 90s on room air Sputum culture: normal enrike Influenza: negative Solu-medrol 40mg Q8, cefepime, scheduled duonebs>> PO prednisone taper Completed antibiotic therapy Appreciate Pulmonary input and recommendation Aspiration precautions as per speech: 1. SLIPPERY regular: choose foods that are moist, loose, slippery; avoid foods that are doughy, dry, pasty, thick; use condiments liberally to make foods slippery 2. Aspiration precautions: FULLY UPRIGHT for all meals and remain upright 20-30 minutes after eating a meal; take SMALL sips of liquids and use an effortful swallow with each swallow of liquids; swallow twice with each bite/sip 3. Oral hygiene to minimize oral bacteria being aspirated in saliva/secretions/thin liquids: Clean ALL surfaces of mouth with toothbrush and toothpaste PRIOR TO oral intake in the morning, after meals, and before bed at night 4. Consideration of f/u with SUBSTATION OPERATOR CHIEF services via Home Health to work on utilizing all strategies in home setting and to do education with pt and . Chronic Diastolic CHF: NO acute exacerbation Bilateral chronic LE edema Patent no longer taking lasix as having nocturnal micturition Echo in Apr 2015 with EF of 55-60% Monitor Is&Os, daily weights Na restricted diet Continue PO Lasix Paroxysmal A Fib: NSR on EKG Does not take diltiazem anymore. Unclear why he stopped Continue home dose warfarin INR: 2.7 today Hypothyroidism: Continue levothyroxine CKD III: Cr usually around 2.0 Avoid nephrotoxic agents when possible stable Gout: Continue allopurinol Depression/anxiety: Stable Continue Celexa DVT Px: On warfarin Code status: DNR Disposition: Plan to discharge home today Follow up with in 1 week as advised Follow up with your Poultry Sexer Edi Chavez Complete the prednisone course as prescribed Seek immediate medical attention if your symptoms reoccur or worsen Speech Therapy Recommendations: 1. SLIPPERY regular: choose foods that are moist, loose, slippery; avoid foods that are doughy, dry, pasty, thick; use condiments liberally to make foods slippery 2. Aspiration precautions: FULLY UPRIGHT for all meals and remain upright 20-30 minutes after eating a meal; take SMALL sips of liquids and use an effortful swallow with each swallow of liquids; swallow twice with each bite/sip 3. Oral hygiene to minimize oral bacteria being aspirated in saliva/secretions/thin liquids: Clean ALL surfaces of mouth with toothbrush and toothpaste PRIOR TO oral intake in the morning, after meals, and before bed at night 4. Consideration of f/u with SUBSTATION OPERATOR CHIEF services via Home Health to work on utilizing all strategies in home setting and to do education with pt and . Total time spent on discharge = 34 minutes This includes examination of the patient, discharge planning, medication reconciliation, and communication with other providers. Discharge Instructions Discharge Instructions Date of Service Jul 13, 2017. Admission Reason for Admission: Copd Exacerbation Discharge Discharge Diagnosis / Problem: COPD Exacerbation Discharge Goals Goal(s): Decrease discomfort, Improve function Activity Recommendations Activity Limitations: resume your previous activity Exercise/Sports Limitations: as tolerated . Instructions / Follow-Up Instructions / Follow-Up Follow up with in 1 week as advised Follow up with your Poultry Sexer Edi Chavez Complete the prednisone course as prescribed Seek immediate medical attention if your symptoms reoccur or worsen Prednisone Course: start taking 40mg daily for 2 days, then 30mg for 3 days, then 20mg for 3 days, then 10mg for 3 days and then 5mg daily Speech Therapy Recommendations: 1. SLIPPERY regular: choose foods that are moist, loose, slippery; avoid foods that are doughy, dry, pasty, thick; use condiments liberally to make foods slippery 2. Aspiration precautions: FULLY UPRIGHT for all meals and remain upright 20-30 minutes after eating a meal; take SMALL sips of liquids and use an effortful swallow with each swallow of liquids; swallow twice with each bite/sip 3. Oral hygiene to minimize oral bacteria being aspirated in saliva/secretions/thin liquids: Clean ALL surfaces of mouth with toothbrush and toothpaste PRIOR TO oral intake in the morning, after meals, and before bed at night 4. Consideration of f/u with SUBSTATION OPERATOR CHIEF services via Home Health to work on utilizing all strategies in home setting and to do education with pt and . Current Hospital Diet Patient's current hospital diet: Regular Diet Discharge Diet Recommended Diet: AHA Diet (Heart Healthy) Pending Studies Studies pending at discharge: no Medical Emergencies . Who to Call and When: Medical Emergencies: If at any time you feel your situation is an emergency, please call 911 immediately. . Non-Emergent Contact Non-Emergency issues call your: Primary Care Provider, Poultry Sexer Call Non-Emergent contact if: you have a fever, your pain is not controlled, your pain is worsening, your pain is unusual for you, your pain is concerning you, you have any medication questions Seek immediate medical attention if your symptoms reoccur or worsen . . "Provider Documentation" section prepared by Sathya White. . VTE Core Measure Inpt VTE Proph given/why not?: Warfarin (Coumadin) <Electronically signed by Sathya White MD> Signed: 07/13/17 1237 Signed: The status of this report is Signed * If report status is Draft, the document has not been finalized by the responsible provider.
[2017-07-13 12:40] VITALS: BP 168/88; PULSE 72; TEMP 36.3; O2SAT 98
--- NOTE | 2017-07-14 10:25 | EDITING REQUIRED CODING QUERY ---
CODING QUERY To promote full compliance with coding requirements relating to patient care, provider participation is requested in all cases of data warehouse specialist uncertainty. Please assist us with the question(s) below: Coding Question(s): The Pulmonary Progress Note on 07/12/17 documents that the patient was admitted for acute on chronic respiratory failure secondary to COPD exacerbation. Acute on Chronic Respiratory Insufficiency is documented elsewhere in the record. Please clarify below, in your clinical opinion, regarding the Acute on Chronic Respiratory Failure or Insufficiency. ( X ) Acute on Chronic Respiratory Failure ( ) Acute on Chronic Respiratory Insufficiency Physician's Response(s): Thank you Nguyen Smith Principal Diagnosis: "_that condition established after study, to be chiefly responsible for occasioning the admission of the patient to the hospital for care." Co-Existing Principal Diagnosis: "_when two or more diagnoses equally meet the criteria for principal diagnosis as determined by the circumstances of admission, diagnostic work up, and/or therapy provided, and the Alphabetic Index, Tabular List, or another coding guideline does not provide sequencing direction, any one of the diagnoses may be sequenced first." "When the physician has documented what appears to be a current diagnosis in the body of the record, but has not included the diagnosis in the final diagnostic statement, the physician should be asked whether the diagnosis should be added." ([facility] 2 QTR90. p3-4)
== END 2017-07-13 14:19 | disposition home or self-care (01) | DRG 190 ==
LOC: C.MS2W 15:28
PROVIDERS: ADMIT Internal Medicine; ATTEND Internal Medicine
DX: J44.1 Chronic obstructive pulmonary disease with (acute) exacerbation (principal); J96.20 Acute and chronic respiratory failure, unspecified whether with hypoxia or hypercapnia; I50.32 Chronic diastolic (congestive) heart failure; N18.3 Chronic kidney disease, stage 3 (moderate); Z66 Do not resuscitate; R13.10 Dysphagia, unspecified; I48.0 Paroxysmal atrial fibrillation; E03.9 Hypothyroidism, unspecified; M10.9 Gout, unspecified; F32.9 Major depressive disorder, single episode, unspecified; F41.9 Anxiety disorder, unspecified; G25.81 Restless legs syndrome; H40.9 Unspecified glaucoma; G47.33 Obstructive sleep apnea (adult) (pediatric); E66.9 Obesity, unspecified; Z51.81 Encounter for therapeutic drug level monitoring; Z79.899 Other long term (current) drug therapy; Z79.01 Long term (current) use of anticoagulants; Z79.52 Long term (current) use of systemic steroids; Z79.82 Long term (current) use of aspirin; Z86.19 Personal history of other infectious and parasitic diseases; Z85.038 Personal history of other malignant neoplasm of large intestine; Z68.36 Body mass index [BMI] 36.0-36.9, adult; Z80.0 Family history of malignant neoplasm of digestive organs; Z80.42 Family history of malignant neoplasm of prostate

== ENCOUNTER 2017-07-26 10:57 | Inpatient (IN) | payer OTHER ==
[~2017-07-26] VITALS: Ht 180.3 cm; Wt 109.2 kg
[~2017-07-26 10:57] MED LIST changes: -ALLO100T PO; +ALLO300T2 PO; -APR25 PO; -CITA40TA12 PO; +CLX20 PO; +CMD/25 PO; -CMD3 PO; -DILT120C67 PO; -FRS/40 PO; +LSX40 PO; +NRV5 PO; -PRAM0.129 PO; +PRAM1TAB52 PO; +PRD10 PO; -SPIR25TA PO; -[UNRECOGNIZED DRUG - CODE] NAE
[2017-07-26] MEDS ORDERED: VNTHFA/IN INH (11:29)
[2017-07-26] MEDS ORDERED: XLTOPS OPB (11:29)
[2017-07-26] MEDS ORDERED: SPRIN/30 INH (11:29)
[2017-07-26] MEDS ORDERED: METHYLPREDNISOLONE 125 MG VIAL IV STA (11:33)
[2017-07-26] MEDS ORDERED: ALBUT/IPRATROP 3MG/0.5MG NEB 3 ML VIAL INH STA ×2 (11:33→13:37)
--- NOTE | 2017-07-26 11:37 | EMERGENCY ROOM VISIT NOTE ---
History Report prepared by Nery: Chanda Julian Under the Supervision of: Dr. Salomón Jauregui D.O. First contact with patient: 11:08 Chief Complaint: SHORTNESS OF BREATH Stated Complaint: SOB,WEAKNESS Nursing Triage Summary: pt reports increased exertional sob with yellow and green mucus production recent admit here for copd exacerbation History of Present Illness The patient is an 87 year old male who presents to the Emergency Room with complaints of worsening shortness of breath. He is accompanied by his . He reports he has been increasingly short of breath with exertion, and has a productive cough with yellow/green colored mucous. The patient has a history of COPD and was seen here in the hospital right before [place] for COPD exacerbation. He believes he was treated with steroids and antibiotics while in the hospital. He improved initially once he got home, but now his breathing has worsened again. He has tried his regular breathing treatments over the past few days with minimal relief. He does not wear Oxygen at home. The patient denies any chest pain, abdominal pain or pain or swelling in the legs. He has no history of PE or DVT's. He is a non-smoker and has no prior history of smoking. 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 He is up to date with his immunizations and did receive a flu shot this year. Source of History: patient, spouse/significant other () Onset: [employer] Position: chest Timing: worsening Modifying Factors (Worsening): exertion Modifying Factors (Relieving): other (breathing treatments) Associated Symptoms: + cough, No chest pain, No abdominal pain Review of Systems See HPI for pertinent positives & negatives. A total of 10 systems reviewed and were otherwise negative. Past Medical & Surgical Medical Problems: (1) Anxiety (2) CKD (chronic kidney disease) stage 3, GFR 30-59 ml/min (3) Colon cancer (4) COPD (chronic obstructive pulmonary disease) (5) Depression (6) Diastolic congestive heart failure (7) Glaucoma (8) Gout (9) Hypothyroidism (10) YOCASTA (obstructive sleep apnea) (11) Paroxysmal atrial fibrillation (12) Restless leg syndrome Surgical Problems: (1) H/O hernia repair (2) History of cardiac cath (3) History of colon resection (4) S/P TKR (total knee replacement) Social History Smoking Status: Never Smoker Alcohol Use: none Drug Use: none Marital Status: Housing Status: lives with family Occupation Status: retired Current/Historical Medications Scheduled Allopurinol (Zyloprim), 1 TAB PO DAILY Amlodipine Besylate (Amlodipine Besylate), 5 MG PO QAM Aspirin (Aspirin EC Low Dose), 81 MG PO DAILY Budesonide/Formoterol Fumarate (Symbicort 160/4.5 Inhaler ), 2 PUFFS INH BID Citalopram (Citalopram Hydrobromide), 1 TAB PO DAILY Cyanocobalamin (Vitamin B12 500MCG), 500 MCG PO DAILY Furosemide (Furosemide), 40 MG PO DAILY Latanoprost (Latanoprost), 1 DROP OPB HS Levothyroxine Sodium (Synthroid), 75 MCG PO DAILY Montelukast Sodium (Singulair), 10 MG PO DAILY Pramipexole Dihydrochloride (Mirapex), 1 TAB PO HS Tiotropium [place] (Spiriva Handihaler), 1 CAP INH DAILY Warfarin Sod (Coumadin), 2.5 MG PO DAILY Scheduled PRN Albuterol Hfa (Ventolin Hfa), 2 PUFFS INH QID PRN for SOB/Wheezing Ipratropium-Albuterol (Duoneb), 3 ML INH QIDR PRN for SOB/Wheezing Allergies Coded Allergies: Erythromycin (Verified Allergy, Mild, RASH-Azithromycin & Biaxin OK, ) tolerates azithromycin and clarithromycin as outpatient Lisinopril (Verified Allergy, Mild, itching, 07/26/17) Physical Exam Vital Signs Date Time Temp Pulse Resp B/P (MAP) Pulse Ox O2 Delivery O2 Flow Rate FiO2 07/26/17 13:30 81 20 162/102 95 Room Air 07/26/17 12:22 99 07/26/17 12:06 82 22 133/83 98 Nebulizer 07/26/17 11:17 95 Room Air 07/26/17 11:07 37.2 84 20 132/73 94 Room Air Physical Exam GENERAL: Patient is awake, alert, mildly anxious appearing but overall comfortable. EYES: The conjunctivae are clear. The pupils are round and reactive. EARS, NOSE, MOUTH AND THROAT: The nose is without any evidence of any deformity. Mucous membranes are moist tongue is midline NECK: The neck is nontender and supple. RESPIRATORY: Lung sounds were diminished throughout with scattered rhonchi and expiratory wheezing in both upper lung hdez. Pursed lip breathing with mild conversational dyspnea. CARDIOVASCULAR: Regular rate and rhythm noted there no murmurs rubs or gallops normal S1 normal S2 GASTROINTESTINAL: The abdomen is soft. Bowel sounds are present in all quadrants. Abdomen is nontender MUSCULOSKELETAL/EXTREMITIES: There is no evidence of gross deformity full range of motion is noted in the hips and shoulders SKIN: Pedal edema bilaterally. There is no obvious evidence of any rash. There are no petechiae, pallor or cyanosis noted. NEUROLOGIC: Patient is awake alert and oriented x3 Medical Decision & Procedures ER Provider Diagnostic Interpretation: Radiology results as stated below per my review and radiologist interpretation: SINGLE VIEW CHEST CLINICAL HISTORY: Dyspnea. FINDINGS: An AP, portable, upright chest radiograph is compared to study dated 07/07/2017 and correlated with chest CT dated 06/10/2013.. The heart is top normal for projection. 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 Chronic interstitial thickening is similar to previous. There is bibasilar atelectasis. No airspace consolidation or large pleural effusion is identified. No pneumothorax is seen. The skeletal structures are osteopenic. The bony thorax is grossly intact. IMPRESSION: No acute cardiopulmonary abnormality. Electronically signed by: Desmond Aly M.D. 07/26/2017 12:09 PM Laboratory Results 07/26/17 11:45 Red Blood Count 3.72, Mean Corpuscular Volume 94.9, Mean Corpuscular Hemoglobin 29.8, Mean Corpuscular Hemoglobin Concent 31.4, Mean Platelet Volume 11.1, Neutrophils (%) (Auto) 77.9, Lymphocytes (%) (Auto) 9.1, Monocytes (%) (Auto) 12.4, Eosinophils (%) (Auto) 0.1, Basophils (%) (Auto) 0.1, Neutrophils # (Auto ) 6.98, Lymphocytes # (Auto) 0.82, Monocytes # (Auto) 1.11, Eosinophils # (Auto ) 0.01, Basophils # (Auto) 0.01 07/26/17 11:45 Test 07/26/17 11:44 07/26/17 11:45 07/26/17 11:55 07/26/17 12:25 Venous Blood pH 7.38 (7.36-7.41) Venous Blood Partial Pressure CO2 44 mmHg (38.0-50.0) Venous Blood Partial Pressure O2 29 mmHg Venous Blood HCO3 26 mmol/L Venous Blood Oxygen Saturation < 60.0 % Venous Blood Base Excess 0.6 mEq/L White Blood Count 8.97 K/uL (4.8-10.8) Red Blood Count 3.72 M/uL (4.7-6.1) Hemoglobin 11.1 g/dL (14.0-18.0) Hematocrit 35.3 % (42-52) Mean Corpuscular Volume 94.9 fL (80-100) Mean Corpuscular Hemoglobin 29.8 pg (25-34) Mean Corpuscular Hemoglobin Concent 31.4 g/dl (32-36) Platelet Count 128 K/uL (130-400) Mean Platelet Volume 11.1 fL (7.4-10.4) Neutrophils (%) (Auto) 77.9 % Lymphocytes (%) (Auto) 9.1 % Monocytes (%) (Auto) 12.4 % Eosinophils (%) (Auto) 0.1 % Basophils (%) (Auto) 0.1 % Neutrophils # (Auto) 6.98 K/uL (1.4-6.5) Lymphocytes # (Auto) 0.82 K/uL (1.2-3.4) Monocytes # (Auto) 1.11 K/uL (0.11-0.59) Eosinophils # (Auto) 0.01 K/uL (0-0.5) Basophils # (Auto) 0.01 K/uL (0-0.2) RDW Standard Deviation 58.0 fL (36.4-46.3) RDW Coefficient of Variation 16.7 % (11.5-14.5) Immature Granulocyte % (Auto) 0.4 % Immature Granulocyte # (Auto) 0.04 K/uL (0.00-0.02) Prothrombin Time 26.1 SECONDS (9.0-12.0) Prothromb Time International Ratio 2.5 (0.9-1.1) Activated Partial Thromboplast Time 37.1 SECONDS (21.0-31.0) Partial Thromboplastin Ratio 1.4 Anion Gap 7.0 mmol/L (3-11) Est Creatinine Clear Calc Drug Dose 29.8 ml/min Estimated GFR () 31.4 Estimated GFR (Non- 27.1 BUN/Creatinine Ratio 16.8 (10-20) Calcium Level 8.6 mg/dl (8.5-10.1) Total Bilirubin 0.8 mg/dl (0.2-1) Aspartate Amino Transf (AST/SGOT) 20 U/L (15-37) Alanine Aminotransferase (ALT/SGPT) 25 U/L (12-78) Alkaline Phosphatase 62 U/L (45-117) Troponin I 0.058 ng/ml (0-0.045) Pro-B-Type Natriuretic Peptide 1079 pg/ml (0-1800) Total Protein 6.2 gm/dl (6.4-8.2) Albumin 2.8 gm/dl (3.4-5.0) Globulin 3.4 gm/dl (2.5-4.0) Albumin/Globulin Ratio 0.8 (0.9-2) Influenza Type A (RT-PCR) Neg for Influ A (NEG) Influenza Type A Antigen Neg for Influ A (NEG) Influenza Type B Antigen Neg for Influ B (NEG) Influenza Type B (RT-PCR) Neg for Influ B (NEG) Urine Color YELLOW Urine Appearance CLEAR (CLEAR) Urine pH 7.5 (4.5-7.5) Urine Specific [place] 1.011 (1.000-1.030) Urine Protein 1+ (NEG) Urine Glucose (UA) NEG (NEG) Urine Ketones NEG (NEG) Urine Occult Blood NEG (NEG) Urine Nitrite NEG (NEG) Urine Bilirubin NEG (NEG) Urine Urobilinogen NEG (NEG) Urine Leukocyte Esterase NEG (NEG) Urine WBC (Auto) 1-5 /hpf (0-5) Urine RBC (Auto) 0-4 /hpf (0-4) Urine Hyaline Casts (Auto) 0 /lpf (0-5) Urine Epithelial Cells (Auto) 5-10 /lpf (0-5) Urine Bacteria (Auto) NEG (NEG) Laboratory results per my review. Medications Administered Medications (Trade) Dose Ordered Sig/Gilma Route Start Time Stop Time Status Last Admin Dose Admin Methylprednisolone Sodium Succinate (Solu-Medrol IV) 125 mg NOW STAT IV 07/26/17 11:33 07/26/17 11:35 DC 07/26/17 11:58 125 MG Albuterol/ Ipratropium (Duoneb) 3 ml NOW STAT INH 07/26/17 11:33 07/26/17 11:36 DC 07/26/17 11:58 3 ML Albuterol/ Ipratropium (Duoneb) 3 ml NOW STAT INH 07/26/17 13:37 07/26/17 13:38 DC 07/26/17 13:56 3 ML ECG Indication: SOB/dyspnea Rate (beats per minute): 60 Rhythm: sinus rhythm Findings: ST depression (Inferior, Lateral), no ectopy, other Change: no significant change (No change from 07/07/2017) ED Course 1123: The patient was evaluated in room A12. A complete history and physical examination were performed. 1133: DuoNeb 3 ml INH, Solu-Medrol 125 mg IV. 1335: I reevaluated the patient. He states he still feels short of breath. Nursing will try an ambulation trial and let me know how he does. 1337: DuoNeb 3 ml INH. 1345: Nursing informed me the patient became very weak and tachypneic during the ambulation trial. I will contact the hospital medicine team. 1415: I discussed the [facility] The patient will be further evaluated. 1420: I reevaluated the patient. He is resting comfortably. I discussed my recommendation he remain in the hospital for further evaluation and management and he verbalized complete understanding and agreement. Medical Decision Prior records/ancillary studies reviewed. Triage Nursing notes reviewed. The patient's history was concerning for respiratory difficulties. Differential diagnosis: Etiologies such as infections, reactive airway disease, pneumonia, pneumothorax , COPD, CHF, cardiac ischemia, pulmonary embolism, musculoskeletal, gastrointestinal, as well as others were entertained. The patient is an 87-year-old male who has a history of COPD. He was recently admitted to our facility for COPD but states he started becoming much worse over the last few days. His significant other states that he is no longer able to walk in the house because of severe dyspnea. The patient was treated with DuoNeb therapy as well as IV steroids. He was reevaluated multiple times. His oxygen saturation was acceptable but the patient had very severe dyspnea with any ambulation. I discussed the patient's laboratory and radiographic studies with him and his significant other. I also discussed his case with the on-call [facility] hospitalist. They've agreed to evaluate the patient in the emergency department for further management and disposition. Medication Reconcilliation Current Medication List: was personally reviewed by me Blood Pressure Screening Patient's blood pressure: Normal blood pressure Blood pressure disposition: Did not require urgent referral Consults Time Called: 1410 Consulting Physician: David Daniels Returned Call: 1415 I discussed the patients case with David Daniels. The patient will be further evaluated. Impression Primary Impression: COPD exacerbation Additional Impressions: Elevated troponin Acute kidney injury Scribe Attestation The scribe's documentation has been prepared under my direction and personally reviewed by me in its entirety. I confirm that the note above accurately reflects all work, treatment, procedures, and medical decision making performed by me. Departure Information Dispostion Being Evaluated By Hospitalist Referrals Kuldeep Terrazas M.D. (PCP) Patient Instructions My [facility] Problem Qualifiers
[2017-07-26 12:03] LABS: HEMATOCRIT 35.3 % (42-52); HEMOGLOBIN 11.1 g/dL (14.0-18.0); MEAN CELL VOLUME 94.9 fL (80-100); MEAN CORPUSCULAR HEMOGLOBIN 29.8 pg (25-34); MEAN CORPUSCULAR HGB CONC 31.4 g/dl (32-36); MEAN PLATELET VOLUME 11.1 fL (7.4-10.4); PLATELET COUNT 128 K/uL (130-400); RED CELL DISTRIBUTION WIDTH CV 16.7 % (11.5-14.5); WHITE BLOOD COUNT 8.97 K/uL (4.8-10.8)
[2017-07-26 12:11] LABS: ALBUMIN 2.8 gm/dl (3.4-5.0); CALCIUM 8.6 mg/dl (8.5-10.1); CREATININE 2.1 mg/dl (0.60-1.40); POTASSIUM 4.3 mmol/L (3.5-5.1)
--- NOTE | 2017-07-26 12:11 | DIAGNOSTIC IMAGING REPORT ---
SINGLE VIEW CHEST CLINICAL HISTORY: Dyspnea. FINDINGS: An AP, portable, upright chest radiograph is compared to study dated 07/07/2017 and correlated with chest CT dated 06/10/2013.. The heart is top normal for projection. 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 Chronic interstitial thickening is similar to previous. There is bibasilar atelectasis. No airspace consolidation or large pleural effusion is identified. No pneumothorax is seen. The skeletal structures are osteopenic. The bony thorax is grossly intact. IMPRESSION: No acute cardiopulmonary abnormality. Electronically signed by: Desmond Aly M.D. 07/26/2017 12:09 PM Dictated Date/Time: 07/26/2017 12:08 PM
[2017-07-26 12:14] LABS: INR 2.5 (0.9-1.1); PTT PATIENT 37.1 SECONDS (21.0-31.0)
[2017-07-26 12:19] LABS: TOTAL PROTEIN 6.2 gm/dl (6.4-8.2)
[2017-07-26 12:28] LABS: BASO % 0.1 %; BASO ABS # 0.01 K/uL (0-0.2); EOS % 0.1 %; EOS ABS # 0.01 K/uL (0-0.5); IG# 0.04 K/uL (0.00-0.02); LYMPH % 9.1 %; LYMPH ABS # 0.82 K/uL (1.2-3.4); MONO % 12.4 %; MONO ABS # 1.11 K/uL (0.11-0.59); NEUT % 77.9 %; NEUT ABS # 6.98 K/uL (1.4-6.5)
[2017-07-26 13:03] LABS: INFLUENZA B ANTIGEN Neg for Influ B (NEG)
[2017-07-26 13:36] LABS: INFLUENZA A PCR Neg for Influ A (NEG); INFLUENZA B PCR Neg for Influ B (NEG)
[2017-07-26] MEDS ORDERED: POLYETHYLENE (MIRALAX) 17 GM PACK PO PRN (15:15)
[2017-07-26] MEDS ORDERED: NITROGLYCERIN 0.4 MG SL PER TAB CHARGE SL PRN (15:15)
[2017-07-26] MEDS ORDERED: ONDANSETRON INJ 2 MG/ML 2 ML VIAL IV PRN (15:15)
[2017-07-26] MEDS ORDERED: ALUMINUM/MAGNESIUM/SIMETH (MAALOX MAX) 30 ML UDC PO PRN (15:15)
[2017-07-26] MEDS ORDERED: ALBUT/IPRATROP 3MG/0.5MG NEB 3 ML VIAL INH PRN (15:15)
[2017-07-26] MEDS ORDERED: ALBUTEROL HFA 8 GM INHALER INH PRN (15:15)
[2017-07-26] MEDS ORDERED: ALBUT/IPRATROP 3MG/0.5MG NEB 3 ML VIAL INH SCH (16:00)
[2017-07-26 16:30] VITALS: BP 165/84; PULSE 83; TEMP 36.9; O2SAT 95; BMI 32.4
--- NOTE | 2017-07-26 16:36 | HISTORY & PHYSICAL EXAMINATION ---
DATE OF ADMISSION: 07/26/2017 CHIEF COMPLAINT: Shortness of breath. HISTORY OF PRESENT ILLNESS: This is an 87-year-old male with past medical history significant for COPD severe, on chronic prednisone, not on home oxygen; history of diastolic CHF; paroxysmal atrial fibrillation, on Coumadin; chronic kidney disease stage III, hypothyroidism, depression, glaucoma, gout, obstructive sleep apnea, restless leg syndrome, anxiety; history of colon cancer resolved, who presents with shortness of breath. The patient was here in the hospital on July 07 and discharged on for COPD exacerbation. The patient says since he went home he was fine for couple of days, but again became shortness of breath started and is getting worse and he is coughing up greenish yellowish phlegm. In the last 5 days, he only slept 10 hours. Last night could not sleep because of cough he sat in a chair all night. Has some chills. Denies any fevers. Denies any chest pain. Walking in the hallway making him short of breath. Has headaches, some dizziness, some blurred vision. Has some runny nose. He notes he had chronic aspiration and aspirates once little bit once in a while, but nothing significant. No nausea, no vomiting, no abdominal pain. Normal bowel and bladder movements. No blood in the stools, no blood in the urine. He says once in a while he gets burning micturition. He has chronic lower extremity edema.Currently resting comfortably and hemodynamically stable and saturating fine on room air. He was supposed to see the pulmonary tomorrow, but because of his ongoing symptoms and his sleep disturbance, he came to the ER today. ALLERGIES: ERYTHROMYCIN; but tolerates azithromycin and clarithromycin, lisinopril. PAST MEDICAL HISTORY: As mentioned above. PAST SURGICAL HISTORY: Hernia repair, history of cardiac catheterization, history of colon resection, and status post total knee replacement. HOME MEDICATIONS: Allopurinol 100 mg p.o. daily, aspirin 81 mg p.o. daily, Symbicort 2 puffs inhalation b.i.d., citalopram 20 mg p.o. daily, allopurinol 300 mg p.o. daily, amlodipine 5 mg p.o. q.a.m., albuterol 2 puffs q.i.d. p.r.n., vitamin B12 500 mcg p.o. daily, Lasix 40 mg p.o. daily, DuoNebs 3 mL nebulization q.i.d. p.r.n., latanoprost 1 drop ophthalmic solution at bedtime, levothyroxine 75 mcg p.o. daily, Singulair 10 mg p.o. daily, Mirapex 0.25 mg p.o. at bedtime, Spiriva 1 cap inhalation daily, and Coumadin 2.5 mg p.o. daily. FAMILY HISTORY: Significant for father had CAD and brother CAD. SOCIAL HISTORY: Never smoked. Alcohol - none. No drug use. , lives with his . REVIEW OF SYMPTOMS: As per HPI. Rest of review of symptoms negative. PHYSICAL EXAMINATION: GENERAL: The patient is obese, not in distress. VITAL SIGNS: Temperature 37.2, pulse 97, respiratory rate 20, blood pressure 149/91, oxygen 92% room air. HEENT: No pallor, no icterus. Pupils equal, round, and react to light. NECK: No JVD, no neck masses, no carotid bruits. CARDIOVASCULAR: S1, S2 heard, regular rate and rhythm, no murmur, no gallop. RESPIRATORY SYSTEM: Normal AP diameter No accessory muscle use, bilateral rhonchi heard, occasional wheezing. ABDOMEN: Soft, bowel sounds present. Nontender. No distention. CENTRAL NERVOUS SYSTEM: Cranial nerves II-XII grossly intact. Nonfocal. EXTREMITIES: Lower extremity chronic edema present with chronic skin changes. LABORATORY DATA: WBC 8.9, hemoglobin 11.1, hematocrit 35.3, platelets 128. Sodium 138, potassium 4.3, chloride 105, bicarbonate 26, BUN 35, creatinine 2.1, serum glucose 106, calcium 8.6. Total bilirubin 0.8, AST 20, ALT 25, alkaline phosphatase 62. Troponin 1 0.05. BNP 1079, PT 26.1, INR 2.5, APTT 37.1. Venous blood gas: pH 7.3, pCO2 44, pO2 29, bicarb 26, oxygen less than 60%. Urinalysis negative. Influenza negative. IMAGING DATA: Chest x-ray, no acute cardiopulmonary findings. EKG - sinus rhythm with PVCs at the rate of 78, no acute ST changes seen. ASSESSMENT AND PLAN: This is an 87-year-old male who presents with recurrent chronic obstructive pulmonary disease exacerbation. 1. Recurrent chronic obstructive pulmonary disease exacerbation. We will place him on IV steroids, DuoNebs around the clock and p.r.n. The patient has history of some aspiration. We will place him on IV Unasyn and p.o. doxycycline and follow the sputum cultures. Monitor on tele floor. The patient is a do not resuscitate. We will consult pulmonary for further recommendations for his recurrent admissions. 2. Acute renal failure and chronic kidney disease stage III. Baseline creatinine around 1.5 to 1.9 . Presented with creatinine of 2.1. We will follow the labs. 3. History of diastolic congestive heart failure and chronic lower extremity edema, on Lasix, which we will continue. We may repeat the echocardiogram to check for his congestive heart failure and also for any pulmonary hypertension. 4. History of paroxysmal atrial fibrillation, normal sinus rhythm on ekg, not on any rate-controlling medications. On Coumadin. INR is therapeutic. We will follow PT/INR. 5. History of hypothyroidism. Continue Synthroid. 6. History of gout. Continue allopurinol. 7. History of depression and anxiety. Continue Celexa. 8. Deep venous thrombosis prophylaxis, on Coumadin. 9. Code status. Do not resuscitate as per discussion with the patient and his . DISPOSITION: Admit to tele floor. PT and OT prior to discharge planning. Social Service to help with discharge planning . expect to discharge home and follow with his family doctor and pulmonary. [place]
[2017-07-26] MEDS ORDERED: AMPICILLIN/SULBACTAM CONSULT ACTIVE PRN (17:15)
[2017-07-26] MEDS: METHYLPREDNISOLONE IV 40 MG in SYRINGE 0 ML IV SCH (18:06)
[2017-07-26] MEDS: MONTELUKAST SOD 10 MG TAB PO SCH (18:06)
[2017-07-26] MEDS: WARFARIN SOD 2.5 MG TAB PO SCH (18:06)
[2017-07-26] MEDS: AMPICILLIN/SULBACTAM SOD INJ 3,000 MG in SODIUM CHLORIDE 0.9% 100ML 100 ML IV SCH (18:06)
[2017-07-26] MEDS ORDERED: IV FLUIDS COMPLETED PRN (18:30)
[2017-07-26 19:36] VITALS: BP 134/83; PULSE 100; TEMP 36.6; O2SAT 94
[2017-07-26 20:26] VITALS: PULSE 98; O2SAT 95
[2017-07-26] MEDS: BUDESONIDE/FORMOTEROL FUMARATE 160/4.5 60 PUFFS/INHALER INH SCH (20:32)
[2017-07-26] MEDS: PRAMIPEXOLE DIHYDROCHLORIDE 0.25MG TAB PO SCH (20:32)
[2017-07-26] MEDS: DOXYCYCLINE HYCLATE 100 MG CAP PO SCH (20:33)
[2017-07-26] MEDS: BENZONATATE 100MG CAP PO PRN (20:33)
[2017-07-26] MEDS: LATANOPROST 0.005% OP SOLN 2.5 ML BTL OPB SCH (21:28)
[2017-07-26] MEDS ORDERED: NURSING VERBAL MED ORDER ONE (22:30)
[2017-07-27] VITALS (16 sets, daily range): BP systolic 127–156; BP diastolic 68–95; PULSE 74–92; TEMP 35.7–36.9; O2SAT 90–98
[2017-07-27] MEDS: METHYLPREDNISOLONE IV 40 MG in SYRINGE 0 ML IV SCH ×3 (01:52→17:00)
[2017-07-27] MEDS ORDERED: COUGH DROP (SUGAR FREE) LOZ 24 LOZ/1 BOX ONE (04:12)
[2017-07-27] MEDS: LEVOTHYROXINE 75 MCG TAB PO SCH (05:09)
[2017-07-27] MEDS: AMPICILLIN/SULBACTAM SOD INJ 3,000 MG in SODIUM CHLORIDE 0.9% 100ML 100 ML IV SCH ×2 (05:09→17:00)
[2017-07-27] MEDS ORDERED: NURSING DECISION MEDICATION ORDER SCH (05:15)
[2017-07-27 05:53] LABS: HEMOGLOBIN 11.6 g/dL (14.0-18.0); MEAN CORPUSCULAR HGB CONC 32.2 g/dl (32-36); MEAN PLATELET VOLUME 11.2 fL (7.4-10.4); NUCLEATED RED BLOOD CELL ABS 0.02 K/uL (0-0); PLATELET COUNT 132 K/uL (130-400); RED CELL DISTRIBUTION WIDTH CV 16.3 % (11.5-14.5); RED CELL DISTRIBUTION WIDTH SD 55.4 fL (36.4-46.3); WHITE BLOOD COUNT 6.45 K/uL (4.8-10.8)
[2017-07-27 06:05] LABS: INR 2.6 (0.9-1.1)
--- NOTE | 2017-07-27 06:10 | Progress Note ---
Progress Note Date of Service Jul 27, 2017. Progress Note called by RN as patient had at least 14 beat run of Vtach, verified by myself patient asymptomatic seen at bedside, denies chest pain, dyspnea, dizziness, palpitations, nausea states breathing is improving normal rate, regular rhythm (+) mild scattered wheezing b/l V TACH EPISODE - precipitated likely from current COPD exacerbation, Albuterol treatments - work up: PRP, Mg, TSH Echo - only on Amlodipine avoiding Betablocker at this time due to patient's ongoing COPD exacerbation, wheezing will consult Cardiology Pk Knox MD
[2017-07-27 06:25] LABS: CALCIUM 9.3 mg/dl (8.5-10.1); CREATININE 1.93 mg/dl (0.60-1.40); POTASSIUM 4.4 mmol/L (3.5-5.1)
[2017-07-27 06:30] LABS: CKMB 3.7 ng/ml (0.5-3.6)
[2017-07-27 06:34] LABS: BASO % 0.2 %; BASO ABS # 0.01 K/uL (0-0.2); IG# 0.01 K/uL (0.00-0.02); LYMPH % 7.3 %; LYMPH ABS # 0.47 K/uL (1.2-3.4); MONO % 2.5 %; MONO ABS # 0.16 K/uL (0.11-0.59); NEUT % 89.8 %
[2017-07-27] MEDS ORDERED: COUGH DROP (SUGAR FREE) LOZ 24 LOZ/1 BOX PO PRN (07:00)
[2017-07-27] MEDS: LEVALBUTEROL 0.63MG/3 ML NEB INH SCH ×3 (07:07→20:14)
[2017-07-27] MEDS: TIOTROPIUM BROMIDE 5 PUFF/90 MCG INH INH SCH (07:50)
[2017-07-27] MEDS: DOXYCYCLINE HYCLATE 100 MG CAP PO SCH ×2 (07:51→20:45)
[2017-07-27] MEDS: ASPIRIN 81 MG ECTAB PO SCH (07:51)
[2017-07-27] MEDS: BUDESONIDE/FORMOTEROL FUMARATE 160/4.5 60 PUFFS/INHALER INH SCH ×2 (07:51→20:45)
[2017-07-27] MEDS: ALLOPURINOL 300 MG TAB PO SCH (07:52)
[2017-07-27] MEDS: CYANOCOBALAMIN 500 MCG TAB (VIT B-12) PO SCH (07:52)
[2017-07-27] MEDS: FUROSEMIDE 40 MG TAB PO SCH (07:52)
[2017-07-27] MEDS: BENZONATATE 100MG CAP PO PRN (07:52)
[2017-07-27] MEDS: CITALOPRAM 20 MG TAB PO SCH (07:53)
[2017-07-27] MEDS ORDERED: AMLODIPINE BESYLATE 5 MG TAB PO SCH (09:00)
--- NOTE | 2017-07-27 09:05 | DIAGNOSTIC IMAGING REPORT ---
CHEST ONE VIEW PORTABLE CLINICAL HISTORY: Cough. Shortness of breath. COMPARISON STUDY: Chest CT June 10, 2013 and chest radiograph July 26, 2017. 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 There is no pneumothorax or pleural effusion. There is no evidence of pulmonary edema. No lobar consolidation is present. Mild left basilar opacity has developed. IMPRESSION: Mild left basilar opacity. Atelectasis or epicardial fat pad is favored although minimal airspace disease could appear similar. Electronically signed by: Behzad Castelan M.D. 07/27/2017 9:04 AM Dictated Date/Time: 07/27/2017 9:00 AM
[2017-07-27] MEDS: BRINZOLAMIDE-BRIMONIDINE 1-0.2% OPH SUSP OPB SCH ×2 (09:14→20:45)
--- NOTE | 2017-07-27 12:18 | Pulmonary Consultation ---
History General Date of Service: Jul 27, 2017. Stated Complaint: Copd Exacerbation HPI The patient is a 87 year old male who presents to [facility] with complaints of Copd Exacerbation. The patient's primary care provider is Kuldeep Terrazas M.D.. Mr. Durand is an 87-year-old male with COPD (FEV1 51% with hyperinflation seen on PFTs done in October 2009), obstructive sleep apnea, restless leg syndrome, previous history of Aspergillus and GENESIS, diastolic CHF, paroxysmal atrial fibrillation on Coumadin, chronic kidney disease and hypothyroidism who presents to the ER on 07/26/2017 with complaints of worsening shortness of breath and dyspnea on exertion. He also describes productive cough with yellowish green sputum. He denies any fevers, chills, or chest pain. He has chronic rhinosinusitis, postnasal drip and chronic dry cough associated with intermittent wheezing. He has chronic lower extremity edema but denies any orthopnea or paroxysmal nocturnal dyspnea. He states that he has been sitting in chair due to coughing. He does have intermittent gastric reflux symptoms. He denies any genitourinary or GI symptoms. He was recently admitted on 2016 for COPD exacerbation with IV steroids, Singulair , Symbicort, and scheduled Duonebs. Patient states upon discharge he initially felt better, however his dyspnea seemed worsened again. He states that he has been using respiratory medications /inhalers as prescribed without significant relief. He does admit to decreased sleep secondary to wheezing and chest tightness. Initial vital signs upon presentation showed a temperature of 37.2, pulse 84, respiratory rate 20, blood pressure 132/73, saturating 94% on room air. Initial examination showed diminished lung sounds with scattered rhonchi and expiratory wheezing. EKG showed sinus rhythm with premature supraventricular complexes with ventricular rate of 70 bpm. There are also ST wave and T-wave abnormality seen in lateral leads. Laboratory data showed white blood cell count of 8.97, hemoglobin of 11, platelet count 128. Chemistry significant for a BUN 35, creatinine 2.1 and glucose 106. Troponin 0.058 and proBNP 1079. Albumin 2.8 and total protein 6.2. INR 2.5 Venous blood gas 7.38/44/29/26/less than 60%. Influenza A and B serology negative. Chest x-ray from admission showed right-sided aortic arch, bilateral basilar atelectasis. In the ER, he received Duoneb 3 mL 2 doses, Solu-Medrol 125 mg IV and admitted for COPD exacerbation, troponin anemia and acute on chronic kidney injury. He was also started on Unasyn 3 g every 12 hours, doxycycline 100 mg twice a day by mouth, Solu-Medrol 40 mg every 8 hours, Symbicort 160/4.52 puffs twice a day, Singulair 10 mg daily and Xopenex/ipratropium nebulizers every 6 hours. Overnight patient had 14 beat run of V. tach which was asymptomatic. At the time my evaluation this morning, patient states that he still feels lousy. He still has chest tightness associated coughing and sputum production. Historian: patient Onset: last week Severity: moderate Complaint Status: persistent Review of Systems Constitutional: reports: as stated in HPI Eyes: reports: as stated in HPI ENT: reports: as stated in HPI Cardiovascular: reports: as stated in HPI Respiratory: reports: as stated in HPI Gastrointestinal: reports: as stated in HPI Genitourinary - Male: reports: as stated in HPI Musculoskeletal: reports: as stated in HPI Integumentary: reports: as stated in HPI Neurologic: reports: as stated in HPI Psychiatric: reports: as stated in HPI Endocrine: as stated in HPI Hematologic / Lymphatic: as stated in HPI Allergic / Immunologic: as stated in HPI All Other Symptoms All Other Systems: Reviewed and Negative Past Medical History Past Medical History: Active Problems 1. Glaucoma 2. Acute dyspnea 3. Aspergillus & GENESIS growth via bronchoscopy 4. Aspiration into airway 5. Chronic obstructive pulmonary disease (moderately severe) 6. Chronic renal insufficiency 7. Chronic sinusitis 8. Coronary arteriosclerosis 9. Diastolic congestive heart failure 10. Gout 11. Hemoptysis 12. Hypersomnia 13. Hypertension 14. Hypoxia 15. Leg weakness 16. Obesity 17. YOCASTA on CPAP 18. Paroxysmal atrial fibrillation 19. History of colon cancer 20. Restless legs syndrome Past Surgical History: Surgical History 1. History of Cataract Surgery 2. History of Colon Surgery 3. History of Eye Surgery 4. History of Hernia Repair 5. History of Knee Replacement Family History Family History 1. Family history of Prostate Cancer 2. Family history of Colon Cancer 3. Family history of Prostate Cancer 4. Family history of Colon Cancer 5. Family history of Prostate Cancer Social History Social History Denied: History of Drug Use Denied: History of Home Environment Domestic Violence Denied: History of Housing Without Smoke Detectors Marital History - Currently Never smoker Retired From Work Hx Tobacco Use In Past Year?: No Smoking Status: Never Smoker Drug Use: none Marital status: Housing status: lives with significant other Occupational Status: retired Immunizations History of Influenza Vaccine: Yes Influenza Vaccine Date: Apr 04, 2013 History of Tetanus Vaccine?: utd History of Pneumococcal: Yes Pneumococcal Date: December 01, 2008 History of Hepatitis B Vaccine: No History of MDRO History of MDRO: No Allergies Coded Allergies: Erythromycin (Verified Allergy, Mild, RASH-Azithromycin & Biaxin OK, ) tolerates azithromycin and clarithromycin as outpatient Lisinopril (Verified Allergy, Mild, itching, 07/26/17) Current Medications Reported Home Medications Medications Dose Route/Sig Max Daily Dose Days Date Category Ventolin Hfa (Albuterol) 200 Puffs/75923 Mcg Aers 2 Puffs INH QID PRN 07/26/17 Reported Latanoprost 37 Drops/2.5 Ml Soln 1 Drop OPB HS 07/26/17 Reported Spiriva Handihaler (Tiotropium [place]) 30 Puff/540 Mcg Aerp 1 Cap INH DAILY 07/26/17 Reported Furosemide 40 Mg Tab 40 Mg PO DAILY 30 07/13/17 Rx Amlodipine Besylate 5 Mg Tab 5 Mg PO QAM 30 07/13/17 Rx Coumadin (Warfarin Sod) 2.5 Mg Tab 2.5 Mg PO DAILY 07/07/17 Reported Mirapex (Pramipexole Dihydrochloride) 0.25 Mg Tab 1 Tab PO HS 90 07/07/17 Reported Citalopram Hydrobromide (Citalopram) 20 Mg Tab 1 Tab PO DAILY 07/07/17 Reported Zyloprim (Allopurinol) 300 Mg Tab 1 Tab PO DAILY 30 07/07/17 Reported Duoneb (Ipratropium-Albuterol) 3 Ml Nebu 3 Ml INH QIDR PRN 30 08/13/16 Rx Aspirin EC Low Dose (Aspirin) 81 Mg Ectab 81 Mg PO DAILY 07/27/16 Reported Vitamin B12 500MCG (Cyanocobalamin) 500 Mcg Tab 500 Mcg PO DAILY 07/27/16 Reported Synthroid (Levothyroxine Sodium) 75 Mcg Tab 75 Mcg PO DAILY 11/25/14 Reported Singulair (Montelukast Sodium) 10 Mg Tab 10 Mg PO DAILY 10/19/11 Reported Symbicort 160/4.5 Inhaler (Budesonide/Formoterol Fumarate) Aero 2 Puffs INH BID 08/18/10 Reported Physical Physical Exam Vital Signs: Date Time Temp Pulse Resp B/P (MAP) Pulse Ox O2 Delivery O2 Flow Rate FiO2 07/27/17 08:00 97 Room Air 07/27/17 07:26 36.3 85 20 150/84 (106) 97 Room Air 07/27/17 07:07 76 16 96 Room Air 07/27/17 04:15 Room Air 07/27/17 02:48 36.3 82 22 149/93 (111) 96 Room Air 07/27/17 00:06 35.7 87 22 156/80 (105) 97 Room Air 07/27/17 00:06 Room Air 07/26/17 20:26 98 16 95 Room Air 07/26/17 19:36 36.6 100 20 134/83 (100) 94 Room Air 07/26/17 19:10 Room Air 07/26/17 16:30 36.9 83 19 165/84 95 Room Air 07/26/17 15:51 87 20 141/82 94 Room Air 07/26/17 14:52 97 20 149/91 92 Room Air 07/26/17 13:30 81 20 162/102 95 Room Air 07/26/17 12:22 99 07/26/17 12:06 82 22 133/83 98 Nebulizer 07/26/17 11:17 95 Room Air General Appearance: uncomfortable, obese Head: NORMOCEPHALIC, ATRAUMATIC Eyes: SCLERAE NORMAL, CONJUNCTIVAE NORMAL ENT: NORMAL MOUTH EXAM, NORMAL THROAT EXAM, NORMAL DENTAL EXAM Neck: NO TENDERNESS, TRACHEA MIDLINE, NO STRIDOR Respiratory: other (prolonged expiratory phase with sporadic wheezing, rhonchi at bases bilaterally) Cardiovasular: REGULAR RATE/RHYTHM, NORMAL S1S2 Abdomen: NON TENDER, NORMAL BOWEL SOUNDS, NO REBOUND, NO MASSES Upper Extremities: NO EDEMA, NO DEFORMITY, NORMAL ROM, other (no clubbing, no cyanosis) Lower Extremities: other (trace lower extremity edema bilaterally) Pulses: radial (R) (2+), radial (L) (2+) Neuro: ALERT, ORIENTED x 3, NORMAL MOTOR EXAM, NORMAL SENSATION, NORMAL SPEECH Psychiatric: NORMAL AFFECT, NO SUICIDAL IDEATION, CONTRACTS FOR SAFETY Diagnostics Labs Results Past 24 Hours Test 07/26/17 11:44 07/26/17 11:45 07/26/17 11:55 07/26/17 12:25 Range/Units Venous Blood pH 7.38 7.36-7.41 Venous Blood Partial Pressure CO2 44 38.0-50.0 mmHg Venous Blood Partial Pressure O2 29 mmHg Venous Blood HCO3 26 mmol/L Venous Blood Oxygen Saturation < 60.0 % Venous Blood Base Excess 0.6 mEq/L White Blood Count 8.97 4.8-10.8 K/uL Red Blood Count 3.72 4.7-6.1 M/uL Hemoglobin 11.1 14.0-18.0 g/dL Hematocrit 35.3 42-52 % Mean Corpuscular Volume 94.9 80-100 fL Mean Corpuscular Hemoglobin 29.8 25-34 pg Mean Corpuscular Hemoglobin Concent 31.4 32-36 g/dl Platelet Count 128 130-400 K/uL Mean Platelet Volume 11.1 7.4-10.4 fL Neutrophils (%) (Auto) 77.9 % Lymphocytes (%) (Auto) 9.1 % Monocytes (%) (Auto) 12.4 % Eosinophils (%) (Auto) 0.1 % Basophils (%) (Auto) 0.1 % Neutrophils # (Auto) 6.98 1.4-6.5 K/uL Lymphocytes # (Auto) 0.82 1.2-3.4 K/uL Monocytes # (Auto) 1.11 0.11-0.59 K/uL Eosinophils # (Auto) 0.01 0-0.5 K/uL Basophils # (Auto) 0.01 0-0.2 K/uL RDW Standard Deviation 58.0 36.4-46.3 fL RDW Coefficient of Variation 16.7 11.5-14.5 % Immature Granulocyte % (Auto) 0.4 % Immature Granulocyte # (Auto) 0.04 0.00-0.02 K/uL Prothrombin Time 26.1 9.0-12.0 SECONDS Prothromb Time International Ratio 2.5 0.9-1.1 Activated Partial Thromboplast Time 37.1 21.0-31.0 SECONDS Partial Thromboplastin Ratio 1.4 Sodium Level 138 136-145 mmol/L Potassium Level 4.3 3.5-5.1 mmol/L Chloride Level 105 98-107 mmol/L Carbon Dioxide Level 26 21-32 mmol/L Anion Gap 7.0 3-11 mmol/L Blood Urea Nitrogen 35 7-18 mg/dl Creatinine 2.10 0.60-1.40 mg/dl Est Creatinine Clear Calc Drug Dose 29.8 ml/min Estimated GFR () 31.4 Estimated GFR (Non- 27.1 BUN/Creatinine Ratio 16.8 10-20 Random Glucose 106 70-99 mg/dl Calcium Level 8.6 8.5-10.1 mg/dl Total Bilirubin 0.8 0.2-1 mg/dl Aspartate Amino Transf (AST/SGOT) 20 15-37 U/L Alanine Aminotransferase (ALT/SGPT) 25 12-78 U/L Alkaline Phosphatase 62 45-117 U/L Troponin I 0.058 0-0.045 ng/ml Pro-B-Type Natriuretic Peptide 1079 0-1800 pg/ml Total Protein 6.2 6.4-8.2 gm/dl Albumin 2.8 3.4-5.0 gm/dl Globulin 3.4 2.5-4.0 gm/dl Albumin/Globulin Ratio 0.8 0.9-2 Influenza Type A (RT-PCR) Neg for Influ A NEG Influenza Type A Antigen Neg for Influ A NEG Influenza Type B Antigen Neg for Influ B NEG Influenza Type B (RT-PCR) Neg for Influ B NEG Urine Color YELLOW Urine Appearance CLEAR CLEAR Urine pH 7.5 4.5-7.5 Urine Specific [place] 1.011 1.000-1.030 Urine Protein 1+ NEG Urine Glucose (UA) NEG NEG Urine Ketones NEG NEG Urine Occult Blood NEG NEG Urine Nitrite NEG NEG Urine Bilirubin NEG NEG Urine Urobilinogen NEG NEG Urine Leukocyte Esterase NEG NEG Urine WBC (Auto) 1-5 0-5 /hpf Urine RBC (Auto) 0-4 0-4 /hpf Urine Hyaline Casts (Auto) 0 0-5 /lpf Urine Epithelial Cells (Auto) 5-10 0-5 /lpf Urine Bacteria (Auto) NEG NEG Test 07/26/17 22:57 07/27/17 05:35 Range/Units Total Creatine Kinase 64 63 39-308 U/L Creatine Kinase MB 3.0 3.7 0.5-3.6 ng/ml Creatine Kinase MB Ratio 4.7 5.9 0-3.0 Troponin I 0.041 0.029 0-0.045 ng/ml White Blood Count 6.45 4.8-10.8 K/uL Red Blood Count 3.87 4.7-6.1 M/uL Hemoglobin 11.6 14.0-18.0 g/dL Hematocrit 36.0 42-52 % Mean Corpuscular Volume 93.0 80-100 fL Mean Corpuscular Hemoglobin 30.0 25-34 pg Mean Corpuscular Hemoglobin Concent 32.2 32-36 g/dl Platelet Count 132 130-400 K/uL Mean Platelet Volume 11.2 7.4-10.4 fL Neutrophils (%) (Auto) 89.8 % Lymphocytes (%) (Auto) 7.3 % Monocytes (%) (Auto) 2.5 % Eosinophils (%) (Auto) 0.0 % Basophils (%) (Auto) 0.2 % Neutrophils # (Auto) 5.80 1.4-6.5 K/uL Lymphocytes # (Auto) 0.47 1.2-3.4 K/uL Monocytes # (Auto) 0.16 0.11-0.59 K/uL Eosinophils # (Auto) 0.00 0-0.5 K/uL Basophils # (Auto) 0.01 0-0.2 K/uL RDW Standard Deviation 55.4 36.4-46.3 fL RDW Coefficient of Variation 16.3 11.5-14.5 % Immature Granulocyte % (Auto) 0.2 % Immature Granulocyte # (Auto) 0.01 0.00-0.02 K/uL Nucleated RBC Absolute Count (auto) 0.02 0-0 K/uL Nucleated Red Blood Cells % 0.3 % Polychromasia 1+ Basophilic Stippling 1+ Prothrombin Time 26.9 9.0-12.0 SECONDS Prothromb Time International Ratio 2.6 0.9-1.1 Sodium Level 136 136-145 mmol/L Potassium Level 4.4 3.5-5.1 mmol/L Chloride Level 102 98-107 mmol/L Carbon Dioxide Level 26 21-32 mmol/L Anion Gap 7.0 3-11 mmol/L Blood Urea Nitrogen 39 7-18 mg/dl Creatinine 1.93 0.60-1.40 mg/dl Est Creatinine Clear Calc Drug Dose 32.1 ml/min Estimated GFR () 34.8 Estimated GFR (Non- 30.0 BUN/Creatinine Ratio 20.2 10-20 Random Glucose 182 70-99 mg/dl Calcium Level 9.3 8.5-10.1 mg/dl Magnesium Level 2.3 1.8-2.4 mg/dl Thyroid Stimulating Hormone (TSH) 0.524 0.300-4.500 uIu/ml Microbiology Results 07/26/17 Gram Stain - Final, Resulted 07/26/17 Sputum Culture - Preliminary, Resulted MODERATE NORMAL POLLY Present, Final ... Diagnostic Radiology CHEST ONE VIEW PORTABLE 07/27/2017 CLINICAL HISTORY: Cough. Shortness of breath. COMPARISON STUDY: Chest CT June 10, 2013 and chest radiograph July 26, 2017. 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 There is no pneumothorax or pleural effusion. There is no evidence of pulmonary edema. No lobar consolidation is present. Mild left basilar opacity has developed. IMPRESSION: Mild left basilar opacity. Atelectasis or epicardial fat pad is favored although minimal airspace disease could appear similar. SINGLE VIEW CHEST on 07/26/2017 CLINICAL HISTORY: Dyspnea. FINDINGS: An AP, portable, upright chest radiograph is compared to study dated 07/07/2017 and correlated with chest CT dated 06/10/2013.. The heart is top normal for projection. 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 Chronic interstitial thickening is similar to previous. There is bibasilar atelectasis. No airspace consolidation or large pleural effusion is identified. No pneumothorax is seen. The skeletal structures are osteopenic. The bony thorax is grossly intact. IMPRESSION: No acute cardiopulmonary abnormality. Other work up Echocardiogram 07/08/2017 o Left ventricle: EF= 65-70 %, left ventricular hypertrophy o Right ventricle: TAPSE > 1.7cm o Atria: Within normal limits o Mitral valve: Mild to moderate regurgitation o IVC: Estimated to be within normal limits o PA systolic pressure estimated to be less than 36 mmHg DVT study 07/07/2017: No signs of lower extremity DVTs Outside workup Pulmonary function study 11/12/2009 FEV1/FVC 70 FEV1 1.57/51% FVC 2.24/56% Bronchodilator no significant response TLC 86% VC 64% RV 111% RV/TLC > 58 DLCO 74% DLCO/VA 126% Overnight pulse oximetry 06/14/2015 (Home) Time <=88% 2.3 minutes Total desaturation events 142 Average events per hours 14 Overnight pulse oximetry study 12/07/2010 (Hospital) Time <=88% 2min Overnight pulse oximetry study 08/04/2016 (Hospital) Time <=88% 2min, 19sec Pulmonary Microbiology Expectorated sputum 07/09/2009: Aspergillus species Bronchial washing 07/11/2009: Aspergillus species Bronchial washing 08/25/2010: Aspergillus species Bronchial washing 08/25/2010: Mycobacterium avium complex Bronchial washing 12/04/2010: Penicillin species Expectorated sputum 05/09/2015: Aspergillus species Serum studies IgE(12/04/2010) 250 Aspergillus thrombus antibody: Negative Aspergillus fumigatus antibodies: Negative Aspergillus [place] antibody: Negative Barium swallow 07/20/2013 Penetration with thin barium but no mansi aspiration noted Noncontrast CT thorax 06/10/2013 Bilateral pleural thickening, left & right pericardial fat pads, right-sided aortic arch Impression Assessment and Plan Severe COPD (FEV1 51%), with exacerbation Acute Bronchitis Rhinitis YOCASTA on CPAP Diastolic dysfunction History of Aspergillus History of GENESIS Acute on chronic renal insufficiency Paroxysmal Atrial fibrillation/Ventricular arrhythmia Elevated troponins Deconditioning Mr. Durand was admitted for acute on chronic respiratory failure secondary to COPD exacerbation. Recommendations Currently he requires no supplemental oxygenation. Use when necessary if needed to maintain SaO2 between 88-92%. I will continue with empiric antibiotics for COPD exacerbation for 5-7 days total. Continue with Singulair 10 mg, Symbicort 160/4.52 puffs twice a day, albuterol 2 puffs 4 times a day when necessary and Lasix 40 mg daily. At the current time I would continue with IV Solu-Medrol and taper over to oral prednisone in the next day or so. Recommend nasal saline spray for rhinitis Continue with CPAP at night for YOCASTA as tolerated. Acute on chronic renal insufficiency improving, continue management per primary team Patient has history of Aspergillus from bronchoscopy, however has no signs of ABPA or invasive Aspergillus on review of CT imaging or clinically. No further workup is indicated. 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 Due to his age and side effects of therapy, I do not recommend any treatment at this time. Continue with anticoagulation per management of primary team. Management of ventricular arrhythmia and atrial fibrillation per management of primary team and cardiology. Although beta blockers are not recommended for patients with asthma/COPD, overall risk and benefit should be stratified. Recommend out of bed to chair, OT and PT as tolerated. I appreciate the consult. Please contact me if you any further questions or concerns. He should follow up with Dr. Prieto/TREVER Ayala in 1-2 weeks post hospital discharge.
--- NOTE | 2017-07-27 13:25 | Cardiology Consultation ---
Cardiology Consultation Date of Consultation: Jul 27, 2017 History of Present Illness Patient is a 87 year old male seen in cardiac consultation per the request of Dr. Knox for evaluation of nonsustained ventricular tachycardia. The patient has a long-standing history of COPD. He has a history of multifactorial lower extremity edema that has been attributed to venous insufficiency and diastolic dysfunction the past. In 2014 he had been diagnosed with paroxysmal atrial fibrillation. He has had multiple recent admissions including an admission 2 weeks ago for recurrent shortness of breath due to an exacerbation of COPD. The patient once again presented for shortness of breath. In the early childhood services coordinator hours this morning on 07/27/17 at 4:58 AM he was noted to have a 15 beat run of nonsustained ventricular tachycardia. The patient has remained astigmatic otherwise and he has no appreciation of feeling an irregular heartbeat. He was not aware of his diagnosis of atrial fibrillation but does note that he is on warfarin to prevent strokes. Looking back to the cardiology consultation in 2014 looks like diltiazem had been recommended at that time but this is since been discontinued and on his recent discharge summary it appears amlodipine was added for blood pressure therapy. Past Medical/Surgical History Problem List: Medical Problems: (1) Anxiety (2) CKD (chronic kidney disease) stage 3, GFR 30-59 ml/min (3) Colon cancer (4) COPD (chronic obstructive pulmonary disease) (5) Depression (6) Diastolic congestive heart failure (7) Glaucoma (8) Gout (9) Hypothyroidism (10) YOCASTA (obstructive sleep apnea) (11) Paroxysmal atrial fibrillation (12) Restless leg syndrome Surgical Problems: (1) H/O hernia repair (2) History of cardiac cath (3) History of colon resection (4) S/P TKR (total knee replacement) Review Of Systems See above for pertinent positives & negatives. A total of 10 systems reviewed and were otherwise negative. Allergies Coded Allergies: Erythromycin (Verified Allergy, Mild, RASH-Azithromycin & Biaxin OK, ) tolerates azithromycin and clarithromycin as outpatient Lisinopril (Verified Allergy, Mild, itching, 07/26/17) Medications Reported Home Medications Medications Dose Route/Sig Max Daily Dose Days Date Category Ventolin Hfa (Albuterol) 200 Puffs/19559 Mcg Aers 2 Puffs INH QID PRN 07/26/17 Reported Latanoprost 37 Drops/2.5 Ml Soln 1 Drop OPB HS 07/26/17 Reported Spiriva Handihaler (Tiotropium [place]) 30 Puff/540 Mcg Aerp 1 Cap INH DAILY 07/26/17 Reported Furosemide 40 Mg Tab 40 Mg PO DAILY 30 07/13/17 Rx Amlodipine Besylate 5 Mg Tab 5 Mg PO QAM 30 07/13/17 Rx Coumadin (Warfarin Sod) 2.5 Mg Tab 2.5 Mg PO DAILY 07/07/17 Reported Mirapex (Pramipexole Dihydrochloride) 0.25 Mg Tab 1 Tab PO HS 90 07/07/17 Reported Citalopram Hydrobromide (Citalopram) 20 Mg Tab 1 Tab PO DAILY 07/07/17 Reported Zyloprim (Allopurinol) 300 Mg Tab 1 Tab PO DAILY 30 07/07/17 Reported Duoneb (Ipratropium-Albuterol) 3 Ml Nebu 3 Ml INH QIDR PRN 30 08/13/16 Rx Aspirin EC Low Dose (Aspirin) 81 Mg Ectab 81 Mg PO DAILY 07/27/16 Reported Vitamin B12 500MCG (Cyanocobalamin) 500 Mcg Tab 500 Mcg PO DAILY 07/27/16 Reported Synthroid (Levothyroxine Sodium) 75 Mcg Tab 75 Mcg PO DAILY 11/25/14 Reported Singulair (Montelukast Sodium) 10 Mg Tab 10 Mg PO DAILY 10/19/11 Reported Symbicort 160/4.5 Inhaler (Budesonide/Formoterol Fumarate) Aero 2 Puffs INH BID 08/18/10 Reported Physical Exam Vital Signs (Last 8hrs): Last 8 Hrs Date Time Temp Pulse Resp B/P (MAP) Pulse Ox O2 Delivery O2 Flow Rate FiO2 07/27/17 12:00 97 Room Air 07/27/17 11:32 36.3 80 20 147/86 (106) 96 Room Air 07/27/17 08:00 97 Room Air 07/27/17 07:26 36.3 85 20 150/84 (106) 97 Room Air 07/27/17 07:07 76 16 96 Room Air General Appearance: Alert , chronically ill in appearance, cushingoid facial appearance Head: Normocephalic Atraumatic. Eyes: PERRLA, EOMI, conjunctiva and sclera clear Neck: Supple. No carotid bruits noted. No JVD. No HJD. Respiratory: Breath sounds decreased at bases bilaterally Cardiovascular: Reg rate and rhythm Distant heart sound, no murmurs Abdomen: Normal bowel sounds, soft nontender. no abdominal bruits. Extremities: 1+ bilateral Le edema Neuro: No focal deficits. Data Last Resulted 07/27/17 05:35 Red Blood Count 3.87, Mean Corpuscular Volume 93.0, Mean Corpuscular Hemoglobin 30.0, Mean Corpuscular Hemoglobin Concent 32.2, Mean Platelet Volume 11.2, Neutrophils (%) (Auto) 89.8, Lymphocytes (%) (Auto) 7.3, Monocytes (%) (Auto) 2.5, Eosinophils (%) (Auto) 0.0, Basophils (%) (Auto) 0.2, Neutrophils # (Auto) 5.80, Lymphocytes # (Auto) 0.47, Monocytes # (Auto) 0.16, Eosinophils # (Auto) 0.00, Basophils # (Auto) 0.01 Last Resulted 07/27/17 05:35 Past 24 Hours Test 07/26/17 22:57 07/27/17 05:35 Range/Units Creatine Kinase MB 3.0 3.7 H 0.5-3.6 ng/ml Creatine Kinase MB Ratio 4.7 H 5.9 H 0-3.0 Total Creatine Kinase 64 63 39-308 U/L Troponin I 0.041 0.029 0-0.045 ng/ml Prothromb Time International Ratio 2.6 H 0.9-1.1 Prothrombin Time 26.9 H 9.0-12.0 SECONDS Summary of recent transthoracic echocardiogram performed 07/08/17: Moderate concentric left ventricular hypertrophy was present. Left ventricular systolic function was normal with no regional wall motion abnormalities and ejection fraction of 65-70%. Mild aortic valve sclerosis without aortic valve stenosis was present. Mild to moderate mitral regurgitation was present. Grade 1 diastolic dysfunction was noted. The right ventricular chamber size and systolic function was reportedly normal. EKG performed 07/26/2009 11:14 AM revealed sinus rhythm at [address] segment changes perhaps due to ischemia. Review of telemetry reveals sinus rhythm as well as atrial fibrillation with relatively well-controlled rates. 15 beat run of nonsustained ventricular tachycardia occurred on 07/27/17 at 4:58 AM Assessment & Plan Impression: 87-year-old male 1. Single a symptomatic several 15 beats nonsustained ventricular tachycardia, 07/27/17 for 50 8 AM 2. Paroxysmal atrial fibrillation, recent relatively well-controlled 3. Admitted with chief complaint of shortness of breath, seemingly due to acute exacerbation of COPD. Recommendations: Given the patient's significant lung disease, not for wheezing, at this point, I would actually recommend against initiation of beta blockers. Since he is on a calcium channel hector, amlodipine, recommend we instituted transition this back to diltiazem. I think his ventricular tachycardia is likely just due to myocardial strain from his underlying noncardiac illness. From his appearance, he is elderly, and debilitated. I would presume he does have underlying coronary artery disease but this is not the cause of his presentation this hospital stay. Tachycardia both from atrial fibrillation and ventricular tachycardia is likely exacerbated by his underlying hypoxia as well as inhaled bronchodilators and corticosteroid treatment, but I believe he needs these treatment for his underlying lung disease. Had recent echocardiogram performed on 07/08/17, and I do not think a repeat echocardiogram will change his management at this times therefore I have canceled the order that had been placed by the admitting team. Continue anti-coag with Coumadin.
[2017-07-27] MEDS: DILTIAZEM HCL 30 MG TAB PO SCH ×2 (14:36→20:45)
--- NOTE | 2017-07-27 16:11 | Progress Note ---
Internal Med Progress Note Date of Service: Jul 27, 2017. Provider Documentation: SUBJECTIVE: sitting on the bed says sob and cough is same denies chest pain afebrile not sleeping well in the night and requesting for sleeping pill OBJECTIVE: Vital Signs-as noted below Exam: General-alert and oriented. Not in distress ENT-Normal hearing Neck-no neck masses supple Lungs-cta b/l mild b/l wheezing no crackles Heart-S1 and S2 heard regular rate and rthym, no murmurs Abdomen-Soft bowel sounds present non tender no distension Extremities-chromic lower extremity present with chronic skin changes Neuro-alert and awake moves extremities Lab data as noted below. ASSESSMENT & PLAN: This is an 87-year-old male who presents with recurrent chronic obstructive pulmonary disease exacerbation. 1. Recurrent chronic obstructive pulmonary disease exacerbation. on iv steroids, nebs and abx continue to monitor appreciate pulmonary inputs. Non sustained v tach mostly from above cardiology changed norvasc to diltiazem will monitor. Acute renal failure and chronic kidney disease stage III. Baseline creatinine around 1.5 to 1.9 . Presented with creatinine of 2.1. Cr 1.9 today. History of diastolic congestive heart failure and chronic lower extremity edema, on Lasix, which we will continue. Will monitor. History of paroxysmal atrial fibrillation, normal sinus rhythm on ekg, started on diltiazem.. On Coumadin. INR 2.6 today. YOCASTA cpap q hs. History of hypothyroidism. Continue Synthroid. History of gout. Continue allopurinol. History of depression and anxiety. Continue Celexa. Deep venous thrombosis prophylaxis, on Coumadin. Code status. Do not resuscitate as per discussion with the patient and his . DISPOSITION: Monitor in tele floor. PT and OT prior to discharge planning. Social Service to help with discharge planning . expect to discharge home and follow with his family doctor and pulmonary. Vital Signs: Date Time Temp Pulse Resp B/P (MAP) Pulse Ox O2 Delivery O2 Flow Rate FiO2 07/27/17 15:32 36.3 92 18 137/86 (103) 97 Nasal Cannula 3.0 07/27/17 15:30 97 Room Air 07/27/17 13:42 83 16 90 Room Air 07/27/17 12:00 97 Room Air 07/27/17 11:32 36.3 80 20 147/86 (106) 96 Room Air 07/27/17 08:00 97 Room Air 07/27/17 07:26 36.3 85 20 150/84 (106) 97 Room Air 07/27/17 07:07 76 16 96 Room Air 07/27/17 04:15 Room Air 07/27/17 02:48 36.3 82 22 149/93 (111) 96 Room Air 07/27/17 00:06 35.7 87 22 156/80 (105) 97 Room Air 07/27/17 00:06 Room Air 07/26/17 20:26 98 16 95 Room Air 07/26/17 19:36 36.6 100 20 134/83 (100) 94 Room Air 07/26/17 19:10 Room Air 07/26/17 16:30 36.9 83 19 165/84 95 Room Air Lab Results: Results Past 24 Hours Test 07/26/17 22:57 07/27/17 05:35 Range/Units Total Creatine Kinase 64 63 39-308 U/L Creatine Kinase MB 3.0 3.7 0.5-3.6 ng/ml Creatine Kinase MB Ratio 4.7 5.9 0-3.0 Troponin I 0.041 0.029 0-0.045 ng/ml White Blood Count 6.45 4.8-10.8 K/uL Red Blood Count 3.87 4.7-6.1 M/uL Hemoglobin 11.6 14.0-18.0 g/dL Hematocrit 36.0 42-52 % Mean Corpuscular Volume 93.0 80-100 fL Mean Corpuscular Hemoglobin 30.0 25-34 pg Mean Corpuscular Hemoglobin Concent 32.2 32-36 g/dl Platelet Count 132 130-400 K/uL Mean Platelet Volume 11.2 7.4-10.4 fL Neutrophils (%) (Auto) 89.8 % Lymphocytes (%) (Auto) 7.3 % Monocytes (%) (Auto) 2.5 % Eosinophils (%) (Auto) 0.0 % Basophils (%) (Auto) 0.2 % Neutrophils # (Auto) 5.80 1.4-6.5 K/uL Lymphocytes # (Auto) 0.47 1.2-3.4 K/uL Monocytes # (Auto) 0.16 0.11-0.59 K/uL Eosinophils # (Auto) 0.00 0-0.5 K/uL Basophils # (Auto) 0.01 0-0.2 K/uL RDW Standard Deviation 55.4 36.4-46.3 fL RDW Coefficient of Variation 16.3 11.5-14.5 % Immature Granulocyte % (Auto) 0.2 % Immature Granulocyte # (Auto) 0.01 0.00-0.02 K/uL Nucleated RBC Absolute Count (auto) 0.02 0-0 K/uL Nucleated Red Blood Cells % 0.3 % Polychromasia 1+ Basophilic Stippling 1+ Prothrombin Time 26.9 9.0-12.0 SECONDS Prothromb Time International Ratio 2.6 0.9-1.1 Sodium Level 136 136-145 mmol/L Potassium Level 4.4 3.5-5.1 mmol/L Chloride Level 102 98-107 mmol/L Carbon Dioxide Level 26 21-32 mmol/L Anion Gap 7.0 3-11 mmol/L Blood Urea Nitrogen 39 7-18 mg/dl Creatinine 1.93 0.60-1.40 mg/dl Est Creatinine Clear Calc Drug Dose 32.1 ml/min Estimated GFR () 34.8 Estimated GFR (Non- 30.0 BUN/Creatinine Ratio 20.2 10-20 Random Glucose 182 70-99 mg/dl Calcium Level 9.3 8.5-10.1 mg/dl Magnesium Level 2.3 1.8-2.4 mg/dl Thyroid Stimulating Hormone (TSH) 0.524 0.300-4.500 uIu/ml Microbiology Results 07/26/17 Gram Stain - Final, Resulted 07/26/17 Sputum Culture - Preliminary, Resulted MODERATE NORMAL POLLY Present, Final ...
[2017-07-27] MEDS: WARFARIN SOD 2.5 MG TAB PO SCH (16:18)
[2017-07-27] MEDS: MONTELUKAST SOD 10 MG TAB PO SCH (17:01)
[2017-07-27] MEDS: LATANOPROST 0.005% OP SOLN 2.5 ML BTL OPB SCH (20:45)
[2017-07-27] MEDS: PRAMIPEXOLE DIHYDROCHLORIDE 0.25MG TAB PO SCH (20:45)
[2017-07-28] VITALS (13 sets, daily range): BP systolic 123–156; BP diastolic 77–93; PULSE 55–94; TEMP 36.2–36.7; O2SAT 93–97
[2017-07-28] MEDS: LEVALBUTEROL 0.63MG/3 ML NEB INH SCH ×4 (02:11→20:07)
[2017-07-28] MEDS: METHYLPREDNISOLONE IV 40 MG in SYRINGE 0 ML IV SCH (03:24)
[2017-07-28 05:45] LABS: BASO % 0.1 %; BASO ABS # 0.01 K/uL (0-0.2); HEMATOCRIT 33.4 % (42-52); IG# 0.03 K/uL (0.00-0.02); LYMPH % 4.7 %; LYMPH ABS # 0.45 K/uL (1.2-3.4); MEAN CELL VOLUME 93.8 fL (80-100); MEAN CORPUSCULAR HEMOGLOBIN 30.9 pg (25-34); MEAN CORPUSCULAR HGB CONC 32.9 g/dl (32-36); MEAN PLATELET VOLUME 10.5 fL (7.4-10.4); MONO % 4.6 %; MONO ABS # 0.44 K/uL (0.11-0.59); NEUT % 90.3 %; NEUT ABS # 8.55 K/uL (1.4-6.5); PLATELET COUNT 147 K/uL (130-400); RED CELL DISTRIBUTION WIDTH SD 55.4 fL (36.4-46.3); WHITE BLOOD COUNT 9.48 K/uL (4.8-10.8)
[2017-07-28 06:06] LABS: INR 3.8 (0.9-1.1)
[2017-07-28 06:12] LABS: CALCIUM 9.1 mg/dl (8.5-10.1); CREATININE 2.35 mg/dl (0.60-1.40); POTASSIUM 5.2 mmol/L (3.5-5.1)
[2017-07-28] MEDS: AMPICILLIN/SULBACTAM SOD INJ 3,000 MG in SODIUM CHLORIDE 0.9% 100ML 100 ML IV SCH ×2 (06:21→17:13)
[2017-07-28] MEDS: LEVOTHYROXINE 75 MCG TAB PO SCH (06:21)
[2017-07-28] MEDS: BRINZOLAMIDE-BRIMONIDINE 1-0.2% OPH SUSP OPB SCH ×2 (07:41→19:55)
[2017-07-28] MEDS: CITALOPRAM 20 MG TAB PO SCH (07:41)
[2017-07-28] MEDS: BUDESONIDE/FORMOTEROL FUMARATE 160/4.5 60 PUFFS/INHALER INH SCH ×2 (07:41→19:54)
[2017-07-28] MEDS: TIOTROPIUM BROMIDE 5 PUFF/90 MCG INH INH SCH (07:41)
[2017-07-28] MEDS: ALLOPURINOL 300 MG TAB PO SCH (07:43)
[2017-07-28] MEDS: ASPIRIN 81 MG ECTAB PO SCH (07:43)
[2017-07-28] MEDS: CYANOCOBALAMIN 500 MCG TAB (VIT B-12) PO SCH (07:43)
[2017-07-28] MEDS: DILTIAZEM HCL 30 MG TAB PO SCH ×3 (07:43→19:56)
[2017-07-28] MEDS: DOXYCYCLINE HYCLATE 100 MG CAP PO SCH ×2 (09:08→19:55)
[2017-07-28] MEDS ORDERED: POLYETHYLENE (MIRALAX) 17 GM PACK PO ONE (09:45)
--- NOTE | 2017-07-28 11:57 | Pulmonology Progress Note ---
Pulmonary Progress Note Date of Service Jul 28, 2017. Attending Dr. Estrella Subjective Patient seen and examined dyspnea at bedside. He states that he is feeling somewhat improved from a respiratory standpoint He still has cough with productive yellowish sputum but it is clearing. He is feeling less short of breath today. He denies any chest pain. Does admit to some intermittent wheezing. He slept well overnight. He also states that he is out of bed to chair. Objective Vital signs reviewed. MAXIMUM TEMPERATURE 36.5, blood pressure 143/85 to 156/93 , pulse 69-94, respiratory rate 16-20, pulse oximetry 93-97% on room air. Gen.: Awake alert oriented 3, no acute respiratory distress, speaking in full set and it is without use of accessory muscles of respiration. CVS: S1-S2, regular rate and rhythm Lungs: Rhonchorous breath sounds throughout bilaterally, no wheezing appreciated. Still prolonged expiratory phase. Abdomen: Soft nontender, normal bowel sounds, obese Extremities: +1 bilateral lower extremity edema, no cyanosis, no clubbing Labs reviewed. Sputum culture 07/26/2016-- Moraxella catarrhalis Imaging reviewed. Medications reviewed. Assessment & Plan Severe COPD (FEV1 51%), with exacerbation Community-acquired pneumonia Rhinitis YOCASTA on CPAP Diastolic dysfunction History of Aspergillus History of GENESIS Acute on chronic renal insufficiency Paroxysmal Atrial fibrillation/Ventricular arrhythmia Elevated troponins Deconditioning Mr. Durand was admitted for acute on chronic respiratory failure secondary to COPD exacerbation. This is likely secondary to bacterial pneumonia as basilar left opacity was seen on chest x-ray from yesterday and sputum cultures have now grown Moraxella catarrhalis. Recommendations He still requires no supplemental oxygenation. Use when necessary if needed to maintain SaO2 between 88-92%. Continue to treat for COPD exacerbation and pneumonia for 5-7 days total. Continue with Singulair 10 mg, Symbicort 160/4.52 puffs twice a day, albuterol 2 puffs 4 times a day when necessary and Lasix 40 mg daily. Continue with prednisone 40 mg and taper over the next 7-10 days. Recommend nasal saline spray for rhinitis Continue with CPAP at night for YOCASTA as tolerated. 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 No further workup is indicated. 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 Due to his age and side effects of therapy, I do not recommend any treatment at this time. Continue with anticoagulation per management of primary team. We will hold off on beta blockers for now per cardiology's recommendations. PT as tolerated. I will sign off case today. Please contact me if you any further questions or concerns. He should follow up with Dr. Prieto/TREVER Ayala in 1-2 weeks post hospital discharge. Data Medications: Current Inpatient Medications Medications (Trade) Dose Ordered Sig/Gilma Route Start Time Stop Time Status Last Admin Dose Admin Acetaminophen (Tylenol Tab) 650 mg Q4H PRN PO 07/26/17 15:15 08/25/17 15:14 Al Hydrox/Mg Hydrox/Simethicone (Maalox Max Susp) 15 ml Q4H PRN PO 07/26/17 15:15 08/25/17 15:14 Ondansetron HCl (Zofran Inj) 4 mg Q6H PRN IV 07/26/17 15:15 08/25/17 15:14 Nitroglycerin (Nitrostat Tab) 0.4 mg UD PRN SL 07/26/17 15:15 08/25/17 15:14 Polyethylene (Miralax Powder Packet) 17 gm DAILY PRN PO 07/26/17 15:15 08/25/17 15:14 Albuterol (Ventolin Hfa Inhaler) 2 puffs QID PRN INH 07/26/17 15:15 08/25/17 15:14 Allopurinol (Zyloprim Tab) 300 mg DAILY PO 07/27/17 09:00 08/26/17 08:59 07/28/17 07:43 300 MG Aspirin (Ecotrin Tab) 81 mg DAILY PO 07/27/17 09:00 08/26/17 08:59 07/28/17 07:43 81 MG Budesonide/ Formoterol Fumarate (Symbicort 160/ 4.5 Inh) 2 puffs BID INH 07/26/17 21:00 08/25/17 20:59 07/28/17 07:41 2 PUFFS Citalopram Hydrobromide (celeXA TAB) 20 mg DAILY PO 07/27/17 09:00 08/26/17 08:59 07/28/17 07:41 20 MG Cyanocobalamin (Vitamin B-12 Tab) 500 mcg DAILY PO 07/27/17 09:00 08/26/17 08:59 07/28/17 07:43 500 MCG Furosemide (Lasix Tab) 40 mg DAILY PO 07/27/17 09:00 08/26/17 08:59 Future Hold 07/27/17 07:52 40 MG Latanoprost (Xalatan Oph Soln) 1 drops HS OPB 07/26/17 21:00 08/25/17 20:59 07/27/17 20:45 1 DROPS Levothyroxine Sodium (Synthroid Tab) 75 mcg DAILYBB PO 07/27/17 06:00 08/26/17 05:59 07/28/17 06:21 75 MCG Montelukast Sodium (Singulair Tab) 10 mg DAILY@1800 PO 07/26/17 18:00 08/25/17 17:59 07/27/17 17:01 10 MG Pramipexole Dihydrochloride (miraPEX TAB) 0.25 mg HS PO 07/26/17 21:00 08/25/17 20:59 07/27/17 20:45 0.25 MG Tiotropium [place] (Spiriva Handihaler Inhaler) 1 puff DAILY INH 07/27/17 09:00 08/26/17 08:59 07/28/17 07:41 1 PUFF Warfarin Sodium (Coumadin Tab) 2.5 mg DAILY@1600 PO 07/26/17 18:00 08/25/17 17:59 Future Hold 07/27/17 16:18 2.5 MG Ampicillin Sodium/ Sulbactam Sodium 3000 mg/Sodium Chloride 108 ml @ 200 mls/hr Q12H IV 07/26/17 18:00 08/02/17 17:59 07/28/17 06:21 200 MLS/HR Doxycycline Hyclate (Vibramycin Cap) 100 mg BID PO 07/26/17 21:00 08/02/17 20:59 07/28/17 09:08 100 MG Ampicillin Sodium/ Sulbactam Sodium (Consult) 1 ea UD PRN N/A 07/26/17 17:15 08/25/17 17:14 Miscellaneous (Iv Fluids Completed) 1 ea PRN PRN N/A 07/26/17 18:30 07/26/18 18:29 Benzonatate (Tessalon Perles Cap) 100 mg TID PRN PO 07/26/17 20:15 08/25/17 20:14 07/27/17 07:52 100 MG Levalbuterol (Xopenex 0.63 Mg/ 3 Ml Neb) 0.63 mg Q6R INH 07/27/17 09:00 08/26/17 08:59 07/28/17 07:02 0.63 MG Menthol (Nice Berna) 1 berna PRN PRN PO 07/27/17 07:00 08/26/17 06:59 Diltiazem HCl (Cardizem Tab) 30 mg TID PO 07/27/17 14:00 08/26/17 13:59 07/28/17 07:43 30 MG Prednisone (PredniSONE TAB) 40 mg DAILY PO 07/28/17 09:00 08/27/17 08:59 07/28/17 09:07 40 MG Vital Signs: Date Time Temp Pulse Resp B/P (MAP) Pulse Ox O2 Delivery O2 Flow Rate FiO2 07/28/17 08:08 36.5 74 20 143/85 (104) 93 Room Air 07/28/17 08:00 97 Room Air 07/28/17 07:03 77 16 94 Room Air 07/28/17 04:00 BiPAP 07/28/17 03:17 36.2 69 18 156/93 (114) 94 CPAP 07/28/17 02:11 74 16 94 BiPAP/CPAP 07/28/17 02:11 94 94 07/27/17 23:59 Room Air 07/27/17 23:46 82 98 07/27/17 23:09 36.4 77 19 142/78 (99) 93 Room Air 07/27/17 20:30 76 127/68 (87) 07/27/17 20:18 90 16 96 Room Air 07/27/17 19:47 36.9 74 16 152/95 (114) 94 07/27/17 19:30 97 Nasal Cannula 3.0 07/27/17 15:32 36.3 92 18 137/86 (103) 97 Nasal Cannula 3.0 07/27/17 15:30 97 Room Air 07/27/17 13:42 83 16 90 Room Air 07/27/17 12:00 97 Room Air Laboratory Results: Last 24 Hours Test 07/28/17 05:14 White Blood Count 9.48 K/uL Red Blood Count 3.56 M/uL Hemoglobin 11.0 g/dL Hematocrit 33.4 % Mean Corpuscular Volume 93.8 fL Mean Corpuscular Hemoglobin 30.9 pg Mean Corpuscular Hemoglobin Concent 32.9 g/dl Platelet Count 147 K/uL Mean Platelet Volume 10.5 fL Neutrophils (%) (Auto) 90.3 % Lymphocytes (%) (Auto) 4.7 % Monocytes (%) (Auto) 4.6 % Eosinophils (%) (Auto) 0.0 % Basophils (%) (Auto) 0.1 % Neutrophils # (Auto) 8.55 K/uL Lymphocytes # (Auto) 0.45 K/uL Monocytes # (Auto) 0.44 K/uL Eosinophils # (Auto) 0.00 K/uL Basophils # (Auto) 0.01 K/uL RDW Standard Deviation 55.4 fL RDW Coefficient of Variation 16.0 % Immature Granulocyte % (Auto) 0.3 % Immature Granulocyte # (Auto) 0.03 K/uL Prothrombin Time 38.6 SECONDS Prothromb Time International Ratio 3.8 Sodium Level 133 mmol/L Potassium Level 5.2 mmol/L Chloride Level 102 mmol/L Carbon Dioxide Level 25 mmol/L Anion Gap 6.0 mmol/L Blood Urea Nitrogen 49 mg/dl Creatinine 2.35 mg/dl Est Creatinine Clear Calc Drug Dose 26.4 ml/min Estimated GFR () 27.4 Estimated GFR (Non- 23.6 BUN/Creatinine Ratio 20.9 Random Glucose 199 mg/dl Calcium Level 9.1 mg/dl Magnesium Level 2.1 mg/dl
--- NOTE | 2017-07-28 13:11 | Cardiology Progress Note ---
Cardiology Progress Note Date of Service Jul 28, 2017. Cardiology Progress Note Patient states he feels improved today. Notes he rested well last evening. 07/27/17 at 4:58 AM he was noted to have a 15 beat run of nonsustained ventricular tachycardia. Review of telemetry reveals no recurrent VT in the interim, rate controlled AF noted at present. Continue oral diltiazem.
--- NOTE | 2017-07-28 15:11 | Progress Note ---
Internal Med Progress Note Date of Service: Jul 28, 2017. Provider Documentation: SUBJECTIVE: sitting on the chair says sob and cough is better today slept very well last night eating ok ambulated in room ok OBJECTIVE: Vital Signs-as noted below Exam: General-alert and oriented. Not in distress ENT-Normal hearing Neck-no neck masses supple Lungs-cta b/l mild b/l wheezing no crackles Heart-S1 and S2 heard regular rate and rthym, no murmurs Abdomen-Soft bowel sounds present non tender no distension Extremities-chromic lower extremity present with chronic skin changes Neuro-alert and awake moves extremities Lab data as noted below. ASSESSMENT & PLAN: This is an 87-year-old male who presents with recurrent chronic obstructive pulmonary disease exacerbation. 1. Recurrent chronic obstructive pulmonary disease exacerbation. on iv steroids, nebs and abx continue to monitor appreciate pulmonary inputs. to taper steroids to po will change abx to po in am improving Non sustained v tach mostly from above cardiology changed norvasc to diltiazem stable now will monitor. Acute renal failure and chronic kidney disease stage III. Baseline creatinine around 1.5 to 1.9 . Presented with creatinine of 2.1. Cr 2.2 today.Holding lasix. will monitor Hyperkalemia mild k 5.2 will f/u repeat labs today History of diastolic congestive heart failure and chronic lower extremity edema, on Lasix, which we will continue. Holding Lasix. will monitor Hx of Aspergillus and GENESIS no need of tx at this time as per pulmonary History of paroxysmal atrial fibrillation, normal sinus rhythm on ekg, started on diltiazem.. Holding coumadin INR 3.8 today. YOCASTA cpap q hs. History of hypothyroidism. Continue Synthroid. History of gout. Continue allopurinol. History of depression and anxiety. Continue Celexa. Deep venous thrombosis prophylaxis, on Coumadin. Code status. Do not resuscitate as per discussion with the patient and his . DISPOSITION: Monitor in tele floor. PT and OT prior to discharge planning. Social Service to help with discharge planning . expect to discharge home and follow with his family doctor and pulmonary. Vital Signs: Date Time Temp Pulse Resp B/P (MAP) Pulse Ox O2 Delivery O2 Flow Rate FiO2 07/28/17 12:00 97 Room Air 07/28/17 11:56 36.4 72 20 136/79 (98) 93 Room Air 07/28/17 08:08 36.5 74 20 143/85 (104) 93 Room Air 07/28/17 08:00 97 Room Air 07/28/17 07:03 77 16 94 Room Air 07/28/17 04:00 BiPAP 07/28/17 03:17 36.2 69 18 156/93 (114) 94 CPAP 07/28/17 02:11 74 16 94 BiPAP/CPAP 07/28/17 02:11 94 94 07/27/17 23:59 Room Air 07/27/17 23:46 82 98 07/27/17 23:09 36.4 77 19 142/78 (99) 93 Room Air 07/27/17 20:30 76 127/68 (87) 07/27/17 20:18 90 16 96 Room Air 07/27/17 19:47 36.9 74 16 152/95 (114) 94 07/27/17 19:30 97 Nasal Cannula 3.0 07/27/17 15:32 36.3 92 18 137/86 (103) 97 Nasal Cannula 3.0 07/27/17 15:30 97 Room Air Lab Results: Results Past 24 Hours Test 07/28/17 05:14 Range/Units White Blood Count 9.48 4.8-10.8 K/uL Red Blood Count 3.56 4.7-6.1 M/uL Hemoglobin 11.0 14.0-18.0 g/dL Hematocrit 33.4 42-52 % Mean Corpuscular Volume 93.8 80-100 fL Mean Corpuscular Hemoglobin 30.9 25-34 pg Mean Corpuscular Hemoglobin Concent 32.9 32-36 g/dl Platelet Count 147 130-400 K/uL Mean Platelet Volume 10.5 7.4-10.4 fL Neutrophils (%) (Auto) 90.3 % Lymphocytes (%) (Auto) 4.7 % Monocytes (%) (Auto) 4.6 % Eosinophils (%) (Auto) 0.0 % Basophils (%) (Auto) 0.1 % Neutrophils # (Auto) 8.55 1.4-6.5 K/uL Lymphocytes # (Auto) 0.45 1.2-3.4 K/uL Monocytes # (Auto) 0.44 0.11-0.59 K/uL Eosinophils # (Auto) 0.00 0-0.5 K/uL Basophils # (Auto) 0.01 0-0.2 K/uL RDW Standard Deviation 55.4 36.4-46.3 fL RDW Coefficient of Variation 16.0 11.5-14.5 % Immature Granulocyte % (Auto) 0.3 % Immature Granulocyte # (Auto) 0.03 0.00-0.02 K/uL Prothrombin Time 38.6 9.0-12.0 SECONDS Prothromb Time International Ratio 3.8 0.9-1.1 Sodium Level 133 136-145 mmol/L Potassium Level 5.2 3.5-5.1 mmol/L Chloride Level 102 98-107 mmol/L Carbon Dioxide Level 25 21-32 mmol/L Anion Gap 6.0 3-11 mmol/L Blood Urea Nitrogen 49 7-18 mg/dl Creatinine 2.35 0.60-1.40 mg/dl Est Creatinine Clear Calc Drug Dose 26.4 ml/min Estimated GFR () 27.4 Estimated GFR (Non- 23.6 BUN/Creatinine Ratio 20.9 10-20 Random Glucose 199 70-99 mg/dl Calcium Level 9.1 8.5-10.1 mg/dl Magnesium Level 2.1 1.8-2.4 mg/dl
[2017-07-28] MEDS: MONTELUKAST SOD 10 MG TAB PO SCH (17:13)
[2017-07-28] MEDS: LATANOPROST 0.005% OP SOLN 2.5 ML BTL OPB SCH (19:55)
[2017-07-28] MEDS: PRAMIPEXOLE DIHYDROCHLORIDE 0.25MG TAB PO SCH (19:56)
[2017-07-29] VITALS (12 sets, daily range): BP systolic 123–162; BP diastolic 78–97; PULSE 55–87; TEMP 36.3–36.6; O2SAT 94–97; Ht 180.3 cm; Wt 109.2 kg
[2017-07-29] MEDS: LEVALBUTEROL 0.63MG/3 ML NEB INH SCH ×4 (02:32→19:40)
[2017-07-29] MEDS: AMPICILLIN/SULBACTAM SOD INJ 3,000 MG in SODIUM CHLORIDE 0.9% 100ML 100 ML IV SCH (05:19)
[2017-07-29] MEDS: LEVOTHYROXINE 75 MCG TAB PO SCH (05:19)
[2017-07-29 06:40] LABS: HEMATOCRIT 31.5 % (42-52); HEMOGLOBIN 10.4 g/dL (14.0-18.0); IG# 0.04 K/uL (0.00-0.02); LYMPH % 6.5 %; LYMPH ABS # 0.59 K/uL (1.2-3.4); MEAN CELL VOLUME 92.9 fL (80-100); MEAN CORPUSCULAR HEMOGLOBIN 30.7 pg (25-34); MEAN PLATELET VOLUME 11.3 fL (7.4-10.4); MONO % 6.4 %; MONO ABS # 0.58 K/uL (0.11-0.59); NEUT % 86.7 %; NEUT ABS # 7.91 K/uL (1.4-6.5); PLATELET COUNT 152 K/uL (130-400); RED CELL DISTRIBUTION WIDTH SD 54.1 fL (36.4-46.3); WHITE BLOOD COUNT 9.12 K/uL (4.8-10.8)
[2017-07-29 06:54] LABS: INR 3.6 (0.9-1.1)
[2017-07-29 07:12] LABS: CREATININE 2.49 mg/dl (0.60-1.40)
[2017-07-29] MEDS: ASPIRIN 81 MG ECTAB PO SCH (07:34)
[2017-07-29] MEDS: CYANOCOBALAMIN 500 MCG TAB (VIT B-12) PO SCH (07:34)
[2017-07-29] MEDS: TIOTROPIUM BROMIDE 5 PUFF/90 MCG INH INH SCH (07:34)
[2017-07-29] MEDS: CITALOPRAM 20 MG TAB PO SCH (07:34)
[2017-07-29] MEDS: DILTIAZEM HCL 30 MG TAB PO SCH ×3 (07:34→21:24)
[2017-07-29] MEDS: ALLOPURINOL 300 MG TAB PO SCH (07:34)
[2017-07-29] MEDS: DOXYCYCLINE HYCLATE 100 MG CAP PO SCH ×2 (07:34→21:24)
[2017-07-29] MEDS: BUDESONIDE/FORMOTEROL FUMARATE 160/4.5 60 PUFFS/INHALER INH SCH ×2 (07:35→21:25)
[2017-07-29] MEDS: BRINZOLAMIDE-BRIMONIDINE 1-0.2% OPH SUSP OPB SCH ×2 (07:35→21:25)
--- NOTE | 2017-07-29 08:34 | Progress Note ---
Progress Note Date of Service Jul 29, 2017. Progress Note telemetry reviewed: Continued rate controlled AF noted. Occasional PVCs including a few ventricular triplets. Continue diltiazem.
[2017-07-29] MEDS: SODIUM CHLORIDE 0.9% 1000ML 1,000 ML IV SCH (13:19)
[2017-07-29] MEDS: MONTELUKAST SOD 10 MG TAB PO SCH (17:00)
[2017-07-29] MEDS: AMOXICILLIN/CLAVULANATE TAB 500 MG TAB PO SCH (17:00)
--- NOTE | 2017-07-29 19:09 | Progress Note ---
Internal Med Progress Note Date of Service: Jul 29, 2017. Provider Documentation: SUBJECTIVE: sitting on the chair comfortably says sob and cough is getting better feeling better afebrile ok for rehab if insurance approves OBJECTIVE: Vital Signs-as noted below Exam: General-alert and oriented. Not in distress ENT-Normal hearing Neck-no neck masses supple Lungs-cta b/l mild b/l wheezing no crackles Heart-S1 and S2 heard regular rate and rthym, no murmurs Abdomen-Soft bowel sounds present non tender no distension Extremities-chromic lower extremity present with chronic skin changes Neuro-alert and awake moves extremities Lab data as noted below. ASSESSMENT & PLAN: This is an 87-year-old male who presents with recurrent chronic obstructive pulmonary disease exacerbation. 1. Recurrent chronic obstructive pulmonary disease exacerbation. on iv steroids, nebs and abx continue to monitor appreciate pulmonary inputs. to taper steroids to po changed abx to po improving Non sustained v tach mostly from above cardiology changed Norvasc to diltiazem stable now will monitor. Acute renal failure and chronic kidney disease stage III. Baseline creatinine around 1.5 to 1.9 . Presented with creatinine of 2.1. Cr 2.4 today.Holding lasix. will monitor Hyperkalemia mild k 5.2 resolved f/u labs in am History of diastolic congestive heart failure and chronic lower extremity edema, on Lasix, which we will continue. Holding Lasix. will monitor Hx of Aspergillus and GENESIS no need of tx at this time as per pulmonary History of paroxysmal atrial fibrillation, normal sinus rhythm on ekg, started on diltiazem.. Holding Coumadin INR 3.6 today. YOCASTA cpap q hs. History of hypothyroidism. Continue Synthroid. History of gout. Continue allopurinol. History of depression and anxiety. Continue Celexa. Deep venous thrombosis prophylaxis, on Coumadin. Code status. Do not resuscitate as per discussion with the patient and his . DISPOSITION: Monitor in tele floor. PT and OT prior to discharge planning. Social Service to help with discharge planning . PT/OT recommends rehab Vital Signs: Date Time Temp Pulse Resp B/P (MAP) Pulse Ox O2 Delivery O2 Flow Rate FiO2 07/29/17 16:00 Nasal Cannula 3.0 07/29/17 15:10 36.4 76 16 158/85 (109) 96 Room Air 07/29/17 14:27 55 16 94 Room Air 07/29/17 12:04 36.5 76 20 160/82 (108) 94 Room Air 07/29/17 12:00 97 Room Air 07/29/17 08:05 36.3 71 16 162/89 (113) 95 Room Air 07/29/17 08:00 97 Room Air 07/29/17 07:56 55 16 94 Room Air 07/29/17 04:10 Room Air 07/29/17 04:10 36.4 87 18 149/82 (104) 94 Room Air 07/28/17 23:36 36.7 71 20 123/77 (92) 93 Room Air 07/28/17 23:30 64 96 07/28/17 23:30 CPAP 07/28/17 20:08 55 16 94 Room Air 07/28/17 19:50 Room Air 07/28/17 19:16 36.5 75 20 142/80 (100) 94 Room Air Lab Results: Results Past 24 Hours Test 07/28/17 20:53 07/29/17 05:14 Range/Units Bedside Glucose 209 70-99 mg/dl White Blood Count 9.12 4.8-10.8 K/uL Red Blood Count 3.39 4.7-6.1 M/uL Hemoglobin 10.4 14.0-18.0 g/dL Hematocrit 31.5 42-52 % Mean Corpuscular Volume 92.9 80-100 fL Mean Corpuscular Hemoglobin 30.7 25-34 pg Mean Corpuscular Hemoglobin Concent 33.0 32-36 g/dl Platelet Count 152 130-400 K/uL Mean Platelet Volume 11.3 7.4-10.4 fL Neutrophils (%) (Auto) 86.7 % Lymphocytes (%) (Auto) 6.5 % Monocytes (%) (Auto) 6.4 % Eosinophils (%) (Auto) 0.0 % Basophils (%) (Auto) 0.0 % Neutrophils # (Auto) 7.91 1.4-6.5 K/uL Lymphocytes # (Auto) 0.59 1.2-3.4 K/uL Monocytes # (Auto) 0.58 0.11-0.59 K/uL Eosinophils # (Auto) 0.00 0-0.5 K/uL Basophils # (Auto) 0.00 0-0.2 K/uL RDW Standard Deviation 54.1 36.4-46.3 fL RDW Coefficient of Variation 16.0 11.5-14.5 % Immature Granulocyte % (Auto) 0.4 % Immature Granulocyte # (Auto) 0.04 0.00-0.02 K/uL Prothrombin Time 36.9 9.0-12.0 SECONDS Prothromb Time International Ratio 3.6 0.9-1.1 Sodium Level 131 136-145 mmol/L Potassium Level 5.0 3.5-5.1 mmol/L Chloride Level 99 98-107 mmol/L Carbon Dioxide Level 26 21-32 mmol/L Anion Gap 6.0 3-11 mmol/L Blood Urea Nitrogen 59 7-18 mg/dl Creatinine 2.49 0.60-1.40 mg/dl Est Creatinine Clear Calc Drug Dose 25.2 ml/min Estimated GFR () 25.6 Estimated GFR (Non- 22.0 BUN/Creatinine Ratio 23.5 10-20 Random Glucose 227 70-99 mg/dl Calcium Level 9.0 8.5-10.1 mg/dl Magnesium Level 2.2 1.8-2.4 mg/dl
[2017-07-29] MEDS ORDERED: BOOST VANILLA PO SCH (21:00)
[2017-07-29] MEDS: PRAMIPEXOLE DIHYDROCHLORIDE 0.25MG TAB PO SCH (21:24)
[2017-07-29] MEDS: BOOST VANILLA PO SCH (21:25)
[2017-07-29] MEDS: LATANOPROST 0.005% OP SOLN 2.5 ML BTL OPB SCH (21:25)
[2017-07-30] VITALS (13 sets, daily range): BP systolic 126–159; BP diastolic 69–97; PULSE 62–104; TEMP 36.4–37.2; O2SAT 94–97
[2017-07-30] MEDS: LEVALBUTEROL 0.63MG/3 ML NEB INH SCH ×4 (02:05→18:58)
[2017-07-30] MEDS: LEVOTHYROXINE 75 MCG TAB PO SCH (05:24)
[2017-07-30 05:46] LABS: BASO % 0.1 %; BASO ABS # 0.01 K/uL (0-0.2); EOS % 0.1 %; EOS ABS # 0.01 K/uL (0-0.5); HEMATOCRIT 29.5 % (42-52); HEMOGLOBIN 9.8 g/dL (14.0-18.0); IG# 0.06 K/uL (0.00-0.02); LYMPH % 7.9 %; LYMPH ABS # 0.74 K/uL (1.2-3.4); MEAN CELL VOLUME 91.9 fL (80-100); MEAN CORPUSCULAR HEMOGLOBIN 30.5 pg (25-34); MEAN CORPUSCULAR HGB CONC 33.2 g/dl (32-36); MEAN PLATELET VOLUME 10.5 fL (7.4-10.4); MONO % 9.3 %; MONO ABS # 0.88 K/uL (0.11-0.59); NEUT ABS # 7.72 K/uL (1.4-6.5); PLATELET COUNT 147 K/uL (130-400); RED CELL DISTRIBUTION WIDTH CV 15.9 % (11.5-14.5); RED CELL DISTRIBUTION WIDTH SD 53.8 fL (36.4-46.3); WHITE BLOOD COUNT 9.42 K/uL (4.8-10.8)
[2017-07-30 05:55] LABS: INR 3.2 (0.9-1.1)
[2017-07-30 06:17] LABS: CALCIUM 8.6 mg/dl (8.5-10.1); CREATININE 2.33 mg/dl (0.60-1.40); POTASSIUM 4.6 mmol/L (3.5-5.1)
[2017-07-30] MEDS: ALLOPURINOL 300 MG TAB PO SCH (07:47)
[2017-07-30] MEDS: CYANOCOBALAMIN 500 MCG TAB (VIT B-12) PO SCH (07:47)
[2017-07-30] MEDS: CITALOPRAM 20 MG TAB PO SCH (07:47)
[2017-07-30] MEDS: ASPIRIN 81 MG ECTAB PO SCH (07:47)
[2017-07-30] MEDS: DILTIAZEM HCL 30 MG TAB PO SCH ×3 (07:48→20:26)
[2017-07-30] MEDS: AMOXICILLIN/CLAVULANATE TAB 500 MG TAB PO SCH ×2 (07:48→17:19)
[2017-07-30] MEDS: DOXYCYCLINE HYCLATE 100 MG CAP PO SCH ×2 (07:48→20:26)
[2017-07-30] MEDS: BUDESONIDE/FORMOTEROL FUMARATE 160/4.5 60 PUFFS/INHALER INH SCH ×2 (07:49→20:24)
[2017-07-30] MEDS: TIOTROPIUM BROMIDE 5 PUFF/90 MCG INH INH SCH (07:49)
[2017-07-30] MEDS: BRINZOLAMIDE-BRIMONIDINE 1-0.2% OPH SUSP OPB SCH ×2 (07:49→20:25)
[2017-07-30] MEDS: SODIUM CHLORIDE 0.9% 1000ML 1,000 ML IV SCH (07:49)
[2017-07-30] MEDS: BOOST VANILLA PO SCH ×2 (09:00→20:25)
[2017-07-30] MEDS: MONTELUKAST SOD 10 MG TAB PO SCH (17:20)
--- NOTE | 2017-07-30 20:10 | Progress Note ---
Internal Med Progress Note Date of Service: Jul 30, 2017. Provider Documentation: SUBJECTIVE: sitting on the chair comfortably feeling better no pain ok for rehab OBJECTIVE: Vital Signs-as noted below Exam: General-alert and oriented. Not in distress ENT-Normal hearing Neck-no neck masses supple Lungs-cta b/l mild b/l wheezing no crackles Heart-S1 and S2 heard regular rate and rthym, no murmurs Abdomen-Soft bowel sounds present non tender no distension Extremities-chromic lower extremity present with chronic skin changes Neuro-alert and awake moves extremities Lab data as noted below. ASSESSMENT & PLAN: This is an 87-year-old male who presents with recurrent chronic obstructive pulmonary disease exacerbation. 1. Recurrent chronic obstructive pulmonary disease exacerbation. on iv steroids, nebs and abx continue to monitor appreciate pulmonary inputs. currently on po abx and po steroids improving Non sustained v tach mostly from above cardiology changed Norvasc to diltiazem stable now will monitor. Acute renal failure and chronic kidney disease stage III. Baseline creatinine around 1.5 to 1.9 . Presented with creatinine of 2.1. Cr 2.33 today.Holding lasix. will monitor Hyperkalemia mild k 5.2 resolved f/u labs in am History of diastolic congestive heart failure and chronic lower extremity edema, on Lasix, which we will continue. Holding Lasix. will monitor Hx of Aspergillus and GENESIS no need of tx at this time as per pulmonary History of paroxysmal atrial fibrillation, normal sinus rhythm on ekg, started on diltiazem.. Holding Coumadin INR 3.2 today. YOCASTA cpap q hs. History of hypothyroidism. Continue Synthroid. History of gout. Continue allopurinol. History of depression and anxiety. Continue Celexa. Deep venous thrombosis prophylaxis, on Coumadin. Code status. Do not resuscitate as per discussion with the patient and his . DISPOSITION: Monitor in tele floor. Social Service to help with discharge planning . PT/OT recommends rehab to be determined Vital Signs: Date Time Temp Pulse Resp B/P (MAP) Pulse Ox O2 Delivery O2 Flow Rate FiO2 07/30/17 19:41 36.6 104 20 159/97 (117) 94 Room Air 07/30/17 16:00 Room Air 07/30/17 15:14 36.5 69 20 158/90 (112) 94 Room Air 07/30/17 14:22 70 16 96 Room Air 07/30/17 12:00 97 Room Air 07/30/17 11:48 37.0 62 18 132/75 (94) 95 07/30/17 08:05 37.2 62 18 129/76 (93) 95 07/30/17 08:00 97 Room Air 07/30/17 06:55 70 16 96 Room Air 07/30/17 03:46 Room Air 07/30/17 03:11 36.4 74 20 126/69 (88) 94 Room Air 07/30/17 02:06 74 16 94 Room Air 07/29/17 23:53 36.6 75 18 123/78 (93) 94 Room Air 07/29/17 23:50 Room Air Lab Results: Results Past 24 Hours Test 07/30/17 05:16 Range/Units White Blood Count 9.42 4.8-10.8 K/uL Red Blood Count 3.21 4.7-6.1 M/uL Hemoglobin 9.8 14.0-18.0 g/dL Hematocrit 29.5 42-52 % Mean Corpuscular Volume 91.9 80-100 fL Mean Corpuscular Hemoglobin 30.5 25-34 pg Mean Corpuscular Hemoglobin Concent 33.2 32-36 g/dl Platelet Count 147 130-400 K/uL Mean Platelet Volume 10.5 7.4-10.4 fL Neutrophils (%) (Auto) 82.0 % Lymphocytes (%) (Auto) 7.9 % Monocytes (%) (Auto) 9.3 % Eosinophils (%) (Auto) 0.1 % Basophils (%) (Auto) 0.1 % Neutrophils # (Auto) 7.72 1.4-6.5 K/uL Lymphocytes # (Auto) 0.74 1.2-3.4 K/uL Monocytes # (Auto) 0.88 0.11-0.59 K/uL Eosinophils # (Auto) 0.01 0-0.5 K/uL Basophils # (Auto) 0.01 0-0.2 K/uL RDW Standard Deviation 53.8 36.4-46.3 fL RDW Coefficient of Variation 15.9 11.5-14.5 % Immature Granulocyte % (Auto) 0.6 % Immature Granulocyte # (Auto) 0.06 0.00-0.02 K/uL Prothrombin Time 33.0 9.0-12.0 SECONDS Prothromb Time International Ratio 3.2 0.9-1.1 Sodium Level 132 136-145 mmol/L Potassium Level 4.6 3.5-5.1 mmol/L Chloride Level 102 98-107 mmol/L Carbon Dioxide Level 24 21-32 mmol/L Anion Gap 6.0 3-11 mmol/L Blood Urea Nitrogen 59 7-18 mg/dl Creatinine 2.33 0.60-1.40 mg/dl Est Creatinine Clear Calc Drug Dose 26.9 ml/min Estimated GFR () 27.7 Estimated GFR (Non- 23.9 BUN/Creatinine Ratio 25.5 10-20 Random Glucose 184 70-99 mg/dl Calcium Level 8.6 8.5-10.1 mg/dl Magnesium Level 2.2 1.8-2.4 mg/dl
[2017-07-30] MEDS: LATANOPROST 0.005% OP SOLN 2.5 ML BTL OPB SCH (20:25)
[2017-07-30] MEDS: PRAMIPEXOLE DIHYDROCHLORIDE 0.25MG TAB PO SCH (20:26)
[2017-07-31] VITALS (13 sets, daily range): BP systolic 160–182; BP diastolic 83–94; PULSE 71–96; TEMP 36.4–36.7; O2SAT 94–97
[2017-07-31] MEDS: LEVALBUTEROL 0.63MG/3 ML NEB INH SCH ×5 (01:35→20:30)
[2017-07-31] MEDS: LEVOTHYROXINE 75 MCG TAB PO SCH (06:11)
[2017-07-31 07:13] LABS: BASO % 0.2 %; BASO ABS # 0.02 K/uL (0-0.2); EOS % 0.1 %; EOS ABS # 0.01 K/uL (0-0.5); HEMATOCRIT 31.7 % (42-52); HEMOGLOBIN 10.5 g/dL (14.0-18.0); IG# 0.22 K/uL (0.00-0.02); LYMPH % 11.3 %; LYMPH ABS # 1.47 K/uL (1.2-3.4); MEAN CORPUSCULAR HEMOGLOBIN 30.8 pg (25-34); MEAN CORPUSCULAR HGB CONC 33.1 g/dl (32-36); MEAN PLATELET VOLUME 10.9 fL (7.4-10.4); MONO % 8.8 %; MONO ABS # 1.14 K/uL (0.11-0.59); NEUT % 77.9 %; NEUT ABS # 10.11 K/uL (1.4-6.5); PLATELET COUNT 203 K/uL (130-400); RED CELL DISTRIBUTION WIDTH CV 16.2 % (11.5-14.5); WHITE BLOOD COUNT 12.97 K/uL (4.8-10.8)
[2017-07-31 07:31] LABS: INR 2.1 (0.9-1.1)
[2017-07-31 07:38] LABS: CREATININE 2.18 mg/dl (0.60-1.40); POTASSIUM 4.8 mmol/L (3.5-5.1)
[2017-07-31] MEDS: DILTIAZEM HCL 30 MG TAB PO SCH ×3 (08:03→20:26)
[2017-07-31] MEDS: DOXYCYCLINE HYCLATE 100 MG CAP PO SCH ×2 (08:03→20:26)
[2017-07-31] MEDS: CYANOCOBALAMIN 500 MCG TAB (VIT B-12) PO SCH (08:04)
[2017-07-31] MEDS: CITALOPRAM 20 MG TAB PO SCH (08:04)
[2017-07-31] MEDS: ASPIRIN 81 MG ECTAB PO SCH (08:04)
[2017-07-31] MEDS: ALLOPURINOL 300 MG TAB PO SCH (08:04)
[2017-07-31] MEDS: BRINZOLAMIDE-BRIMONIDINE 1-0.2% OPH SUSP OPB SCH ×2 (08:05→20:27)
[2017-07-31] MEDS: TIOTROPIUM BROMIDE 5 PUFF/90 MCG INH INH SCH (08:05)
[2017-07-31] MEDS: BUDESONIDE/FORMOTEROL FUMARATE 160/4.5 60 PUFFS/INHALER INH SCH ×2 (08:05→20:25)
[2017-07-31] MEDS: AMOXICILLIN/CLAVULANATE TAB 500 MG TAB PO SCH ×2 (08:05→16:49)
[2017-07-31] MEDS: BOOST VANILLA PO SCH ×2 (09:04→20:45)
[2017-07-31] MEDS: FUROSEMIDE 40 MG TAB PO SCH (12:15)
[2017-07-31] MEDS: MONTELUKAST SOD 10 MG TAB PO SCH (16:50)
--- NOTE | 2017-07-31 18:14 | DIAGNOSTIC IMAGING REPORT ---
ULTRASOUND R VENOUS DOPPLER UPR EXT UNILAT CLINICAL HISTORY: Right upper extremity edema. COMPARISON STUDY: No previous studies for comparison. FINDINGS: No intraluminal thrombus was visualized. The internal jugular, subclavian, axillary, cephalic, brachial, basilic, radial, and ulnar veins were patent. Note is made of right forearm subcutaneous edema. IMPRESSION: No evidence of right upper extremity DVT Electronically signed by: Alfie Crabtree M.D. 07/31/2017 6:13 PM Dictated Date/Time: 07/31/2017 6:12 PM
--- NOTE | 2017-07-31 18:59 | Progress Note ---
Internal Med Progress Note Date of Service: Jul 31, 2017. Provider Documentation: SUBJECTIVE: sitting on the chair comfortably complains of swelling of right upper extremity has some pain when he flexes his hand afebrile sob and cough much improved but gets sob when ambulating OBJECTIVE: Vital Signs-as noted below Exam: General-alert and oriented. Not in distress ENT-Normal hearing Neck-no neck masses supple Lungs-cta b/l mild b/l wheezing no crackles Heart-S1 and S2 heard regular rate and rthym, no murmurs Abdomen-Soft bowel sounds present non tender no distension Extremities-chromic lower extremity present with chronic skin changes Neuro-alert and awake moves extremities Lab data as noted below. ASSESSMENT & PLAN: This is an 87-year-old male who presents with recurrent chronic obstructive pulmonary disease exacerbation. 1. Recurrent chronic obstructive pulmonary disease exacerbation. on iv steroids, nebs and abx continue to monitor appreciate pulmonary inputs. currently on po abx and po steroids improving continue same Non sustained v tach mostly from above cardiology changed Norvasc to diltiazem stable now will monitor. Acute renal failure and chronic kidney disease stage III. Baseline creatinine around 1.5 to 1.9 . Presented with creatinine of 2.1. Cr 2.1 today.Restarted lasix. will monitor Hyperkalemia mild k 5.2 resolved f/u labs in am History of diastolic congestive heart failure and chronic lower extremity edema, on Lasix, which we will continue.. will monitor Right upper extremity US no DVT to elevate the hand Hx of Aspergillus and GENESIS no need of tx at this time as per pulmonary History of paroxysmal atrial fibrillation, normal sinus rhythm on ekg, started on diltiazem.. INR 2.1 today. YOCASTA cpap q hs. History of hypothyroidism. Continue Synthroid. History of gout. Continue allopurinol. History of depression and anxiety. Continue Celexa. Deep venous thrombosis prophylaxis, on Coumadin. Code status. Do not resuscitate as per discussion with the patient and his . DISPOSITION: Monitor in tele floor. Social Service to help with discharge planning . PT/OT recommends rehab needs peer to peer for rehab approval Vital Signs: Date Time Temp Pulse Resp B/P (MAP) Pulse Ox O2 Delivery O2 Flow Rate FiO2 07/31/17 16:00 96 Room Air 07/31/17 15:05 36.6 84 20 182/84 (116) 95 Room Air 07/31/17 14:28 88 16 96 Room Air 07/31/17 12:00 95 Room Air 07/31/17 11:35 36.7 81 20 160/83 (108) 97 Room Air 07/31/17 08:09 36.4 82 24 168/83 (111) 95 Room Air 07/31/17 08:00 97 Room Air 07/31/17 07:00 96 16 97 Room Air 07/31/17 04:00 Room Air 07/31/17 03:45 36.4 76 22 171/85 (113) 97 Room Air 07/31/17 01:35 71 16 96 Room Air 07/31/17 00:00 Room Air 07/30/17 23:19 71 96 07/30/17 22:55 36.4 76 20 149/86 (107) 95 Room Air 07/30/17 20:00 Room Air 07/30/17 19:41 36.6 104 20 159/97 (117) 94 Room Air 07/30/17 18:58 88 16 96 Room Air Lab Results: Results Past 24 Hours Test 07/31/17 06:47 Range/Units White Blood Count 12.97 4.8-10.8 K/uL Red Blood Count 3.41 4.7-6.1 M/uL Hemoglobin 10.5 14.0-18.0 g/dL Hematocrit 31.7 42-52 % Mean Corpuscular Volume 93.0 80-100 fL Mean Corpuscular Hemoglobin 30.8 25-34 pg Mean Corpuscular Hemoglobin Concent 33.1 32-36 g/dl Platelet Count 203 130-400 K/uL Mean Platelet Volume 10.9 7.4-10.4 fL Neutrophils (%) (Auto) 77.9 % Lymphocytes (%) (Auto) 11.3 % Monocytes (%) (Auto) 8.8 % Eosinophils (%) (Auto) 0.1 % Basophils (%) (Auto) 0.2 % Neutrophils # (Auto) 10.11 1.4-6.5 K/uL Lymphocytes # (Auto) 1.47 1.2-3.4 K/uL Monocytes # (Auto) 1.14 0.11-0.59 K/uL Eosinophils # (Auto) 0.01 0-0.5 K/uL Basophils # (Auto) 0.02 0-0.2 K/uL RDW Standard Deviation 55.0 36.4-46.3 fL RDW Coefficient of Variation 16.2 11.5-14.5 % Immature Granulocyte % (Auto) 1.7 % Immature Granulocyte # (Auto) 0.22 0.00-0.02 K/uL Prothrombin Time 21.7 9.0-12.0 SECONDS Prothromb Time International Ratio 2.1 0.9-1.1 Sodium Level 135 136-145 mmol/L Potassium Level 4.8 3.5-5.1 mmol/L Chloride Level 104 98-107 mmol/L Carbon Dioxide Level 24 21-32 mmol/L Anion Gap 7.0 3-11 mmol/L Blood Urea Nitrogen 61 7-18 mg/dl Creatinine 2.18 0.60-1.40 mg/dl Est Creatinine Clear Calc Drug Dose 29.1 ml/min Estimated GFR () 30.0 Estimated GFR (Non- 25.9 BUN/Creatinine Ratio 28.0 10-20 Random Glucose 138 70-99 mg/dl Calcium Level 9.0 8.5-10.1 mg/dl Magnesium Level 2.4 1.8-2.4 mg/dl
[2017-07-31] MEDS ORDERED: WARFARIN SOD 2.5 MG TAB PO ONE (19:00)
[2017-07-31] MEDS: PRAMIPEXOLE DIHYDROCHLORIDE 0.25MG TAB PO SCH (20:23)
[2017-07-31] MEDS: LATANOPROST 0.005% OP SOLN 2.5 ML BTL OPB SCH (20:28)
[2017-08-01] VITALS (15 sets, daily range): BP systolic 136–167; BP diastolic 77–94; PULSE 78–98; TEMP 36.4–36.9; O2SAT 94–98
[2017-08-01] MEDS: LEVALBUTEROL 0.63MG/3 ML NEB INH SCH ×4 (01:35→18:55)
[2017-08-01] MEDS: LEVOTHYROXINE 75 MCG TAB PO SCH (06:15)
[2017-08-01 06:44] LABS: BASO % 0.1 %; BASO ABS # 0.01 K/uL (0-0.2); HEMATOCRIT 31.9 % (42-52); HEMOGLOBIN 10.4 g/dL (14.0-18.0); IG# 0.24 K/uL (0.00-0.02); LYMPH % 10.7 %; LYMPH ABS # 1.31 K/uL (1.2-3.4); MEAN CELL VOLUME 92.5 fL (80-100); MEAN CORPUSCULAR HEMOGLOBIN 30.1 pg (25-34); MEAN CORPUSCULAR HGB CONC 32.6 g/dl (32-36); MEAN PLATELET VOLUME 10.3 fL (7.4-10.4); MONO % 8.2 %; MONO ABS # 1.01 K/uL (0.11-0.59); NEUT ABS # 9.73 K/uL (1.4-6.5); NUCLEATED RED BLOOD CELL ABS 0.06 K/uL (0-0); PLATELET COUNT 200 K/uL (130-400); RED CELL DISTRIBUTION WIDTH CV 16.2 % (11.5-14.5); RED CELL DISTRIBUTION WIDTH SD 54.8 fL (36.4-46.3)
[2017-08-01 07:02] LABS: INR 1.7 (0.9-1.1)
[2017-08-01 07:18] LABS: CREATININE 2.05 mg/dl (0.60-1.40)
[2017-08-01 07:19] LABS: POTASSIUM 4.3 mmol/L (3.5-5.1)
[2017-08-01] MEDS: BOOST VANILLA PO SCH ×2 (07:54→20:29)
[2017-08-01] MEDS: BRINZOLAMIDE-BRIMONIDINE 1-0.2% OPH SUSP OPB SCH ×2 (07:54→20:31)
[2017-08-01] MEDS: BUDESONIDE/FORMOTEROL FUMARATE 160/4.5 60 PUFFS/INHALER INH SCH ×2 (07:54→20:30)
[2017-08-01] MEDS: AMOXICILLIN/CLAVULANATE TAB 500 MG TAB PO SCH ×2 (07:54→16:40)
[2017-08-01] MEDS: ASPIRIN 81 MG ECTAB PO SCH (07:55)
[2017-08-01] MEDS: CYANOCOBALAMIN 500 MCG TAB (VIT B-12) PO SCH (07:55)
[2017-08-01] MEDS: CITALOPRAM 20 MG TAB PO SCH (07:55)
[2017-08-01] MEDS: ALLOPURINOL 300 MG TAB PO SCH (07:55)
[2017-08-01] MEDS: FUROSEMIDE 40 MG TAB PO SCH (07:55)
[2017-08-01] MEDS: DILTIAZEM HCL 30 MG TAB PO SCH ×3 (07:56→20:30)
[2017-08-01] MEDS: DOXYCYCLINE HYCLATE 100 MG CAP PO SCH ×2 (07:56→20:30)
[2017-08-01] MEDS: TIOTROPIUM BROMIDE 5 PUFF/90 MCG INH INH SCH (09:37)
--- NOTE | 2017-08-01 10:06 | Progress Note ---
Internal Med Progress Note Date of Service: Aug 01, 2017. Provider Documentation: SUBJECTIVE: sitting on the chair comfortably has significant swelling of right hand afebrile sob and cough much improved eating ok moving bowels fine wants to go to rehab as he is not doing good with ambulation OBJECTIVE: Vital Signs-as noted below Exam: General-alert and oriented. Not in distress ENT-Normal hearing Neck-no neck masses supple Lungs-cta b/l mild b/l wheezing no crackles Heart-S1 and S2 heard regular rate and rthym, no murmurs Abdomen-Soft bowel sounds present non tender no distension Extremities-chromic lower extremity present with chronic skin changes Right hand edema present Neuro-alert and awake moves extremities Lab data as noted below. ASSESSMENT & PLAN: This is an 87-year-old male who presents with recurrent chronic obstructive pulmonary disease exacerbation. 1. Recurrent chronic obstructive pulmonary disease exacerbation. on iv steroids, nebs and abx continue to monitor appreciate pulmonary inputs. currently on po abx and po steroids improving will taper steroids Non sustained v tach mostly from above cardiology changed Norvasc to diltiazem stable now will monitor. Acute renal failure and chronic kidney disease stage III. Baseline creatinine around 1.5 to 1.9 . Presented with creatinine of 2.1. Cr 2.0 today.Restarted lasix. will monitor Hyperkalemia mild k 5.2 resolved f/u labs in am History of diastolic congestive heart failure and chronic lower extremity edema, on Lasix, which we will continue.. will monitor Right upper extremity edema more on right hand US no DVT to elevate the hand will do non vascular US of right hand-hematoma? consult ortho Hx of Aspergillus and GENESIS no need of tx at this time as per pulmonary History of paroxysmal atrial fibrillation, normal sinus rhythm on ekg, started on diltiazem.. INR 2.1 today. YOCASTA cpap q hs. History of hypothyroidism. Continue Synthroid. History of gout. Continue allopurinol. History of depression and anxiety. Continue Celexa. Deep venous thrombosis prophylaxis, on Coumadin. Code status. Do not resuscitate as per discussion with the patient and his . DISPOSITION: Monitor in tele floor. Social Service to help with discharge planning . PT/OT recommends rehab called [employer] for peer to peer- await call back needs peer to peer for rehab approval Vital Signs: Date Time Temp Pulse Resp B/P (MAP) Pulse Ox O2 Delivery O2 Flow Rate FiO2 08/01/17 08:00 96 Room Air 08/01/17 07:46 83 16 98 Room Air 08/01/17 07:32 36.8 98 22 161/79 (106) 97 Room Air 08/01/17 04:00 Room Air 08/01/17 03:40 36.6 78 19 166/83 (110) 96 Room Air 08/01/17 01:35 84 16 96 Room Air 08/01/17 00:00 36.8 79 19 155/88 (110) 96 Room Air 08/01/17 00:00 Room Air 07/31/17 22:15 73 97 07/31/17 20:00 Room Air 07/31/17 19:45 36.5 79 20 171/94 (119) 94 Room Air 07/31/17 19:15 91 16 97 Room Air 07/31/17 16:00 96 Room Air 07/31/17 15:05 36.6 84 20 182/84 (116) 95 Room Air 07/31/17 14:28 88 16 96 Room Air 07/31/17 12:00 95 Room Air 07/31/17 11:35 36.7 81 20 160/83 (108) 97 Room Air Lab Results: Results Past 24 Hours Test 08/01/17 06:26 Range/Units White Blood Count 12.30 4.8-10.8 K/uL Red Blood Count 3.45 4.7-6.1 M/uL Hemoglobin 10.4 14.0-18.0 g/dL Hematocrit 31.9 42-52 % Mean Corpuscular Volume 92.5 80-100 fL Mean Corpuscular Hemoglobin 30.1 25-34 pg Mean Corpuscular Hemoglobin Concent 32.6 32-36 g/dl Platelet Count 200 130-400 K/uL Mean Platelet Volume 10.3 7.4-10.4 fL Neutrophils (%) (Auto) 79.0 % Lymphocytes (%) (Auto) 10.7 % Monocytes (%) (Auto) 8.2 % Eosinophils (%) (Auto) 0.0 % Basophils (%) (Auto) 0.1 % Neutrophils # (Auto) 9.73 1.4-6.5 K/uL Lymphocytes # (Auto) 1.31 1.2-3.4 K/uL Monocytes # (Auto) 1.01 0.11-0.59 K/uL Eosinophils # (Auto) 0.00 0-0.5 K/uL Basophils # (Auto) 0.01 0-0.2 K/uL RDW Standard Deviation 54.8 36.4-46.3 fL RDW Coefficient of Variation 16.2 11.5-14.5 % Immature Granulocyte % (Auto) 2.0 % Immature Granulocyte # (Auto) 0.24 0.00-0.02 K/uL Nucleated RBC Absolute Count (auto) 0.06 0-0 K/uL Nucleated Red Blood Cells % 0.5 % Prothrombin Time 18.0 9.0-12.0 SECONDS Prothromb Time International Ratio 1.7 0.9-1.1 Sodium Level 136 136-145 mmol/L Potassium Level 4.3 3.5-5.1 mmol/L Chloride Level 105 98-107 mmol/L Carbon Dioxide Level 25 21-32 mmol/L Anion Gap 6.0 3-11 mmol/L Blood Urea Nitrogen 62 7-18 mg/dl Creatinine 2.05 0.60-1.40 mg/dl Est Creatinine Clear Calc Drug Dose 30.9 ml/min Estimated GFR () 32.3 Estimated GFR (Non- 27.9 BUN/Creatinine Ratio 30.4 10-20 Random Glucose 127 70-99 mg/dl Calcium Level 9.0 8.5-10.1 mg/dl Magnesium Level 2.3 1.8-2.4 mg/dl
--- NOTE | 2017-08-01 10:41 | Orthopedic Consultation ---
Orthopedic Consultation Date of Consultation: Aug 01, 2017. Attending Physician: Eamon William MD Reason for Consultation: right hand swelling History of Present Illness right hand swelling this week was there prior some improvement now slightly worse per patient Past Medical/Surgical History Medical Problems: (1) Acute kidney injury Status: Acute (2) Anemia Status: Acute (3) COPD exacerbation Status: Acute (4) Elevated troponin Status: Acute (5) Elevated troponin Status: Acute (6) SOB (shortness of breath) Status: Acute Social History Smoking Status: Never Smoker Drug Use: none Marital Status: Housing Status: lives with family Occupation Status: retired Allergies Coded Allergies: Erythromycin (Verified Allergy, Mild, RASH-Azithromycin & Biaxin OK, ) tolerates azithromycin and clarithromycin as outpatient Lisinopril (Verified Allergy, Mild, itching, 07/26/17) Home Medications Scheduled Allopurinol (Zyloprim), 1 TAB PO DAILY Amlodipine Besylate (Amlodipine Besylate), 5 MG PO QAM Aspirin (Aspirin EC Low Dose), 81 MG PO DAILY Budesonide/Formoterol Fumarate (Symbicort 160/4.5 Inhaler ), 2 PUFFS INH BID Citalopram (Citalopram Hydrobromide), 1 TAB PO DAILY Cyanocobalamin (Vitamin B12 500MCG), 500 MCG PO DAILY Furosemide (Furosemide), 40 MG PO DAILY Latanoprost (Latanoprost), 1 DROP OPB HS Levothyroxine Sodium (Synthroid), 75 MCG PO DAILY Montelukast Sodium (Singulair), 10 MG PO DAILY Pramipexole Dihydrochloride (Mirapex), 1 TAB PO HS Tiotropium Banner (Spiriva Handihaler), 1 CAP INH DAILY Warfarin Sod (Coumadin), 2.5 MG PO DAILY Scheduled PRN Albuterol Hfa (Ventolin Hfa), 2 PUFFS INH QID PRN for SOB/Wheezing Ipratropium-Albuterol (Duoneb), 3 ML INH QIDR PRN for SOB/Wheezing Current Inpatient Medications Current Inpatient Medications Medications (Trade) Dose Ordered Sig/Gilma Route Start Time Stop Time Status Last Admin Dose Admin Acetaminophen (Tylenol Tab) 650 mg Q4H PRN PO 07/26/17 15:15 08/25/17 15:14 Al Hydrox/Mg Hydrox/Simethicone (Maalox Max Susp) 15 ml Q4H PRN PO 07/26/17 15:15 08/25/17 15:14 Ondansetron HCl (Zofran Inj) 4 mg Q6H PRN IV 07/26/17 15:15 08/25/17 15:14 Nitroglycerin (Nitrostat Tab) 0.4 mg UD PRN SL 07/26/17 15:15 08/25/17 15:14 Polyethylene (Miralax Powder Packet) 17 gm DAILY PRN PO 07/26/17 15:15 08/25/17 15:14 Albuterol (Ventolin Hfa Inhaler) 2 puffs QID PRN INH 07/26/17 15:15 08/25/17 15:14 Allopurinol (Zyloprim Tab) 300 mg DAILY PO 07/27/17 09:00 08/26/17 08:59 08/01/17 07:55 300 MG Aspirin (Ecotrin Tab) 81 mg DAILY PO 07/27/17 09:00 08/26/17 08:59 08/01/17 07:55 81 MG Budesonide/ Formoterol Fumarate (Symbicort 160/ 4.5 Inh) 2 puffs BID INH 07/26/17 21:00 08/25/17 20:59 08/01/17 07:54 2 PUFFS Citalopram Hydrobromide (celeXA TAB) 20 mg DAILY PO 07/27/17 09:00 08/26/17 08:59 08/01/17 07:55 20 MG Cyanocobalamin (Vitamin B-12 Tab) 500 mcg DAILY PO 07/27/17 09:00 08/26/17 08:59 08/01/17 07:55 500 MCG Furosemide (Lasix Tab) 40 mg DAILY PO 07/27/17 09:00 08/26/17 08:59 Future hold 08/01/17 07:55 40 MG Latanoprost (Xalatan Oph Soln) 1 drops HS OPB 07/26/17 21:00 08/25/17 20:59 07/31/17 20:28 1 DROPS Levothyroxine Sodium (Synthroid Tab) 75 mcg DAILYBB PO 07/27/17 06:00 08/26/17 05:59 08/01/17 06:15 75 MCG Montelukast Sodium (Singulair Tab) 10 mg DAILY@1800 PO 07/26/17 18:00 08/25/17 17:59 07/31/17 16:50 10 MG Pramipexole Dihydrochloride (miraPEX TAB) 0.25 mg HS PO 07/26/17 21:00 08/25/17 20:59 07/31/17 20:23 0.25 MG Tiotropium [place] (Spiriva Handihaler Inhaler) 1 puff DAILY INH 07/27/17 09:00 08/26/17 08:59 08/01/17 09:37 1 PUFF Warfarin Sodium (Coumadin Tab) 2.5 mg DAILY@1600 PO 07/26/17 18:00 08/25/17 17:59 Future hold 07/27/17 16:18 2.5 MG Doxycycline Hyclate (Vibramycin Cap) 100 mg BID PO 07/26/17 21:00 08/02/17 20:59 08/01/17 07:56 100 MG Miscellaneous (Iv Fluids Completed) 1 ea PRN PRN N/A 07/26/17 18:30 07/26/18 18:29 Benzonatate (Tessalon Perles Cap) 100 mg TID PRN PO 07/26/17 20:15 08/25/17 20:14 07/27/17 07:52 100 MG Levalbuterol (Xopenex 0.63 Mg/ 3 Ml Neb) 0.63 mg Q6R INH 07/27/17 09:00 08/26/17 08:59 08/01/17 07:47 0.63 MG Menthol (Nice Berna) 1 berna PRN PRN PO 07/27/17 07:00 08/26/17 06:59 Diltiazem HCl (Cardizem Tab) 30 mg TID PO 07/27/17 14:00 08/26/17 13:59 08/01/17 07:56 30 MG Prednisone (PredniSONE TAB) 40 mg DAILY PO 07/28/17 09:00 08/27/17 08:59 08/01/17 07:56 40 MG Amoxicillin/ Clavulanate Potassium (Augmentin Tab) 500 mg BIDM PO 07/29/17 16:45 1/8/18 16:44 08/01/17 07:54 500 MG Enteral Nutritional Formula (Boost) 1 can BID PO 07/29/17 21:00 08/28/17 20:59 08/01/17 07:54 1 CAN Review of Systems Musculoskeletal: + swelling (right hand ecchymosis and moderate swelling few small breaks in skin but no erythema , skin not tense,motor sensory normal) Physical Exam Date Time Temp Pulse Resp B/P (MAP) Pulse Ox O2 Delivery O2 Flow Rate FiO2 08/01/17 08:00 96 Room Air 08/01/17 07:46 83 16 98 Room Air 08/01/17 07:32 36.8 98 22 161/79 (106) 97 Room Air 08/01/17 04:00 Room Air 08/01/17 03:40 36.6 78 19 166/83 (110) 96 Room Air 08/01/17 01:35 84 16 96 Room Air 08/01/17 00:00 36.8 79 19 155/88 (110) 96 Room Air 08/01/17 00:00 Room Air 07/31/17 22:15 73 97 07/31/17 20:00 Room Air 07/31/17 19:45 36.5 79 20 171/94 (119) 94 Room Air 07/31/17 19:15 91 16 97 Room Air 07/31/17 16:00 96 Room Air 07/31/17 15:05 36.6 84 20 182/84 (116) 95 Room Air 07/31/17 14:28 88 16 96 Room Air 07/31/17 12:00 95 Room Air 07/31/17 11:35 36.7 81 20 160/83 (108) 97 Room Air Extremities/Musculoskelatal: + pertinent finding (as above , exam c/w hematoma dorsum of hand moderate no skin tenting ) Skin: + pertinent finding (ecchymosis of right foerearm mild but discolored compared to left arm no erythema) Laboratory Results Last 24 Hours Test 08/01/17 06:26 White Blood Count 12.30 K/uL Red Blood Count 3.45 M/uL Hemoglobin 10.4 g/dL Hematocrit 31.9 % Mean Corpuscular Volume 92.5 fL Mean Corpuscular Hemoglobin 30.1 pg Mean Corpuscular Hemoglobin Concent 32.6 g/dl Platelet Count 200 K/uL Mean Platelet Volume 10.3 fL Neutrophils (%) (Auto) 79.0 % Lymphocytes (%) (Auto) 10.7 % Monocytes (%) (Auto) 8.2 % Eosinophils (%) (Auto) 0.0 % Basophils (%) (Auto) 0.1 % Neutrophils # (Auto) 9.73 K/uL Lymphocytes # (Auto) 1.31 K/uL Monocytes # (Auto) 1.01 K/uL Eosinophils # (Auto) 0.00 K/uL Basophils # (Auto) 0.01 K/uL RDW Standard Deviation 54.8 fL RDW Coefficient of Variation 16.2 % Immature Granulocyte % (Auto) 2.0 % Immature Granulocyte # (Auto) 0.24 K/uL Nucleated RBC Absolute Count (auto) 0.06 K/uL Nucleated Red Blood Cells % 0.5 % Prothrombin Time 18.0 SECONDS Prothromb Time International Ratio 1.7 Sodium Level 136 mmol/L Potassium Level 4.3 mmol/L Chloride Level 105 mmol/L Carbon Dioxide Level 25 mmol/L Anion Gap 6.0 mmol/L Blood Urea Nitrogen 62 mg/dl Creatinine 2.05 mg/dl Est Creatinine Clear Calc Drug Dose 30.9 ml/min Estimated GFR () 32.3 Estimated GFR (Non- 27.9 BUN/Creatinine Ratio 30.4 Random Glucose 127 mg/dl Calcium Level 9.0 mg/dl Magnesium Level 2.3 mg/dl Assessment & Plan right hand hematoma related to anticoagulants , INR improved from earlier in week. vaseline gauze and rayna wrap applied . observation ,ice and elevation.if hematoma progresses consider incision and drainage which would require complete reversal of anticoagulants
[2017-08-01] MEDS: NYSTATIN SUSP 500,000 U/5 ML UDC PO SCH ×2 (16:39→20:30)
[2017-08-01] MEDS: WARFARIN SOD 2.5 MG TAB PO SCH (16:40)
[2017-08-01] MEDS: MONTELUKAST SOD 10 MG TAB PO SCH (16:42)
[2017-08-01] MEDS: PRAMIPEXOLE DIHYDROCHLORIDE 0.25MG TAB PO SCH (20:30)
[2017-08-01] MEDS: LATANOPROST 0.005% OP SOLN 2.5 ML BTL OPB SCH (20:31)
[2017-08-02] VITALS (11 sets, daily range): BP systolic 135–178; BP diastolic 67–102; PULSE 69–93; TEMP 36.4–36.8; O2SAT 94–96
[2017-08-02] MEDS: LEVALBUTEROL 0.63MG/3 ML NEB INH SCH ×4 (01:20→19:07)
[2017-08-02] MEDS: LEVOTHYROXINE 75 MCG TAB PO SCH (06:28)
[2017-08-02 07:11] LABS: INR 1.8 (0.9-1.1)
[2017-08-02] MEDS: AMOXICILLIN/CLAVULANATE TAB 500 MG TAB PO SCH ×2 (08:00→08:29)
[2017-08-02] MEDS: BRINZOLAMIDE-BRIMONIDINE 1-0.2% OPH SUSP OPB SCH ×2 (08:26→21:19)
[2017-08-02] MEDS: BUDESONIDE/FORMOTEROL FUMARATE 160/4.5 60 PUFFS/INHALER INH SCH ×2 (08:26→21:18)
[2017-08-02] MEDS: NYSTATIN SUSP 500,000 U/5 ML UDC PO SCH ×4 (08:27→21:18)
[2017-08-02] MEDS: BOOST VANILLA PO SCH ×2 (08:27→21:19)
[2017-08-02] MEDS: CITALOPRAM 20 MG TAB PO SCH (08:28)
[2017-08-02] MEDS: FUROSEMIDE 40 MG TAB PO SCH (08:28)
[2017-08-02 08:29] LABS: BASO % 0.3 %; BASO ABS # 0.04 K/uL (0-0.2); HEMATOCRIT 33.2 % (42-52); HEMOGLOBIN 10.8 g/dL (14.0-18.0); IG# 0.49 K/uL (0.00-0.02); LYMPH % 14.5 %; LYMPH ABS # 1.84 K/uL (1.2-3.4); MEAN CELL VOLUME 93.5 fL (80-100); MEAN CORPUSCULAR HEMOGLOBIN 30.4 pg (25-34); MEAN CORPUSCULAR HGB CONC 32.5 g/dl (32-36); MEAN PLATELET VOLUME 10.3 fL (7.4-10.4); MONO % 7.6 %; MONO ABS # 0.97 K/uL (0.11-0.59); NEUT % 73.7 %; NEUT ABS # 9.38 K/uL (1.4-6.5); PLATELET COUNT 227 K/uL (130-400); RED CELL DISTRIBUTION WIDTH CV 16.3 % (11.5-14.5); RED CELL DISTRIBUTION WIDTH SD 55.7 fL (36.4-46.3); WHITE BLOOD COUNT 12.72 K/uL (4.8-10.8)
[2017-08-02] MEDS: ALLOPURINOL 300 MG TAB PO SCH (08:29)
[2017-08-02] MEDS: DILTIAZEM HCL 120 MG CAPCR PO SCH (08:29)
[2017-08-02] MEDS: DOXYCYCLINE HYCLATE 100 MG CAP PO SCH (08:29)
[2017-08-02] MEDS: ASPIRIN 81 MG ECTAB PO SCH (08:29)
[2017-08-02] MEDS: CYANOCOBALAMIN 500 MCG TAB (VIT B-12) PO SCH (08:29)
[2017-08-02] MEDS: TIOTROPIUM BROMIDE 5 PUFF/90 MCG INH INH SCH (08:30)
[2017-08-02 08:39] LABS: POTASSIUM 5.1 mmol/L (3.5-5.1)
--- NOTE | 2017-08-02 10:12 | Orthopedic Progress Note ---
Orthopedic Progress Note Date of Service Aug 02, 2017. Subjective Reports: feeling well, Denies: chest pain, SOB, nausea / vomiting, light headedness, calf pain Objective calves soft nontender, N/V intact, capillary refill less than 2 sec., A&O x3, toes mobile MODERATE ECCHYMOSIS MID FOREARM THROUGH THE RIGHT HAND AND FINGERS. HE HAS A SMALL SKIN TEAR ALONG THE FOREARM. ALSO SOME SKIN TEARING AT THE DORSUM OF THE HAND. SWELLING IS IMPROVING. NO OBVIOUS ERYTHEMA. NV INTACT. Date Time Temp Pulse Resp B/P (MAP) Pulse Ox O2 Delivery O2 Flow Rate FiO2 08/02/17 06:56 84 16 95 Room Air 08/02/17 04:00 Room Air 08/02/17 03:21 36.4 74 22 144/76 (98) 96 Room Air 08/02/17 01:20 79 16 95 Room Air 08/02/17 00:00 Room Air 08/01/17 23:06 36.9 80 18 147/78 (101) 95 CPAP 08/01/17 22:19 83 96 08/01/17 20:00 Room Air 08/01/17 18:55 88 16 95 Room Air 08/01/17 18:45 36.7 83 20 136/83 (100) 94 Room Air 08/01/17 16:00 96 Room Air 08/01/17 15:45 88 16 98 Room Air 08/01/17 15:25 36.5 80 20 167/77 (107) 96 Room Air 08/01/17 12:32 36.4 80 20 159/94 (115) 96 Room Air 08/01/17 12:00 95 Room Air Laboratory Results 24 Hours: Test 08/02/17 06:46 08/02/17 06:50 Prothromb Time International Ratio 1.8 Prothrombin Time 18.6 SECONDS White Blood Count 12.72 K/uL Red Blood Count 3.55 M/uL Hemoglobin 10.8 g/dL Hematocrit 33.2 % Mean Corpuscular Volume 93.5 fL Mean Corpuscular Hemoglobin 30.4 pg Mean Corpuscular Hemoglobin Concent 32.5 g/dl Platelet Count 227 K/uL Mean Platelet Volume 10.3 fL Neutrophils (%) (Auto) 73.7 % Lymphocytes (%) (Auto) 14.5 % Monocytes (%) (Auto) 7.6 % Eosinophils (%) (Auto) 0.0 % Basophils (%) (Auto) 0.3 % Neutrophils # (Auto) 9.38 K/uL Lymphocytes # (Auto) 1.84 K/uL Monocytes # (Auto) 0.97 K/uL Eosinophils # (Auto) 0.00 K/uL Basophils # (Auto) 0.04 K/uL Assessment & Plan Assessment: RIGHT UPPER EXTREMITY HEMATOMA Plan: CONTINUE ELEVATION AND OBSERVATION. NO NEED FOR SURGICAL INTERVENTION AT THIS TIME.
[2017-08-02] MEDS: WARFARIN SOD 2.5 MG TAB PO SCH (16:45)
[2017-08-02] MEDS: MONTELUKAST SOD 10 MG TAB PO SCH (16:46)
--- NOTE | 2017-08-02 17:23 | Progress Note ---
Internal Med Progress Note Date of Service: Aug 02, 2017. Provider Documentation: SUBJECTIVE: sitting on the chair comfortably swelling of right hand improving afebrile sob and cough much improved says but gets sob on exertion and says his cannot handle him at home and wants to be placed OBJECTIVE: Vital Signs-as noted below Exam: General-alert and oriented. Not in distress ENT-Normal hearing Neck-no neck masses supple Lungs-cta b/l mild b/l wheezing no crackles Heart-S1 and S2 heard regular rate and rthym, no murmurs Abdomen-Soft bowel sounds present non tender no distension Extremities-chromic lower extremity present with chronic skin changes Right hand edema present in wrap Neuro-alert and awake moves extremities Lab data as noted below. ASSESSMENT & PLAN: This is an 87-year-old male who presents with recurrent chronic obstructive pulmonary disease exacerbation.Sputum cx strep and Moraxella. Seen by pulmonary. respiratory status improved. During hospitalization had an episode of non sustained v tach. Seen by cardiology and changed Norvasc to diltiazem. pt /ot recommending rehab. Patient also wants to be placed as he thinks his is old and frail at home. Insurance denied placement. Did peer to peer but advised for appeal.Await placement. 1. Recurrent chronic obstructive pulmonary disease exacerbation. on iv steroids, nebs and abx continue to monitor appreciate pulmonary inputs. currently on po abx and po steroids improving tapering steroids will stop abx-received 7 day course stable Non sustained v tach mostly from above cardiology changed Norvasc to diltiazem stable now currently on po Cardizem cd 120mg daily will monitor Acute renal failure and chronic kidney disease stage III. Baseline creatinine around 1.5 to 1.9 . Presented with creatinine of 2.1. Cr 2.0 today.Restarted lasix. will monitor Hyperkalemia mild k 5.2 resolved renal diet f/u labs in am History of diastolic congestive heart failure and chronic lower extremity edema, on Lasix, which we will continue.. will monitor Right upper extremity edema more on right hand US no DVT to elevate the hand, wrapped mostly -hematoma? consult ortho appreciate inputs Hx of Aspergillus and GENESIS no need of tx at this time as per pulmonary History of paroxysmal atrial fibrillation, normal sinus rhythm on ekg, started on diltiazem.. INR 1.8 today. YOCASTA cpap q hs. History of hypothyroidism. Continue Synthroid. History of gout. Continue allopurinol. History of depression and anxiety. Continue Celexa. Deep venous thrombosis prophylaxis, on Coumadin. Code status. Do not resuscitate as per discussion with the patient and his . DISPOSITION: Transfer to medical floor. Social Service to help with discharge planning . PT/OT recommends rehab called [facility] insurance for peer to peer- recommends [facility] placement or out patient PT or to appeal with repeat pt/ot Vital Signs: Date Time Temp Pulse Resp B/P (MAP) Pulse Ox O2 Delivery O2 Flow Rate FiO2 08/02/17 16:00 94 Room Air 08/02/17 15:50 36.5 69 22 135/67 (89) 94 Room Air 08/02/17 14:08 90 16 96 Room Air 08/02/17 12:00 96 Room Air 08/02/17 11:53 36.5 85 20 163/101 (121) 95 Room Air 08/02/17 08:00 95 Room Air 08/02/17 07:30 36.8 93 20 178/102 (127) 96 Room Air 08/02/17 06:56 84 16 95 Room Air 08/02/17 04:00 Room Air 08/02/17 03:21 36.4 74 22 144/76 (98) 96 Room Air 08/02/17 01:20 79 16 95 Room Air 08/02/17 00:00 Room Air 08/01/17 23:06 36.9 80 18 147/78 (101) 95 CPAP 08/01/17 22:19 83 96 08/01/17 20:00 Room Air 08/01/17 18:55 88 16 95 Room Air Lab Results: Results Past 24 Hours Test 08/02/17 06:46 08/02/17 06:50 Range/Units Prothrombin Time 18.6 9.0-12.0 SECONDS Prothromb Time International Ratio 1.8 0.9-1.1 White Blood Count 12.72 4.8-10.8 K/uL Red Blood Count 3.55 4.7-6.1 M/uL Hemoglobin 10.8 14.0-18.0 g/dL Hematocrit 33.2 42-52 % Mean Corpuscular Volume 93.5 80-100 fL Mean Corpuscular Hemoglobin 30.4 25-34 pg Mean Corpuscular Hemoglobin Concent 32.5 32-36 g/dl Platelet Count 227 130-400 K/uL Mean Platelet Volume 10.3 7.4-10.4 fL Neutrophils (%) (Auto) 73.7 % Lymphocytes (%) (Auto) 14.5 % Monocytes (%) (Auto) 7.6 % Eosinophils (%) (Auto) 0.0 % Basophils (%) (Auto) 0.3 % Neutrophils # (Auto) 9.38 1.4-6.5 K/uL Lymphocytes # (Auto) 1.84 1.2-3.4 K/uL Monocytes # (Auto) 0.97 0.11-0.59 K/uL Eosinophils # (Auto) 0.00 0-0.5 K/uL Basophils # (Auto) 0.04 0-0.2 K/uL RDW Standard Deviation 55.7 36.4-46.3 fL RDW Coefficient of Variation 16.3 11.5-14.5 % Immature Granulocyte % (Auto) 3.9 % Immature Granulocyte # (Auto) 0.49 0.00-0.02 K/uL Nucleated RBC Absolute Count (auto) 0.10 0-0 K/uL Nucleated Red Blood Cells % 0.8 % Sodium Level 139 136-145 mmol/L Potassium Level 5.1 3.5-5.1 mmol/L Chloride Level 103 98-107 mmol/L Carbon Dioxide Level 28 21-32 mmol/L Anion Gap 7.0 3-11 mmol/L Blood Urea Nitrogen 66 7-18 mg/dl Creatinine 2.00 0.60-1.40 mg/dl Est Creatinine Clear Calc Drug Dose 31.6 ml/min Estimated GFR () 33.3 Estimated GFR (Non- 28.7 BUN/Creatinine Ratio 33.2 10-20 Random Glucose 124 70-99 mg/dl Calcium Level 9.0 8.5-10.1 mg/dl
[2017-08-02] MEDS: PRAMIPEXOLE DIHYDROCHLORIDE 0.25MG TAB PO SCH (21:17)
[2017-08-02] MEDS: LATANOPROST 0.005% OP SOLN 2.5 ML BTL OPB SCH (21:18)
[2017-08-03] VITALS (9 sets, daily range): BP systolic 139–148; BP diastolic 79–89; PULSE 58–84; TEMP 36.2–36.6; O2SAT 94–96
[2017-08-03] MEDS: ACETAMINOPHEN 325 MG TAB PO PRN ×2 (00:53→22:49)
[2017-08-03] MEDS: LEVALBUTEROL 0.63MG/3 ML NEB INH SCH ×4 (02:24→20:16)
[2017-08-03] MEDS: LEVOTHYROXINE 75 MCG TAB PO SCH (06:07)
[2017-08-03] MEDS: ASPIRIN 81 MG ECTAB PO SCH (08:32)
[2017-08-03] MEDS: CITALOPRAM 20 MG TAB PO SCH (08:32)
[2017-08-03] MEDS: FUROSEMIDE 40 MG TAB PO SCH (08:33)
[2017-08-03] MEDS: NYSTATIN SUSP 500,000 U/5 ML UDC PO SCH ×4 (08:33→20:29)
[2017-08-03] MEDS: CYANOCOBALAMIN 500 MCG TAB (VIT B-12) PO SCH (08:33)
[2017-08-03] MEDS: BUDESONIDE/FORMOTEROL FUMARATE 160/4.5 60 PUFFS/INHALER INH SCH ×2 (08:33→20:28)
[2017-08-03] MEDS: ALLOPURINOL 300 MG TAB PO SCH (08:33)
[2017-08-03] MEDS: DILTIAZEM HCL 120 MG CAPCR PO SCH (08:34)
[2017-08-03] MEDS: BRINZOLAMIDE-BRIMONIDINE 1-0.2% OPH SUSP OPB SCH ×2 (08:35→20:28)
--- NOTE | 2017-08-03 08:39 | Clinical Documentation Query ---
SANDIE Mora : CLINICAL DOCUMENTATION QUERY Patient is an 87 year old male admitted for treatment of COPD exacerbation. Pulmonary technology sales consultant documentation included "Continue to treat for COPD exacerbation and pneumonia for 5-7 days total". Sputum culture positive for Moraxella Catarrahalis and Strep.Pneumo. Has been treated with IV steroids, IV antibiotics, nebs, CPAP, supplemental O2, and sputum culture as above. In your clinical opinion is this patient being managed for: ( ) Pneumonia due to Moraxella Catarrahalis and/or Strep.Pneumo ( ) Not Agree ( ) Other explanation of clinical findings (Please Explain) ( ) Unable to determine (Please Define) ( ) Need to Discuss The medical record reflects the following clinical findings, treatment, and risk factors. Clinical Indicators: As above Treatment: As above Risk Factors: Steroid dependent COPD, history of aspiration, chronic sinusitis, obesity Please clarify and document your clinical opinion in the progress notes and discharge summary. Terms such as "probable", "suspected", "likely", "questionable", "possible", or "still to be ruled out" are acceptable. IF IN AGREEMENT, YOU MUST DOCUMENT ABOVE DIAGNOSTIC STATEMENT IN DAILY PROGRESS NOTES AND DISCHARGE SUMMARY. This document is not part of the patient's record. Thank You, Bob Waller, RENATA [phone]
[2017-08-03] MEDS: TIOTROPIUM BROMIDE 5 PUFF/90 MCG INH INH SCH (08:58)
[2017-08-03] MEDS: BOOST VANILLA PO SCH ×2 (09:00→20:29)
[2017-08-03 13:08] LABS: CREATININE 1.94 mg/dl (0.60-1.40); POTASSIUM 4.4 mmol/L (3.5-5.1)
--- NOTE | 2017-08-03 15:23 | Progress Note ---
Medicine Progress Note Date & Time of Visit: Aug 03, 2017 at 15:14. Subjective seen resting in bed, comfortable at bedside states he feels ok today breathing continues to improve but still dyspneic on exertion has even more difficulty utilizing right arm and hand due to hematoma denies other symptoms Objective Last 8 Hrs Date Time Temp Pulse Resp B/P (MAP) Pulse Ox O2 Delivery O2 Flow Rate FiO2 08/03/17 14:58 36.4 78 18 143/80 (101) 94 Room Air 08/03/17 13:45 81 16 96 Room Air 08/03/17 09:35 95 Room Air Physical Exam: General- oriented x 3, not in distress, speaks in sentences with no effort Head- atraumatic Eyes- EOMI, anicteric ENT- oropharynx clear Neck- supple, no JVD, no adenopathy, no thyromegaly Lungs- clear breath sounds bilaterally, no wheezing/rales Heart- regular rhythm; no murmur, normal rate Abdomen- normal bowel sounds, soft, nontender, non distended Extremities- grade 1 lower leg edema, no calf tenderness; peripheral pulses intact Neuro- alert, oriented x 3; no gross focal deficits Skin- warm & dry Laboratory Results: Last 24 Hours Test 08/03/17 12:13 Prothrombin Time 20.7 SECONDS Prothromb Time International Ratio 2.0 Sodium Level 136 mmol/L Potassium Level 4.4 mmol/L Chloride Level 103 mmol/L Carbon Dioxide Level 28 mmol/L Anion Gap 5.0 mmol/L Blood Urea Nitrogen 59 mg/dl Creatinine 1.94 mg/dl Est Creatinine Clear Calc Drug Dose 32.5 ml/min Estimated GFR () 34.6 Estimated GFR (Non- 29.8 BUN/Creatinine Ratio 30.4 Random Glucose 145 mg/dl Calcium Level 9.0 mg/dl Assessment & Plan 87 year old with COPD, Diastolic CHF, CKD 3, Chronic Lower Leg Edema... COPD EXACERBATION was on iv steroids, nebs and abx Pulmonary consulted -- completed 1 week course of Doxycycline PO -- continue Prednisone taper, Nebs NON SUSTAINED VENTRICULAR TACHYCARDIA -- likely from #1 -- cardiology changed Norvasc to diltiazem stable now ACUTE RENAL FAILURE ON CKD 3 Baseline creatinine around 1.5 to 1.9 On admission, crea 2.1 Lasix resumed Crea 1.9 -- monitor History of diastolic congestive heart failure Chronic lower extremity edema -- on Lasix -- monitor Right upper extremity edema more on right hand US no DVT to elevate the hand, wrapped mostly -hematoma consult ortho appreciate inputs Hyperkalemia, resolved mild k 5.2 -> 4.4 Hx of Aspergillus and GENESIS no need of tx at this time as per pulmonary History of paroxysmal atrial fibrillation, normal sinus rhythm on ekg -- on Diltiazem INR 2.0 YOCASTA cpap q hs. History of hypothyroidism. Continue Synthroid. History of gout. Continue allopurinol. History of depression and anxiety. Continue Celexa. Deep venous thrombosis prophylaxis, on Coumadin. Code status. Do not resuscitate as per discussion with the patient and his . DISPOSITION: Social Service to help with discharge planning . PT/OT recommends rehab family appealing with Insurance Company Current Inpatient Medications: Current Inpatient Medications Medications (Trade) Dose Ordered Sig/Gilma Route Start Time Stop Time Status Last Admin Dose Admin Acetaminophen (Tylenol Tab) 650 mg Q4H PRN PO 07/26/17 15:15 08/25/17 15:14 08/03/17 00:53 650 MG Al Hydrox/Mg Hydrox/Simethicone (Maalox Max Susp) 15 ml Q4H PRN PO 07/26/17 15:15 08/25/17 15:14 Ondansetron HCl (Zofran Inj) 4 mg Q6H PRN IV 07/26/17 15:15 08/25/17 15:14 Nitroglycerin (Nitrostat Tab) 0.4 mg UD PRN SL 07/26/17 15:15 08/25/17 15:14 Polyethylene (Miralax Powder Packet) 17 gm DAILY PRN PO 07/26/17 15:15 08/25/17 15:14 Albuterol (Ventolin Hfa Inhaler) 2 puffs QID PRN INH 07/26/17 15:15 08/25/17 15:14 Allopurinol (Zyloprim Tab) 300 mg DAILY PO 07/27/17 09:00 08/26/17 08:59 08/03/17 08:33 300 MG Aspirin (Ecotrin Tab) 81 mg DAILY PO 07/27/17 09:00 08/26/17 08:59 08/03/17 08:32 81 MG Budesonide/ Formoterol Fumarate (Symbicort 160/ 4.5 Inh) 2 puffs BID INH 07/26/17 21:00 08/25/17 20:59 08/03/17 08:33 2 PUFFS Citalopram Hydrobromide (celeXA TAB) 20 mg DAILY PO 07/27/17 09:00 08/26/17 08:59 08/03/17 08:32 20 MG Cyanocobalamin (Vitamin B-12 Tab) 500 mcg DAILY PO 07/27/17 09:00 08/26/17 08:59 08/03/17 08:33 500 MCG Furosemide (Lasix Tab) 40 mg DAILY PO 07/27/17 09:00 08/26/17 08:59 Future hold 08/03/17 08:33 40 MG Latanoprost (Xalatan Oph Soln) 1 drops HS OPB 07/26/17 21:00 08/25/17 20:59 08/02/17 21:18 1 DROPS Levothyroxine Sodium (Synthroid Tab) 75 mcg DAILYBB PO 07/27/17 06:00 08/26/17 05:59 08/03/17 06:07 75 MCG Montelukast Sodium (Singulair Tab) 10 mg DAILY@1800 PO 07/26/17 18:00 08/25/17 17:59 08/02/17 16:46 10 MG Pramipexole Dihydrochloride (miraPEX TAB) 0.25 mg HS PO 07/26/17 21:00 08/25/17 20:59 08/02/17 21:17 0.25 MG Tiotropium [place] (Spiriva Handihaler Inhaler) 1 puff DAILY INH 07/27/17 09:00 08/26/17 08:59 08/03/17 08:58 1 PUFF Warfarin Sodium (Coumadin Tab) 2.5 mg DAILY@1600 PO 07/26/17 18:00 08/25/17 17:59 Future hold 08/02/17 16:45 2.5 MG Miscellaneous (Iv Fluids Completed) 1 ea PRN PRN N/A 07/26/17 18:30 07/26/18 18:29 Benzonatate (Tessalon Perles Cap) 100 mg TID PRN PO 07/26/17 20:15 08/25/17 20:14 07/27/17 07:52 100 MG Levalbuterol (Xopenex 0.63 Mg/ 3 Ml Neb) 0.63 mg Q6R INH 07/27/17 09:00 08/26/17 08:59 08/03/17 13:45 0.63 MG Menthol (Nice Berna) 1 berna PRN PRN PO 07/27/17 07:00 08/26/17 06:59 Enteral Nutritional Formula (Boost) 1 can BID PO 07/29/17 21:00 08/28/17 20:59 08/02/17 21:19 1 CAN Nystatin (Mycostatin Susp) 5 ml QID PO 08/01/17 17:00 08/11/17 16:59 08/03/17 12:36 5 ML Prednisone (PredniSONE TAB) 30 mg Taper DAILY PO 08/02/17 09:00 08/11/17 08:59 08/03/17 08:32 30 MG Diltiazem HCl (Cardizem Cd Cap) 120 mg QAM PO 08/02/17 09:00 09/01/17 08:59 08/03/17 08:34 120 MG
[2017-08-03] MEDS: WARFARIN SOD 2.5 MG TAB PO SCH (16:17)
[2017-08-03] MEDS: MONTELUKAST SOD 10 MG TAB PO SCH (17:36)
[2017-08-03] MEDS: LATANOPROST 0.005% OP SOLN 2.5 ML BTL OPB SCH (20:28)
[2017-08-03] MEDS: PRAMIPEXOLE DIHYDROCHLORIDE 0.25MG TAB PO SCH (20:29)
[2017-08-04] VITALS (7 sets, daily range): BP systolic 120–152; BP diastolic 76–88; PULSE 67–92; TEMP 36.2–36.4; O2SAT 94–97
[2017-08-04] MEDS: LEVALBUTEROL 0.63MG/3 ML NEB INH SCH ×4 (02:12→21:06)
[2017-08-04] MEDS: LEVOTHYROXINE 75 MCG TAB PO SCH (05:57)
[2017-08-04] MEDS: ACETAMINOPHEN 325 MG TAB PO PRN (06:15)
[2017-08-04 07:56] LABS: INR 2.2 (0.9-1.1)
[2017-08-04 08:15] LABS: CALCIUM 8.7 mg/dl (8.5-10.1); CREATININE 1.83 mg/dl (0.60-1.40); POTASSIUM 3.9 mmol/L (3.5-5.1)
[2017-08-04] MEDS: CYANOCOBALAMIN 500 MCG TAB (VIT B-12) PO SCH (08:26)
[2017-08-04] MEDS: ALLOPURINOL 300 MG TAB PO SCH (08:26)
[2017-08-04] MEDS: ASPIRIN 81 MG ECTAB PO SCH (08:26)
[2017-08-04] MEDS: DILTIAZEM HCL 120 MG CAPCR PO SCH (08:26)
[2017-08-04] MEDS: CITALOPRAM 20 MG TAB PO SCH (08:27)
[2017-08-04] MEDS: FUROSEMIDE 40 MG TAB PO SCH (08:27)
[2017-08-04] MEDS: BUDESONIDE/FORMOTEROL FUMARATE 160/4.5 60 PUFFS/INHALER INH SCH ×2 (08:27→21:37)
[2017-08-04] MEDS: NYSTATIN SUSP 500,000 U/5 ML UDC PO SCH ×4 (08:27→21:38)
[2017-08-04] MEDS: TIOTROPIUM BROMIDE 5 PUFF/90 MCG INH INH SCH (08:28)
[2017-08-04] MEDS: BRINZOLAMIDE-BRIMONIDINE 1-0.2% OPH SUSP OPB SCH ×2 (08:29→21:37)
[2017-08-04] MEDS: BOOST VANILLA PO SCH ×2 (09:00→21:37)
[2017-08-04] MEDS: WARFARIN SOD 2.5 MG TAB PO SCH (15:53)
--- NOTE | 2017-08-04 16:53 | Progress Note ---
Medicine Progress Note Date & Time of Visit: Aug 04, 2017 at 16:48. Subjective patient seen sitting up in chair, watching TV states he feels fine overall today breathing and cough continue to improve legs are swollen, feels heavy no other symptoms Objective Last 8 Hrs Date Time Temp Pulse Resp B/P (MAP) Pulse Ox O2 Delivery O2 Flow Rate FiO2 08/04/17 15:40 36.2 92 18 148/78 (101) 94 Room Air 08/04/17 14:12 67 16 95 Room Air 08/04/17 09:12 Room Air Physical Exam: General- oriented x 3, not in distress, speaks in sentences with no effort Eyes- anicteric ENT- oropharynx clear Neck- supple, no JVD Lungs- clear breath sounds BL, no wheezing/rales Heart- regular rhythm; no murmur, normal rate Abdomen- normal bowel sounds, soft, nontender, non distended Extremities- grade 1 lower leg edema, no calf tenderness; peripheral pulses intact Neuro- alert, oriented x 3; no gross focal deficits Skin- warm & dry Laboratory Results: Last 24 Hours Test 08/04/17 07:31 Prothrombin Time 22.9 SECONDS Prothromb Time International Ratio 2.2 Sodium Level 139 mmol/L Potassium Level 3.9 mmol/L Chloride Level 105 mmol/L Carbon Dioxide Level 28 mmol/L Anion Gap 7.0 mmol/L Blood Urea Nitrogen 60 mg/dl Creatinine 1.83 mg/dl Est Creatinine Clear Calc Drug Dose 34.5 ml/min Estimated GFR () 37.1 Estimated GFR (Non- 32.0 BUN/Creatinine Ratio 32.8 Random Glucose 118 mg/dl Calcium Level 8.7 mg/dl Assessment & Plan 87 year old with COPD, Diastolic CHF, CKD 3, Chronic Lower Leg Edema... COPD EXACERBATION COMMUNITY ACQUIRED PNEUMONIA, MORAXELLA AND STREP was on iv steroids, nebs and antibiotics Pulmonary consulted -- completed 1 week course of Doxycycline PO and Augmentin -- continue Prednisone taper, Nebs NON SUSTAINED VENTRICULAR TACHYCARDIA -- likely from #1 -- cardiology changed Norvasc to diltiazem stable now ACUTE RENAL FAILURE ON CKD 3 Baseline creatinine around 1.5 to 1.9 On admission, crea 2.1 Lasix resumed Crea 1.9 -- monitor History of diastolic congestive heart failure Chronic lower extremity edema -- on Lasix -- monitor Right upper extremity edema more on right hand US no DVT to elevate the hand, wrapped mostly -hematoma consult ortho appreciate inputs Hyperkalemia, resolved mild k 5.2 -> 4.4 Hx of Aspergillus and GENESIS no need of tx at this time as per pulmonary History of paroxysmal atrial fibrillation, normal sinus rhythm on ekg -- on Diltiazem and coumadin INR 2.2 YOCASTA cpap q hs. History of hypothyroidism. Continue Synthroid. History of gout. Continue allopurinol. History of depression and anxiety. Continue Celexa. Deep venous thrombosis prophylaxis, on Coumadin. Code status. Do not resuscitate as per discussion with the patient and his . DISPOSITION: Social Service to help with discharge planning . PT/OT recommends rehab family appealing with Insurance Company Current Inpatient Medications: Current Inpatient Medications Medications (Trade) Dose Ordered Sig/Gilma Route Start Time Stop Time Status Last Admin Dose Admin Acetaminophen (Tylenol Tab) 650 mg Q4H PRN PO 07/26/17 15:15 08/25/17 15:14 08/04/17 06:15 650 MG Al Hydrox/Mg Hydrox/Simethicone (Maalox Max Susp) 15 ml Q4H PRN PO 07/26/17 15:15 08/25/17 15:14 Ondansetron HCl (Zofran Inj) 4 mg Q6H PRN IV 07/26/17 15:15 08/25/17 15:14 Nitroglycerin (Nitrostat Tab) 0.4 mg UD PRN SL 07/26/17 15:15 08/25/17 15:14 Polyethylene (Miralax Powder Packet) 17 gm DAILY PRN PO 07/26/17 15:15 08/25/17 15:14 Albuterol (Ventolin Hfa Inhaler) 2 puffs QID PRN INH 07/26/17 15:15 08/25/17 15:14 Allopurinol (Zyloprim Tab) 300 mg DAILY PO 07/27/17 09:00 08/26/17 08:59 08/04/17 08:26 300 MG Aspirin (Ecotrin Tab) 81 mg DAILY PO 07/27/17 09:00 08/26/17 08:59 08/04/17 08:26 81 MG Budesonide/ Formoterol Fumarate (Symbicort 160/ 4.5 Inh) 2 puffs BID INH 07/26/17 21:00 08/25/17 20:59 08/04/17 08:27 2 PUFFS Citalopram Hydrobromide (celeXA TAB) 20 mg DAILY PO 07/27/17 09:00 08/26/17 08:59 08/04/17 08:27 20 MG Cyanocobalamin (Vitamin B-12 Tab) 500 mcg DAILY PO 07/27/17 09:00 08/26/17 08:59 08/04/17 08:26 500 MCG Furosemide (Lasix Tab) 40 mg DAILY PO 07/27/17 09:00 08/26/17 08:59 Future hold 08/04/17 08:27 40 MG Latanoprost (Xalatan Oph Soln) 1 drops HS OPB 07/26/17 21:00 08/25/17 20:59 08/03/17 20:28 1 DROPS Levothyroxine Sodium (Synthroid Tab) 75 mcg DAILYBB PO 07/27/17 06:00 08/26/17 05:59 08/04/17 05:57 75 MCG Montelukast Sodium (Singulair Tab) 10 mg DAILY@1800 PO 07/26/17 18:00 08/25/17 17:59 08/03/17 17:36 10 MG Pramipexole Dihydrochloride (miraPEX TAB) 0.25 mg HS PO 07/26/17 21:00 08/25/17 20:59 08/03/17 20:29 0.25 MG Tiotropium [place] (Spiriva Handihaler Inhaler) 1 puff DAILY INH 07/27/17 09:00 08/26/17 08:59 08/04/17 08:28 1 PUFF Warfarin Sodium (Coumadin Tab) 2.5 mg DAILY@1600 PO 07/26/17 18:00 08/25/17 17:59 Future hold 08/04/17 15:53 2.5 MG Miscellaneous (Iv Fluids Completed) 1 ea PRN PRN N/A 07/26/17 18:30 07/26/18 18:29 Benzonatate (Tessalon Perles Cap) 100 mg TID PRN PO 07/26/17 20:15 08/25/17 20:14 07/27/17 07:52 100 MG Levalbuterol (Xopenex 0.63 Mg/ 3 Ml Neb) 0.63 mg Q6R INH 07/27/17 09:00 08/26/17 08:59 08/04/17 14:12 0.63 MG Menthol (Nice Berna) 1 berna PRN PRN PO 07/27/17 07:00 08/26/17 06:59 Enteral Nutritional Formula (Boost) 1 can BID PO 07/29/17 21:00 08/28/17 20:59 08/03/17 20:29 1 CAN Nystatin (Mycostatin Susp) 5 ml QID PO 08/01/17 17:00 08/11/17 16:59 08/04/17 13:52 5 ML Prednisone (PredniSONE TAB) 30 mg Taper DAILY PO 08/02/17 09:00 08/11/17 08:59 08/04/17 08:26 30 MG Diltiazem HCl (Cardizem Cd Cap) 120 mg QAM PO 08/02/17 09:00 09/01/17 08:59 08/04/17 08:26 120 MG
[2017-08-04] MEDS: MONTELUKAST SOD 10 MG TAB PO SCH (17:37)
[2017-08-04] MEDS ORDERED: FUROSEMIDE 20 MG TAB PO ONE (19:00)
[2017-08-04] MEDS: LATANOPROST 0.005% OP SOLN 2.5 ML BTL OPB SCH (21:37)
[2017-08-04] MEDS: PRAMIPEXOLE DIHYDROCHLORIDE 0.25MG TAB PO SCH (21:38)
[2017-08-05] VITALS (9 sets, daily range): BP systolic 126–153; BP diastolic 81–93; PULSE 60–85; TEMP 36.3–36.5; O2SAT 93–96
[2017-08-05] MEDS: LEVALBUTEROL 0.63MG/3 ML NEB INH SCH ×4 (01:27→20:00)
[2017-08-05] MEDS: ACETAMINOPHEN 325 MG TAB PO PRN (03:13)
[2017-08-05] MEDS: LEVOTHYROXINE 75 MCG TAB PO SCH (06:15)
[2017-08-05] MEDS: ALLOPURINOL 300 MG TAB PO SCH (08:21)
[2017-08-05] MEDS: ASPIRIN 81 MG ECTAB PO SCH (08:21)
[2017-08-05] MEDS: CYANOCOBALAMIN 500 MCG TAB (VIT B-12) PO SCH (08:21)
[2017-08-05] MEDS: CITALOPRAM 20 MG TAB PO SCH (08:22)
[2017-08-05] MEDS: FUROSEMIDE 40 MG TAB PO SCH (08:22)
[2017-08-05] MEDS: TIOTROPIUM BROMIDE 5 PUFF/90 MCG INH INH SCH (08:23)
[2017-08-05] MEDS: DILTIAZEM HCL 120 MG CAPCR PO SCH (08:23)
[2017-08-05] MEDS: BUDESONIDE/FORMOTEROL FUMARATE 160/4.5 60 PUFFS/INHALER INH SCH ×2 (08:23→20:45)
[2017-08-05] MEDS: NYSTATIN SUSP 500,000 U/5 ML UDC PO SCH ×4 (08:24→20:46)
[2017-08-05] MEDS: BRINZOLAMIDE-BRIMONIDINE 1-0.2% OPH SUSP OPB SCH ×2 (08:24→20:47)
[2017-08-05 08:37] LABS: CALCIUM 8.8 mg/dl (8.5-10.1); CREATININE 1.88 mg/dl (0.60-1.40)
[2017-08-05] MEDS: BOOST VANILLA PO SCH (09:00)
[2017-08-05 09:40] LABS: POTASSIUM 3.9 mmol/L (3.5-5.1)
[2017-08-05 13:18] LABS: INR 2.6 (0.9-1.1)
[2017-08-05] MEDS: WARFARIN SOD 2.5 MG TAB PO SCH (15:37)
[2017-08-05] MEDS ORDERED: BOOST VANILLA PO SCH (17:00)
[2017-08-05] MEDS ORDERED: CHLORASEPTIC 1.4% SOLN 180 ML BTL MT PRN (17:45)
[2017-08-05] MEDS: MONTELUKAST SOD 10 MG TAB PO SCH (18:46)
[2017-08-05] MEDS: LATANOPROST 0.005% OP SOLN 2.5 ML BTL OPB SCH (20:46)
[2017-08-05] MEDS: PRAMIPEXOLE DIHYDROCHLORIDE 0.25MG TAB PO SCH (20:47)
--- NOTE | 2017-08-05 21:01 | Progress Note ---
Medicine Progress Note Date & Time of Visit: Aug 05, 2017 at 20:59. Subjective seen sitting up in bed breathing is ok denies sputum no chest pain no leg pain no other symptoms Objective Last 8 Hrs Date Time Temp Pulse Resp B/P (MAP) Pulse Ox O2 Delivery O2 Flow Rate FiO2 08/05/17 20:01 83 16 96 Room Air 08/05/17 16:46 96 Room Air 08/05/17 15:27 36.4 75 18 147/84 (105) 94 Room Air 08/05/17 14:19 74 15 96 Room Air Physical Exam: General- oriented x 3, not in distress, speaks in sentences with no effort Neck- no JVD Lungs- mild occasional rhonchi no wheeze Heart- regular rhythm; no murmur, normal rate Abdomen- normal bowel sounds, soft, nontender, non distended Extremities- grade 1 lower leg edema, no calf tenderness; peripheral pulses intact Neuro- alert, oriented x 3; no gross focal deficits Skin- warm & dry Laboratory Results: Last 24 Hours Test 08/05/17 07:30 08/05/17 09:05 Prothrombin Time 26.5 SECONDS Prothromb Time International Ratio 2.6 Sodium Level 140 mmol/L Potassium Level mmol/L 3.9 mmol/L Chloride Level 104 mmol/L Carbon Dioxide Level 30 mmol/L Anion Gap 6.0 mmol/L Blood Urea Nitrogen 64 mg/dl Creatinine 1.88 mg/dl Est Creatinine Clear Calc Drug Dose 33.5 ml/min Estimated GFR () 35.9 Estimated GFR (Non- 31.0 BUN/Creatinine Ratio 33.8 Random Glucose 117 mg/dl Calcium Level 8.8 mg/dl Chemistry Specimen Hemolysis Assessment & Plan 87 year old with COPD, Diastolic CHF, CKD 3, Chronic Lower Leg Edema... COPD EXACERBATION COMMUNITY ACQUIRED PNEUMONIA, MORAXELLA AND STREP was on iv steroids, nebs and antibiotics Pulmonary consulted -- completed 1 week course of Doxycycline PO and Augmentin -- continue Prednisone taper, Nebs NON SUSTAINED VENTRICULAR TACHYCARDIA -- likely from #1 -- cardiology changed Norvasc to diltiazem stable now ACUTE RENAL FAILURE ON CKD 3 Baseline creatinine around 1.5 to 1.9 On admission, crea 2.1 Lasix resumed Crea 1.8 -- monitor History of diastolic congestive heart failure Chronic lower extremity edema -- on Lasix -- monitor Right upper extremity edema more on right hand US no DVT to elevate the hand, wrapped mostly -hematoma consult ortho appreciate inputs Hyperkalemia, resolved mild k 5.2 -> 4.4 Hx of Aspergillus and GENESIS no need of tx at this time as per pulmonary History of paroxysmal atrial fibrillation, normal sinus rhythm on ekg -- on Diltiazem and coumadin INR 2.6 [facility]A cpap q hs. History of hypothyroidism. Continue Synthroid. History of gout. Continue allopurinol. History of depression and anxiety. Continue Celexa. Deep venous thrombosis prophylaxis, on Coumadin. Code status. Do not resuscitate as per discussion with the patient and his . DISPOSITION: Social Service to help with discharge planning . PT/OT recommends rehab family appealing with Insurance Company Current Inpatient Medications: Current Inpatient Medications Medications (Trade) Dose Ordered Sig/Gilma Route Start Time Stop Time Status Last Admin Dose Admin Acetaminophen (Tylenol Tab) 650 mg Q4H PRN PO 07/26/17 15:15 08/25/17 15:14 08/05/17 03:13 650 MG Al Hydrox/Mg Hydrox/Simethicone (Maalox Max Susp) 15 ml Q4H PRN PO 07/26/17 15:15 08/25/17 15:14 Ondansetron HCl (Zofran Inj) 4 mg Q6H PRN IV 07/26/17 15:15 08/25/17 15:14 Nitroglycerin (Nitrostat Tab) 0.4 mg UD PRN SL 07/26/17 15:15 08/25/17 15:14 Polyethylene (Miralax Powder Packet) 17 gm DAILY PRN PO 07/26/17 15:15 08/25/17 15:14 Albuterol (Ventolin Hfa Inhaler) 2 puffs QID PRN INH 07/26/17 15:15 08/25/17 15:14 Allopurinol (Zyloprim Tab) 300 mg DAILY PO 07/27/17 09:00 08/26/17 08:59 08/05/17 08:21 300 MG Aspirin (Ecotrin Tab) 81 mg DAILY PO 07/27/17 09:00 08/26/17 08:59 08/05/17 08:21 81 MG Budesonide/ Formoterol Fumarate (Symbicort 160/ 4.5 Inh) 2 puffs BID INH 07/26/17 21:00 08/25/17 20:59 08/05/17 20:45 2 PUFFS Citalopram Hydrobromide (celeXA TAB) 20 mg DAILY PO 07/27/17 09:00 08/26/17 08:59 08/05/17 08:22 20 MG Cyanocobalamin (Vitamin B-12 Tab) 500 mcg DAILY PO 07/27/17 09:00 08/26/17 08:59 08/05/17 08:21 500 MCG Furosemide (Lasix Tab) 40 mg DAILY PO 07/27/17 09:00 08/26/17 08:59 Future hold 08/05/17 08:22 40 MG Latanoprost (Xalatan Oph Soln) 1 drops HS OPB 07/26/17 21:00 08/25/17 20:59 08/05/17 20:46 1 DROPS Levothyroxine Sodium (Synthroid Tab) 75 mcg DAILYBB PO 07/27/17 06:00 08/26/17 05:59 08/05/17 06:15 75 MCG Montelukast Sodium (Singulair Tab) 10 mg DAILY@1800 PO 07/26/17 18:00 08/25/17 17:59 08/05/17 18:46 10 MG Pramipexole Dihydrochloride (miraPEX TAB) 0.25 mg HS PO 07/26/17 21:00 08/25/17 20:59 08/05/17 20:47 0.25 MG Tiotropium [place] (Spiriva Handihaler Inhaler) 1 puff DAILY INH 07/27/17 09:00 08/26/17 08:59 08/05/17 08:23 1 PUFF Warfarin Sodium (Coumadin Tab) 2.5 mg DAILY@1600 PO 07/26/17 18:00 08/25/17 17:59 Future hold 08/05/17 15:37 2.5 MG Miscellaneous (Iv Fluids Completed) 1 ea PRN PRN N/A 07/26/17 18:30 07/26/18 18:29 Benzonatate (Tessalon Perles Cap) 100 mg TID PRN PO 07/26/17 20:15 08/25/17 20:14 07/27/17 07:52 100 MG Levalbuterol (Xopenex 0.63 Mg/ 3 Ml Neb) 0.63 mg Q6R INH 07/27/17 09:00 08/26/17 08:59 08/05/17 20:00 0.63 MG Menthol (Nice Berna) 1 berna PRN PRN PO 07/27/17 07:00 08/26/17 06:59 Nystatin (Mycostatin Susp) 5 ml QID PO 08/01/17 17:00 08/11/17 16:59 08/05/17 20:46 5 ML Prednisone (PredniSONE TAB) 20 mg Taper DAILY PO 08/02/17 09:00 08/11/17 08:59 08/05/17 08:21 20 MG Diltiazem HCl (Cardizem Cd Cap) 120 mg QAM PO 08/02/17 09:00 09/01/17 08:59 08/05/17 08:23 120 MG Phenol (Chloraseptic 1.4% [place]) 2 sprays Q2H PRN MT 08/05/17 17:45 09/04/17 17:44
[2017-08-06] VITALS (8 sets, daily range): BP systolic 131–144; BP diastolic 70–87; PULSE 82–96; TEMP 36.6–37; O2SAT 94–97
[2017-08-06] MEDS: LEVALBUTEROL 0.63MG/3 ML NEB INH SCH ×4 (01:59→19:39)
[2017-08-06] MEDS: ACETAMINOPHEN 325 MG TAB PO PRN (02:15)
[2017-08-06] MEDS: LEVOTHYROXINE 75 MCG TAB PO SCH (06:22)
[2017-08-06 06:35] LABS: INR 2.7 (0.9-1.1)
[2017-08-06 06:42] LABS: CALCIUM 8.6 mg/dl (8.5-10.1); CREATININE 2.06 mg/dl (0.60-1.40); POTASSIUM 3.6 mmol/L (3.5-5.1)
[2017-08-06] MEDS: BUDESONIDE/FORMOTEROL FUMARATE 160/4.5 60 PUFFS/INHALER INH SCH ×2 (09:04→20:56)
[2017-08-06] MEDS: CYANOCOBALAMIN 500 MCG TAB (VIT B-12) PO SCH (09:04)
[2017-08-06] MEDS: ALLOPURINOL 300 MG TAB PO SCH (09:04)
[2017-08-06] MEDS: DILTIAZEM HCL 120 MG CAPCR PO SCH (09:04)
[2017-08-06] MEDS: BRINZOLAMIDE-BRIMONIDINE 1-0.2% OPH SUSP OPB SCH ×2 (09:04→20:56)
[2017-08-06] MEDS: ASPIRIN 81 MG ECTAB PO SCH (09:04)
[2017-08-06] MEDS: FUROSEMIDE 40 MG TAB PO SCH (09:04)
[2017-08-06] MEDS: CITALOPRAM 20 MG TAB PO SCH (09:04)
[2017-08-06] MEDS: NYSTATIN SUSP 500,000 U/5 ML UDC PO SCH ×5 (09:05→20:57)
[2017-08-06] MEDS: TIOTROPIUM BROMIDE 5 PUFF/90 MCG INH INH SCH (09:06)
[2017-08-06] MEDS: WARFARIN SOD 2.5 MG TAB PO SCH (16:38)
[2017-08-06] MEDS: MONTELUKAST SOD 10 MG TAB PO SCH (18:07)
--- NOTE | 2017-08-06 19:11 | Progress Note ---
Medicine Progress Note Date & Time of Visit: Aug 06, 2017 at 19:09. Subjective seen sitting up in bed, not in distress, comfortable states he feels fine denies dyspnea cough improving no chest pain denies other symptoms Objective Last 8 Hrs Date Time Temp Pulse Resp B/P (MAP) Pulse Ox O2 Delivery O2 Flow Rate FiO2 08/06/17 16:00 Room Air 08/06/17 15:09 36.8 86 18 131/70 (90) 95 08/06/17 14:08 82 16 97 Room Air Physical Exam: General- oriented x 3, not in distress, speaks in sentences with no effort Neck- no JVD Lungs- mild occasional rhonchi on the left base, no wheeze Heart- regular rhythm; no murmur, normal rate Abdomen- normal bowel sounds, soft, nontender, non distended Extremities- grade 1 lower leg edema, no calf tenderness; peripheral pulses intact Neuro- alert, oriented x 3; no gross focal deficits Skin- warm & dry Laboratory Results: Last 24 Hours Test 08/06/17 05:52 Prothrombin Time 28.2 SECONDS Prothromb Time International Ratio 2.7 Sodium Level 141 mmol/L Potassium Level 3.6 mmol/L Chloride Level 106 mmol/L Carbon Dioxide Level 28 mmol/L Anion Gap 8.0 mmol/L Blood Urea Nitrogen 60 mg/dl Creatinine 2.06 mg/dl Est Creatinine Clear Calc Drug Dose 30.5 ml/min Estimated GFR () 32.1 Estimated GFR (Non- 27.7 BUN/Creatinine Ratio 29.0 Random Glucose 122 mg/dl Calcium Level 8.6 mg/dl Assessment & Plan 87 year old with COPD, Diastolic CHF, CKD 3, Chronic Lower Leg Edema... COPD EXACERBATION COMMUNITY ACQUIRED PNEUMONIA, MORAXELLA AND STREP was on iv steroids, nebs and antibiotics Pulmonary consulted -- completed 1 week course of Doxycycline PO and Augmentin -- continue Prednisone taper, Nebs NON SUSTAINED VENTRICULAR TACHYCARDIA -- likely from #1 -- cardiology changed Norvasc to diltiazem stable now ACUTE RENAL FAILURE ON CKD 3 Baseline creatinine around 1.5 to 1.9 On admission, crea 2.1 Lasix resumed Crea 2.0 monitor while on lasix History of diastolic congestive heart failure Chronic lower extremity edema -- on Lasix -- monitor may need additional Lasix in AM Right upper extremity edema more on right hand US no DVT to elevate the hand, wrapped mostly -hematoma consult ortho appreciate inputs -- improving Hyperkalemia, resolved mild k 5.2 -> 4.4 Hx of Aspergillus and GENESIS no need of tx at this time as per pulmonary History of paroxysmal atrial fibrillation, normal sinus rhythm on ekg -- on Diltiazem and coumadin INR 2.7 YOCASTA cpap q hs. History of hypothyroidism. Continue Synthroid. History of gout. Continue allopurinol. History of depression and anxiety. Continue Celexa. Deep venous thrombosis prophylaxis, on Coumadin. Code status. Do not resuscitate as per discussion with the patient and his . DISPOSITION: Social Service to help with discharge planning . PT/OT recommends rehab family appealing with Insurance Company Continued [facility] stay due to: inadequate oral pain control Current Inpatient Medications: Current Inpatient Medications Medications (Trade) Dose Ordered Sig/Gilma Route Start Time Stop Time Status Last Admin Dose Admin Acetaminophen (Tylenol Tab) 650 mg Q4H PRN PO 07/26/17 15:15 08/25/17 15:14 08/06/17 02:15 650 MG Al Hydrox/Mg Hydrox/Simethicone (Maalox Max Susp) 15 ml Q4H PRN PO 07/26/17 15:15 08/25/17 15:14 Ondansetron HCl (Zofran Inj) 4 mg Q6H PRN IV 07/26/17 15:15 08/25/17 15:14 Nitroglycerin (Nitrostat Tab) 0.4 mg UD PRN SL 07/26/17 15:15 08/25/17 15:14 Polyethylene (Miralax Powder Packet) 17 gm DAILY PRN PO 07/26/17 15:15 08/25/17 15:14 Albuterol (Ventolin Hfa Inhaler) 2 puffs QID PRN INH 07/26/17 15:15 08/25/17 15:14 Allopurinol (Zyloprim Tab) 300 mg DAILY PO 07/27/17 09:00 08/26/17 08:59 08/06/17 09:04 300 MG Aspirin (Ecotrin Tab) 81 mg DAILY PO 07/27/17 09:00 08/26/17 08:59 08/06/17 09:04 81 MG Budesonide/ Formoterol Fumarate (Symbicort 160/ 4.5 Inh) 2 puffs BID INH 07/26/17 21:00 08/25/17 20:59 08/06/17 09:04 2 PUFFS Citalopram Hydrobromide (celeXA TAB) 20 mg DAILY PO 07/27/17 09:00 08/26/17 08:59 08/06/17 09:04 20 MG Cyanocobalamin (Vitamin B-12 Tab) 500 mcg DAILY PO 07/27/17 09:00 08/26/17 08:59 08/06/17 09:04 500 MCG Furosemide (Lasix Tab) 40 mg DAILY PO 07/27/17 09:00 08/26/17 08:59 Future hold 08/06/17 09:04 40 MG Latanoprost (Xalatan Oph Soln) 1 drops HS OPB 07/26/17 21:00 08/25/17 20:59 08/05/17 20:46 1 DROPS Levothyroxine Sodium (Synthroid Tab) 75 mcg DAILYBB PO 07/27/17 06:00 08/26/17 05:59 08/06/17 06:22 75 MCG Montelukast Sodium (Singulair Tab) 10 mg DAILY@1800 PO 07/26/17 18:00 08/25/17 17:59 08/06/17 18:07 10 MG Pramipexole Dihydrochloride (miraPEX TAB) 0.25 mg HS PO 07/26/17 21:00 08/25/17 20:59 08/05/17 20:47 0.25 MG Tiotropium [place] (Spiriva Handihaler Inhaler) 1 puff DAILY INH 07/27/17 09:00 08/26/17 08:59 08/06/17 09:06 1 PUFF Warfarin Sodium (Coumadin Tab) 2.5 mg DAILY@1600 PO 07/26/17 18:00 08/25/17 17:59 Future hold 08/06/17 16:38 2.5 MG Miscellaneous (Iv Fluids Completed) 1 ea PRN PRN N/A 07/26/17 18:30 07/26/18 18:29 Benzonatate (Tessalon Perles Cap) 100 mg TID PRN PO 07/26/17 20:15 08/25/17 20:14 07/27/17 07:52 100 MG Levalbuterol (Xopenex 0.63 Mg/ 3 Ml Neb) 0.63 mg Q6R INH 07/27/17 09:00 08/26/17 08:59 08/06/17 14:07 0.63 MG Menthol (Nice Berna) 1 berna PRN PRN PO 07/27/17 07:00 08/26/17 06:59 Nystatin (Mycostatin Susp) 5 ml QID PO 08/01/17 17:00 08/11/17 16:59 08/06/17 16:40 5 ML Prednisone (PredniSONE TAB) 20 mg Taper DAILY PO 08/02/17 09:00 08/11/17 08:59 08/06/17 09:03 20 MG Diltiazem HCl (Cardizem Cd Cap) 120 mg QAM PO 08/02/17 09:00 09/01/17 08:59 08/06/17 09:04 120 MG Phenol (Chloraseptic 1.4% [place]) 2 sprays Q2H PRN MT 08/05/17 17:45 09/04/17 17:44
[2017-08-06] MEDS: LATANOPROST 0.005% OP SOLN 2.5 ML BTL OPB SCH (20:56)
[2017-08-06] MEDS: PRAMIPEXOLE DIHYDROCHLORIDE 0.25MG TAB PO SCH (20:57)
[2017-08-07] MEDS: ACETAMINOPHEN 325 MG TAB PO PRN (00:38)
[2017-08-07 01:49] VITALS: PULSE 79; O2SAT 96
[2017-08-07 06:58] LABS: INR 2.9 (0.9-1.1)
[2017-08-07 07:11] VITALS: PULSE 83; O2SAT 95
[2017-08-07] MEDS: LEVALBUTEROL 0.63MG/3 ML NEB INH SCH ×3 (07:11→14:19)
[2017-08-07 07:19] LABS: CALCIUM 8.7 mg/dl (8.5-10.1); CREATININE 1.87 mg/dl (0.60-1.40); POTASSIUM 3.5 mmol/L (3.5-5.1)
[2017-08-07 07:58] VITALS: BP 166/93; PULSE 83; TEMP 36.6; O2SAT 96
[2017-08-07] MEDS: LEVOTHYROXINE 75 MCG TAB PO SCH (09:21)
[2017-08-07] MEDS: BUDESONIDE/FORMOTEROL FUMARATE 160/4.5 60 PUFFS/INHALER INH SCH (09:21)
[2017-08-07] MEDS: ALLOPURINOL 300 MG TAB PO SCH (09:21)
[2017-08-07] MEDS: CYANOCOBALAMIN 500 MCG TAB (VIT B-12) PO SCH (09:21)
[2017-08-07] MEDS: ASPIRIN 81 MG ECTAB PO SCH (09:21)
[2017-08-07] MEDS: FUROSEMIDE 40 MG TAB PO SCH (09:22)
[2017-08-07] MEDS: CITALOPRAM 20 MG TAB PO SCH (09:22)
[2017-08-07] MEDS: DILTIAZEM HCL 120 MG CAPCR PO SCH (09:22)
[2017-08-07] MEDS: BRINZOLAMIDE-BRIMONIDINE 1-0.2% OPH SUSP OPB SCH (09:22)
[2017-08-07] MEDS: NYSTATIN SUSP 500,000 U/5 ML UDC PO SCH ×2 (09:23→12:29)
[2017-08-07] MEDS: TIOTROPIUM BROMIDE 5 PUFF/90 MCG INH INH SCH (09:24)
[2017-08-07 11:22] VITALS: BP 166/93; TEMP 36.6; O2SAT 96
--- NOTE | 2017-08-07 13:01 | Progress Note ---
Medicine Progress Note Date & Time of Visit: Aug 07, 2017 at 12:57. Subjective patient seen resting in bedside chair, comfortable states he feels fine overall breathing continues to improve, still has occasional cough no chest pain no leg pain reports dyspnea with exertion no other symptoms Objective Last 8 Hrs Date Time Temp Pulse Resp B/P (MAP) Pulse Ox O2 Delivery O2 Flow Rate FiO2 08/07/17 11:22 36.6 83 19 96 Room Air 08/07/17 08:00 Room Air 08/07/17 07:58 36.6 83 19 166/93 (117) 96 Room Air 08/07/17 07:11 83 18 95 Room Air Physical Exam: General- oriented x 3, not in distress, speaks in sentences with no effort Neck- no JVD Lungs- mild occasional rhonchi bilateral bases, no wheeze Heart- regular rhythm; no murmur, normal rate Abdomen- normal bowel sounds, soft, nontender, non distended Extremities- grade 1 lower leg edema, no calf tenderness; peripheral pulses intact Neuro- alert, oriented x 3; no gross focal deficits Skin- warm & dry Laboratory Results: Last 24 Hours Test 08/07/17 06:22 Prothrombin Time 29.4 SECONDS Prothromb Time International Ratio 2.9 Sodium Level 140 mmol/L Potassium Level 3.5 mmol/L Chloride Level 106 mmol/L Carbon Dioxide Level 27 mmol/L Anion Gap 8.0 mmol/L Blood Urea Nitrogen 62 mg/dl Creatinine 1.87 mg/dl Est Creatinine Clear Calc Drug Dose 33.7 ml/min Estimated GFR () 36.1 Estimated GFR (Non- 31.2 BUN/Creatinine Ratio 33.2 Random Glucose 111 mg/dl Calcium Level 8.7 mg/dl Assessment & Plan 87 year old with COPD, Diastolic CHF, CKD 3, Chronic Lower Leg Edema... COPD EXACERBATION COMMUNITY ACQUIRED PNEUMONIA, MORAXELLA AND STREP was on iv steroids, nebs and antibiotics Pulmonary consulted -- completed 1 week course of Doxycycline PO and Augmentin -- continue Prednisone taper, Nebs NON SUSTAINED VENTRICULAR TACHYCARDIA -- likely from #1 -- cardiology changed Norvasc to diltiazem stable since Diltiazem started ACUTE RENAL FAILURE ON CKD 3 Baseline creatinine around 1.5 to 1.9 On admission, crea 2.1 Lasix resumed Crea 1.8 monitor while on lasix HISTORY OF DIASTOLIC CHF Chronic lower extremity edema -- on Lasix -- repeat CXR today Right upper extremity edema more on right hand US no DVT to elevate the hand, wrapped mostly -hematoma consult ortho appreciate inputs -- improving Hyperkalemia, resolved mild k 5.2 -> 4.4 Hx of Aspergillus and GENESIS no need of tx at this time as per pulmonary History of paroxysmal atrial fibrillation, normal sinus rhythm on ekg -- on Diltiazem and coumadin INR 2.9 hold coumadin, repeat INR tomorrow YOCASTA cpap q hs. History of hypothyroidism. Continue Synthroid. History of gout. Continue allopurinol. History of depression and anxiety. Continue Celexa. Deep venous thrombosis prophylaxis, on Coumadin. INR 2.9 Code status. Do not resuscitate as per discussion with the patient and his . DISPOSITION: Social Service to help with discharge planning . PT/OT recommends rehab family appealing with Insurance Company Continued [facility] stay due to: inadequate oral pain control Current Inpatient Medications: Current Inpatient Medications Medications (Trade) Dose Ordered Sig/Gilma Route Start Time Stop Time Status Last Admin Dose Admin Acetaminophen (Tylenol Tab) 650 mg Q4H PRN PO 07/26/17 15:15 08/25/17 15:14 08/07/17 00:38 650 MG Al Hydrox/Mg Hydrox/Simethicone (Maalox Max Susp) 15 ml Q4H PRN PO 07/26/17 15:15 08/25/17 15:14 Ondansetron HCl (Zofran Inj) 4 mg Q6H PRN IV 07/26/17 15:15 08/25/17 15:14 Nitroglycerin (Nitrostat Tab) 0.4 mg UD PRN SL 07/26/17 15:15 08/25/17 15:14 Polyethylene (Miralax Powder Packet) 17 gm DAILY PRN PO 07/26/17 15:15 08/25/17 15:14 Albuterol (Ventolin Hfa Inhaler) 2 puffs QID PRN INH 07/26/17 15:15 08/25/17 15:14 Allopurinol (Zyloprim Tab) 300 mg DAILY PO 07/27/17 09:00 08/26/17 08:59 08/07/17 09:21 300 MG Aspirin (Ecotrin Tab) 81 mg DAILY PO 07/27/17 09:00 08/26/17 08:59 08/07/17 09:21 81 MG Budesonide/ Formoterol Fumarate (Symbicort 160/ 4.5 Inh) 2 puffs BID INH 07/26/17 21:00 08/25/17 20:59 08/07/17 09:21 2 PUFFS Citalopram Hydrobromide (celeXA TAB) 20 mg DAILY PO 07/27/17 09:00 08/26/17 08:59 08/07/17 09:22 20 MG Cyanocobalamin (Vitamin B-12 Tab) 500 mcg DAILY PO 07/27/17 09:00 08/26/17 08:59 08/07/17 09:21 500 MCG Furosemide (Lasix Tab) 40 mg DAILY PO 07/27/17 09:00 08/26/17 08:59 Future hold 08/07/17 09:22 40 MG Latanoprost (Xalatan Oph Soln) 1 drops HS OPB 07/26/17 21:00 08/25/17 20:59 08/06/17 20:56 1 DROPS Levothyroxine Sodium (Synthroid Tab) 75 mcg DAILYBB PO 07/27/17 06:00 08/26/17 05:59 08/07/17 09:21 75 MCG Montelukast Sodium (Singulair Tab) 10 mg DAILY@1800 PO 07/26/17 18:00 08/25/17 17:59 08/06/17 18:07 10 MG Pramipexole Dihydrochloride (miraPEX TAB) 0.25 mg HS PO 07/26/17 21:00 08/25/17 20:59 08/06/17 20:57 0.25 MG Tiotropium [place] (Spiriva Handihaler Inhaler) 1 puff DAILY INH 07/27/17 09:00 08/26/17 08:59 08/07/17 09:24 1 PUFF Miscellaneous (Iv Fluids Completed) 1 ea PRN PRN N/A 07/26/17 18:30 07/26/18 18:29 Benzonatate (Tessalon Perles Cap) 100 mg TID PRN PO 07/26/17 20:15 08/25/17 20:14 07/27/17 07:52 100 MG Levalbuterol (Xopenex 0.63 Mg/ 3 Ml Neb) 0.63 mg Q6R INH 07/27/17 09:00 08/26/17 08:59 08/07/17 07:11 0.63 MG Menthol (Nice Berna) 1 berna PRN PRN PO 07/27/17 07:00 08/26/17 06:59 Nystatin (Mycostatin Susp) 5 ml QID PO 08/01/17 17:00 08/11/17 16:59 08/07/17 12:29 5 ML Prednisone (PredniSONE TAB) 20 mg Taper DAILY PO 08/02/17 09:00 08/11/17 08:59 08/07/17 09:21 20 MG Diltiazem HCl (Cardizem Cd Cap) 120 mg QAM PO 08/02/17 09:00 09/01/17 08:59 08/07/17 09:22 120 MG Phenol (Chloraseptic 1.4% [place]) 2 sprays Q2H PRN MT 08/05/17 17:45 09/04/17 17:44 Warfarin Sodium (Coumadin Tab) 2.5 mg DAILY@1600 PO 08/08/17 16:00 08/25/17 17:59 UNV
[2017-08-07] MEDS ORDERED: XPNINS INH (14:05)
[2017-08-07] MEDS ORDERED: BRIMONIDINE OPB (14:05)
[2017-08-07] MEDS ORDERED: CHLL MT (14:05)
[2017-08-07] MEDS ORDERED: NYSS5 PO (14:05)
[2017-08-07] MEDS ORDERED: BENZ100C7 PO (14:05)
[2017-08-07] MEDS ORDERED: CMD/25 PO (14:05)
[2017-08-07] MEDS ORDERED: BRINZOLAMIDE OPB (14:05)
[2017-08-07] MEDS ORDERED: PRED10TA PO ×2 (14:05→14:14)
[2017-08-07] MEDS ORDERED: DILT-202 PO (14:05)
--- NOTE | 2017-08-07 14:14 | Discharge Instructions ---
Discharge Instructions Date of Service Aug 07, 2017. Admission Reason for Admission: Copd Exacerbation Discharge Discharge Diagnosis / Problem: COPD EXACERBATION SECONDARY TO PNEUMONIA Discharge Goals Goal(s): Diagnostic testing, Therapeutic intervention Activity Recommendations Activity Level: Assistance Required Therapies: Physical Therapy, Occupational Therapy . Additional Information Patient informed of condition: Yes Advance Directives: No (UNKNOWN) DNR: Yes Level of Care: Skilled Communicable Disease: No Prognosis: Improving Instructions / Follow-Up Instructions / Follow-Up MONITOR VOLUME STATUS, LEG EDEMA AND TITRATE LASIX ACCORDINGLY. MONITOR RENAL FUNCTION (CREA) REGULARLY WHILE ON LASIX. (BASELINE CREA 1.5 TO 1.9). MONITOR INR DAILY AND TITRATE COUMADIN ACCORDINGLY. AFTER PREDNISONE 10MG PO DAILY, RESUME PATIENT'S USUAL PREDNISONE 5MG PO DAILY. PATIENT NEEDS CPAP AT HS. MONITOR RIGHT ARM/HAND HEMATOMA. PLEASE REFER TO ACCOMPANYING HOSPITAL DISCHARGE SUMMARY FOR FURTHER DETAILS. FOLLOW UP WITH PRIMARY CARE PHYSICIAN IN 1 WEEK. Speech Therapy Discharge Instructions * It is recommended that patient continues SLIPPERY regular diet. The patient should choose foods that are moist, loose, slippery; avoid foods that are doughy, dry, pasty, thick; use condiments liberally to make foods slippery. The patient should also comply with the following aspiration precautions: sit FULLY UPRIGHT for all meals and remain upright 20-30 minutes after eating a meal; take SMALL sips of liquids and use an effortful swallow with each swallow of liquids; swallow twice with each bite/sip. It is also recommended that the patient complete oral hygiene to minimize oral bacteria being aspirated in saliva/secretions/thin liquids. This includes cleaning ALL surfaces of mouth with toothbrush and toothpaste PRIOR TO oral intake in the morning, after meals, and before bed at night. Current Hospital Diet Patient's current hospital diet: Low Sodium Diet (2gm Na) Discharge Diet Recommended Diet: AHA Diet (Heart Healthy) (SLIPPERY MOIST FOOD) Procedures Procedures Performed: CHEST XRAY, UPPER EXTREMITY US Pending Studies Studies pending at discharge: yes List of pending studies: PLEASE REFER TO INSTRUCTIONS ABOVE AND ACCOMPANYING DISCHARGE SUMMARY. Physician Orders On Transfer Special Precautions: MONITOR VOLUME STATUS, LEG EDEMA AND TITRATE LASIX ACCORDINGLY. MONITOR RENAL FUNCTION (CREA) REGULARLY WHILE ON LASIX. (BASELINE CREA 1.5 TO 1.9). MONITOR INR DAILY AND TITRATE COUMADIN ACCORDINGLY. AFTER PREDNISONE 10MG PO DAILY, RESUME PATIENT'S USUAL PREDNISONE 5MG PO DAILY. PATIENT NEEDS CPAP AT HS. MONITOR RIGHT ARM/HAND HEMATOMA. PLEASE REFER TO ACCOMPANYING HOSPITAL DISCHARGE SUMMARY FOR FURTHER DETAILS. FOLLOW UP WITH PRIMARY CARE PHYSICIAN IN 1 WEEK. Speech Therapy Discharge Instructions * It is recommended that patient continues SLIPPERY regular diet. The patient should choose foods that are moist, loose, slippery; avoid foods that are doughy, dry, pasty, thick; use condiments liberally to make foods slippery. The patient should also comply with the following aspiration precautions: sit FULLY UPRIGHT for all meals and remain upright 20-30 minutes after eating a meal; take SMALL sips of liquids and use an effortful swallow with each swallow of liquids; swallow twice with each bite/sip. It is also recommended that the patient complete oral hygiene to minimize oral bacteria being aspirated in saliva/secretions/thin liquids. This includes cleaning ALL surfaces of mouth with toothbrush and toothpaste PRIOR TO oral intake in the morning, after meals, and before bed at night. Medical Emergencies . Who to Call and When: Medical Emergencies: If at any time you feel your situation is an emergency, please call 911 immediately. . Non-Emergent Contact Non-Emergency issues call your: Primary Care Provider Call Non-Emergent contact if: you have a fever, your pain is not controlled, you have any medication questions . Past History Medical & Surgical History: (1) Elevated troponin (2) Acute kidney injury (3) COPD (chronic obstructive pulmonary disease) (4) Colon cancer (5) Glaucoma (6) YOCASTA (obstructive sleep apnea) (7) Diastolic congestive heart failure (8) COPD exacerbation (9) CKD (chronic kidney disease) stage 3, GFR 30-59 ml/min (10) Paroxysmal atrial fibrillation (11) Hypothyroidism (12) Gout (13) Restless leg syndrome (14) Anxiety (15) Depression (16) History of colon resection (17) H/O hernia repair (18) S/P TKR (total knee replacement) (19) History of cardiac cath . "Provider Documentation" section prepared by Walter Knox. . Core Measure Problem Core Measures: None
--- NOTE | 2017-08-07 14:18 | Discharge Summary ---
Discharge Summary Date of Service Aug 07, 2017. Discharge Summary Admission Date: Jul 30, 2017 at 17:24 Discharge Date: Aug 07, 2017 Discharge Disposition: group home facility Principal Diagnosis: COPD EXACERBATION COMMUNITY ACQUIRED PNEUMONIA, MORAXELLA AND STREP Secondary Diagnoses/Problems: Please refer to hospital course below. Procedures: CHEST ONE VIEW PORTABLE CLINICAL HISTORY: Cough. Shortness of breath. COMPARISON STUDY: Chest CT June 10, 2013 and chest radiograph July 26, 2017. 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 There is no pneumothorax or pleural effusion. There is no evidence of pulmonary edema. No lobar consolidation is present. Mild left basilar opacity has developed. IMPRESSION: Mild left basilar opacity. Atelectasis or epicardial fat pad is favored although minimal airspace disease could appear similar. ULTRASOUND R VENOUS DOPPLER UPR EXT UNILAT CLINICAL HISTORY: Right upper extremity edema. COMPARISON STUDY: No previous studies for comparison. FINDINGS: No intraluminal thrombus was visualized. The internal jugular, subclavian, axillary, cephalic, brachial, basilic, radial, and ulnar veins were patent. Note is made of right forearm subcutaneous edema. IMPRESSION: No evidence of right upper extremity DVT Consultations: Pulmonary, Cardiology, Ortho Pending Studies/Follow-Up: MONITOR VOLUME STATUS, LEG EDEMA AND TITRATE LASIX ACCORDINGLY. MONITOR RENAL FUNCTION (CREA) REGULARLY WHILE ON LASIX. (BASELINE CREA 1.5 TO 1.9). MONITOR INR DAILY AND TITRATE COUMADIN ACCORDINGLY. AFTER PREDNISONE 10MG PO DAILY, RESUME PATIENT'S USUAL PREDNISONE 5MG PO DAILY. PATIENT NEEDS CPAP AT HS. MONITOR RIGHT ARM/HAND HEMATOMA. PLEASE REFER TO ACCOMPANYING HOSPITAL DISCHARGE SUMMARY FOR FURTHER DETAILS. FOLLOW UP WITH PRIMARY CARE PHYSICIAN IN 1 WEEK. Speech Therapy Discharge Instructions * It is recommended that patient continues SLIPPERY regular diet. The patient should choose foods that are moist, loose, slippery; avoid foods that are doughy, dry, pasty, thick; use condiments liberally to make foods slippery. The patient should also comply with the following aspiration precautions: sit FULLY UPRIGHT for all meals and remain upright 20-30 minutes after eating a meal; take SMALL sips of liquids and use an effortful swallow with each swallow of liquids; swallow twice with each bite/sip. It is also recommended that the patient complete oral hygiene to minimize oral bacteria being aspirated in saliva/secretions/thin liquids. This includes cleaning ALL surfaces of mouth with toothbrush and toothpaste PRIOR TO oral intake in the morning, after meals, and before bed at night. Medication Reconciliation New Medications: Prednisone Tab (Prednisone) 10 Mg Tab 10 MG PO DAILY for 3 Days, #3 TAB Benzonatate (Benzonatate) 100 Mg Cap 100 MG PO TID PRN for cough for 7 Days Diltiazem HCl (Diltiazem Cd) 120 Mg Capcr 120 MG PO QAM for 30 Days Levalbuterol (Levalbuterol HCl) 0.63 Mg/3 Ml Nebu 0.63 MG INH TID for 7 Days Nystatin (Nystatin) 5 Ml Susp 5 ML PO QID for 3 Days Phenol (Chloraseptic) 360 Sprays/180 Ml Liqd 2 SPRAYS MT Q2H PRN for sorethroat for 7 Days [Brinzolamide-Brimonidine Tartr] () 1 DROP SUSP 1 DROP OPB BID for 30 Days Continued Medications: Albuterol Hfa (Ventolin Hfa) 200 Puffs/35836 Mcg Aers 2 PUFFS INH QID PRN for SOB/Wheezing, #1 INHALER Allopurinol (Zyloprim) 300 Mg Tab 1 TAB PO DAILY for 30 Days, #30 TAB 5 Refills Aspirin (Aspirin EC Low Dose) 81 Mg Ectab 81 MG PO DAILY Budesonide/Formoterol Fumarate (Symbicort 160/4.5 Inhaler ) Aero 2 PUFFS INH BID, 0 Refills Citalopram (Citalopram Hydrobromide) 20 Mg Tab 1 TAB PO DAILY Cyanocobalamin (Vitamin B12 500MCG) 500 Mcg Tab 500 MCG PO DAILY, TAB Furosemide (Furosemide) 40 Mg Tab 40 MG PO DAILY for 30 Days, #30 TAB 1 Refill Ipratropium-Albuterol (Duoneb) 3 Ml Nebu 3 ML INH QIDR PRN for SOB/Wheezing for 30 Days Latanoprost (Latanoprost) 37 Drops/2.5 Ml Soln 1 DROP OPB HS Levothyroxine Sodium (Synthroid) 75 Mcg Tab 75 MCG PO DAILY, TAB Montelukast Sodium (Singulair) 10 Mg Tab 10 MG PO DAILY Pramipexole Dihydrochloride (Mirapex) 0.25 Mg Tab 1 TAB PO HS for 90 Days, #90 TAB 1 Refill Tiotropium [place] (Spiriva Handihaler) 30 Puff/540 Mcg Aerp 1 CAP INH DAILY, INHALER Warfarin Sod (Coumadin) 2.5 Mg Tab 2.5 MG PO DAILY for 30 Days, #30 TAB (This prescription has been renewed) Discontinued Medications: Amlodipine Besylate (Amlodipine Besylate) 5 Mg Tab 5 MG PO QAM for 30 Days, #30 TAB 1 Refill Admission Information HPI (per Admitting provider): DATE OF ADMISSION: 07/26/2017 CHIEF COMPLAINT: Shortness of breath. HISTORY OF PRESENT ILLNESS: This is an 87-year-old male with past medical history significant for COPD severe, on chronic prednisone, not on home oxygen; history of diastolic CHF; paroxysmal atrial fibrillation, on Coumadin; chronic kidney disease stage III, hypothyroidism, depression, glaucoma, gout, obstructive sleep apnea, restless leg syndrome, anxiety; history of colon cancer resolved, who presents with shortness of breath. The patient was here in the hospital on July 07 and discharged on for COPD exacerbation. The patient says since he went home he was fine for couple of days, but again became shortness of breath started and is getting worse and he is coughing up greenish yellowish phlegm. In the last 5 days, he only slept 10 hours. Last night could not sleep because of cough he sat in a chair all night. Has some chills. Denies any fevers. Denies any chest pain. Walking in the hallway making him short of breath. Has headaches, some dizziness, some blurred vision. Has some runny nose. He notes he had chronic aspiration and aspirates once little bit once in a while, but nothing significant. No nausea, no vomiting, no abdominal pain. Normal bowel and bladder movements. No blood in the stools, no blood in the urine. He says once in a while he gets burning micturition. He has chronic lower extremity edema.Currently resting comfortably and hemodynamically stable and saturating fine on room air. He was supposed to see the pulmonary tomorrow, but because of his ongoing symptoms and his sleep disturbance, he came to the ER today. ALLERGIES: ERYTHROMYCIN; but tolerates azithromycin and clarithromycin, lisinopril. PAST MEDICAL HISTORY: As mentioned above. PAST SURGICAL HISTORY: Hernia repair, history of cardiac catheterization, history of colon resection, and status post total knee replacement. HOME MEDICATIONS: Allopurinol 100 mg p.o. daily, aspirin 81 mg p.o. daily, Symbicort 2 puffs inhalation b.i.d., citalopram 20 mg p.o. daily, allopurinol 300 mg p.o. daily, amlodipine 5 mg p.o. q.a.m., albuterol 2 puffs q.i.d. p.r.n., vitamin B12 500 mcg p.o. daily, Lasix 40 mg p.o. daily, DuoNebs 3 mL nebulization q.i.d. p.r.n., latanoprost 1 drop ophthalmic solution at bedtime, levothyroxine 75 mcg p.o. daily, Singulair 10 mg p.o. daily, Mirapex 0.25 mg p.o. at bedtime, Spiriva 1 cap inhalation daily, and Coumadin 2.5 mg p.o. daily. FAMILY HISTORY: Significant for father had CAD and brother CAD. SOCIAL HISTORY: Never smoked. Alcohol - none. No drug use. , lives with his . REVIEW OF SYMPTOMS: As per HPI. Rest of review of symptoms negative. Physical Exam (per Admitting): GENERAL: The patient is obese, not in distress. VITAL SIGNS: Temperature 37.2, pulse 97, respiratory rate 20, blood pressure 149/91, oxygen 92% room air. HEENT: No pallor, no icterus. Pupils equal, round, and react to light. NECK: No JVD, no neck masses, no carotid bruits. CARDIOVASCULAR: S1, S2 heard, regular rate and rhythm, no murmur, no gallop. RESPIRATORY SYSTEM: Normal AP diameter No accessory muscle use, bilateral rhonchi heard, occasional wheezing. ABDOMEN: Soft, bowel sounds present. Nontender. No distention. CENTRAL NERVOUS SYSTEM: Cranial nerves II-XII grossly intact. Nonfocal. EXTREMITIES: Lower extremity chronic edema present with chronic skin changes. Hospital Course 87 year old with COPD, Diastolic CHF, CKD 3, Chronic Lower Leg Edema... COPD EXACERBATION COMMUNITY ACQUIRED PNEUMONIA, MORAXELLA AND STREP was on iv steroids, nebs and antibiotics Pulmonary consulted -- completed 1 week course of Doxycycline PO and Augmentin -- continue Prednisone 10mg po daily x 3 days, then resume usual Prednisone 5mg po daily continue Nebs (patient on chronic Prednisone 5mg po daily) -- also on usual Spiriva, Symbicort NON SUSTAINED VENTRICULAR TACHYCARDIA -- likely from #1 -- Cardiology consulted, changed Norvasc to diltiazem stable since Diltiazem started ACUTE RENAL FAILURE ON CKD 3 Baseline creatinine around 1.5 to 1.9 On admission, crea 2.1 Lasix resumed Crea 1.8 monitor while on lasix HISTORY OF DIASTOLIC CHF Chronic lower extremity edema -- on Lasix -- monitor volume status and leg edema, and titrate lasix accordingly Right upper extremity edema more on right hand US: no DVT Ortho consulted elevate the hand, wrap mostly -hematoma -- improving, monitor Hyperkalemia, resolved mild k 5.2 -> 4.4 Hx of Aspergillus and GENESIS no need of tx at this time as per pulmonary History of paroxysmal atrial fibrillation, normal sinus rhythm on ekg -- on Diltiazem and coumadin INR 2.9 hold coumadin, repeat INR tomorrow YOCASTA cpap q hs. History of hypothyroidism. Continue Synthroid. History of gout. Continue allopurinol. History of depression and anxiety. Continue Celexa. Deep venous thrombosis prophylaxis, on Coumadin. INR 2.9 Code status. Do not resuscitate as per discussion with the patient and his . DISPOSITION: d/c to SNF today ff up with Primary Care Physician in 3-5 days Total time spent on discharge = 50 minutes This includes examination of the patient, discharge planning, medication reconciliation, and communication with other providers. Discharge Instructions Discharge Instructions Date of Service Aug 07, 2017. Admission Reason for Admission: Copd Exacerbation Discharge Discharge Diagnosis / Problem: COPD EXACERBATION SECONDARY TO PNEUMONIA Discharge Goals Goal(s): Diagnostic testing, Therapeutic intervention Activity Recommendations Activity Level: Assistance Required Therapies: Physical Therapy, Occupational Therapy . Additional Information Patient informed of condition: Yes Advance Directives: No (UNKNOWN) DNR: Yes Level of Care: Skilled Communicable Disease: No Prognosis: Improving Instructions / Follow-Up Instructions / Follow-Up MONITOR VOLUME STATUS, LEG EDEMA AND TITRATE LASIX ACCORDINGLY. MONITOR RENAL FUNCTION (CREA) REGULARLY WHILE ON LASIX. (BASELINE CREA 1.5 TO 1.9). MONITOR INR DAILY AND TITRATE COUMADIN ACCORDINGLY. AFTER PREDNISONE 10MG PO DAILY, RESUME PATIENT'S USUAL PREDNISONE 5MG PO DAILY. PATIENT NEEDS CPAP AT HS. MONITOR RIGHT ARM/HAND HEMATOMA. PLEASE REFER TO ACCOMPANYING HOSPITAL DISCHARGE SUMMARY FOR FURTHER DETAILS. FOLLOW UP WITH PRIMARY CARE PHYSICIAN IN 1 WEEK. Speech Therapy Discharge Instructions * It is recommended that patient continues SLIPPERY regular diet. The patient should choose foods that are moist, loose, slippery; avoid foods that are doughy, dry, pasty, thick; use condiments liberally to make foods slippery. The patient should also comply with the following aspiration precautions: sit FULLY UPRIGHT for all meals and remain upright 20-30 minutes after eating a meal; take SMALL sips of liquids and use an effortful swallow with each swallow of liquids; swallow twice with each bite/sip. It is also recommended that the patient complete oral hygiene to minimize oral bacteria being aspirated in saliva/secretions/thin liquids. This includes cleaning ALL surfaces of mouth with toothbrush and toothpaste PRIOR TO oral intake in the morning, after meals, and before bed at night. Current Hospital Diet Patient's current hospital diet: Low Sodium Diet (2gm Na) Discharge Diet Recommended Diet: AHA Diet (Heart Healthy) (SLIPPERY MOIST FOOD) Procedures Procedures Performed: CHEST XRAY, UPPER EXTREMITY US Pending Studies Studies pending at discharge: yes List of pending studies: PLEASE REFER TO INSTRUCTIONS ABOVE AND ACCOMPANYING DISCHARGE SUMMARY. Physician Orders On Transfer Special Precautions: MONITOR VOLUME STATUS, LEG EDEMA AND TITRATE LASIX ACCORDINGLY. MONITOR RENAL FUNCTION (CREA) REGULARLY WHILE ON LASIX. (BASELINE CREA 1.5 TO 1.9). MONITOR INR DAILY AND TITRATE COUMADIN ACCORDINGLY. AFTER PREDNISONE 10MG PO DAILY, RESUME PATIENT'S USUAL PREDNISONE 5MG PO DAILY. PATIENT NEEDS CPAP AT HS. MONITOR RIGHT ARM/HAND HEMATOMA. PLEASE REFER TO ACCOMPANYING HOSPITAL DISCHARGE SUMMARY FOR FURTHER DETAILS. FOLLOW UP WITH PRIMARY CARE PHYSICIAN IN 1 WEEK. Speech Therapy Discharge Instructions * It is recommended that patient continues SLIPPERY regular diet. The patient should choose foods that are moist, loose, slippery; avoid foods that are doughy, dry, pasty, thick; use condiments liberally to make foods slippery. The patient should also comply with the following aspiration precautions: sit FULLY UPRIGHT for all meals and remain upright 20-30 minutes after eating a meal; take SMALL sips of liquids and use an effortful swallow with each swallow of liquids; swallow twice with each bite/sip. It is also recommended that the patient complete oral hygiene to minimize oral bacteria being aspirated in saliva/secretions/thin liquids. This includes cleaning ALL surfaces of mouth with toothbrush and toothpaste PRIOR TO oral intake in the morning, after meals, and before bed at night. Medical Emergencies . Who to Call and When: Medical Emergencies: If at any time you feel your situation is an emergency, please call 911 immediately. . Non-Emergent Contact Non-Emergency issues call your: Primary Care Provider Call Non-Emergent contact if: you have a fever, your pain is not controlled, you have any medication questions . Past History Medical & Surgical History: (1) Elevated troponin (2) Acute kidney injury (3) COPD (chronic obstructive pulmonary disease) (4) Colon cancer (5) Glaucoma (6) YOCASTA (obstructive sleep apnea) (7) Diastolic congestive heart failure (8) COPD exacerbation (9) CKD (chronic kidney disease) stage 3, GFR 30-59 ml/min (10) Paroxysmal atrial fibrillation (11) Hypothyroidism (12) Gout (13) Restless leg syndrome (14) Anxiety (15) Depression (16) History of colon resection (17) H/O hernia repair (18) S/P TKR (total knee replacement) (19) History of cardiac cath . "Provider Documentation" section prepared by Walter Knox. . Core Measure Problem Core Measures: None
[2017-08-07 14:19] VITALS: PULSE 76; O2SAT 95
[2017-08-08] MEDS ORDERED: WARFARIN SOD 2.5 MG TAB PO SCH (16:00)
== END 2017-08-07 14:35 | DRG 190 ==
LOC: C.EDB 10:58 → C.2T 15:25 → INTOOBSV 15:25 → ENRESERV 15:41 → C.2T 07-27 06:09 → OBSVTOIN 07-30 17:24 → ENRESERV 08-02 16:55 → C.MS2W 08-02 17:22
PROVIDERS: ADMIT Internal Medicine; ATTEND Internal Medicine
DX: J44.1 Chronic obstructive pulmonary disease with (acute) exacerbation (principal); J15.4 Pneumonia due to other streptococci; I50.30 Unspecified diastolic (congestive) heart failure; J15.6 Pneumonia due to other Gram-negative bacteria; N18.3 Chronic kidney disease, stage 3 (moderate); J44.0 Chronic obstructive pulmonary disease with (acute) lower respiratory infection; Z85.038 Personal history of other malignant neoplasm of large intestine; H40.9 Unspecified glaucoma; T45.515A Adverse effect of anticoagulants, initial encounter; M1A.9XX0 Chronic gout, unspecified, without tophus (tophi); Z79.01 Long term (current) use of anticoagulants; Z79.52 Long term (current) use of systemic steroids; F41.9 Anxiety disorder, unspecified; F43.29 Adjustment disorder with other symptoms; I47.9 Paroxysmal tachycardia, unspecified; I48.0 Paroxysmal atrial fibrillation; G25.81 Restless legs syndrome; I11.0 Hypertensive heart disease with heart failure; M79.81 Nontraumatic hematoma of soft tissue; Y92.019 Unspecified place in single-family (private) house as the place of occurrence of the external cause; G47.33 Obstructive sleep apnea (adult) (pediatric); E87.5 Hyperkalemia; Z66 Do not resuscitate; Z96.659 Presence of unspecified artificial knee joint